=== PATIENT | female | born 1945 | race Caucasian/White ===

== ENCOUNTER 2016-07-21 15:23 | Emergency (ER) | payer MEDICARE, BC, OTHER ==
[~2016-07-21] VITALS: Ht 167.6 cm; Wt 119.0 kg
[~2016-07-21 15:23] MED LIST: AMLO5TAB2 PO; DOXY100T PO; DRIS50002 PO; ISOS30TA3 PO; LEVEMIR SQ; LYRI75CA PO; MECL-62 PO; NOVOLOGP2 SQ; ONDA1TAB17 PO; OXYGENTANK NAS.CANULA; PHOS667C5 PO; ROSU40 PO; SODI650T PO; ULTR50TA5 PO
[2016-07-21 15:29] VITALS: BP 73/47; PULSE 86; RESP 18; TEMP 98.3; O2SAT 100
--- NOTE | 2016-07-21 15:42 | PD ---
HPI Chief Complaint: Syncope/Near-Syncope Time Seen by Provider: 15:33 Travel History International Travel<30 days: No Contact w/Intl Traveler<30days: No Traveled to known affect area: No History of Present Illness HPI This is a 70-year-old female who presents to the emergency department having had dialysis this morning and then subsequently instead of going home going to her urologist appointment. When she got there she was lightheaded and dizzy and felt very weak and new she had to come to the emergency department. She says she usually gets lightheaded and dizzy after dialysis but usually she goes home and lays flat and within about an hour she feels better. They have a tendency to over dialyze her she says and this feels exactly like that. She says now she started to feel better. She denies any chest pains, shortness of breath, fever or chills and prior to today she's felt well. PFSH Past Medical History Arthritis: Yes Asthma: Yes Cancer: Yes (multiple myeloma) Cardiac Catheterization: Yes (2-3 MONTHS AGO) Cardiovascular Problems: Yes Chemotherapy: Yes Congestive Heart Failure: No COPD: Yes Cerebrovascular Accident: Yes Coronary Artery Disease: Yes Diabetes: Yes Dialysis: Yes Diminished Hearing: No Endocrine: Yes GERD: Yes Genitourinary: Yes (dialysis MWF) Hepatitis: No Hiatal Hernia: No Hypertension: Yes Immune Disorder: No Kidney Stones: Yes Musculoskeletal: Yes Neurologic: No Psychiatric: No Reproductive: No Respiratory: Yes Immunizations Current: No Migraines: No Radiation Therapy: No Renal Failure: Yes Seizures: No Sickle Cell Disease: No Sleep Apnea: Yes Thyroid Disease: Yes Ulcer: No ?: Not Menopausal: Yes Past Surgical History Abdominal Surgery: Yes (galstones & appendix removed) AICD: No Appendectomy: Yes Arteriovenous Shunt: Yes (right upper arm) Body Medical Devices: PINS JESSICA HIPS, DIALYSIS CATHETER Cardiac Surgery: No Cholecystectomy: Yes Ear Surgery: No Endocrine Surgery: Yes (thyroid removed) Eye Surgery: No Genitourinary Surgery: Yes (hysterectomy) Gynecologic Surgery: No Hysterectomy: Yes Insulin Pump: No Joint Replacement: Yes (both hips) Neurologic Surgery: Yes (herniated disk) Oral Surgery: No Pacemaker: No Thoracic Surgery: No Other Surgery: Yes (AV FISTULA R ARM) Social History Alcohol Use: No Tobacco Use: No (6 mths) Substance Use: No Allergies-Medications (Allergen,Severity, Reaction): Coded Allergies: Iodine (Verified Allergy, Severe, 07/21/16) Iohexol (OMNIPAQUE) (Verified Allergy, Severe, TONGUE AND GENERALIZED SWELLING, 07/21/16) Penicillin (Verified Allergy, Severe, TONGUE AND GENERALIZED SWELLING, 05/27) Sulfa (Unverified Allergy, Severe, TONGUE AND GENERALIZED SWELLING, ) Iodinated Contrast Media (Verified Allergy, Unknown, 07/21/16) *MDRO Multi-Drug Resistant Organism (Verified Adverse Reaction, Unknown, MRSA, 06/29/16) MRSA PCR (nares) POSITIVE - 10/31/15 MRSA (blood & sputum) - 10/31/15 ESBL Klebsiella Pneumoniae (urine-06/26/16) Reported Meds & Prescriptions Reported Meds & Active Scripts Active Oxygen tank (Oxygen) 1 Ea Tank 2 Liter MARCELO.CANULA HS Oxygen Concentrator Portable Gaseous 2 L/min via Nasal Cannula Continuous For 99 months Reported Acetaminophen 325 Mg Tab 325 Mg PO Q4-6H PRN Phoslo (Calcium Acetate (Phosphate Binder)) 667 Mg Cap 1,334 Mg PO TID Meclizine (Meclizine HCl) 25 Mg Tab 25 Mg PO Q6HR PRN Ondansetron (Ondansetron HCl) 8 Mg Tab 8 Mg PO BID PRN Isosorbide Mononitrate ER (Isosorbide Mononitrate) 30 Mg Manoj 30 Mg PO DAILY Sodium Bicarbonate 650 Mg Tab 650 Mg PO TID Amlodipine (Amlodipine Besylate) 5 Mg Tab 5 Mg PO DAILY Ultram (Tramadol HCl) 50 Mg Tab 50 Mg PO QID PRN Lyrica (Pregabalin) 75 Mg Cap 75 Mg PO QID Crestor (Rosuvastatin Calcium) 40 Mg Tab 40 Mg PO HS Levemir Inj (Insulin Detemir) 1,000 unit/ 10 ML Vial 44 Units SQ Q12HR Do not mix with any other Insulin. Novolog Inj (Insulin Aspart) 1,000 Unit/10 Ml Vial 0 SQ TIDAC Sliding Scale as directed. Review of Systems Except as stated in HPI: all other systems reviewed are Neg Physical Exam Narrative GENERAL: Morbidly obese, no acute distress SKIN: Warm and dry. HEAD: Atraumatic. Normocephalic. EYES: Pupils equal and round. No injection or drainage. ENT: Moist mucous membranes NECK: Trachea midline. CARDIOVASCULAR: Regular rate and rhythm. No murmur appreciated. Fistula right upper extremity. RESPIRATORY: Clear to auscultation. Breath sounds equal bilaterally. GASTROINTESTINAL: Abdomen soft, non-tender, nondistended. MUSCULOSKELETAL: No obvious deformities. NEUROLOGICAL: Awake and alert. No obvious cranial nerve deficits. Moving all extremities. PSYCHIATRIC: Appropriate mood and affect; insight and judgment normal. Data Data Last Documented VS Vital Signs Date Time Temp Pulse Resp B/P Pulse Ox O2 Delivery O2 Flow Rate FiO2 07/21/16 16:03 87 16 84/44 100 Nasal Cannula 2 07/21/16 15:29 98.3 Orders Complete Blood Count With Diff (07/21/16 15:38) Comprehensive Metabolic Panel (07/21/16 15:38) Electrocardiogram (07/21/16 ) Lactic Acid (07/21/16 15:38) Sodium Chlorid 0.9% 500 Ml Inj (Ns 500 M (07/21/16 15:45) Sodium Chlorid 0.9% 500 Ml Inj (Ns 500 M (07/21/16 17:15) Labs Laboratory Tests Test 07/21/16 16:15 White Blood Count 9.7 TH/MM3 Red Blood Count 3.61 MIL/MM3 Hemoglobin 10.4 GM/DL Hematocrit 31.2 % Mean Corpuscular Volume 86.2 FL Mean Corpuscular Hemoglobin 28.8 PG Mean Corpuscular Hemoglobin 33.4 % Concent Red Cell Distribution Width 15.1 % Platelet Count 255 TH/MM3 Mean Platelet Volume 8.6 FL Neutrophils (%) (Auto) 76.1 % Lymphocytes (%) (Auto) 15.9 % Monocytes (%) (Auto) 6.0 % Eosinophils (%) (Auto) 1.5 % Basophils (%) (Auto) 0.5 % Neutrophils # (Auto) 7.5 TH/MM3 Lymphocytes # (Auto) 1.5 TH/MM3 Monocytes # (Auto) 0.6 TH/MM3 Eosinophils # (Auto) 0.1 TH/MM3 Basophils # (Auto) 0.0 TH/MM3 CBC Comment DIFF FINAL Differential Comment Sodium Level 137 MEQ/L Potassium Level 4.2 MEQ/L Chloride Level 98 MEQ/L Carbon Dioxide Level 26.9 MEQ/L Anion Gap 12 MEQ/L Blood Urea Nitrogen 8 MG/DL Creatinine 2.00 MG/DL Estimat Glomerular Filtration 24 ML/MIN Rate Random Glucose 202 MG/DL Lactic Acid Level 2.8 mmol/L Calcium Level 8.6 MG/DL Total Bilirubin 0.3 MG/DL Aspartate Amino Transf 29 U/L (AST/SGOT) Alanine Aminotransferase 27 U/L (ALT/SGPT) Alkaline Phosphatase 102 U/L Total Protein 7.3 GM/DL Albumin 2.8 GM/DL MDM Medical Decision Making Medical Screen Exam Complete: Yes Emergency Medical Condition: Yes Interpretation(s) Afebrile, hypotensive, no tachycardia No leukocytosis Anemia consistent with prior GFR is 24 significantly improved from prior Lactic acid is 2.8 Differential Diagnosis Hypovolemia, sepsis, pericardial effusion Narrative Course This is a 70-year-old female who presents the emergency department with hypotension following dialysis. She says this is how she feels all the time after dialysis lately. She denies any fevers or chills and denies any other Acute complaints. She was given a liter of IV hydration and feels much better. Her blood pressure is now 100 systolic. Her lactic acid is slightly elevated but I think this reflects dehydration and she is afebrile and has no leukocytosis. She has no other signs of sepsis. Her GFR significantly improved since her last labs in our system. It's likely that she's getting over dialyzed and this is was causing her symptoms. I asked her to make an appointment with Dr. Vasquez. I think the patient can be discharged home. Diagnosis Primary Impression: Hypovolemia Patient Instructions: General Instructions Additional Instructions: If you develop severe chest pain, shortness of breath, sweating, lightheadedness , dizziness or difficulty breathing return to the emergency department immediately. Followup with your primary care physician in 2-3 days if your symptoms are not resolved. Med/Other Pt SpecificInfo: No Change to Meds Disposition: 01 DISCHARGE HOME Condition: Stable Ana Gerardo MD Jul 21, 2016 15:42
[2016-07-21] MEDS ORDERED: SODIUM CHLORID 0.9% 500 ML INJ 500 ML IV ONE ×2 (15:45→17:15)
[2016-07-21] MEDS ORDERED: ACET325T PO (15:46)
[2016-07-21 16:03] VITALS: BP 84/44; PULSE 87; RESP 16; O2SAT 100
[2016-07-21 16:29] LABS: AUTOMATED NEUTROPHIL # 7.5 TH/MM3 (1.8-7.7); BASOPHIL % 0.5 % (0.0-2.0); EOSINOPHIL # 0.1 TH/MM3 (0-0.4); EOSINOPHIL % 1.5 % (0.0-4.0); HEMATOCRIT 31.2 % (35.0-46.0); HEMO FLAGS DIFF FINAL; LYMPH % 15.9 % (9.0-44.0); LYMPHOCYTE # 1.5 TH/MM3 (1.0-4.8); MEAN CELL VOLUME 86.2 FL (80.0-100.0); MEAN CORPUSCULAR HEMOGLOBIN 28.8 PG (27.0-34.0); MEAN CORPUSCULAR HGB CONC 33.4 % (32.0-36.0); NEUT % 76.1 % (16.0-70.0); PLATELET COUNT 255 TH/MM3 (150-450); RED BLOOD COUNT 3.61 MIL/MM3 (4.00-5.30); RED CELL DISTRIBUTION WIDTH 15.1 % (11.6-17.2); WHITE BLOOD COUNT 9.7 TH/MM3 (4.0-11.0)
[2016-07-21 16:35] LABS: CHLORIDE 98 MEQ/L (98-107); POTASSIUM 4.2 MEQ/L (3.5-5.1); SODIUM (NA) 137 MEQ/L (136-145)
[2016-07-21 16:39] LABS: ANION GAP 12 MEQ/L (5-15); BICARBONATE 26.9 MEQ/L (21.0-32.0); BLOOD UREA NITROGEN 8 MG/DL (7-18)
[2016-07-21 16:42] LABS: ALT (GPT) 27 U/L (10-53); AST (GOT) 29 U/L (15-37); GLOMERULAR FILTRATION RATE 24 ML/MIN (>89)
[2016-07-21 16:43] LABS: TOTAL BILIRUBIN ADULT 0.3 MG/DL (0.2-1.0)
[2016-07-21 16:45] LABS: ALKALINE PHOSPHATASE 102 U/L (45-117)
[2016-07-21 17:30] VITALS: BP 119/51; PULSE 87; RESP 16; O2SAT 100
--- NOTE | 2016-07-22 10:48 | EKG ---
Date Performed: 07/21/2016 Time Performed: 15:38:38 PTAGE: 70 years EKG: Sinus rhythm Normal ECG PREVIOUS TRACING : 03/08/2016 19.14 Compared to prior tracing no significant change DOCTOR: Carson Louis Interpretating Date/Time 07/22/2016 10:47:04
== END 2016-07-21 18:26 | disposition home or self-care (01) ==
LOC: PHED 15:23
DX: E86.1 Hypovolemia (principal)
CPT/HCPCS: 80053; 83605; 85025; 93005; 96360; 96361; 99285; J7040

== ENCOUNTER 2016-12-22 13:18 | Observation (INO) | payer MEDICARE, BC ==
[~2016-12-22] VITALS: Ht 167.6 cm; Wt 120.0 kg
[~2016-12-22 13:18] MED LIST changes: +ACET325T PO; -DOXY100T PO; -DRIS50002 PO
[2016-12-22] MEDS ORDERED: SODIUM CHLORIDE 0.9% FLUSH 10 ML FLUSH IVF PRN (13:45)
--- NOTE | 2016-12-22 13:54 | PD ---
HPI Chief Complaint: Chest Pain Time Seen by Provider: 13:23 Travel History International Travel<30 days: No Contact w/Intl Traveler<30days: No Traveled to known affect area: No History of Present Illness HPI Patient 71-year-old female history of end-stage renal disease secondary to diabetes on Tuesday dialysis possesses the emergency department chest pain radiating to her neck company was some mild shortness of breath. Patient has had similar presentations in the past diagnosed with atypical chest pain sent home, she had a cardiac catheterization and 2014 which showed diffuse disease of the LAD with worst and on a lesion at 20%, she states that she was about an hour and a half in the dialysis today when she had chest pain and then the dialysis was stopped. Patient states happened to her one time in the past. She does not currently have a range operator. States his symptoms are starting to alleviate now. EMS reports they did give her nitroglycerin in route but this relieved her chest pain but also dropped her pressure down to 80 systolic by time she arrived here her pressure returned to normal. She denies any focalized weakness denies any extremity pain abdominal pain nausea vomiting. PFSH Past Medical History Arthritis: Yes Asthma: Yes Cancer: Yes (multiple myeloma) Cardiac Catheterization: Yes Cardiovascular Problems: Yes (HTN ) Chemotherapy: Yes (MULTIPLE MYLEOMA ) Chest Pain: Yes (THIS VISIT) Congestive Heart Failure: No COPD: Yes Cerebrovascular Accident: Yes Coronary Artery Disease: Yes Diabetes: Yes Patient Takes Glucophage: No Dialysis: Yes Diminished Hearing: No Endocrine: Yes GERD: Yes Genitourinary: Yes (dialysis MWF) Hepatitis: No Hiatal Hernia: No Hypertension: Yes Immune Disorder: No Kidney Stones: Yes Medical other: Yes (BILATERAL LEG EDEMA) Musculoskeletal: Yes Neurologic: No Psychiatric: No Reproductive: No Respiratory: Yes (COPD) Immunizations Current: No Migraines: No Radiation Therapy: No Renal Failure: Yes Seizures: No Sickle Cell Disease: No Sleep Apnea: Yes Thyroid Disease: Yes Ulcer: No Tetanus Vaccination: Unknown ?: Not Menopausal: Yes Past Surgical History Abdominal Surgery: Yes (galstones & appendix removed) AICD: No Appendectomy: Yes Arteriovenous Shunt: Yes (right upper arm) Body Medical Devices: PINS JESSICA HIPS, DIALYSIS CATHETER Cardiac Surgery: No Cholecystectomy: Yes Ear Surgery: No Endocrine Surgery: Yes (thyroid removed) Eye Surgery: No Genitourinary Surgery: Yes (hysterectomy) Gynecologic Surgery: No Hysterectomy: Yes Insulin Pump: No Joint Replacement: Yes (both hips) Neurologic Surgery: Yes (herniated disk) Oral Surgery: No Pacemaker: No Thoracic Surgery: No Other Surgery: Yes (AV FISTULA R ARM) Social History Alcohol Use: No Tobacco Use: No (QUIT 8 MONTHS (STATED 07/21/16)) Substance Use: No Allergies-Medications (Allergen,Severity, Reaction): Coded Allergies: Iodine (Verified Allergy, Severe, 07/21/16) Iohexol (OMNIPAQUE) (Verified Allergy, Severe, TONGUE AND GENERALIZED SWELLING, 07/21/16) Penicillin (Verified Allergy, Severe, TONGUE AND GENERALIZED SWELLING, 05/27) Sulfa (Unverified Allergy, Severe, TONGUE AND GENERALIZED SWELLING, ) Iodinated Contrast Media (Verified Allergy, Unknown, 07/21/16) *MDRO Multi-Drug Resistant Organism (Verified Adverse Reaction, Unknown, MRSA, 06/29/16) MRSA PCR (nares) POSITIVE - 10/31/15 MRSA (blood & sputum) - 10/31/15 ESBL Klebsiella Pneumoniae (urine-06/26/16) Reported Meds & Prescriptions Reported Meds & Active Scripts Active Oxygen tank (Oxygen) 1 Ea Tank 2 Liter MARCELO.CANULA HS Oxygen Concentrator Portable Gaseous 2 L/min via Nasal Cannula Continuous For 99 months Reported Acetaminophen 325 Mg Tab 325 Mg PO Q4-6H PRN Phoslo (Calcium Acetate (Phosphate Binder)) 667 Mg Cap 1,334 Mg PO TID Meclizine (Meclizine HCl) 25 Mg Tab 25 Mg PO Q6HR PRN Ondansetron (Ondansetron HCl) 8 Mg Tab 8 Mg PO BID PRN Isosorbide Mononitrate ER (Isosorbide Mononitrate) 30 Mg Manoj 30 Mg PO DAILY Sodium Bicarbonate 650 Mg Tab 650 Mg PO TID Amlodipine (Amlodipine Besylate) 5 Mg Tab 5 Mg PO DAILY Ultram (Tramadol HCl) 50 Mg Tab 50 Mg PO QID PRN Lyrica (Pregabalin) 75 Mg Cap 75 Mg PO QID Crestor (Rosuvastatin Calcium) 40 Mg Tab 40 Mg PO HS Levemir Inj (Insulin Detemir) 1,000 unit/ 10 ML Vial 44 Units SQ Q12HR Do not mix with any other Insulin. Novolog Inj (Insulin Aspart) 1,000 Unit/10 Ml Vial 0 SQ TIDAC Sliding Scale as directed. Review of Systems Except as stated in HPI: all other systems reviewed are Neg Physical Exam Narrative GENERAL: Well-developed morbidly obese no apparent distress. SKIN: Focused skin assessment warm/dry. HEAD: Atraumatic. Normocephalic. EYES: Pupils equal and round. No scleral icterus. No injection or drainage. ENT: No nasal bleeding or discharge. Mucous membranes pink and moist. NECK: Trachea midline. No JVD. CARDIOVASCULAR: Left AV fistula with palpable thrill, 2+ bilateral equal pulses in all 4 extremity's. Regular rate and rhythm. No murmur appreciated. RESPIRATORY: No accessory muscle use. Clear to auscultation. Breath sounds equal bilaterally. GASTROINTESTINAL: Abdomen soft, non-tender, nondistended. Hepatic and splenic margins not palpable. MUSCULOSKELETAL: No obvious deformities. No clubbing. No cyanosis. No edema. NEUROLOGICAL: Awake and alert. No obvious cranial nerve deficits. Motor grossly within normal limits. Normal speech. PSYCHIATRIC: Appropriate mood and affect; insight and judgment normal. Data Data Last Documented VS Vital Signs Date Time Temp Pulse Resp B/P Pulse Ox O2 Delivery O2 Flow Rate FiO2 12/22/16 14:02 97.8 95 20 123/58 100 Nasal Cannula 3 Orders Electrocardiogram (12/22/16 13:35) Ckmb (Isoenzyme) Profile (12/22/16 13:35) Complete Blood Count With Diff (12/22/16 13:35) Comprehensive Metabolic Panel (12/22/16 13:35) Magnesium (Mg) (12/22/16 13:35) Prothrombin Time / Inr (Pt) (12/22/16 13:35) Act Partial Throm Time (Ptt) (12/22/16 13:35) Troponin I (12/22/16 13:35) Chest, Single Ap (12/22/16 13:35) Ecg Monitoring (12/22/16 13:35) Iv Access Insert/Monitor (12/22/16 13:35) Oximetry (12/22/16 13:35) Oxygen Administration (12/22/16 13:35) Sodium Chloride 0.9% Flush (Ns Flush) (12/22/16 13:45) Urinalysis - C+S If Indicated (12/22/16 14:50) Diet 1800 Ada Cons Carb (12/22/16 Dinner) Diet Heart Healthy (12/22/16 Dinner) Vital Signs (Adult) STELLA.Q4H (12/22/16 15:22) Blood Glucose Goal (Criteria) (12/22/16 15:22) Hypoglycemia 70 Mg/Dl Or < (12/22/16 15:22) Notify Dr: Other (12/22/16 15:22) Dextrose 50% In Bhargav (Vial) Inj (D50w (Vi (12/22/16 15:30) Glucagon Inj (Glucagon Inj) (12/22/16 15:30) Insulin Aspart Supplemtl Scale (Novolog (12/22/16 16:00) Troponin I (12/22/16 20:00) Troponin I (12/23/16 02:00) Consult Nephrology (12/22/16 ) Admit Order (Ed Use Only) (12/22/16 ) Labs Laboratory Tests Test 12/22/16 13:50 White Blood Count 13.8 TH/MM3 Red Blood Count 3.54 MIL/MM3 Hemoglobin 10.2 GM/DL Hematocrit 30.8 % Mean Corpuscular Volume 87.1 FL Mean Corpuscular Hemoglobin 28.8 PG Mean Corpuscular Hemoglobin 33.1 % Concent Red Cell Distribution Width 14.7 % Platelet Count 292 TH/MM3 Mean Platelet Volume 9.5 FL Neutrophils (%) (Auto) 81.3 % Lymphocytes (%) (Auto) 14.4 % Monocytes (%) (Auto) 3.9 % Eosinophils (%) (Auto) 0.1 % Basophils (%) (Auto) 0.3 % Neutrophils # (Auto) 11.2 TH/MM3 Lymphocytes # (Auto) 2.0 TH/MM3 Monocytes # (Auto) 0.5 TH/MM3 Eosinophils # (Auto) 0.0 TH/MM3 Basophils # (Auto) 0.0 TH/MM3 CBC Comment DIFF FINAL Differential Comment Prothrombin Time 10.6 SEC Prothromb Time International 1.0 RATIO Ratio Activated Partial 27.5 SEC Thromboplast Time Sodium Level 139 MEQ/L Potassium Level 4.2 MEQ/L Chloride Level 102 MEQ/L Carbon Dioxide Level 28.1 MEQ/L Anion Gap 9 MEQ/L Blood Urea Nitrogen 24 MG/DL Creatinine 4.22 MG/DL Estimat Glomerular Filtration 10 ML/MIN Rate Random Glucose 194 MG/DL Calcium Level 8.9 MG/DL Magnesium Level 2.2 MG/DL Total Bilirubin 0.2 MG/DL Aspartate Amino Transf 22 U/L (AST/SGOT) Alanine Aminotransferase 33 U/L (ALT/SGPT) Alkaline Phosphatase 110 U/L Total Creatine Kinase 51 U/L Troponin I LESS THAN 0.02 NG/ML Total Protein 7.7 GM/DL Albumin 3.1 GM/DL MDM Medical Decision Making Medical Screen Exam Complete: Yes Emergency Medical Condition: Yes Interpretation(s) EKG shows normal sinus rhythm, normal axis and normal R-wave progression. No concerning ST T changes. Intervals within normal limits. This is normal EKG. Differential Diagnosis ACS, AMI, PE seems unlikely, pneumonia, electrolyte abnormality. Narrative Course 71-year-old female roomed in the emergency department, chest pain-free on arrival, initial EKG and troponin are negative, chest x-ray negative. Given that she is a dialysis patient and is reasonable to admit for observation for her chest pain and further workup. The patient was discussed with Dr. Lewis who is agreeable. Diagnosis Primary Impression: Chest pain Qualified Code: R07.9 - Chest pain, unspecified type Admitting Information Admitting Physician Requests: Observation Condition: Stable Dimas Millan MD Dec 22, 2016 13:53
[2016-12-22 14:02] VITALS: BP 123/58; PULSE 95; RESP 20; TEMP 97.8; O2SAT 100
[2016-12-22 14:02] LABS: AUTOMATED NEUTROPHIL # 11.2 TH/MM3 (1.8-7.7); BASOPHIL % 0.3 % (0.0-2.0); EOSINOPHIL % 0.1 % (0.0-4.0); HEMATOCRIT 30.8 % (35.0-46.0); HEMO FLAGS DIFF FINAL; LYMPH % 14.4 % (9.0-44.0); MEAN CELL VOLUME 87.1 FL (80.0-100.0); MEAN CORPUSCULAR HEMOGLOBIN 28.8 PG (27.0-34.0); MEAN CORPUSCULAR HGB CONC 33.1 % (32.0-36.0); MONO % 3.9 % (0.0-8.0); NEUT % 81.3 % (16.0-70.0); PLATELET COUNT 292 TH/MM3 (150-450); RED BLOOD COUNT 3.54 MIL/MM3 (4.00-5.30); RED CELL DISTRIBUTION WIDTH 14.7 % (11.6-17.2); WHITE BLOOD COUNT 13.8 TH/MM3 (4.0-11.0)
[2016-12-22 14:14] LABS: APTT (PATIENT) 27.5 SEC (24.3-30.1); PROTHROMBIN TIME - PATIENT 10.6 SEC (9.8-11.6)
[2016-12-22 14:25] LABS: ALT (GPT) 33 U/L (10-53); ANION GAP 9 MEQ/L (5-15); AST (GOT) 22 U/L (15-37); BICARBONATE 28.1 MEQ/L (21.0-32.0); BLOOD UREA NITROGEN 24 MG/DL (7-18); CHLORIDE 102 MEQ/L (98-107); GLOMERULAR FILTRATION RATE 10 ML/MIN (>89); MAGNESIUM 2.2 MG/DL (1.5-2.5); POTASSIUM 4.2 MEQ/L (3.5-5.1); SODIUM (NA) 139 MEQ/L (136-145)
[2016-12-22 14:29] LABS: ALKALINE PHOSPHATASE 110 U/L (45-117); TOTAL BILIRUBIN ADULT 0.2 MG/DL (0.2-1.0)
[2016-12-22 14:30] LABS: CREATINE KINASE 51 U/L (26-192)
--- NOTE | 2016-12-22 14:31 | RADRPT ---
EXAM DATE/TIME: 12/22/2016 13:46 [facility] COMPARISON: CHEST SINGLE AP, March 08, 2016, 17:58. INDICATIONS : Chest pain today. MEDICAL HISTORY : Hypertension. Chronic obstructive pulmonary disease. Diabetes mellitus type II. CVA. Coronary art veda disease. Asthma. Renal disease. Renal failure. Multiple myeloma. SURGICAL HISTORY : Appendectomy. Cholecystectomy. Cardiac cath. ENCOUNTER: Initial ACUITY: 1 day PAIN SCORE: 10/10 LOCATION: Bilateral chest FINDINGS: Redemonstration of elevation the right hemidiaphragm similar to previous exams. No significant new pl eural or parenchymal opacities. Cardiomediastinal contours are stable. The remainder of the exam is u nchanged. CONCLUSION: 1. No acute abnormality or significant interval change. Yvan Dorman MD on December 22, 2016 at 14:27 Board Certified Radiologist. This report was verified electronically.
[2016-12-22] MEDS ORDERED: GLUCAGON 1 MG/ML VIAL OTHER PRN (15:30)
[2016-12-22] MEDS ORDERED: DEXTROSE 50% IN WATER 50 ML VIAL(D50) IV PRN (15:30)
[2016-12-22 16:09] VITALS: BP 119/55; PULSE 102; RESP 20; O2SAT 95
--- NOTE | 2016-12-22 16:30 | PD.CONS ---
HPI Consult Requested By Reason for Consult End-stage renal disease Primary Care Physician Jas Freitas MD History of Present Illness 71-year-old female with a history of end-stage renal disease, diabetes mellitus , recurrent UTIs as well as COPD presenting with a history of chest pain during dialysis. She also indicated she has been having blood in the stool and urine for the last several days. She does have a history of previous UTIs related to organisms multidrug resistant. She is scheduled to see urology by history. When seen in the emergency room was chest pain-free. Review of Systems Constitutional: COMPLAINS OF: Fatigue, DENIES: Diaphoretic episodes, Fever, Weight gain, Weight loss, Chills, Dizziness, Change in appetite, Night Sweats Cardiovascular: COMPLAINS OF: Chest pain, DENIES: Palpitations, Syncope, Dyspnea on Exertion, PND, Lower Extremity Edema, Orthopnea, Claudication Gastrointestinal: COMPLAINS OF: Bloody stools, DENIES: Abdominal pain, Black stools, Constipation, Diarrhea, Nausea, Vomiting, Difficulty Swallowing, Anorexia Genitourinary: COMPLAINS OF: Hematuria, DENIES: Abnormal vaginal bleeding, Dysmenorrhea, Dyspareunia, Sexual dysfunction, Urinary frequency, Urinary incontinence, Urgency, Dysuria, Nocturia, Vaginal discharge Musculoskeletal: COMPLAINS OF: Joint pain, DENIES: Muscle aches, Stiffness, Joint Swelling, Back pain, Neck pain Past Family Social History Allergies: Coded Allergies: Iodine (Verified Allergy, Severe, 07/21/16) Iohexol (OMNIPAQUE) (Verified Allergy, Severe, TONGUE AND GENERALIZED SWELLING, 07/21/16) Penicillin (Verified Allergy, Severe, TONGUE AND GENERALIZED SWELLING, 05/27) Sulfa (Unverified Allergy, Severe, TONGUE AND GENERALIZED SWELLING, ) Iodinated Contrast Media (Verified Allergy, Unknown, 07/21/16) *MDRO Multi-Drug Resistant Organism (Verified Adverse Reaction, Unknown, MRSA, 06/29/16) MRSA PCR (nares) POSITIVE - 10/31/15 MRSA (blood & sputum) - 10/31/15 ESBL Klebsiella Pneumoniae (urine-06/26/16) Past Medical History 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 Degenerative joint disease. Asthma. Multiple myeloma? COPD. Coronary disease. Diabetes mellitus. Gastroesophageal reflux disease. Hypertension. Sleep apnea. Anemia renal disease. Obesity. Past Surgical History Appendectomy. Cholecystectomy. Placement of a right upper extremity brachiocephalic AV dialysis fistula. Reported Medications Reported Meds & Active Scripts Active Oxygen tank (Oxygen) 1 Ea Tank 2 Liter MARCELO.CANULA HS Oxygen Concentrator Portable Gaseous 2 L/min via Nasal Cannula Continuous For 99 months Reported Acetaminophen 325 Mg Tab 325 Mg PO Q4-6H PRN Phoslo (Calcium Acetate (Phosphate Binder)) 667 Mg Cap 1,334 Mg PO TID Meclizine (Meclizine HCl) 25 Mg Tab 25 Mg PO Q6HR PRN Ondansetron (Ondansetron HCl) 8 Mg Tab 8 Mg PO BID PRN Isosorbide Mononitrate ER (Isosorbide Mononitrate) 30 Mg Manoj 30 Mg PO DAILY Sodium Bicarbonate 650 Mg Tab 650 Mg PO TID Amlodipine (Amlodipine Besylate) 5 Mg Tab 5 Mg PO DAILY Ultram (Tramadol HCl) 50 Mg Tab 50 Mg PO QID PRN Lyrica (Pregabalin) 75 Mg Cap 75 Mg PO QID Crestor (Rosuvastatin Calcium) 40 Mg Tab 40 Mg PO HS Levemir Inj (Insulin Detemir) 1,000 unit/ 10 ML Vial 44 Units SQ Q12HR Do not mix with any other Insulin. Novolog Inj (Insulin Aspart) 1,000 Unit/10 Ml Vial 0 SQ TIDAC Sliding Scale as directed. Active Ordered Medications Current Medications Sodium Chloride (NS Flush) 2 ml UNSCH PRN IVF FLUSH AFTER USING IV ACCESS; Start 12/22/16 at 13:45 Dextrose (D50w (Vial) Inj) 50 ml UNSCH PRN IV HYPOGLYCEMIA-SEE COMMENTS; Start 12/22/16 at 15:30 Glucagon (Glucagon Inj) 1 mg UNSCH PRN OTHER HYPOGLYCEMIA-SEE COMMENTS; Start 12/22/16 at 15:30 Insulin Aspart (NovoLOG SUPPLEMENTAL SCALE) 1 ACHS SLIDING SCALE SQ ; Start at 16:00 Social History No current history of alcohol tobacco use. Physical Exam Vital Signs Vital Signs Date Time Temp Pulse Resp B/P Pulse Ox O2 Delivery O2 Flow Rate FiO2 12/22/16 16:09 102 20 119/55 95 Nasal Cannula 3 12/22/16 14:02 97.8 95 20 123/58 100 Nasal Cannula 3 12/22/16 13:48 93 Nasal Cannula 3 12/22/16 13:36 20 96 Nasal Cannula 3 Physical Exam GENERAL: Obese female not in respiratory distress. SKIN: Warm and dry. HEAD: Normocephalic. EYES: No scleral icterus. No injection or drainage. NECK: Supple, trachea midline. No JVD or lymphadenopathy. CARDIOVASCULAR: Regular rate and rhythm without murmurs, gallops, or rubs. RESPIRATORY: Breath sounds equal bilaterally. No accessory muscle use. GASTROINTESTINAL: Abdomen soft, non-tender, nondistended. MUSCULOSKELETAL: No cyanosis, or edema. BACK: Nontender without obvious deformity. No CVA tenderness. Laboratory Laboratory Tests Test 12/22/16 13:50 White Blood Count 13.8 Red Blood Count 3.54 Hemoglobin 10.2 Hematocrit 30.8 Mean Corpuscular Volume 87.1 Mean Corpuscular Hemoglobin 28.8 Mean Corpuscular Hemoglobin 33.1 Concent Red Cell Distribution Width 14.7 Platelet Count 292 Mean Platelet Volume 9.5 Neutrophils (%) (Auto) 81.3 Lymphocytes (%) (Auto) 14.4 Monocytes (%) (Auto) 3.9 Eosinophils (%) (Auto) 0.1 Basophils (%) (Auto) 0.3 Neutrophils # (Auto) 11.2 Lymphocytes # (Auto) 2.0 Monocytes # (Auto) 0.5 Eosinophils # (Auto) 0.0 Basophils # (Auto) 0.0 CBC Comment DIFF FINAL Differential Comment Prothrombin Time 10.6 Prothromb Time International 1.0 Ratio Activated Partial 27.5 Thromboplast Time Sodium Level 139 Potassium Level 4.2 Chloride Level 102 Carbon Dioxide Level 28.1 Anion Gap 9 Blood Urea Nitrogen 24 Creatinine 4.22 Estimat Glomerular Filtration 10 Rate Random Glucose 194 Calcium Level 8.9 Magnesium Level 2.2 Total Bilirubin 0.2 Aspartate Amino Transf 22 (AST/SGOT) Alanine Aminotransferase 33 (ALT/SGPT) Alkaline Phosphatase 110 Total Creatine Kinase 51 Troponin I LESS THAN 0.02 Total Protein 7.7 Albumin 3.1 Result Diagram: 12/22/16 1350 12/22/16 1350 Imaging Last 48 hours Impressions Chest X-Ray 12/22/16 1335 Signed Impressions: Service Date/Time: Thursday, December 22, 2016 13:46 - CONCLUSION: 1. No acute abnormality or significant interval change. Yvan Dorman MD Assessment and Plan Problem List: (1) ESRD (end stage renal disease) on dialysis Plan: Patient did not complete her hemodialysis today however volume status appears to be stable. We'll recheck labs in a.m. and proceed with dialysis if indicated. Avoid gadolinium. (2) Hyperparathyroidism, secondary renal (3) Chest pain Plan: Evaluation per primary care physician. (4) Rectal bleeding Plan: Check stool for occult blood. (5) Hematuria Plan: Patient has had recurrent UTIs. Will check urine culture microscopy. Consider urological consultation. Manny Vasquez MD Dec 22, 2016 16:30
[2016-12-22] MEDS ORDERED: MECLIZINE HCL 25 MG TAB PO PRN (16:45)
--- NOTE | 2016-12-22 16:50 | HHI.HP ---
[facility] Service [facility] Primary Care Physician Jas Freitas MD Admission Diagnosis Chest Pain Diagnoses: (1) Chest pain Diagnosis: Principal Chief Complaint: chest pain Travel History International Travel<30 Days: No Contact w/Intl Traveler <30 Da: No Traveled to Known Affected Are: No History of Present Illness patient is a 71 y/o female with history of ESRD-on HD, COPD, diabetes and hypertension who presented to ER with chest pain. she says that she was in the middle of her dialysis today when she started to have chest pain. pain was midsternal with some radiation to the jaws and neck. pain was associated with some dizziness and nausea. she says that she was given nitro on her way to ER which helped her with the pain to some extent.she says that she's being followed up by . she cardiac catheterization in 2014 which showed nonobstructive coronary artery disease. she says that she couldn't finish her dialysis due to chest pain. Review of Systems Constitutional: COMPLAINS OF: Dizziness, DENIES: Fever, Weight loss, Chills, Night Sweats Eyes: DENIES: Blurred vision, Diplopia, Vision loss, Double Vision Ears, nose, mouth, throat: DENIES: Tinnitus, Vertigo, Throat pain, Epistaxis Respiratory: DENIES: Apneas, Cough, Snoring, Wheezing, Hemoptysis, Sputum production, Shortness of breath Cardiovascular: COMPLAINS OF: Chest pain, DENIES: Palpitations, Syncope, Dyspnea on Exertion, PND, Lower Extremity Edema, Orthopnea, Claudication Gastrointestinal: COMPLAINS OF: Nausea, DENIES: Abdominal pain, Black stools, Bloody stools, Constipation, Diarrhea, Vomiting, Difficulty Swallowing, Anorexia Genitourinary: DENIES: Urinary frequency, Urgency, Hematuria, Dysuria Musculoskeletal: DENIES: Joint pain, Muscle aches, Stiffness, Joint Swelling Integumentary: DENIES: Rash Neurologic: DENIES: Abnormal gait, Headache, Localized weakness, Paresthesias, Seizures, Speech Problems, Tremor, Poor Balance Psychiatric: DENIES: Anxiety, Confusion, Mood changes, Depression, Hallucinations, Agitation, Suicidal Ideation, Homicidal Ideation, Delusions Past Family Social History Past Medical History ESRD diabetes mellitus hypertension COPD Past Surgical History AV graft placement Reported Medications rosuvastatin isosorbide amlodipine phos-lo levemir Allergies: Coded Allergies: Iodine (Verified Allergy, Severe, 07/21/16) Iohexol (OMNIPAQUE) (Verified Allergy, Severe, TONGUE AND GENERALIZED SWELLING, 07/21/16) Penicillin (Verified Allergy, Severe, TONGUE AND GENERALIZED SWELLING, 05/27) Sulfa (Unverified Allergy, Severe, TONGUE AND GENERALIZED SWELLING, ) Iodinated Contrast Media (Verified Allergy, Unknown, 07/21/16) *MDRO Multi-Drug Resistant Organism (Verified Adverse Reaction, Unknown, MRSA, 06/29/16) MRSA PCR (nares) POSITIVE - 10/31/15 MRSA (blood & sputum) - 10/31/15 ESBL Klebsiella Pneumoniae (urine-06/26/16) Active Ordered Medications Current Medications Sodium Chloride (NS Flush) 2 ml UNSCH PRN IVF FLUSH AFTER USING IV ACCESS; Start 12/22/16 at 13:45 Dextrose (D50w (Vial) Inj) 50 ml UNSCH PRN IV HYPOGLYCEMIA-SEE COMMENTS; Start 12/22/16 at 15:30 Glucagon (Glucagon Inj) 1 mg UNSCH PRN OTHER HYPOGLYCEMIA-SEE COMMENTS; Start 12/22/16 at 15:30 Insulin Aspart (NovoLOG SUPPLEMENTAL SCALE) 1 ACHS SLIDING SCALE SQ ; Start at 16:00 Social History quit smoking. Physical Exam Vital Signs Vital Signs Date Time Temp Pulse Resp B/P Pulse Ox O2 Delivery O2 Flow Rate FiO2 12/22/16 16:09 102 20 119/55 95 Nasal Cannula 3 12/22/16 14:02 97.8 95 20 123/58 100 Nasal Cannula 3 12/22/16 13:48 93 Nasal Cannula 3 12/22/16 13:36 20 96 Nasal Cannula 3 Physical Exam GENERAL: This is a well-nourished, well-developed patient, in no apparent distress. SKIN: No rashes, ecchymoses or lesions. Cool and dry. HEAD: Atraumatic. Normocephalic. No temporal or scalp tenderness. EYES: Pupils equal round and reactive. Extraocular motions intact. No scleral icterus. No injection or drainage. ENT: Nose without bleeding, purulent drainage or septal hematoma. Throat without erythema, tonsillar hypertrophy or exudate. Uvula midline. Airway patent. NECK: Trachea midline. No JVD or lymphadenopathy. Supple, nontender, no meningeal signs. CARDIOVASCULAR: Regular rate and rhythm without murmurs, gallops, or rubs. RESPIRATORY: Clear to auscultation. Breath sounds equal bilaterally. No wheezes , rales, or rhonchi. GASTROINTESTINAL: Abdomen soft, non-tender, nondistended. No hepato-splenomegaly , or palpable masses. No guarding. MUSCULOSKELETAL: Extremities without clubbing, cyanosis, or edema. No joint tenderness, effusion, or edema noted. No calf tenderness. Negative Homans sign bilaterally. NEUROLOGICAL: Awake and alert. Cranial nerves II through XII intact. Motor and sensory grossly within normal limits. Five out of 5 muscle strength in all muscle groups. Normal speech. Laboratory Laboratory Tests Test 12/22/16 13:50 White Blood Count 13.8 Red Blood Count 3.54 Hemoglobin 10.2 Hematocrit 30.8 Mean Corpuscular Volume 87.1 Mean Corpuscular Hemoglobin 28.8 Mean Corpuscular Hemoglobin 33.1 Concent Red Cell Distribution Width 14.7 Platelet Count 292 Mean Platelet Volume 9.5 Neutrophils (%) (Auto) 81.3 Lymphocytes (%) (Auto) 14.4 Monocytes (%) (Auto) 3.9 Eosinophils (%) (Auto) 0.1 Basophils (%) (Auto) 0.3 Neutrophils # (Auto) 11.2 Lymphocytes # (Auto) 2.0 Monocytes # (Auto) 0.5 Eosinophils # (Auto) 0.0 Basophils # (Auto) 0.0 CBC Comment DIFF FINAL Differential Comment Prothrombin Time 10.6 Prothromb Time International 1.0 Ratio Activated Partial 27.5 Thromboplast Time Sodium Level 139 Potassium Level 4.2 Chloride Level 102 Carbon Dioxide Level 28.1 Anion Gap 9 Blood Urea Nitrogen 24 Creatinine 4.22 Estimat Glomerular Filtration 10 Rate Random Glucose 194 Calcium Level 8.9 Magnesium Level 2.2 Total Bilirubin 0.2 Aspartate Amino Transf 22 (AST/SGOT) Alanine Aminotransferase 33 (ALT/SGPT) Alkaline Phosphatase 110 Total Creatine Kinase 51 Troponin I LESS THAN 0.02 Total Protein 7.7 Albumin 3.1 Result Diagram: 12/22/16 1350 12/22/16 1350 Imaging Last Impressions Chest X-Ray 12/22/16 1335 Signed Impressions: Service Date/Time: Thursday, December 22, 2016 13:46 - CONCLUSION: 1. No acute abnormality or significant interval change. Yvan Dorman MD EKG; normal sinus rhythm with no acute ST-T changes Assessment and Plan Assessment and Plan A/P - chest pain start aspirin- resume nitrate- will trend the cardiac enzymes- consult cardiology . of note the patient had cardiac catheterization in 2014 with non-obstructive CAD -ESRD- on HD- consult nephrology; HD per nephrology -hypertension- witgh hypotensive episode after received nitro- hold amlodipine for now; continue to monitor the BP trend -diabetes mellitus; resume levemir- accu-check with SSI -COPD- with no exacerbation; oxygen-dependent. -DVT prophylaxis with SCD's Discussed Condition With ER physician and the patient. Physician Certification 2 Midnight Certification Type: Admission for Inpatient Services Order for Inpatient Services The services are ordered in accordance with Medicare regulations or non- Medicare payer requirements, as applicable. In the case of services not specified as inpatient-only, they are appropriately provided as inpatient services in accordance with the 2-midnight benchmark. Estimated LOS (days): 2 days is the estimated time the patient will need to remain in the hospital, assuming treatment plan goals are met and no additional complications. Post-Hospital Plan: Home Problem Qualifiers (1) Chest pain: Qualified Code: R07.9 - Chest pain, unspecified type Alejo Lewis MD Dec 22, 2016 16:50
[2016-12-22] MEDS: ASPIRIN 81 MG CHEW TAB CHEW SCH (18:39)
[2016-12-22] MEDS: PREGABALIN 75 MG CAP PO SCH ×2 (18:40→21:11)
[2016-12-22] MEDS: SODIUM BICARBONATE 650 MG TAB PO SCH (18:47)
[2016-12-22] MEDS: CALCIUM ACETATE 667 MG CAP PO SCH (18:47)
[2016-12-22] MEDS: INSULIN ASPART SUPPLEMENTAL SCALE SQ SCH ×2 (18:49→21:10)
[2016-12-22 19:09] VITALS: BP 117/58; PULSE 80; RESP 18; O2SAT 99
[2016-12-22] MEDS: INSULIN DETEMIR 100 UNITS/ML VIAL SQ SCH (21:10)
[2016-12-22] MEDS: ATORVASTATIN 80 MG TAB PO SCH (21:11)
[2016-12-23] VITALS (8 sets, daily range): BP systolic 91–130; BP diastolic 34–56; PULSE 67–97; RESP 16–20; TEMP 96.1–99.3; O2SAT 75–100
[2016-12-23 03:10] LABS: HEMATOCRIT 26.7 % (35.0-46.0); MEAN CELL VOLUME 88.7 FL (80.0-100.0); MEAN CORPUSCULAR HEMOGLOBIN 28.2 PG (27.0-34.0); MEAN CORPUSCULAR HGB CONC 31.8 % (32.0-36.0); PLATELET COUNT 211 TH/MM3 (150-450); RED BLOOD COUNT 3.01 MIL/MM3 (4.00-5.30); REVIEW FLAG FINAL; WHITE BLOOD COUNT 11.6 TH/MM3 (4.0-11.0)
[2016-12-23 04:11] LABS: ANION GAP 9 MEQ/L (5-15); BICARBONATE 28.1 MEQ/L (21.0-32.0); BLOOD UREA NITROGEN 42 MG/DL (7-18); CHLORIDE 103 MEQ/L (98-107); GLOMERULAR FILTRATION RATE 8 ML/MIN (>89); POTASSIUM 4.6 MEQ/L (3.5-5.1); SODIUM (NA) 140 MEQ/L (136-145)
[2016-12-23] MEDS: INSULIN ASPART SUPPLEMENTAL SCALE SQ SCH ×4 (06:30→21:45)
--- NOTE | 2016-12-23 06:55 | MB ---
cc: JULESJASS DATE OF CONSULTATION 12/22/2016 HISTORY OF PRESENT ILLNESS Ms. Gagnon is a very pleasant, 71-year-old female, well-known to me with a history of end-stage renal disease on hemodialysis and very mild coronary disease by cardiac catheterization in 2014. She developed lower substernal chest pressure and also epigastric sharp discomfort increased with deep inspiration. There was some radiation to jaw and neck, dizziness and nausea. She could not finish dialysis and was transferred to the emergency room. Her substernal pain is better. She still has sharp epigastric discomfort, increased with deep inspiration. PAST MEDICAL HISTORY 1. End-stage kidney disease on hemodialysis. 2. Diabetes mellitus. 3. Hypertension. 4. COPD. 5. A-V graft placement. The patient underwent cardiac catheterization in 05/2015 which showed ejection fraction of 55% and 20% narrowing in the proximal to mid-LAD and otherwise patent. An echocardiogram in 10/2015 showed preserved left ventricular systolic function with an ejection fraction of 55-60%, mild tricuspid regurgitation. ALLERGIES SULFA. PENICILLIN. CONTRAST. MEDICATIONS 1. Levemir. 2. PhosLo. 3. Amlodipine. 4. Isosorbide. 5. Rosuvastatin. SOCIAL HISTORY The patient does not smoke but did smoke in the past. She does not drink alcohol. FAMILY HISTORY Negative for heart disease. REVIEW OF SYSTEMS Otherwise negative. PHYSICAL EXAMINATION VITAL SIGNS: Blood pressure 119/55, pulse 102 and regular. HEENT: Negative. NECK: 2+ carotid upstrokes. No bruits. LUNGS: Clear. HEART: Regular with no murmur or gallop. CHEST: There is lower substernal pain which is partially reproducible to chest palpation. ABDOMEN: The patient is morbidly obese. Abdomen is soft, obese. No bruits. EXTREMITIES: Trace edema. 1-2+ distal pulses. NEUROLOGIC: Grossly nonfocal. EKG Reviewed and showed normal sinus rhythm. Normal axis and intervals. No acute changes. LABS Hemoglobin 10.2. Potassium 4.2, creatinine 4.2, AST and ALT normal. Troponin less than 0.02. CK 51. DIAGNOSES 1. Atypical chest pain. 1. Coronary artery disease with mild 20% LAD stenosis on cardiac catheterization in 2014. 2. End-stage renal disease on hemodialysis. 3. Hypertension. 4. Diabetes mellitus; 5. COPD. 6. Previous history of smoking. DISPOSITION Ms. Gagnon will be monitored on telemetry. We will check serial enzymes and EKGs. We will continue current medical program including therapy for hypertension. I will follow her for Cardiology during her hospitalization. She will have dialysis as ordered by Dr. Vasquez, her primary diazo technician. Jass Menjivar MD OSaji/SSB /5:18 PM /6:39 AM MTDD
--- NOTE | 2016-12-23 08:48 | PD.CARD.PN ---
Subjective Subjective Remarks Mild lower substernal and epigastric discomfort, much improved, no excessive SOB Objective Medications Current Medications Medications (Trade) Dose Ordered Sig/Carson Route Start Time Stop Time Status Last Admin (NS Flush) 2 ml UNSCH PRN IVF 12/22/16 13:45 (D50w (Vial) Inj) 50 ml UNSCH PRN IV 12/22/16 15:30 (Glucagon Inj) 1 mg UNSCH PRN OTHER 12/22/16 15:30 (Aspirin Chew) 81 mg DAILY CHEW 12/22/16 16:45 12/22/16 18:39 (Phoslo) 1,334 mg TIDAC PO 12/22/16 18:00 12/22/16 18:47 (Levemir Inj) 44 units Q12HR SQ 12/22/16 21:00 12/22/16 21:10 (Imdur) 30 mg DAILY PO 12/23/16 09:00 (Antivert) 25 mg Q6H PRN PO 12/22/16 16:45 (Lyrica) 75 mg QID PO 12/22/16 18:00 12/22/16 21:11 (Sodium Bicarbonate) 650 mg TID PO 12/22/16 18:00 12/22/16 18:47 (Lipitor) 80 mg HS PO 12/22/16 21:00 12/22/16 21:11 Vital Signs / I&O Vital Signs Date Time Temp Pulse Resp B/P Pulse Ox O2 Delivery O2 Flow Rate FiO2 12/23/16 08:26 98.6 67 20 130/47 100 12/23/16 04:00 96.1 74 16 106/52 99 12/23/16 00:00 97.2 82 17 112/55 100 12/22/16 19:09 80 18 117/58 99 Nasal Cannula 2 12/22/16 16:09 102 20 119/55 95 Nasal Cannula 3 12/22/16 14:02 97.8 95 20 123/58 100 Nasal Cannula 3 12/22/16 13:48 93 Nasal Cannula 3 12/22/16 13:36 20 96 Nasal Cannula 3 I/O 12/22/16 12/22/16 12/22/16 12/23/16 12/23/16 12/23/16 07:00 15:00 23:00 07:00 15:00 23:00 Intake Total 125 ml Balance 125 ml Intake Oral 125 ml # Bowel Movements 1 Physical Exam GENERAL: In NAD SKIN: Warm and dry. HEAD: Normocephalic. EYES: No scleral icterus. No injection or drainage. NECK: Supple, trachea midline. No JVD or lymphadenopathy. CARDIOVASCULAR: Regular rate and rhythm without murmurs, gallops, or rubs. RESPIRATORY: Breath sounds equal bilaterally. No accessory muscle use. GASTROINTESTINAL: Abdomen soft, morbidly obese, non-tender, nondistended. MUSCULOSKELETAL: No cyanosis, or edema. Laboratory Laboratory Tests Test 12/22/16 12/22/16 12/23/16 13:50 21:16 02:46 White Blood Count 13.8 TH/MM3 11.6 TH/MM3 Red Blood Count 3.54 MIL/MM3 3.01 MIL/MM3 Hemoglobin 10.2 GM/DL 8.5 GM/DL Hematocrit 30.8 % 26.7 % Mean Corpuscular Volume 87.1 FL 88.7 FL Mean Corpuscular Hemoglobin 28.8 PG 28.2 PG Mean Corpuscular Hemoglobin 33.1 % 31.8 % Concent Red Cell Distribution Width 14.7 % 15.0 % Platelet Count 292 TH/MM3 211 TH/MM3 Mean Platelet Volume 9.5 FL 9.6 FL Neutrophils (%) (Auto) 81.3 % Lymphocytes (%) (Auto) 14.4 % Monocytes (%) (Auto) 3.9 % Eosinophils (%) (Auto) 0.1 % Basophils (%) (Auto) 0.3 % Neutrophils # (Auto) 11.2 TH/MM3 Lymphocytes # (Auto) 2.0 TH/MM3 Monocytes # (Auto) 0.5 TH/MM3 Eosinophils # (Auto) 0.0 TH/MM3 Basophils # (Auto) 0.0 TH/MM3 CBC Comment DIFF FINAL Differential Comment Prothrombin Time 10.6 SEC Prothromb Time International 1.0 RATIO Ratio Activated Partial 27.5 SEC Thromboplast Time Sodium Level 139 MEQ/L 140 MEQ/L Potassium Level 4.2 MEQ/L 4.6 MEQ/L Chloride Level 102 MEQ/L 103 MEQ/L Carbon Dioxide Level 28.1 MEQ/L 28.1 MEQ/L Anion Gap 9 MEQ/L 9 MEQ/L Blood Urea Nitrogen 24 MG/DL 42 MG/DL Creatinine 4.22 MG/DL 5.41 MG/DL Estimat Glomerular Filtration 10 ML/MIN 8 ML/MIN Rate Random Glucose 194 MG/DL 253 MG/DL Calcium Level 8.9 MG/DL 8.4 MG/DL Magnesium Level 2.2 MG/DL Total Bilirubin 0.2 MG/DL Aspartate Amino Transf 22 U/L (AST/SGOT) Alanine Aminotransferase 33 U/L (ALT/SGPT) Alkaline Phosphatase 110 U/L Total Creatine Kinase 51 U/L Troponin I LESS THAN 0.02 LESS THAN 0.02 LESS THAN 0.02 NG/ML NG/ML NG/ML Total Protein 7.7 GM/DL Albumin 3.1 GM/DL 2.6 GM/DL Phosphorus Level 4.5 MG/DL Imaging Last Impressions Chest X-Ray 12/22/16 6705 Signed Impressions: Service Date/Time: Thursday, December 22, 2016 13:46 - CONCLUSION: 1. No acute abnormality or significant interval change. Yvan Dorman MD Assessment and Plan Problem List: (1) Chest pain (2) ESRD (end stage renal disease) on dialysis (3) Diabetes mellitus (4) Morbid obesity with BMI of 45.0-49.9, adult (5) HTN (hypertension) Assessment and Plan Symptoms significantly improved. Continue current program. Cardiac enzymes unremarkable. OK to discharge home. Will schedule outpatient f/u in our office after discharge. Problem Qualifiers (1) Chest pain: Qualified Code: R07.9 - Chest pain, unspecified type Jass Menjivar MD Dec 23, 2016 08:48
--- NOTE | 2016-12-23 10:41 | HHI.PR ---
Subjective Remarks Follow up for chest pain. The patient reports continued pain located substernally and at the epigastric region, however the pain has improved overnight. Denies any shortness of breath. Denies any nausea/vomiting. She is currently eating her entire breakfast, requests a blueberry muffin. She has no other medical complaints at this time. She states she doesn't feel ready to go home since she still has the pain. She states Dr. Menjivar told her we can monitor her today, however according to his note, the patient is clear for discharge home from cardiology standpoint. Objective Vitals Vital Signs Date Time Temp Pulse Resp B/P Pulse Ox O2 Delivery O2 Flow Rate FiO2 12/23/16 08:26 98.6 67 20 130/47 100 12/23/16 04:00 96.1 74 16 106/52 99 12/23/16 00:00 97.2 82 17 112/55 100 12/22/16 19:09 80 18 117/58 99 Nasal Cannula 2 12/22/16 16:09 102 20 119/55 95 Nasal Cannula 3 12/22/16 14:02 97.8 95 20 123/58 100 Nasal Cannula 3 12/22/16 13:48 93 Nasal Cannula 3 12/22/16 13:36 20 96 Nasal Cannula 3 I/O 12/22/16 12/22/16 12/22/16 12/23/16 12/23/16 12/23/16 07:00 15:00 23:00 07:00 15:00 23:00 Intake Total 125 ml Balance 125 ml Intake Oral 125 ml # Bowel Movements 1 Result Diagram: 12/23/16 0246 12/23/16 0246 Imaging Last Impressions Chest X-Ray 12/22/16 1335 Signed Impressions: Service Date/Time: Thursday, December 22, 2016 13:46 - CONCLUSION: 1. No acute abnormality or significant interval change. Yvan Dorman MD Objective Remarks GENERAL: Well-nourished, well-developed obese female patient in [facility]. SKIN: Warm and dry. No rash. HEENT: Normocephalic. Atraumatic. Pupils equal and round. Mucous membranes pink and moist. NECK: Supple. Trachea midline. CARDIOVASCULAR: Regular rate and rhythm. S1, S2 noted. No murmur appreciated. RESPIRATORY: No accessory muscle use. Clear to auscultation. Breath sounds equal bilaterally. GASTROINTESTINAL: Abdomen soft, non-tender, nondistended. Normoactive bowel sounds x4. MUSCULOSKELETAL: No obvious deformities. Extremities without clubbing, cyanosis , or edema. NEUROLOGICAL: Awake and alert. No obvious cranial nerve deficits. Motor grossly within normal limits. 5/5 muscle strength in bilateral upper and lower extremities. Normal speech. PSYCHIATRIC: Appropriate mood and affect; insight and judgment normal. Medications and IVs Current Medications Medications (Trade) Dose Ordered Sig/Carson Route Start Time Stop Time Status Last Admin (NS Flush) 2 ml UNSCH PRN IVF 12/22/16 13:45 (D50w (Vial) Inj) 50 ml UNSCH PRN IV 12/22/16 15:30 (Glucagon Inj) 1 mg UNSCH PRN OTHER 12/22/16 15:30 (Aspirin Chew) 81 mg DAILY CHEW 12/22/16 16:45 12/22/16 18:39 (Phoslo) 1,334 mg TIDAC PO 12/22/16 18:00 12/22/16 18:47 (Levemir Inj) 44 units Q12HR SQ 12/22/16 21:00 12/22/16 21:10 (Imdur) 30 mg DAILY PO 12/23/16 09:00 (Antivert) 25 mg Q6H PRN PO 12/22/16 16:45 (Lyrica) 75 mg QID PO 12/22/16 18:00 12/22/16 21:11 (Sodium Bicarbonate) 650 mg TID PO 12/22/16 18:00 12/22/16 18:47 (Lipitor) 80 mg HS PO 12/22/16 21:00 12/22/16 21:11 A/P Problem List: (1) Chest pain ICD Code: R07.9 Status: Acute Assessment and Plan 71 y/o female with history of ESRD-on HD, COPD, diabetes and hypertension who presented to ER with chest pain during her dialysis session 12/22. Atypical Chest Pain: suspect secondary to dialysis, possibility of GI etiology. -ACS ruled out with negative serial cardiac enzymes x3 and EKG without acute ischemic changes -of note, patient with cardiac catheterization in 2014 which showed nonobstructive CAD -started aspirin, resume nitrate -consulted cardiology, cleared for discharge -patient still with constant chest/epigastric discomfort, will start PPI, monitor for improvement ESRD- on HD: chronic -consulted nephrology to continue dialysis -patient did not complete dialysis on 12/22, nephrology to resume dialysis as indicated Rectal Bleeding: reported by the patient. -check stool hemoccult -monitor serial H&H, hgb trended down overnight 10.2 -->8.5 -transfuse as needed Anemia: suspect secondary to ESRD, however possibility of GI bleeding as above -monitor serial H&H -transfuse as needed Hypertension: with episode of hypotension after received nitro -held amlodipine for now -continue to monitor the BP trend, improving Diabetes mellitus: chronic, blood glucoses have been elevated up to 391 -resume home Levemir 44u bid, consider increasing dosing depending on trend -monitor accu-check, cover with SSI COPD: chronic, does not appear to be in exacerbation, O2 dependent -continue duonebs prn DVT prophylaxis with SCD's Discharge Planning Attending Statement Discussed with MARBELLA Salgado patient cleared by Cardiology, but Nephrology consulted Urology waiting final recommendations by specialists. Problem Qualifiers (1) Chest pain: Qualified Code: R07.9 - Chest pain, unspecified type Anjana Salgado PA-C Dec 23, 2016 10:40 Milton Rees MD Dec 23, 2016 17:34
[2016-12-23] MEDS ORDERED: RESP: ALBUTEROL 2.5 MG/IPRATROPIUM 0.5 MG NEB (PRN) NEB (10:45)
[2016-12-23] MEDS: SODIUM BICARBONATE 650 MG TAB PO SCH ×3 (10:47→18:17)
[2016-12-23] MEDS: PREGABALIN 75 MG CAP PO SCH ×4 (10:47→21:44)
[2016-12-23] MEDS: ISOSORBIDE MONONITRATE 30 MG TAB PO SCH (10:47)
[2016-12-23] MEDS: CALCIUM ACETATE 667 MG CAP PO SCH ×3 (10:48→18:17)
[2016-12-23] MEDS: ASPIRIN 81 MG CHEW TAB CHEW SCH (10:48)
[2016-12-23] MEDS: INSULIN DETEMIR 100 UNITS/ML VIAL SQ SCH ×2 (10:51→21:44)
[2016-12-23] MEDS: PANTOPRAZOLE SOD 40 MG DELAYED RELEASE TAB PO SCH (10:52)
[2016-12-23 12:17] LABS: HEMATOCRIT 26.8 % (35.0-46.0); REVIEW FLAG FINAL
--- NOTE | 2016-12-23 15:26 | EKG ---
Date Performed: 12/22/2016 Time Performed: 13:33:10 PTAGE: 71 years EKG: Sinus rhythm NORMAL ECG Compared to prior tracing no significant change PREVIOUS TRACING : 07/21/2016 15.38 DOCTOR: Zeke Woodard Interpretating Date/Time 12/23/2016 15:24:23
[2016-12-23] MEDS ORDERED: SODIUM CHLOR 0.9% 1000 ML INJ 1,000 ML IV PRN ×3 (15:37)
[2016-12-23] MEDS ORDERED: GENTAMICIN SULFATE (DIALYSIS USE ONLY) 20 MG/2 ML VIAL IV PRN (15:45)
[2016-12-23] MEDS ORDERED: SODIUM CHLORIDE 0.9% FLUSH 10 ML FLUSH IV FLUSH PRN (15:45)
[2016-12-23] MEDS ORDERED: ACETAMINOPHEN 325 MG TAB PO PRN (15:45)
[2016-12-23] MEDS ORDERED: HEPARIN SODIUM - IV 10,000 UNITS/10 ML VIAL PRN (15:45)
[2016-12-23] MEDS ORDERED: cloNIDine HCL 0.1 MG TAB PO PRN (15:45)
[2016-12-23] MEDS ORDERED: diphenhydrAMINE HCL 25 MG CAP PO PRN (15:45)
[2016-12-23] MEDS ORDERED: ONDANSETRON HCL 4 MG/2 ML VIAL IV PRN (15:45)
[2016-12-23] MEDS ORDERED: EPOETIN ALFA 10,000 UNITS/ML VIAL IV PRN (15:45)
[2016-12-23] MEDS ORDERED: HEPARIN SODIUM - IV 10,000 UNITS/10 ML VIAL IVF PRN (15:45)
[2016-12-23] MEDS ORDERED: GELATIN 12 MM/7 MM FOAM TOP PRN (15:45)
[2016-12-23] MEDS ORDERED: LIDOCAINE-PRILOCAIN 2.5% CREAM 5 GM TUBE TOPICAL PRN (15:45)
[2016-12-23] MEDS ORDERED: MANNITOL 12.5 GM/50 ML VIAL IV PRN (15:45)
[2016-12-23] MEDS ORDERED: ALBUMIN HUMAN 25% 25 GM/100 ML BAGP IV PRN (15:45)
[2016-12-23] MEDS ORDERED: NITROGLYCERIN 0.4 MG SL 25 TABS/BTL SL PRN (15:45)
--- NOTE | 2016-12-23 15:51 | HHI.NPPN ---
Subjective History of Present Illness 71-year-old female with a history of end-stage renal disease, diabetes mellitus , recurrent UTIs as well as COPD presenting with a history of chest pain during dialysis. She also indicated she has been having blood in the stool and urine for the last several days. She does have a history of previous UTIs related to organisms multidrug resistant. Interval History The patient continues to have nonspecific chest pains in L side of chest radiating to underneath breast. Denies NVDC Some SOB today as well. Not been able to urinate in house and an attempt at straight cath was made. Refers that she has still been seeing gross blood in urine at home. (Zenaida Fang) Review of Systems Respiratory Lungs: SOB (Zenaida Fang) Cardiovascular Cardiac: Chest Pain (Zenaida Fang) Objective Data Data 12/22/16 12/23/16 19:00 07:00 Intake Total 125 ml Balance 125 ml Intake Oral 125 ml # Bowel Movements 1 Vital Signs Date Time Temp Pulse Resp B/P Pulse Ox O2 Delivery O2 Flow Rate FiO2 12/23/16 12:55 116/50 12/23/16 11:54 97.9 97 17 91/34 75 12/23/16 08:26 98.6 67 20 130/47 100 12/23/16 04:00 96.1 74 16 106/52 99 12/23/16 00:00 97.2 82 17 112/55 100 12/22/16 19:09 80 18 117/58 99 Nasal Cannula 2 12/22/16 16:09 102 20 119/55 95 Nasal Cannula 3 (Zenaida Fang) -: 12/23/16 1144 12/23/16 0246 Microbiology 12/23/16 Stool Occult Blood (LARRY) - Final, Complete HEMOCCULT POSITIVE Imaging Last Impressions Chest X-Ray 12/22/16 1335 Signed Impressions: Service Date/Time: Thursday, December 22, 2016 13:46 - CONCLUSION: 1. No acute abnormality or significant interval change. Yvan Dorman MD Medication Review Current Medications Medications (Trade) Dose Ordered Sig/Carson Route Start Time Stop Time Status Last Admin (NS Flush) 2 ml UNSCH PRN IVF 12/22/16 13:45 (D50w (Vial) Inj) 50 ml UNSCH PRN IV 12/22/16 15:30 (Glucagon Inj) 1 mg UNSCH PRN OTHER 12/22/16 15:30 (Aspirin Chew) 81 mg DAILY CHEW 12/22/16 16:45 12/23/16 10:48 (Phoslo) 1,334 mg TIDAC PO 12/22/16 18:00 12/23/16 13:17 (Levemir Inj) 44 units Q12HR SQ 12/22/16 21:00 12/23/16 10:51 (Imdur) 30 mg DAILY PO 12/23/16 09:00 12/23/16 10:47 (Antivert) 25 mg Q6H PRN PO 12/22/16 16:45 (Lyrica) 75 mg QID PO 12/22/16 18:00 12/23/16 13:17 (Sodium Bicarbonate) 650 mg TID PO 12/22/16 18:00 12/23/16 13:17 (Lipitor) 80 mg HS PO 12/22/16 21:00 12/22/16 21:11 Pantoprazole Sodium 40 mg 40 mg DAILY PO 12/23/16 10:30 12/23/16 10:52 (NS 1000 ml Inj) 1,000 ml @ 0 mls/hr Q0M PRN IV 12/23/16 15:37 UNV Heparin Sodium (Porcine) 8000 units 8,000 units UNSCH PRN IVF 12/23/16 15:45 UNV Sodium Chloride 1,000 ml @ 200 mls/hr Q5H PRN IV 12/23/16 15:37 UNV (NS 1000 ml Inj) 1,000 ml @ 0 mls/hr Q0M PRN IV 12/23/16 15:37 UNV (Mannitol Inj) 12.5 gm UNSCH PRN IV 12/23/16 15:45 UNV (Albumin 25% Inj) 25 gm UNSCH PRN IV 12/23/16 15:45 UNV (NS Flush) 5 ml UNSCH PRN IV FLUSH 12/23/16 15:45 UNV (Heparin Inj) UNSCH PRN .XX 12/23/16 15:45 UNV (Gentamicin (Dialysis) Inj) 20 mg UNSCH PRN IV 12/23/16 15:45 UNV (Zofran Inj) 4 mg UNSCH PRN IV 12/23/16 15:45 UNV (Tylenol) 650 mg UNSCH PRN PO 12/23/16 15:45 UNV (Benadryl) 25 mg UNSCH PRN PO 12/23/16 15:45 UNV (Nitrostat Sl) 0.4 mg UNSCH PRN SL 12/23/16 15:45 UNV (Catapres) 0.1 mg UNSCH PRN PO 12/23/16 15:45 UNV (Epogen Inj) 10,000 units UNSCH PRN IV 12/23/16 15:45 UNV (Gelfoam 12 Mm/7 Mm Top) 1 foam UNSCH PRN TOP 12/23/16 15:45 UNV (Zenaida Fang) Physical Exam General Appearance: Well Developed, Well Nourished, No Acute Distress (Zenaida Fang) Neck Neck Exam: Neck Supple, Trachea Midline (Zenaida Fang) Pulmonary Resp Exam: Clear Bilaterally, Breath Sounds Equal, Diminished Breath Sounds ( Zenaida Fang) Cardiology CV Exam: Regular, Normal Sinus Rhythm (Zenaida Fang) Gastrointestinal/Abdomen GI Exam: Soft, Non-Tender (Zenaida Fang) Integumentary Skin Exam: Clear, Warm (Zenaida Fang) Extremeties Extremities Exam: Trace Edema Extremeties Remarks BUE. 1+ BLE (Zenaida Fang) Neurologic Neuro Exam: Alert, Awake, Oriented (Zenaida Fang) Psychiatric Psych Exam: Appropriate Responses (Zenaida Fang) Assessment/Plan Problem List: (1) ESRD (end stage renal disease) on dialysis Plan: Labs stable and no overt fluid overload. Plan for HD as regularly scheduled on Tuesday. UF of 4L as tolerated. Medications should be adjusted for the patient's ESRD. Avoid gadolinium. (2) Chest pain Plan: Reviewed cardiology recommendations. Appears non-cardiac. Further evaluation per primary care physician. (3) Rectal bleeding Plan: FOBT positive. Will defer to primary, but likely needs GI consultation. If not done in house, will set up as outpatient. (4) Hematuria Plan: Patient has had recurrent UTIs. Oliguric and no UA in house. Recent outpatient culture negative (last week), but did have significant RBCs. Pt of Dr. Funk and has not been able to proceed as outpatient cystoscopy d/t body habitus. Placed referral for him to see her in house if possible to complete cystoscopy. If cannot be completed in house, will refer her back as outpatient. (5) Hyperparathyroidism, secondary renal (Zenaida Fang) Zenaida Fang Dec 23, 2016 15:51 Manny Vasquez MD Dec 24, 2016 10:17
[2016-12-23 19:25] LABS: HEMATOCRIT 24.9 % (35.0-46.0); REVIEW FLAG FINAL
[2016-12-23 20:48] LABS: BACTERIA, URINE MANY /hpf; BLOOD, URINE MOD (NEG); COMMENT (UR) CULTURE INDICATED; CULTURE IF INDICATED CULTURE INDICATED; GLUCOSE,URINE NEG (NEG); KETONE, URINE NEG (NEG); NITRITE,URINE NEG (NEG); PH, URINE 5.5 (5.0-8.5); SQUAMOUS EPITHELIAL CELL URINE 20 /hpf (0-5); TRANSITIONAL EPI CELLS, URINE 2 /hpf; URINE COLOR YELLOW (YELLW/STRAW)
[2016-12-23] MEDS: ATORVASTATIN 80 MG TAB PO SCH (21:44)
--- NOTE | 2016-12-23 22:29 | MB ---
cc: JARED MEDRANO MD DATE OF CONSULTATION 12/23/16 REASON FOR CONSULTATION 1. Chronic dysuria. 2. Gross hematuria 3. Recurrent urinary tract. HISTORY OF PRESENT ILLNESS The patient is a 71 year old morbidly obese -[place] female with a history of end-stage renal disease on hemodialysis and diabetes who presented to the ER yesterday due the atypical chest pain which started during her hemodialysis treatment. Dring workup, she mentioned that she has had blood in her urine and stool for the last couple days. Urology was consulted for these findings. The patient states she continues to have this chronic dysuria, but it is improving as she has been using a topical estrogen cream. However, she has noticed the last few days that she has had both blood in her urine and her stool. Denies fevers, chills, nausea or vomiting. She was originally scheduled for outpatient cystoscopy several weeks ago, but it had to be rescheduled due equipment issues for her body habitus. She is currently scheduled for office cystoscopy on January 18. She denies any abdominal pain or flank pain at this time. Her chest pain has since resolved. REVIEW OF SYSTEMS See HPI otherwise all systems reviewed and are otherwise negative. PAST HISTORY 1. End-stage renal disease 2. Diabetes mellitus, 3. Hypertension, 4. COPD, 5. Recurrent UTIs 6. Dysuria. PAST SURGICAL HISTORY She has had AV graft placement MEDICATIONS Home medications 1. Topical Estrace cream. 2. Norvasc 3. Isosorbide 4. Levemir 5. PhosLo. ALLERGIES SULFA PENICILLIN IODINE SOCIAL HISTORY History of tobacco use. Denies illicit drugs or alcohol use. FAMILY HISTORY Denies nephrolithiasis or genitourinary malignancies. PHYSICAL EXAMINATION VITAL SIGNS: Temperature 98.1, pulse 86, respiratory rate 20, BP 111/56, satting 99% on room air. GENERAL: She is alert and oriented x3, no acute distress pleasant cooperative lady who appears stated age. HEAD: Head is normocephalic, atraumatic. EYES: No scleral icterus. Extraocular muscles intact. NECK: Supple. Trachea is midline. LUNGS: Clear to auscultation bilaterally. No wheezes or rales. HEART" Regular rhythm. No murmurs, gallops, rubs. ABDOMEN: Obese but soft, nontender, nondistended. GENITOURINARY:: Deferred at this time. EXTREMITIES: Nontender. No clubbing or cyanosis. NEUROLOGIC: Cranial nerves II-XII intact. Strength 5/5 in all four extremities. PSYCHIATRIC: Normal affect. SKIN: No visible ulcers or rashes. Her mucous membranes are pink and moist. LABORATORY DATA White count 11.6, hemoglobin 8.6, hematocrit 26.8. Platelet count 211. Sodium 140, potassium 4.6, chloride 103, bicarb 28.1, BUN 42, creatinine 5.41, calcium 8.4. IMAGING STUDIES Not applicable. SPECIMEN The patient is a 71-year-old female with history of end-stage renal disease on hemodialysis who presented with atypical chest pain found to have gross hematuria for the last several days as well as chronic dysuria. PLAN Her hemoglobin appears stable and she is hemodynamically stable. Recommend she keeps her cystoscopy appointment as an outpatient on January 18. We will attempt to possibly move it up to end of December but will be done as an outpatient. Recommend continuing her topical esterase cream as it has been improving her symptoms. She may also need a [employer]GER evaluation to rule out any causes of vaginal bleeding. Thank you for this consult. Please call with any questions. Jared Medrano MD EMMelba/ /6:30 PM /10:12 PM
[2016-12-24 04:29] VITALS: BP 128/61; PULSE 71; RESP 18; TEMP 98.1; O2SAT 95
[2016-12-24] MEDS: INSULIN ASPART SUPPLEMENTAL SCALE SQ SCH ×4 (06:37→20:29)
[2016-12-24 07:50] VITALS: BP 126/58; PULSE 72; RESP 18; TEMP 97.6; O2SAT 98
[2016-12-24] MEDS: INSULIN DETEMIR 100 UNITS/ML VIAL SQ SCH ×2 (08:11→20:29)
[2016-12-24] MEDS: ISOSORBIDE MONONITRATE 30 MG TAB PO SCH (08:12)
[2016-12-24] MEDS: SODIUM BICARBONATE 650 MG TAB PO SCH ×3 (08:34→18:03)
[2016-12-24] MEDS: PREGABALIN 75 MG CAP PO SCH ×4 (08:34→20:29)
[2016-12-24] MEDS: CALCIUM ACETATE 667 MG CAP PO SCH ×3 (08:34→18:03)
[2016-12-24] MEDS: ASPIRIN 81 MG CHEW TAB CHEW SCH (08:34)
[2016-12-24] MEDS: PANTOPRAZOLE SOD 40 MG DELAYED RELEASE TAB PO SCH (08:35)
[2016-12-24 09:12] VITALS: O2SAT 100
--- NOTE | 2016-12-24 10:16 | HHI.NPPN ---
Subjective History of Present Illness 71-year-old female with a history of end-stage renal disease, diabetes mellitus , recurrent UTIs as well as COPD presenting with a history of chest pain during dialysis. She also indicated she has been having blood in the stool and urine for the last several days. She does have a history of previous UTIs related to organisms multidrug resistant. Interval History The patient was seen during dialysis today. Tolerating treatment well, access is working well. Complaining of some suprapubic discomfort. Review of Systems Respiratory Lungs: SOB Cardiovascular Cardiac: Chest Pain Objective Data Data 12/23/16 12/24/16 18:59 06:59 Output Total 15 ml Balance -15 ml Output Urine Total 15 ml Vital Signs Date Time Temp Pulse Resp B/P Pulse Ox O2 Delivery O2 Flow Rate FiO2 12/24/16 09:12 100 Nasal Cannula 3.00 12/24/16 07:50 97.6 72 18 126/58 98 12/24/16 04:29 98.1 71 18 128/61 95 12/23/16 22:45 98 Nasal Cannula 3.00 12/23/16 21:59 99.3 80 18 114/54 99 12/23/16 15:47 98.1 86 20 111/56 90 12/23/16 12:55 116/50 12/23/16 11:54 97.9 97 17 91/34 75 -: 12/23/16 1800 12/23/16 0246 Microbiology 12/23/16 Urine Culture, Received Pending Physical Exam General Appearance: Well Developed, Well Nourished, No Acute Distress Neck Neck Exam: Neck Supple, Trachea Midline Pulmonary Resp Exam: Clear Bilaterally, Breath Sounds Equal, Diminished Breath Sounds Cardiology CV Exam: Regular, Normal Sinus Rhythm Gastrointestinal/Abdomen GI Exam: Soft, Non-Tender Integumentary Skin Exam: Clear, Warm Extremeties Extremities Exam: Trace Edema Neurologic Neuro Exam: Alert, Awake, Oriented Psychiatric Psych Exam: Appropriate Responses Assessment/Plan Problem List: (1) ESRD (end stage renal disease) on dialysis Plan: Stable on dialysis today. From a renal point of view she appears to be stable however recommendations regarding urine culture below. Would suggest holding discharge until we exclude urinary tract infection related to another organism with multi antibiotic resistance that may not be able to be treated as an outpatient. Medications should be adjusted for the patient's ESRD. Avoid gadolinium. (2) Chest pain Plan: Reviewed cardiology recommendations. Appears non-cardiac. Further evaluation per primary care physician. (3) Rectal bleeding Plan: FOBT positive. Will defer to primary, but likely needs GI consultation. If not done in house, will set up as outpatient. (4) Hematuria Plan: Noted urology planning to do cystoscopy as an outpatient. Would recommend however holding discharge until result of urine culture available. She has had UTIs related to organisms with multi microbial resistance in the past which have required inpatient antibiotics I believe we should exclude this prior to discharge. (5) Hyperparathyroidism, secondary renal (6) Anemia of renal disease Plan: Continue Epogen for anemia renal disease. Manny Vasquez MD Dec 24, 2016 10:16
--- NOTE | 2016-12-24 10:39 | PD.CARD.PN ---
Subjective Subjective Remarks No angina or CHF symptoms, feels better, still c/o GIB, GI eval in progress. Objective Medications Current Medications Medications (Trade) Dose Ordered Sig/Carson Route Start Time Stop Time Status Last Admin (NS Flush) 2 ml UNSCH PRN IVF 12/22/16 13:45 (D50w (Vial) Inj) 50 ml UNSCH PRN IV 12/22/16 15:30 (Glucagon Inj) 1 mg UNSCH PRN OTHER 12/22/16 15:30 (Aspirin Chew) 81 mg DAILY CHEW 12/22/16 16:45 12/24/16 08:34 (Phoslo) 1,334 mg TIDAC PO 12/22/16 18:00 12/24/16 08:34 (Levemir Inj) 44 units Q12HR SQ 12/22/16 21:00 12/23/16 21:44 (Imdur) 30 mg DAILY PO 12/23/16 09:00 12/23/16 10:47 (Antivert) 25 mg Q6H PRN PO 12/22/16 16:45 (Lyrica) 75 mg QID PO 12/22/16 18:00 12/24/16 08:34 (Sodium Bicarbonate) 650 mg TID PO 12/22/16 18:00 12/24/16 08:34 (Lipitor) 80 mg HS PO 12/22/16 21:00 12/23/16 21:44 Pantoprazole Sodium 40 mg 40 mg DAILY PO 12/23/16 10:30 12/24/16 08:35 (NS 1000 ml Inj) 1,000 ml @ 0 mls/hr Q0M PRN IV 12/23/16 15:37 Heparin Sodium (Porcine) 8000 units 8,000 units UNSCH PRN IVF 12/23/16 15:45 Sodium Chloride 1,000 ml @ 200 mls/hr Q5H PRN IV 12/23/16 15:37 (NS 1000 ml Inj) 1,000 ml @ 0 mls/hr Q0M PRN IV 12/23/16 15:37 (Mannitol Inj) 12.5 gm UNSCH PRN IV 12/23/16 15:45 (Albumin 25% Inj) 25 gm UNSCH PRN IV 12/23/16 15:45 (NS Flush) 5 ml UNSCH PRN IV FLUSH 12/23/16 15:45 (Heparin Inj) UNSCH PRN .XX 12/23/16 15:45 (Gentamicin (Dialysis) Inj) 20 mg UNSCH PRN IV 12/23/16 15:45 (Zofran Inj) 4 mg UNSCH PRN IV 12/23/16 15:45 (Tylenol) 650 mg UNSCH PRN PO 12/23/16 15:45 (Benadryl) 25 mg UNSCH PRN PO 12/23/16 15:45 (Nitrostat Sl) 0.4 mg UNSCH PRN SL 12/23/16 15:45 (Catapres) 0.1 mg UNSCH PRN PO 12/23/16 15:45 (Epogen Inj) 10,000 units UNSCH PRN IV 12/23/16 15:45 (Gelfoam 12 Mm/7 Mm Top) 1 foam UNSCH PRN TOP 12/23/16 15:45 (Emla Cream) 1 applic UNSCH PRN TOPICAL 12/23/16 15:45 12/24/16 07:47 Vital Signs / I&O Vital Signs Date Time Temp Pulse Resp B/P Pulse Ox O2 Delivery O2 Flow Rate FiO2 12/24/16 09:12 100 Nasal Cannula 3.00 12/24/16 07:50 97.6 72 18 126/58 98 12/24/16 04:29 98.1 71 18 128/61 95 12/23/16 22:45 98 Nasal Cannula 3.00 12/23/16 21:59 99.3 80 18 114/54 99 12/23/16 15:47 98.1 86 20 111/56 90 12/23/16 12:55 116/50 12/23/16 11:54 97.9 97 17 91/34 75 I/O 12/23/16 12/23/16 12/23/16 12/24/16 12/24/16 12/24/16 07:00 15:00 23:00 07:00 15:00 23:00 Output Total 15 ml Balance -15 ml Output Urine Total 15 ml # Bowel Movements 1 Physical Exam GENERAL: In NAD SKIN: Warm and dry. HEAD: Normocephalic. EYES: No scleral icterus. No injection or drainage. NECK: Supple, trachea midline. No JVD or lymphadenopathy. CARDIOVASCULAR: Regular rate and rhythm without murmurs, gallops, or rubs. RESPIRATORY: Breath sounds equal bilaterally. No accessory muscle use. GASTROINTESTINAL: Abdomen soft, morbidly obese, non-tender, nondistended. MUSCULOSKELETAL: No cyanosis, trace edema. Laboratory Laboratory Tests Test 12/23/16 12/23/16 12/23/16 11:44 18:00 20:25 Hemoglobin 8.6 GM/DL 8.2 GM/DL Hematocrit 26.8 % 24.9 % Urine Color YELLOW Urine Turbidity CLOUDY Urine pH 5.5 Urine Specific [place] 1.019 Urine Protein 100 mg/dL Urine Glucose (UA) NEG mg/dL Urine Ketones NEG mg/dL Urine Occult Blood MOD Urine Nitrite NEG Urine Bilirubin NEG Urine Urobilinogen 2.0 MG/DL Urine Leukocyte Esterase LARGE Urine RBC 20 /hpf Urine WBC /hpf Urine WBC Clumps MANY Urine Squamous Epithelial 20 /hpf Cells Urine Transitional Epithelial 2 /hpf Cells Urine Bacteria MANY /hpf Microscopic Urinalysis Comment CULTURE INDICATED Imaging Last Impressions Chest X-Ray 12/22/16 1335 Signed Impressions: Service Date/Time: Thursday, December 22, 2016 13:46 - CONCLUSION: 1. No acute abnormality or significant interval change. Yvan Dorman MD Assessment and Plan Problem List: (1) Chest pain (2) ESRD (end stage renal disease) on dialysis (3) Diabetes mellitus (4) Morbid obesity with BMI of 45.0-49.9, adult (5) HTN (hypertension) Assessment and Plan No angina or CHF symptoms. Continue current program. Cardiac enzymes unremarkable. GI eval in progress, cleared for endoscopy from cardiac standpoint. Will schedule outpatient f/u in our office after discharge. Problem Qualifiers (1) Chest pain: Qualified Code: R07.9 - Chest pain, unspecified type Jass Menjivar MD Dec 24, 2016 10:39
--- NOTE | 2016-12-24 11:01 | PD.CONS ---
HPI History of Present Illness This is a 71 year old lady who presented with chest pain during dialysis. SHe has hsx ESRD, COPD, DM, HTN and is on dialysis. She recently had drop in Hgb 10.2 --> 8.2 and has had blood in her stool. She says her aide has told her this, sometimes it is dark blood and sometimes light blood and is intermingled in stool. This has been going on for the last 2 weeks, she has never had prior to this. She has been having lower abdominal cramping intermittently in the last few months, along with occasional sharp stabbing pain, no aggravating, relieving, or associated factors. No n/v or hematemesis. She has been having hematuria as well, for the last month. She last had colonoscopy with Dr Azevedo but cannot remember when, maybe years ago, and denies diverticulosis. Admits hx polyps. She has chronic diarrhea. She has never had EGD. Denies GERD. No NSAIDs. No ETOH. (Kellen Hayes) PFSH Past Medical History ESRD diabetes mellitus hypertension COPD Past Surgical History AV graft placement (Kellen Hayes) Coded Allergies: Iodine (Verified Allergy, Severe, 07/21/16) Iohexol (OMNIPAQUE) (Verified Allergy, Severe, TONGUE AND GENERALIZED SWELLING, 07/21/16) Penicillin (Verified Allergy, Severe, TONGUE AND GENERALIZED SWELLING, 05/27) Sulfa (Unverified Allergy, Severe, TONGUE AND GENERALIZED SWELLING, ) Iodinated Contrast Media (Verified Allergy, Unknown, 07/21/16) *MDRO Multi-Drug Resistant Organism (Verified Adverse Reaction, Unknown, MRSA, 06/29/16) MRSA PCR (nares) POSITIVE - 10/31/15 MRSA (blood & sputum) - 10/31/15 ESBL Klebsiella Pneumoniae (urine-06/26/16) Social History No ETOH, illicit drugs. quit smoking 1 year ago. (Kellen Hayes) Review of Systems Constitutional: DENIES: Fever Eyes: DENIES: Blurred vision Respiratory: DENIES: Hemoptysis Gastrointestinal: COMPLAINS OF: Abdominal pain, Bloody stools, Diarrhea, Nausea , DENIES: Black stools, Constipation, Vomiting, Heartburn, Hematemesis Genitourinary: COMPLAINS OF: Hematuria Musculoskeletal: DENIES: Muscle aches Integumentary: DENIES: Abnormal pigmentation Hematologic/lymphatic: DENIES: Bruising Neurologic: DENIES: Headache Psychiatric: DENIES: Confusion (Kellen Hayes) GI Exam Vitals I&O Vital Signs Date Time Temp Pulse Resp B/P Pulse Ox O2 Delivery O2 Flow Rate FiO2 12/24/16 09:12 100 Nasal Cannula 3.00 12/24/16 07:50 97.6 72 18 126/58 98 12/24/16 04:29 98.1 71 18 128/61 95 12/23/16 22:45 98 Nasal Cannula 3.00 12/23/16 21:59 99.3 80 18 114/54 99 12/23/16 15:47 98.1 86 20 111/56 90 12/23/16 12:55 116/50 12/23/16 11:54 97.9 97 17 91/34 75 I/O 12/23/16 12/23/16 12/23/16 12/24/16 12/24/16 12/24/16 07:00 15:00 23:00 07:00 15:00 23:00 Output Total 15 ml Balance -15 ml Output Urine Total 15 ml # Bowel Movements 1 Imaging Last Impressions Chest X-Ray 12/22/16 1335 Signed Impressions: Service Date/Time: Thursday, December 22, 2016 13:46 - CONCLUSION: 1. No acute abnormality or significant interval change. Yvan Dorman MD Laboratory Test 12/23/16 12/23/16 12/23/16 11:44 18:00 20:25 Hemoglobin 8.6 GM/DL 8.2 GM/DL Hematocrit 26.8 % 24.9 % Urine Color YELLOW Urine Turbidity CLOUDY Urine pH 5.5 Urine Specific [place] 1.019 Urine Protein 100 mg/dL Urine Glucose (UA) NEG mg/dL Urine Ketones NEG mg/dL Urine Occult Blood MOD Urine Nitrite NEG Urine Bilirubin NEG Urine Urobilinogen 2.0 MG/DL Urine Leukocyte Esterase LARGE Urine RBC 20 /hpf Urine WBC /hpf Urine WBC Clumps MANY Urine Squamous Epithelial 20 /hpf Cells Urine Transitional Epithelial 2 /hpf Cells Urine Bacteria MANY /hpf Microscopic Urinalysis Comment CULTURE INDICATED Date/Time Procedure Status Source Growth 12/23/16 20:25 Urine Culture Received Urine Clean Catch Pending 12/23/16 08:20 Stool Occult Blood (LARRY) - Final Complete Stool Stool HEMOCCULT POSITIVE Physical Examination HEENT: PERRL; normocephalic; atraumatic; no jaundice. CHEST: CTA CARDIAC: RRR ABDOMEN: Soft, obese, nontender; no hepatosplenomegaly; bowel sounds are present in all four quadrants. EXTREMITIES: No clubbing, cyanosis, or edema. SKIN: Normal; no rash; no jaundice. CARDIAC TECHNICIAN: No focal deficits; alert and oriented times three. (Kellen Hayes) Assessment and Plan Plan ASSESSMENT - anemia - drop in 1 day from 10.2 to 8.2. Pt c/o hematuria and hematochezia for past 2 weeks. - hematochezia - heme pos stool, hematochezia for past 2 weeks. Some light blood, some dark blood. never had before. Denies hx diverticulosis. Admits hemorrhoids. - chronic diarrhea - unclear etiology. - lower abdominal pain - unclear etiology. Intermittent lower abd cramping and occasional sharp pain. - ESRD - on HD. - chest pain - presented with CP during dialysis. Not having currently. d/w computer support technician- cleared for endoscopic procedures PLAN - EGD/colonoscopy Tuesday - obtain consent - clears Tuesday - NPO after midnight tuesday - GoLytely Tuesday evening - monitor HH This pt seen by myself and Dr farrell and this note is written on his behalf ( Kellen Hayes) Physician Comments Seen and examined with SERGEY, No active bleeding. egd/colonoscopy planned for tuesday. Monitor labs. thank you (Letha Farrell MD) Kellen Hayes Dec 24, 2016 11:00 Letha Farrell MD Dec 24, 2016 15:17
[2016-12-24 11:31] LABS: HEMATOCRIT 26.6 % (35.0-46.0); MEAN CELL VOLUME 87.7 FL (80.0-100.0); MEAN CORPUSCULAR HEMOGLOBIN 28.5 PG (27.0-34.0); MEAN CORPUSCULAR HGB CONC 32.5 % (32.0-36.0); PLATELET COUNT 231 TH/MM3 (150-450); RED BLOOD COUNT 3.04 MIL/MM3 (4.00-5.30); RED CELL DISTRIBUTION WIDTH 14.9 % (11.6-17.2); REVIEW FLAG FINAL; WHITE BLOOD COUNT 8.7 TH/MM3 (4.0-11.0)
[2016-12-24 11:51] LABS: POTASSIUM 4.4 MEQ/L (3.5-5.1)
--- NOTE | 2016-12-24 14:17 | HHI.PR ---
Subjective Remarks Went for HD. Complains of suprapubic pain. no hematuria. No n/v/d/c. No fever or chills. Objective Vitals Vital Signs Date Time Temp Pulse Resp B/P Pulse Ox O2 Delivery O2 Flow Rate FiO2 12/24/16 09:12 100 Nasal Cannula 3.00 12/24/16 07:50 97.6 72 18 126/58 98 12/24/16 04:29 98.1 71 18 128/61 95 12/23/16 22:45 98 Nasal Cannula 3.00 12/23/16 21:59 99.3 80 18 114/54 99 12/23/16 15:47 98.1 86 20 111/56 90 I/O 12/23/16 12/23/16 12/23/16 12/24/16 12/24/16 12/24/16 07:00 15:00 23:00 07:00 15:00 23:00 Output Total 15 ml 3500 ml Balance -15 ml -3500 ml Output Urine Total 15 ml Hemodialysis 3500 ml # Bowel Movements 1 Result Diagram: 12/24/16 1020 12/24/16 1020 Imaging Last Impressions Chest X-Ray 12/22/16 1335 Signed Impressions: Service Date/Time: Thursday, December 22, 2016 13:46 - CONCLUSION: 1. No acute abnormality or significant interval change. Yvan Dorman MD Objective Remarks GENERAL: Well-nourished, well-developed obese female patient in [facility]. SKIN: Warm and dry. No rash. HEENT: Normocephalic. Atraumatic. Pupils equal and round. Mucous membranes pink and moist. NECK: Supple. Trachea midline. CARDIOVASCULAR: Regular rate and rhythm. S1, S2 noted. No murmur appreciated. RESPIRATORY: No accessory muscle use. Clear to auscultation. Breath sounds equal bilaterally. GASTROINTESTINAL: Abdomen soft, non-tender, nondistended. Normoactive bowel sounds x4. MUSCULOSKELETAL: No obvious deformities. Extremities without clubbing, cyanosis , or edema. NEUROLOGICAL: Awake and alert. No obvious cranial nerve deficits. Motor grossly within normal limits. 5/5 muscle strength in bilateral upper and lower extremities. Normal speech. PSYCHIATRIC: Appropriate mood and affect; insight and judgment normal. A/P Problem List: (1) Chest pain ICD Code: R07.9 Status: Acute Assessment and Plan 71 y/o female with history of ESRD-on HD, COPD, diabetes and hypertension who presented to ER with chest pain during her dialysis session 12/22. Atypical Chest Pain: suspect secondary to dialysis, possibility of GI etiology. -ACS ruled out with negative serial cardiac enzymes x3 and EKG without acute ischemic changes -of note, patient with cardiac catheterization in 2014 which showed nonobstructive CAD -started aspirin, resume nitrate -consulted cardiology, cleared for discharge -patient still with constant chest/epigastric discomfort, will start PPI, monitor for improvement ESRD- on HD: chronic -consulted nephrology to continue dialysis -patient did not complete dialysis on 12/22, nephrology to resume dialysis as indicated Rectal Bleeding: reported by the patient. -check stool hemoccult is positive -monitor serial H&H, hgb trended down overnight 10.2 -->8.5 -transfuse as needed. Consult GI appreciate recommendations. Plan for EGD/ colonoscopy on Tuesday. Anemia: suspect secondary to ESRD, however possibility of GI bleeding as above -monitor serial H&H -transfuse as needed Hypertension: with episode of hypotension after received nitro -held amlodipine for now -continue to monitor the BP trend, improving Diabetes mellitus: chronic, blood glucoses have been elevated up to 391 -resume home Levemir 44u bid, consider increasing dosing depending on trend -monitor accu-check, cover with SSI COPD: chronic, does not appear to be in exacerbation, O2 dependent -continue duonebs prn DVT prophylaxis with SCD's Discharge Planning Cleared by Cardiology, but Nephrology consulted Urology. Seen by urology recommends f/u as OP. Problem Qualifiers (1) Chest pain: Qualified Code: R07.9 - Chest pain, unspecified type Tara Slaughter MD Dec 24, 2016 14:17
[2016-12-24 15:09] VITALS: BP 118/53; PULSE 82; RESP 20; TEMP 98.2; O2SAT 100
[2016-12-24 18:07] LABS: HEMATOCRIT 27.7 % (35.0-46.0); REVIEW FLAG FINAL
[2016-12-24 19:57] VITALS: BP 84/52; PULSE 90; RESP 19; TEMP 98.8; O2SAT 96
[2016-12-24] MEDS: ATORVASTATIN 80 MG TAB PO SCH (20:29)
[2016-12-24] MEDS ORDERED: ACETAMINOPHEN 325 MG TAB PO PRN (21:15)
[2016-12-25 00:04] VITALS: BP 109/58; PULSE 65; RESP 18; TEMP 98.5; O2SAT 98
[2016-12-25 01:24] VITALS: O2SAT 96
[2016-12-25] MEDS: INSULIN ASPART SUPPLEMENTAL SCALE SQ SCH ×4 (06:35→22:07)
--- NOTE | 2016-12-25 07:55 | PD.CARD.PN ---
Subjective Subjective Remarks No SOB, atypical R sided CP, tolerated dialysis well yest Objective Medications Current Medications Medications (Trade) Dose Ordered Sig/Carson Route Start Time Stop Time Status Last Admin (NS Flush) 2 ml UNSCH PRN IVF 12/22/16 13:45 (D50w (Vial) Inj) 50 ml UNSCH PRN IV 12/22/16 15:30 (Glucagon Inj) 1 mg UNSCH PRN OTHER 12/22/16 15:30 (Aspirin Chew) 81 mg DAILY CHEW 12/22/16 16:45 12/24/16 08:34 (Phoslo) 1,334 mg TIDAC PO 12/22/16 18:00 12/24/16 18:03 (Levemir Inj) 44 units Q12HR SQ 12/22/16 21:00 12/24/16 20:29 (Imdur) 30 mg DAILY PO 12/23/16 09:00 12/23/16 10:47 (Antivert) 25 mg Q6H PRN PO 12/22/16 16:45 (Lyrica) 75 mg QID PO 12/22/16 18:00 12/24/16 20:29 (Sodium Bicarbonate) 650 mg TID PO 12/22/16 18:00 12/24/16 18:03 (Lipitor) 80 mg HS PO 12/22/16 21:00 12/24/16 20:29 Pantoprazole Sodium 40 mg 40 mg DAILY PO 12/23/16 10:30 12/24/16 08:35 (NS 1000 ml Inj) 1,000 ml @ 0 mls/hr Q0M PRN IV 12/23/16 15:37 12/24/16 13:04 Heparin Sodium (Porcine) 8000 units 8,000 units UNSCH PRN IVF 12/23/16 15:45 Sodium Chloride 1,000 ml @ 200 mls/hr Q5H PRN IV 12/23/16 15:37 (NS 1000 ml Inj) 1,000 ml @ 0 mls/hr Q0M PRN IV 12/23/16 15:37 (Mannitol Inj) 12.5 gm UNSCH PRN IV 12/23/16 15:45 (Albumin 25% Inj) 25 gm UNSCH PRN IV 12/23/16 15:45 (NS Flush) 5 ml UNSCH PRN IV FLUSH 12/23/16 15:45 (Heparin Inj) UNSCH PRN .XX 12/23/16 15:45 (Gentamicin (Dialysis) Inj) 20 mg UNSCH PRN IV 12/23/16 15:45 (Zofran Inj) 4 mg UNSCH PRN IV 12/23/16 15:45 (Tylenol) 650 mg UNSCH PRN PO 12/23/16 15:45 (Benadryl) 25 mg UNSCH PRN PO 12/23/16 15:45 (Nitrostat Sl) 0.4 mg UNSCH PRN SL 12/23/16 15:45 (Catapres) 0.1 mg UNSCH PRN PO 12/23/16 15:45 (Epogen Inj) 10,000 units UNSCH PRN IV 12/23/16 15:45 12/24/16 13:03 (Gelfoam 12 Mm/7 Mm Top) 1 foam UNSCH PRN TOP 12/23/16 15:45 12/24/16 13:04 (Emla Cream) 1 applic UNSCH PRN TOPICAL 12/23/16 15:45 12/24/16 07:47 (Colyte Liq) 4,000 ml ONCE ONCE PO 12/26/16 16:00 12/26/16 16:01 (Tylenol) 650 mg Q6HR PRN PO 12/24/16 21:15 Vital Signs / I&O Vital Signs Date Time Temp Pulse Resp B/P Pulse Ox O2 Delivery O2 Flow Rate FiO2 12/25/16 01:24 96 Nasal Cannula 3.00 12/25/16 00:04 98.5 65 18 109/58 98 12/24/16 19:57 98.8 90 19 84/52 96 12/24/16 15:09 98.2 82 20 118/53 100 12/24/16 09:12 100 Nasal Cannula 3.00 I/O 12/24/16 12/24/16 12/24/16 12/25/16 12/25/16 12/25/16 07:00 15:00 23:00 07:00 15:00 23:00 Output Total 15 ml 3500 ml Balance -15 ml -3500 ml Output Urine Total 15 ml Hemodialysis 3500 ml Physical Exam GENERAL: In NAD SKIN: Warm and dry. HEAD: Normocephalic. EYES: No scleral icterus. No injection or drainage. NECK: Supple, trachea midline. No JVD or lymphadenopathy. CARDIOVASCULAR: Regular rate and rhythm without murmurs, gallops, or rubs. RESPIRATORY: Breath sounds equal bilaterally. No accessory muscle use. GASTROINTESTINAL: Abdomen soft, morbidly obese, non-tender, nondistended. MUSCULOSKELETAL: No cyanosis, trace edema. Laboratory Laboratory Tests Test 12/24/16 12/24/16 10:20 17:23 White Blood Count 8.7 TH/MM3 Red Blood Count 3.04 MIL/MM3 Hemoglobin 8.6 GM/DL 8.9 GM/DL Hematocrit 26.6 % 27.7 % Mean Corpuscular Volume 87.7 FL Mean Corpuscular Hemoglobin 28.5 PG Mean Corpuscular Hemoglobin 32.5 % Concent Red Cell Distribution Width 14.9 % Platelet Count 231 TH/MM3 Mean Platelet Volume 10.0 FL Sodium Level 141 MEQ/L Potassium Level 4.4 MEQ/L Chloride Level 102 MEQ/L Carbon Dioxide Level 27.0 MEQ/L Anion Gap 12 MEQ/L Blood Urea Nitrogen 49 MG/DL Creatinine 5.32 MG/DL Estimat Glomerular Filtration 8 ML/MIN Rate Random Glucose 200 MG/DL Calcium Level 8.4 MG/DL Phosphorus Level 3.1 MG/DL Albumin 2.7 GM/DL Imaging Last Impressions Chest X-Ray 12/22/16 1335 Signed Impressions: Service Date/Time: Tuesday, December 22, 2016 13:46 - CONCLUSION: 1. No acute abnormality or significant interval change. Yvan Dorman MD Assessment and Plan Problem List: (1) Chest pain (2) ESRD (end stage renal disease) on dialysis (3) Diabetes mellitus (4) Morbid obesity with BMI of 45.0-49.9, adult (5) HTN (hypertension) Assessment and Plan Stable from cardiac standpoint. No angina or CHF symptoms. Atypical CP, likely of musculoskeletal origin. Continue current program. Cardiac enzymes unremarkable. GI eval in progress, cleared for endoscopy from cardiac standpoint , scheduled for Tue. Will schedule outpatient f/u in our office after discharge. Problem Qualifiers (1) Chest pain: Qualified Code: R07.9 - Chest pain, unspecified type Jass Menjivar MD Dec 25, 2016 07:55
[2016-12-25 08:45] VITALS: BP 113/56; PULSE 80; RESP 20; TEMP 97.5; O2SAT 96
[2016-12-25] MEDS: PANTOPRAZOLE SOD 40 MG DELAYED RELEASE TAB PO SCH (08:57)
[2016-12-25] MEDS: ISOSORBIDE MONONITRATE 30 MG TAB PO SCH (08:57)
[2016-12-25] MEDS: ASPIRIN 81 MG CHEW TAB CHEW SCH (08:57)
[2016-12-25] MEDS: CALCIUM ACETATE 667 MG CAP PO SCH ×3 (08:57→17:37)
[2016-12-25] MEDS: PREGABALIN 75 MG CAP PO SCH ×4 (08:57→22:04)
[2016-12-25] MEDS: SODIUM BICARBONATE 650 MG TAB PO SCH ×3 (08:58→17:37)
[2016-12-25] MEDS: INSULIN DETEMIR 100 UNITS/ML VIAL SQ SCH ×2 (08:58→22:06)
--- NOTE | 2016-12-25 09:18 | HHI.PR ---
Subjective Remarks Follow-up for hematuria and hematochezia. The patient complains of chronic suprapubic pain, essentially unchanged. She's been tolerating diet with no issues. She does state that she was noncompliant with her diabetic diet last night and ate americo crackers and apple to use. She is happy to be having EGD, colonoscopy, cystoscopy coming up to get to the bottom of her pain. She is not sure if she is on Epogen with dialysis. She does state that she is on a higher dose of sliding scale NovoLog at home than here. She lives at home with her who helps care for her. She gets around using a wheelchair. The patient does complain of occasional sensation of food getting stuck when she swallows, but states this was evaluated at the [facility] in [facility] and workup was negative. Objective Vitals Vital Signs Date Time Temp Pulse Resp B/P Pulse Ox O2 Delivery O2 Flow Rate FiO2 12/25/16 08:45 97.5 80 20 113/56 96 12/25/16 01:24 96 Nasal Cannula 3.00 12/25/16 00:04 98.5 65 18 109/58 98 12/24/16 19:57 98.8 90 19 84/52 96 12/24/16 15:09 98.2 82 20 118/53 100 12/24/16 09:12 100 Nasal Cannula 3.00 I/O 12/24/16 12/24/16 12/24/16 12/25/16 12/25/16 12/25/16 07:00 15:00 23:00 07:00 15:00 23:00 Output Total 15 ml 3500 ml Balance -15 ml -3500 ml Output Urine Total 15 ml Hemodialysis 3500 ml Result Diagram: 12/24/16 1723 12/24/16 1020 Imaging Last Impressions Chest X-Ray 12/22/16 1335 Signed Impressions: Service Date/Time: Thursday, December 22, 2016 13:46 - CONCLUSION: 1. No acute abnormality or significant interval change. Yvan Dorman MD Objective Remarks GENERAL: Well-developed well-nourished morbidly obese. In no acute distress. SKIN: Warm and dry. No lesions noted. HEENT: Normocephalic. Pupils equal and round. Mucous membranes pink and moist. CARDIOVASCULAR: Regular rate and rhythm. No murmur appreciated. RESPIRATORY: No accessory muscle use. Clear to auscultation. Breath sounds equal bilaterally. GASTROINTESTINAL: Abdomen soft, upper pubic TTP, nondistended. Bowel sounds x4. MUSCULOSKELETAL: No obvious deformities. No clubbing or cyanosis. No edema. NEUROLOGICAL: Awake and alert. No focal neurological deficits. Moves upper and lower extremities spontaneously. Normal speech. PSYCHIATRIC: Appropriate mood and affect; insight and judgment normal. A/P Problem List: (1) Chest pain ICD Code: R07.9 Status: Acute Assessment and Plan 71 y/o female with history of ESRD-on HD, COPD, diabetes and hypertension who presented to ER with chest pain during her dialysis session 12/22. Atypical Chest Pain: suspect secondary to dialysis and anemia, possibility of GI or musculoskeletal etiology as well. -ACS ruled out with negative serial cardiac enzymes x3 and EKG without acute ischemic changes -of note, patient with cardiac catheterization in 2014 which showed nonobstructive CAD -started aspirin, continue nitrate -consulted cardiology, cleared for discharge -started PPI ESRD- on HD: chronic -consulted nephrology to continue dialysis Rectal Bleeding: reported by the patient. -stool hemoccult is positive -Hemoglobin did trend down from 10.2 at admission to 8.2. -GI consulted, plan for EGD/ colonoscopy on Tuesday. Hematuria and suprapubic pain: The patient was already scheduled for outpatient cystoscopy for this. -Urine culture with mixed ramu. -With anemia, patient's urologist was consulted who recommended outpatient cystoscopy. -Patient states that her urologist told her that if cystoscopy is negative she needs to follow-up with [employer]. Anemia: Chronic normocytic anemia with ESRD. Patient appears to have acute worsening likely due to hematuria and hematochezia. -monitor H&H, appears stable -transfuse as needed Hypertension: with episode of hypotension after received nitro -held amlodipine for now -Continue Imdur -continue to monitor the BP trend, improving Diabetes mellitus: With hyperglycemia, exacerbated by poor dietary compliance. -Continue home Levemir 44u bid -monitor accu-check -On medium sliding scale at home, increase NovoLog sliding scale doses COPD: chronic respiratory failure, O2 dependent. Stable, does not appear to be in exacerbation -continue duonebs prn Dysphagia: Chronic. Patient reports previous workup was negative. -GI planning on EGD DVT prophylaxis with SCD's Problem Qualifiers (1) Chest pain: Qualified Code: R07.9 - Chest pain, unspecified type Jorge Matos Dec 25, 2016 09:18
--- NOTE | 2016-12-25 11:52 | HHI.GIFU ---
Subjective Remarks Pt resting in bed, c/o that she doesn't like the TV. Per RN no reports of blood in stool. Objective Vitals I&O Vital Signs Date Time Temp Pulse Resp B/P Pulse Ox O2 Delivery O2 Flow Rate FiO2 12/25/16 08:45 97.5 80 20 113/56 96 12/25/16 01:24 96 Nasal Cannula 3.00 12/25/16 00:04 98.5 65 18 109/58 98 12/24/16 19:57 98.8 90 19 84/52 96 12/24/16 15:09 98.2 82 20 118/53 100 I/O 12/24/16 12/24/16 12/24/16 12/25/16 12/25/16 12/25/16 07:00 15:00 23:00 07:00 15:00 23:00 Intake Total 480 ml Output Total 15 ml 3500 ml Balance -15 ml -3500 ml 480 ml Intake Oral 480 ml Output Urine Total 15 ml Hemodialysis 3500 ml Laboratory Laboratory Tests Test 12/24/16 17:23 Hemoglobin 8.9 Hematocrit 27.7 Date/Time Procedure Status Source Growth 12/23/16 20:25 Urine Culture - Final Complete Urine Clean Catch 50-100,000 CFU/ML MIXED ALFREDITO... 12/23/16 08:20 Stool Occult Blood (LARRY) - Final Complete Stool Stool HEMOCCULT POSITIVE Imaging Last Impressions Chest X-Ray 12/22/16 1335 Signed Impressions: Service Date/Time: Thursday, December 22, 2016 13:46 - CONCLUSION: 1. No acute abnormality or significant interval change. Yvan Dorman MD Physical Exam HEENT: PERRL; normocephalic; atraumatic; no jaundice. CHEST: CTA CARDIAC: RRR ABDOMEN: Soft, obese, nontender; TTP right side; bowel sounds are present in all four quadrants. EXTREMITIES: No clubbing, cyanosis, +edema BLE SKIN: Normal; no rash; no jaundice. CASE MONITOR: No focal deficits; alert and oriented times three. Assessment and Plan Plan ASSESSMENT - anemia - drop in 1 day from 10.2 to 8.2. stable in last couple days. Pt c/o hematuria and hematochezia for past 2 weeks. - hematochezia - heme pos stool, hematochezia for past 2 weeks. Some light blood, some dark blood. never had before. Denies hx diverticulosis. Admits hemorrhoids. - chronic diarrhea - unclear etiology. - lower abdominal pain - unclear etiology. Intermittent lower abd cramping and occasional sharp pain. - ESRD - on HD. - chest pain - presented with CP during dialysis. Not having currently. 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
[2016-12-25 12:33] VITALS: BP 122/58; PULSE 70; RESP 20; TEMP 98.2; O2SAT 97
[2016-12-25 15:52] VITALS: BP 120/80; PULSE 70; RESP 20; TEMP 97.9; O2SAT 96
[2016-12-25] MEDS ORDERED: PEG (High)/E-LYTE SOLN 4000 ML BTL PO ONE (16:00)
[2016-12-25] MEDS: ATORVASTATIN 80 MG TAB PO SCH (22:04)
[2016-12-25 23:38] VITALS: BP 117/64; PULSE 84; RESP 20; TEMP 98.4; O2SAT 93
[2016-12-26 03:36] VITALS: BP 132/59; PULSE 75; RESP 18; TEMP 98; O2SAT 98
[2016-12-26] MEDS: INSULIN ASPART SUPPLEMENTAL SCALE SQ SCH ×3 (07:00→17:40)
[2016-12-26 07:50] VITALS: O2SAT 97
[2016-12-26 08:00] VITALS: BP 121/58; PULSE 79; RESP 18; TEMP 96.4; O2SAT 97
[2016-12-26] MEDS: CALCIUM ACETATE 667 MG CAP PO SCH ×3 (08:00→17:40)
[2016-12-26] MEDS: INSULIN DETEMIR 100 UNITS/ML VIAL SQ SCH (09:00)
[2016-12-26] MEDS: SODIUM BICARBONATE 650 MG TAB PO SCH ×3 (09:00→17:42)
[2016-12-26] MEDS: ASPIRIN 81 MG CHEW TAB CHEW SCH (09:09)
[2016-12-26] MEDS: ISOSORBIDE MONONITRATE 30 MG TAB PO SCH (09:09)
[2016-12-26] MEDS: PANTOPRAZOLE SOD 40 MG DELAYED RELEASE TAB PO SCH (09:09)
[2016-12-26] MEDS: PREGABALIN 75 MG CAP PO SCH ×3 (09:09→17:41)
--- NOTE | 2016-12-26 09:30 | HHI.PR ---
Subjective Remarks Follow-up for hematuria and hematochezia. The patient is going for EGD and colonoscopy today. She still has some epigastric discomfort. No bleeding reported. She understands the need for outpatient follow-up. Objective Vitals Vital Signs Date Time Temp Pulse Resp B/P Pulse Ox O2 Delivery O2 Flow Rate FiO2 12/26/16 07:50 97 Nasal Cannula 3.00 12/26/16 06:42 Nasal Cannula 3.00 12/26/16 03:36 98.0 75 18 132/59 98 12/25/16 23:41 18 12/25/16 23:38 98.4 84 20 117/64 93 12/25/16 15:52 97.9 70 20 120/80 96 12/25/16 13:36 Nasal Cannula 3.00 12/25/16 12:33 98.2 70 20 122/58 97 I/O 12/25/16 12/25/16 12/25/16 12/26/16 12/26/16 12/26/16 07:00 15:00 23:00 07:00 15:00 23:00 Intake Total 480 ml 480 ml Balance 480 ml 480 ml Intake Oral 480 ml 480 ml # Bowel Movements 8 Result Diagram: 12/24/16 1723 12/24/16 1020 Imaging Last Impressions Chest X-Ray 12/22/16 1335 Signed Impressions: Service Date/Time: Thursday, December 22, 2016 13:46 - CONCLUSION: 1. No acute abnormality or significant interval change. Yvan Dorman MD Objective Remarks GENERAL: Well-developed well-nourished morbidly obese. In no acute distress. SKIN: Warm and dry. No lesions noted. HEENT: Normocephalic. Pupils equal and round. Mucous membranes pink and moist. CARDIOVASCULAR: Regular rate and rhythm. No murmur appreciated. RESPIRATORY: No accessory muscle use. Clear to auscultation. Breath sounds equal bilaterally. GASTROINTESTINAL: Abdomen soft, epigastric TTP, nondistended. Bowel sounds x4. MUSCULOSKELETAL: No obvious deformities. No clubbing or cyanosis. No edema. NEUROLOGICAL: Awake and alert. No focal neurological deficits. Moves upper and lower extremities spontaneously. Normal speech. PSYCHIATRIC: Appropriate mood and affect; insight and judgment normal. A/P Problem List: (1) Chest pain ICD Code: R07.9 Status: Acute Assessment and Plan 71 y/o female with history of ESRD-on HD, COPD, diabetes and hypertension who presented to ER with chest pain during her dialysis session 12/22. Atypical Chest Pain: suspect secondary to dialysis and anemia, possibility of GI or musculoskeletal etiology as well. -ACS ruled out with negative serial cardiac enzymes x3 and EKG without acute ischemic changes -of note, patient with cardiac catheterization in 2014 which showed nonobstructive CAD -started aspirin, continue nitrate -consulted cardiology, cleared for discharge -started PPI ESRD- on HD: chronic -consulted nephrology to continue dialysis Rectal Bleeding: reported by the patient. -stool hemoccult is positive -Hemoglobin did trend down from 10.2 at admission to 8.2. -GI consulted, plan for EGD/ colonoscopy today Hematuria and suprapubic pain: The patient was already scheduled for outpatient cystoscopy for this. -Urine culture with mixed ramu. -With anemia, patient's urologist was consulted who recommended outpatient cystoscopy. -Patient states that her urologist told her that if cystoscopy is negative she needs to follow-up with [facility]. Anemia: Chronic normocytic anemia with ESRD. Patient appears to have acute worsening likely due to hematuria and hematochezia. Hemoglobin 10.2->8.2->8.9 -monitor H&H, appears stable -transfuse if needed Hypertension: with episode of hypotension after received nitro -DC amlodipine with soft BP -Continue Imdur -continue to monitor the BP trend, improving Diabetes mellitus: -Continue home Levemir 44u bid and medium sliding scale coverage. Better control with home regimen restarted. -monitor accu-check COPD: chronic respiratory failure, O2 dependent. Stable, does not appear to be in exacerbation -continue duonebs prn Dysphagia: Chronic. Patient reports previous workup was negative. -GI planning on EGD DVT prophylaxis with SCD's Discharge Planning Possible discharge later today for outpatient follow-up if cleared by gastroenterology. Problem Qualifiers (1) Chest pain: Qualified Code: R07.9 - Chest pain, unspecified type Jorge Matos Dec 26, 2016 09:30
[2016-12-26] MEDS ORDERED: PROPOFOL 200 MG/20 ML AMP IV ONE (10:44)
--- NOTE | 2016-12-26 11:23 | PD.PROCEDR ---
GI Procedure REFERRING PHYSICIAN Sera DOTY PERFORMED EGD with biopsy followed by colonoscopy with ablation of AVM and snare polypectomy INDICATION FOR PROCEDURE Anemia and guaiac-positive stools and chronic diarrhea PROCEDURE: The procedure, risks and benefits were discussed with Ms. Puga and informed consent was obtained. Anesthesia sedated her with Diprivan. She was placed in the left lateral decubitus position. EGD: The Pentax videoscope was introduced through the oropharynx and advanced to the second portion of the duodenum under direct visualization. Retroflexion was performed in the stomach. FINDINGS: The esophagus the distal esophageal mucosa appeared to be somewhat hyperplastic consistent with probable underlying chronic reflux but no obvious signs of esophagitis The stomach there was a small hiatal hernia otherwise gastric mucosa was unremarkable The duodenum this appeared to be unremarkable random biopsies were taken to rule out celiac Colonoscopy: The Pentax videoscope was introduced through the rectum and advanced to cecum where the ileocecal valve and appendiceal orifice were identified. Retroflexion was performed in the rectum. Colonic prep was fair FINDINGS: Colonic withdrawal time greater than 6 minutes as the scope was slowly withdrawn colonic mucosa was carefully inspected the patient was noted to have 2 large ascending colon AVMs these were ablated the patient was noted to have 3 polyps medium size sessile one in the distal transverse colon one in the descending colon and one in the proximal sigmoid all 3 were completely excised using hot snare technique and were retrieved for further evaluation retroflexion in the rectum did reveal small to medium size internal hemorrhoids the patient did have mild diverticulosis of the sigmoid rectal examination and colonoscopy were otherwise unremarkable ESTIMATED BLOOD LOSS: None SPECIMENS REMOVED: Duodenal biopsy and colonic samples COMPLICATIONS: None IMPRESSION: Gastroesophageal reflux disease Hiatal hernia Colon polyps Colon AVMs Diverticulosis Internal hemorrhoids PLAN: Await biopsy High fiber diet Monitor labs Colonoscopy in 5 years Jerry Gan MD Dec 26, 2016 11:23
[2016-12-26] MEDS ORDERED: DO NOT ADM ANY ANTICOAGULANT DRUGS PRN (11:30)
[2016-12-26 12:30] VITALS: BP 127/60; PULSE 78; RESP 18; TEMP 96.6; O2SAT 98
[2016-12-26] MEDS ORDERED: ASPI81CH25 CHEW (12:39)
[2016-12-26] MEDS ORDERED: PANT40TA3 PO (12:39)
--- NOTE | 2016-12-26 15:37 | HHI.DS ---
Discharge Summary Admission Date Dec 22, 2016 at 15:27 Discharge Date: Dec 26, 2016 Admitting Diagnosis Chest Pain (1) Chest pain ICD Code: R07.9 Diagnosis: Principal (2) Rectal bleeding ICD Code: K62.5 Diagnosis: Principal (3) Hematuria ICD Code: R31.9 Diagnosis: Principal (4) Anemia of renal disease ICD Code: D63.1 Diagnosis: Secondary (5) Hyperparathyroidism, secondary renal ICD Code: N25.81 Diagnosis: Secondary (6) Morbid obesity with BMI of 45.0-49.9, adult ICD Code: E66.01 Diagnosis: Secondary (7) Diabetes mellitus ICD Code: E11.9 Diagnosis: Secondary (8) ESRD (end stage renal disease) on dialysis ICD Code: N18.6 Diagnosis: Secondary Procedures EGD and colonoscopy Brief History - From Admission patient is a 71 y/o female with history of ESRD-on HD, COPD, diabetes and hypertension who presented to ER with chest pain. she says that she was in the middle of her dialysis today when she started to have chest pain. pain was midsternal with some radiation to the jaws and neck. pain was associated with some dizziness and nausea. she says that she was given nitro on her way to ER which helped her with the pain to some extent.she says that she's being followed up by . she cardiac catheterization in 2014 which showed nonobstructive coronary artery disease. she says that she couldn't finish her dialysis due to chest pain. CBC/BMP: 12/24/16 1723 12/24/16 1020 Significant Findings Laboratory Tests Test 12/23/16 12/23/16 12/24/16 12/24/16 18:00 20:25 10:20 17:23 Hemoglobin 8.2 GM/DL 8.6 GM/DL 8.9 GM/DL (11.6-15.3) (11.6-15.3) (11.6-15.3) Hematocrit 24.9 % 26.6 % 27.7 % (35.0-46.0) (35.0-46.0) (35.0-46.0) Urine Turbidity CLOUDY (CLEAR) Urine Protein 100 mg/dL (NEG-TRACE) Urine Occult Blood MOD (NEG) Urine Leukocyte Esterase LARGE (NEG) Urine RBC 20 /hpf (0-3) Urine WBC Clumps MANY (NONE) Urine Bacteria MANY /hpf (NONE) Red Blood Count 3.04 MIL/MM3 (4.00-5.30) Blood Urea Nitrogen 49 MG/DL (7-18) Creatinine 5.32 MG/DL (0.50-1.00) Estimat Glomerular Filtration 8 ML/MIN (>89) Rate Random Glucose 200 MG/DL (74-106) Calcium Level 8.4 MG/DL (8.5-10.1) Albumin 2.7 GM/DL (3.4-5.0) Imaging Last Impressions Chest X-Ray 12/22/16 1335 Signed Impressions: Service Date/Time: Tuesday, December 22, 2016 13:46 - CONCLUSION: 1. No acute abnormality or significant interval change. Yvan Dorman MD PE at Discharge GENERAL: Well-developed well-nourished morbidly obese. In no acute distress. SKIN: Warm and dry. No lesions noted. HEENT: Normocephalic. Pupils equal and round. Mucous membranes pink and moist. CARDIOVASCULAR: Regular rate and rhythm. No murmur appreciated. RESPIRATORY: No accessory muscle use. Clear to auscultation. Breath sounds equal bilaterally. GASTROINTESTINAL: Abdomen soft, epigastric TTP, nondistended. Bowel sounds x4. MUSCULOSKELETAL: No obvious deformities. No clubbing or cyanosis. No edema. NEUROLOGICAL: Awake and alert. No focal neurological deficits. Moves upper and lower extremities spontaneously. Normal speech. PSYCHIATRIC: Appropriate mood and affect; insight and judgment normal. Hospital Course 71 y/o female with history of ESRD-on HD, COPD, diabetes and hypertension who presented to ER with chest pain during her dialysis session 12/22. Atypical Chest Pain: suspect secondary to dialysis and anemia, possibility of GI or musculoskeletal etiology as well. -ACS ruled out with negative serial cardiac enzymes x3 and EKG without acute ischemic changes -of note, patient with cardiac catheterization in 2014 which showed nonobstructive CAD -started aspirin, continue nitrate -consulted cardiology, cleared for discharge -started PPI ESRD- on HD: chronic -consulted nephrology to continue dialysis Rectal Bleeding: reported by the patient. -stool hemoccult is positive -Hemoglobin did trend down from 10.2 at admission to 8.2. -GI consulted, plan for EGD/ colonoscopy. Patient has AV cauterized by GI . Continue PPI, to follow up as OP with GI Hematuria and suprapubic pain: The patient was already scheduled for outpatient cystoscopy for this. -Urine culture with mixed ramu. -With anemia, patient's urologist was consulted who recommended outpatient cystoscopy. -Patient states that her urologist told her that if cystoscopy is negative she needs to follow-up with [facility]. Anemia: Chronic normocytic anemia with ESRD. Patient appears to have acute worsening likely due to hematuria and hematochezia. Hemoglobin 10.2->8.2->8.9 -monitor H&H, appears stable -transfuse if needed Hypertension: with episode of hypotension after received nitro -DC amlodipine with soft BP -Continue Imdur -continue to monitor the BP trend, improving Diabetes mellitus: -Continue home Levemir 44u bid and medium sliding scale coverage. Better control with home regimen restarted. -monitor accu-check COPD: chronic respiratory failure, O2 dependent. Stable, does not appear to be in exacerbation -continue duonebs prn Dysphagia: Chronic. Patient reports previous workup was negative. -GI planning on EGD DVT prophylaxis with SCD's Discharge Planning Discharge home in stable condition, to f/u as outpatient with PCP and consultants. Pt Condition on Discharge: Stable Discharge Disposition: Discharge Home Discharge Time: > 30 minutes Discharge Instructions DIET: Follow Instructions for: Renal Failure Diet, High Fiber Diet Activities you can perform: Regular-No Restrictions Follow up Referrals: Cardiology - 10 Days with Jass Menjivar MD Gastroenterology - 2 Weeks @ [facility] PCP Follow-up - 3-5 Days with Jas Freitas MD Urology - 2 Weeks with Jared Funk MD New Medications: Aspirin (Aspirin Low Strength) 81 Mg Chew 81 MG CHEW DAILY Blood Clot Prevention #30 EA Pantoprazole (Pantoprazole) 40 Mg Tab 40 MG PO DAILY Reflux #30 TAB Continued Medications: Acetaminophen (Acetaminophen) 325 Mg Tab 325 MG PO Q4-6H PRN PAIN Ref 0 TAB Calcium Acetate (Phosphate Binder) (Phoslo) 667 Mg Cap 1334 MG PO TID Hyperphosphatemia #90 Ref 0 CAP Insulin Aspart Inj (Novolog Inj) 1,000 Unit/10 Ml Vial 0 SQ TIDAC Sliding Scale as directed. #10 Ref 0 ML Insulin Detemir Inj (Levemir Inj) 1,000 unit/ 10 ML Vial 44 UNITS SQ Q12HR Do not mix with any other Insulin. Blood Sugar Management Ref 0 VIAL Isosorbide Mononitrate ER (Isosorbide Mononitrate ER) 30 Mg Manoj 30 MG PO DAILY Prevent Chest Pain #30 Ref 0 TAB Meclizine (Meclizine) 25 Mg Tab 25 MG PO Q6HR PRN DIZZINESS Ref 0 TAB Ondansetron (Ondansetron) 8 Mg Tab 8 MG PO BID PRN NAUSEA OR VOMITING Ref 0 TAB Oxygen tank (Oxygen tank) 1 Ea Tank 2 LITER MARCELO.CANULA HS Oxygen Concentrator Portable Gaseous 2 L/min via Nasal Cannula Continuous For 99 months HYPOXEMIA PREVENTION #2 Ref 11 CYLINDER Pregabalin (Lyrica) 75 Mg Cap 75 MG PO QID #60 Ref 0 CAP Rosuvastatin (Crestor) 40 Mg Tab 40 MG PO HS Cholesterol Management #30 Ref 0 TAB Sodium Bicarbonate (Sodium Bicarbonate) 650 Mg Tab 650 MG PO TID #90 Ref 0 TAB Tramadol (Ultram) 50 Mg Tab 50 MG PO QID PRN PAIN Ref 0 TAB Discontinued Medications: Amlodipine (Amlodipine) 5 Mg Tab 5 MG PO DAILY Blood Pressure Management #30 Ref 0 TAB Tara Slaughter MD Dec 26, 2016 15:37
[2016-12-26] MEDS ORDERED: PEG (High)/E-LYTE SOLN 4000 ML BTL PO ONE (16:00)
== END 2016-12-26 21:00 | disposition home or self-care (01) ==
LOC: NEPE 13:18 → NEDA 15:27 → INTOOBSV 15:27 → NEPFCDU 20:10 → UNDODISIN 12-26 21:00
PROVIDERS: ADMIT Hospitalist; ATTEND Hospitalist
DX: R07.89 Other chest pain (principal); E11.22 Type 2 diabetes mellitus with diabetic chronic kidney disease; I12.0 Hypertensive chronic kidney disease with stage 5 chronic kidney disease or end stage renal disease; N18.6 End stage renal disease; K92.1 Melena; Q27.33 Arteriovenous malformation of digestive system vessel; K63.5 Polyp of colon; K44.9 Diaphragmatic hernia without obstruction or gangrene; D63.1 Anemia in chronic kidney disease; D12.4 Benign neoplasm of descending colon; R60.0 Localized edema; J44.9 Chronic obstructive pulmonary disease, unspecified; G47.30 Sleep apnea, unspecified; I25.10 Atherosclerotic heart disease of native coronary artery without angina pectoris; K21.9 Gastro-esophageal reflux disease without esophagitis; K64.8 Other hemorrhoids; R82.99 Other abnormal findings in urine; R10.30 Lower abdominal pain, unspecified; R31.0 Gross hematuria; E07.9 Disorder of thyroid, unspecified; Z16.24 Resistance to multiple antibiotics; Z68.42 Body mass index [BMI] 45.0-49.9, adult; E66.01 Morbid (severe) obesity due to excess calories; N25.81 Secondary hyperparathyroidism of renal origin; M19.90 Unspecified osteoarthritis, unspecified site; Z79.4 Long term (current) use of insulin; Z86.73 Personal history of transient ischemic attack (TIA), and cerebral infarction without residual deficits; Z87.440 Personal history of urinary (tract) infections; Z99.2 Dependence on renal dialysis
CPT/HCPCS: 00810; 43239; 45385; 45388; 71010; 76937; 80053; 80069; 81001; 82272; 82550; 82948; 83735; 84484; 85014; 85018; 85025; 85027; 85610; 85730; 87086; 88300; 88305; 90935; 93005; 96374; 99285; G0378; J1815; J7030; Q4081

== ENCOUNTER 2017-05-27 11:03 | Day surgery (SDC) | payer MEDICARE, BC, OTHER ==
[~2017-05-27] VITALS: Ht 160 cm; Wt 119.0 kg
[~2017-05-27 11:03] MED LIST changes: -AMLO5TAB2 PO; +ASPI81CH25 CHEW; -ONDA1TAB17 PO; +ONDA8TAB7 PO; +PANT40TA3 PO; +TRAM50 PO; -ULTR50TA5 PO
[2017-05-27] MEDS ORDERED: HEPARIN SODIUM - IV 10,000 UNITS/10 ML VIAL IV FLUSH ONE (11:04)
[2017-05-27] MEDS ORDERED: SODIUM CHLORIDE 0.9% 1000 ML IV SCH (11:30)
[2017-05-27] MEDS ORDERED: VANCOMYCIN 1000 MG/NS 250 ML - implanted port/tunneled catheter IV SCH ×2 (11:45)
[2017-05-27 12:05] VITALS: BP 152/53; PULSE 77; RESP 20; TEMP 98.2; O2SAT 97
[2017-05-27 12:38] LABS: AUTOMATED NEUTROPHIL # 5.9 TH/MM3 (1.8-7.7); BASOPHIL # 0.1 TH/MM3 (0-0.2); BASOPHIL % 0.9 % (0.0-2.0); EOSINOPHIL # 0.2 TH/MM3 (0-0.4); EOSINOPHIL % 2.3 % (0.0-4.0); HEMATOCRIT 29.8 % (35.0-46.0); HEMO FLAGS DIFF FINAL; LYMPH % 24.6 % (9.0-44.0); LYMPHOCYTE # 2.3 TH/MM3 (1.0-4.8); MEAN CELL VOLUME 89.2 FL (80.0-100.0); MEAN CORPUSCULAR HEMOGLOBIN 28.9 PG (27.0-34.0); MEAN CORPUSCULAR HGB CONC 32.4 % (32.0-36.0); MONO % 7.6 % (0.0-8.0); NEUT % 64.6 % (16.0-70.0); PLATELET COUNT 212 TH/MM3 (150-450); RED BLOOD COUNT 3.34 MIL/MM3 (4.00-5.30); RED CELL DISTRIBUTION WIDTH 14.9 % (11.6-17.2); WHITE BLOOD COUNT 9.2 TH/MM3 (4.0-11.0)
[2017-05-27 12:48] LABS: APTT (PATIENT) 22.9 SEC (24.3-30.1); PROTHROMBIN TIME - PATIENT 10.6 SEC (9.8-11.6)
[2017-05-27] MEDS ORDERED: ZOLO50TA PO (12:58)
[2017-05-27] MEDS ORDERED: CALC600T4 PO (12:58)
[2017-05-27] MEDS ORDERED: CALC1CAP PO (12:58)
[2017-05-27] MEDS ORDERED: ROSU10 PO (12:58)
[2017-05-27 13:07] LABS: BICARBONATE 22.5 MEQ/L (21.0-32.0)
[2017-05-27 13:08] LABS: POTASSIUM 6.2 MEQ/L (3.5-5.1)
[2017-05-27 13:25] LABS: CALCIUM-PROTEIN CORRECTED 6.8 MG/DL (8.5-10.1)
[2017-05-27] MEDS ORDERED: MIDAZOLAM HCL 2 MG/2 ML VIAL ONE ×2 (14:43→15:26)
[2017-05-27] MEDS ORDERED: LIDOCAINE 1%/EPINEPHrine 1:100,000 SOLN 20 ML VIAL ONE (15:09)
[2017-05-27] MEDS ORDERED: SODIUM BICARBONATE 8.4% INJ 50 ML ONE (15:25)
--- NOTE | 2017-05-27 15:42 | PD.RAD ---
Post Procedure Progress Note Pre Procedure Diagnosis: (1) Poorly functioning fistual, right upper extremity Post Procedure Diagnosis: (1) Dyspnea (2) Poorly functioning fistual, right upper extremity (3) ESRD (end stage renal disease) on dialysis Procedure Date: May 27, 2017 Supervising Radiologist: Christopher Escalera Estimated blood loss: 3CC Anesthesia: Local, Conscious Sedation Plan of Activity Patient to Unit: ROPU Patient Condition: Good Additional Comments: Right Ij permcath placed. catheter in good position OK for use Full dictated report to follow See PACS Report for procedural detail/treatment Christopher Escalera MD May 27, 2017 15:42
[2017-05-27] MEDS ORDERED: SODIUM CHLORIDE 0.9% FLUSH 10 ML FLUSH IV FLUSH PRN (15:45)
[2017-05-27] MEDS ORDERED: HEPARIN SODIUM - IV 2,000 UNITS/2 ML VIAL IV FLUSH PRN (15:45)
[2017-05-27 15:50] VITALS: BP 112/66; PULSE 88; RESP 18; TEMP 98.4; O2SAT 94
--- NOTE | 2017-05-27 16:09 | RADRPT ---
EXAM DATE/TIME: 05/27/2017 16:20 [place] COMPARISON: CENTRAL VENOUS CATHETER REMOVAL, W/O FLUORO, RIGHT, November 01, 2015, 15:48. INDICATIONS : Dialysis patient with nonfunctioning av fistula MEDICAL HISTORY : 1. ESRD 2D.M 3. HTN 4. Proteinuria 5. Hx of nephrolithiasis 6, GERD SURGICAL HISTORY : 1. AV fistula 2. Perm cath. ENCOUNTER: Initial ACUITY: 1 day PAIN SCORE: FLUORO TIME: 0.8 minutes IMAGE SERIES: 1 SEDATION TIME: 30 minutes ACCESS: Right internal jugular vein SEDATION: 1.) 3 mg midazolam (Versed) IV 2.) 150 mcg fentanyl (Sublimaze) IV Prophylactic antibiotics were administered with appropriate pre-procedure timing. Vancomycin within 2 hours of procedure, Ancef (or alternative) within 1 hour of procedure. DEVICE: 1. 15 Uzbek dual lumen 23 cm Bañuelos II Plus catheter PROCEDURE : 1. Ultrasound-guided venipuncture. 2. PermaCath placement. 3. Conscious sedation with continuous EKG and oximetry monitoring. The risks, benefits and alternatives to the procedure were explained and verbal and written consent w as obtained. The site was prepped in sterile fashion. Full sterile technique was used, including ca p, mask, sterile gloves and gown and a large sterile sheet. Hand hygiene and 2% chlorhexidine and/or betadine/alcohol prep was utilized per protocol for cutaneous antisepsis. Sterile gel and sterile p robe cover were utilized for ultrasound guidance. The skin and subcutaneous tissues were infiltrated with local anesthetic solution. With ultrasound and fluoroscopic guidance a dermatotomy was created over the right internal jugular v ein. A micropuncture set was used to access the vein and serial dilatation was performed to accept t he prescribed length catheter. A subcutaneous tunnel was created in a retrograde fashion the cathete r was pulled through the tunnel. The catheter was flushed and assembled and locked with heparin. Th e catheter was sutured in place. Conscious sedation was performed with the prescribed dosages and duration as above in the presence of an independent trained radiology nurse to assist in the monitoring of the patient. EKG and oximetry remained stable throughout the procedure. The patient tolerated the procedure well and there were n o complications. The patient was sent to post anesthesia recovery in stable condition. CONCLUSION: Uncomplicated PermaCath placement as above. Christopher Escalera MD on May 27, 2017 at 16:07 Board Certified Radiologist. This report was verified electronically.
[2017-05-27 16:10] VITALS: BP 159/57; PULSE 83; RESP 20; O2SAT 97
[2017-05-27 16:30] VITALS: BP 148/56; PULSE 83; RESP 20; O2SAT 97
[2017-05-27 17:00] VITALS: BP 152/54; PULSE 80; RESP 20; O2SAT 95
[2017-05-27 17:26] VITALS: BP 150/60; PULSE 83; RESP 20; O2SAT 97
== END 2017-05-27 17:30 | disposition home or self-care (01) ==
LOC: HROP 11:03 → HRIP 11:07 → HROP 17:30
PROVIDERS: ATTEND Internal Medicine Nephrology
DX: T82.898A Other specified complication of vascular prosthetic devices, implants and grafts, initial encounter (principal); N18.6 End stage renal disease; I12.0 Hypertensive chronic kidney disease with stage 5 chronic kidney disease or end stage renal disease; K21.9 Gastro-esophageal reflux disease without esophagitis; Z99.2 Dependence on renal dialysis; Z87.442 Personal history of urinary calculi
CPT/HCPCS: 36558; 76937; 77001; 80048; 84155; 85025; 85610; 85730; 99152; 99153; C1750; C1769; J1644; J2250; J3010; J3370; J7030; J7050

== ENCOUNTER 2017-06-10 11:26 | Emergency (ER) | payer MEDICARE, BC, OTHER ==
[~2017-06-10] VITALS: Ht 167.6 cm; Wt 126.7 kg
[~2017-06-10 11:26] MED LIST changes: -ACET325T PO; +CALC1CAP PO; +CALC600T4 PO; -ISOS30TA3 PO; -PHOS667C5 PO; +ROSU10 PO; -ROSU40 PO; -SODI650T PO; +ZOLO50TA PO
[2017-06-10 11:37] VITALS: BP 116/56; PULSE 87; RESP 22; TEMP 98.1; O2SAT 99
--- NOTE | 2017-06-10 11:48 | PD ---
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 States she was at her Dialysis center, [facility], and she was unable to have dialysis today because the catheter was not flowing properly. Patient denies any fever, chills, chest pain. She does feel a little "pressure" in the catheter area. States she is having pain in the right upper extremity secondary to a shunt that was placed yesterday. Patient has dialysis Tuesday. PFSH Past Medical History Arthritis: Yes Asthma: Yes Blood Disorders: No Heart Rhythm Problems: No Cancer: No Cardiac Catheterization: Yes Cardiovascular Problems: Yes (CAD, HTN, ) High Cholesterol: Yes Chemotherapy: Yes (MULTIPLE MYLEOMA ) Chest Pain: Yes Congestive Heart Failure: No COPD: Yes Cerebrovascular Accident: Yes Coronary Artery Disease: Yes Diabetes: Yes Dialysis: Yes Diminished Hearing: No Endocrine: Yes GERD: Yes Genitourinary: Yes (ESRD) Hepatitis: No Hiatal Hernia: No Hypertension: Yes Immune Disorder: No Kidney Stones: Yes Musculoskeletal: Yes (DEGENERATIVE JOINT DISEASE) Neurologic: No Psychiatric: No Reproductive: No Respiratory: Yes Immunizations Current: No Migraines: No Radiation Therapy: No Renal Failure: Yes Seizures: No Sickle Cell Disease: No Sleep Apnea: Yes Thyroid Disease: No Ulcer: No Menopausal: Yes Past Surgical History Abdominal Surgery: Yes (galstones & appendix removed) AICD: No Appendectomy: Yes Arteriovenous Shunt: Yes (right upper arm) Body Medical Devices: PINS JESSICA HIPS, DIALYSIS CATHETER Cardiac Surgery: No Cholecystectomy: Yes Ear Surgery: No Endocrine Surgery: Yes (thyroid removed) Eye Surgery: Yes Genitourinary Surgery: Yes (hysterectomy) Gynecologic Surgery: Yes Hysterectomy: Yes Insulin Pump: No Joint Replacement: Yes (both hips) Neurologic Surgery: Yes (herniated disk) Oral Surgery: No Pacemaker: No Thoracic Surgery: No Other Surgery: Yes (AV FISTULA R ARM) Social History Alcohol Use: No Tobacco Use: No (QUIT 8 MONTHS (STATED 07/21/16)) Substance Use: No Allergies-Medications (Allergen,Severity, Reaction): Coded Allergies: Sulfa (Sulfonamide Antibiotics) (Unverified Allergy, Severe, TONGUE AND GENERALIZED SWELLING, 06/10/17) iodine (Unverified Allergy, Severe, 06/10/17) iohexol (Unverified Allergy, Severe, TONGUE AND GENERALIZED SWELLING, 06/10) penicillin G (Unverified Allergy, Severe, TONGUE AND GENERALIZED SWELLING , 06/10/17) potassium iodide (Unverified Allergy, Severe, 06/10/17) povidone-iodine (Unverified Allergy, Severe, 06/10/17) sodium iodide (Unverified Allergy, Severe, 06/10/17) sodium iodide (Unverified Allergy, Severe, 06/10/17) Iodinated Contrast- Oral and IV Dye (Unverified Allergy, Unknown, 06/10/17) *MDRO Multi-Drug Resistant Organism (Verified Adverse Reaction, Unknown, MRSA, 06/10/17) MRSA PCR (nares) POSITIVE - 10/31/15 MRSA (blood & sputum) - 10/31/15 ESBL Klebsiella Pneumoniae (urine-06/26/16) Reported Meds & Prescriptions Reported Meds & Active Scripts Active Pantoprazole (Pantoprazole Sodium) 40 Mg Tab 40 Mg PO DAILY Aspirin Low Strength (Aspirin) 81 Mg Chew 81 Mg CHEW DAILY Oxygen tank (Oxygen) 1 Ea Tank 2 Liter MARCELO.CANelicit HS Oxygen Concentrator Portable Gaseous 2 L/min via Nasal Cannula Continuous For 99 months Reported Calcium Carbonate 1,500 Mg Tab 500 Mg PO BID 1,500 mg calcium carbonate (600 mg elemental calcium) Calcium Acetate (Phosphate Binder) 667 Mg Cap 1,334 Mg PO TID Crestor (Rosuvastatin Calcium) 10 Mg Tab 10 Mg PO DAILY Meclizine (Meclizine HCl) 25 Mg Tab 25 Mg PO Q6HR PRN Ondansetron (Ondansetron HCl) 8 Mg Tab 8 Mg PO BID PRN Ultram (Tramadol HCl) 50 Mg Tab 50 Mg PO QID PRN Lyrica (Pregabalin) 75 Mg Cap 75 Mg PO TID Levemir Inj (Insulin Detemir) 1,000 unit/ 10 ML Vial 44 Units SQ Q12HR Do not mix with any other Insulin. Novolog Inj (Insulin Aspart) 1,000 Unit/10 Ml Vial 0 SQ TIDAC Sliding Scale as directed. Review of Systems Except as stated in HPI: all other systems reviewed are Neg Physical Exam Narrative GENERAL: Well-nourished, well-developed patient. SKIN: Focused skin assessment warm/dry. HEAD: Normocephalic. Atraumatic EYES: No scleral icterus. No injection or drainage. EOMI, PERRLA NECK: Supple, trachea midline. No JVD or lymphadenopathy. CARDIOVASCULAR: Regular rate and rhythm without murmurs, gallops, or rubs. Right chest- port in place with mild ecchymosis without edema or erythema. No exudate. RESPIRATORY: Breath sounds equal bilaterally. No accessory muscle use. GASTROINTESTINAL: Abdomen soft, non-tender, nondistended. MUSCULOSKELETAL: No cyanosis, or edema. Right upper extremity- TTP over her fistula. No ecchymosis or exudate noted BACK: Nontender without obvious deformity. No CVA tenderness. Data Data Last Documented VS Vital Signs Date Time Temp Pulse Resp B/P (MAP) Pulse Ox O2 Delivery O2 Flow Rate FiO2 06/10/17 11:37 98.1 87 22 116/56 (76) 99 Nasal Cannula 3.00 Orders Orders Renal Functional Panel (06/11/17 15:15) Blood Flow Rate (06/10/17 15:29) Dialysate Flow Rate (06/10/17 15:29) Dialyzer (06/10/17 15:29) Concentrate (06/10/17 15:29) Acid Concentrate (06/10/17 15:29) Length Of Dialysis (06/10/17 15:29) Frequency Of Dialysis (06/10/17 15:29) Dialysis Obtain (06/10/17 15:29) Needle Size (06/10/17 15:29) Dialysis Schedule (06/10/17 15:29) Resp Oxygen Marcelo C Titrat 1-4 L (06/10/17 ) Dialysis Weight (06/10/17 15:29) ^ Obtain As Needed (06/10/17 15:29) Sodium Chlor 0.9% 1000 Ml Inj (Ns 1000 M (06/10/17 15:29) Heparin Inj (Heparin Inj) (06/10/17 15:30) Sodium Chlor 0.9% 1000 Ml Inj (Ns 1000 M (06/10/17 15:29) Sodium Chlor 0.9% 1000 Ml Inj (Ns 1000 M (06/10/17 15:29) Mannitol Inj (Mannitol Inj) (06/10/17 15:30) Albumin 25% Inj (Albumin 25% Inj) (06/10/17 15:30) Sodium Chloride 0.9% Flush (Ns Flush) (06/10/17 15:30) Heparin Inj (Heparin Inj) (06/10/17 15:30) Gentamicin (Dialysis) Inj (Gentamicin (D (06/10/17 15:30) Ondansetron Inj (Zofran Inj) (06/10/17 15:30) Acetaminophen (Tylenol) (06/10/17 15:30) Diphenhydramine (Benadryl) (06/10/17 15:30) Nitroglycerin Sl (Nitrostat Sl) (06/10/17 15:30) Clonidine (Catapres) (06/10/17 15:30) Gelatin 12 Mm/7 Mm Top (Gelfoam 12 Mm/7 (06/10/17 15:30) *Heparin Inj (*Heparin Inj Periprocedura (06/10/17 15:53) Vital Signs (Adult) Q15MX2 (06/10/17 16:05) Activity Bed Rest (06/10/17 16:05) [facility] Access Dev Pat W Svc (06/10/17 ) Ed Discharge Order (06/10/17 20:06) MDM Medical Decision Making Medical Screen Exam Complete: Yes Emergency Medical Condition: Yes Differential Diagnosis protocol officer malfunction versus infection versus for obstruction Narrative Course 71-year-old female presents to emergency department with a district medical examiner malfunction. States she was at her Dialysis center, [facility], and she was unable to have dialysis today because the catheter was not flowing properly. Patient denies any fever, chills, chest pain. She does feel a little "pressure" in the catheter area. States she is having pain in the right upper extremity secondary to a shunt that was placed yesterday. Vital signs stable Physical exam- right IJ permacath- mild ecchymosis over the insertion site without edema or erythema. No evidence of exudate. Right upper extremity dressed without evidence of exudate or fluid. Pt states she is starting to feel tired. 1155a I discussed this case with Dr. roldan and states he would evaluate this patient. 1221p I spoke with ABIGAIL Negron. Pt states her last oral intake was 10a where she had a sandwich and pretzels. She does not take any other anticoagulants ( only BASA), currently has no IV access. Dr. Escalera evaluated the catheter while patient was in the emergency department. Patient had dialysis today during her emergency department visit. 8p Patient is return to the emergency department and is ready to go home. Advised patient follow-up with her primary care physician within 2-3 days. Return to the emergency department for worsening or persistent symptoms. Diagnosis Primary Impression: ESRD (end stage renal disease) on dialysis Additional Impression: Vascular port complication Qualified Codes: T82.9XXA - Unspecified complication of cardiac and vascular prosthetic device, implant and graft, initial encounter Referrals: Primary Care Physician Additional Instructions: Follow-up a primary care physician within 2-3 days. Follow-up with your pool hand as recommended. If her symptoms persist or worsen return to the emergency department. Disposition: 01 DISCHARGE HOME Condition: Stable Raven Cuevas Jun 10, 2017 11:48
[2017-06-10] MEDS ORDERED: SODIUM CHLOR 0.9% 1000 ML INJ 1,000 ML IV PRN (15:29)
[2017-06-10] MEDS ORDERED: SODIUM CHLOR 0.9% 1000 ML INJ 1,000 ML OTHER PRN ×2 (15:29)
[2017-06-10] MEDS ORDERED: HEPARIN SODIUM - IV 10,000 UNITS/10 ML VIAL PRN (15:30)
[2017-06-10] MEDS ORDERED: SODIUM CHLORIDE 0.9% FLUSH 10 ML FLUSH IV FLUSH PRN (15:30)
[2017-06-10] MEDS ORDERED: ONDANSETRON HCL 4 MG/2 ML VIAL IV PUSH PRN (15:30)
[2017-06-10] MEDS ORDERED: NITROGLYCERIN 0.4 MG SL 25 TABS/BTL SL PRN (15:30)
[2017-06-10] MEDS ORDERED: diphenhydrAMINE HCL 25 MG CAP PO PRN (15:30)
[2017-06-10] MEDS ORDERED: GENTAMICIN SULFATE (DIALYSIS USE ONLY) 20 MG/2 ML VIAL OTHER PRN (15:30)
[2017-06-10] MEDS ORDERED: ALBUMIN 25% INJ 100 ML IV PRN (15:30)
[2017-06-10] MEDS ORDERED: HEPARIN SODIUM - IV 10,000 UNITS/10 ML VIAL IV FLUSH PRN (15:30)
[2017-06-10] MEDS ORDERED: cloNIDine HCL 0.1 MG TAB PO PRN (15:30)
[2017-06-10] MEDS ORDERED: GELATIN 12 MM/7 MM FOAM TOP PRN (15:30)
[2017-06-10] MEDS ORDERED: ACETAMINOPHEN 325 MG TAB PO PRN (15:30)
[2017-06-10] MEDS ORDERED: MANNITOL 12.5 GM/50 ML VIAL IV PRN (15:30)
--- NOTE | 2017-06-10 16:08 | PD.RAD ---
Post Procedure Progress Note Pre Procedure Diagnosis: (1) ESRD (end stage renal disease) on dialysis Post Procedure Diagnosis: (1) ESRD (end stage renal disease) on dialysis Procedure Date: Jun 10, 2017 Supervising Radiologist: Christopher Escalera Estimated blood loss: None Plan of Activity Patient to Unit: Other Patient Condition: Fair Additional Comments: Dialysis catheter evaluated. Catheter flushes and aspirates normally.' Catheter in good position. See PACS Report for procedural detail/treatment Christopher Escalera MD Jun 10, 2017 16:08
--- NOTE | 2017-06-20 15:59 | RADRPT ---
EXAM DATE/TIME: 06/10/2017 15:40 [facility] COMPARISON: PERM CV CATH PLCMT W US RIGHT, May 27, 2017, 16:20. INDICATIONS : Patient presents with End-stage renal disease in need of dialysis catheter evaluation due to malfunct ion. MEDICAL HISTORY : ESRD D.M HTN Proteinuria Hx of Nephrolithiasis GERD Asthma COPD Diabetes CAD SURGICAL HISTORY : AV fistula Perm cath Bilateral hip surgery Hysterectomy Back surgery ENCOUNTER: Subsequent ACUITY: 1 day PAIN SCORE: 4/10 LOCATION: Right Chest FLUORO TIME: 0.1 minutes IMAGE SERIES: PROCEDURE : 1. perm catheter evaluation. 2. Patency injection. The risks, benefits and alternatives to the procedure were explained and verbal and written consent w as obtained. The patient was placed supine. The port was prepped in sterile fashion. Full sterile t echnique was used, including cap, mask, sterile gloves and gown, and a large sterile sheet. Hand hyg iene and 2% chlorhexidine prep was utilized per protocol for cutaneous antisepsis with appropriate dr y time for site. The previously placed dialysis catheter was accessed and positive contrast was injected for evaluatio n. Injection demonstrates the catheter to be in excellent position. Catheter functions normally. The SVC is patent. CONCLUSION: The permacath is in excellent position and functions normally. Christopher Escalera MD on June 20, 2017 at 15:55 Board Certified Radiologist. This report was verified electronically.
== END 2017-06-10 23:59 | disposition home or self-care (01) ==
LOC: NEPE 11:26
DX: T82.9XXA Unspecified complication of cardiac and vascular prosthetic device, implant and graft, initial encounter (principal); E11.22 Type 2 diabetes mellitus with diabetic chronic kidney disease; I12.0 Hypertensive chronic kidney disease with stage 5 chronic kidney disease or end stage renal disease; N18.6 End stage renal disease; M19.90 Unspecified osteoarthritis, unspecified site; I25.10 Atherosclerotic heart disease of native coronary artery without angina pectoris; I10 Essential (primary) hypertension; E78.00 Pure hypercholesterolemia, unspecified; Z99.2 Dependence on renal dialysis
CPT/HCPCS: 36575; 96374; 99285; G0257; J1644; 90935

== ENCOUNTER 2017-11-27 15:19 | Inpatient (IN) | payer MEDICARE, BC, OTHER ==
[~2017-11-27] VITALS: Ht 167.6 cm; Wt 115.8 kg
[2017-11-27] VITALS (9 sets, daily range): BP systolic 80–144; BP diastolic 40–80; PULSE 90–116; RESP 26–32; TEMP 98.4–105.1; O2SAT 96–100
[~2017-11-27 15:19] MED LIST changes: -ZOLO50TA PO
[2017-11-27] MEDS ORDERED: AZITHROMYCIN INJ 500 MG in SODIUM CHLOR 0.9% 250 ML INJ 250 ML IV STA (15:23)
[2017-11-27] MEDS ORDERED: CEFEPIME INJ 2,000 MG in SODIUM CHLORIDE 0.9% INJ 100 ML IV STA (15:23)
[2017-11-27] MEDS ORDERED: SODIUM CHLORID 0.9% 500 ML INJ 500 ML IV ONE ×2 (15:30→17:45)
[2017-11-27] MEDS ORDERED: ACETAMINOPHEN 325 MG TAB PO ONE (15:30)
[2017-11-27] MEDS ORDERED: RESP: ALBUTEROL 2.5 MG/IPRATROPIUM 0.5 MG NEB (SCH) NEB ONE (15:30)
[2017-11-27] MEDS ORDERED: ACETAMINOPHEN 650 MG SUPP RECTAL ONE (15:45)
[2017-11-27] MEDS ORDERED: VANCOMYCIN INJ 1,000 MG in SODIUM CHLOR 0.9% 250 ML INJ 250 ML IV ONE (16:00)
[2017-11-27 16:07] LABS: AUTOMATED NEUTROPHIL # 12.4 TH/MM3 (1.8-7.7); BASOPHIL % 0.3 % (0.0-2.0); EOSINOPHIL # 0.1 TH/MM3 (0-0.4); EOSINOPHIL % 0.6 % (0.0-4.0); HEMATOCRIT 35.5 % (35.0-46.0); HEMOGLOBIN 11.3 GM/DL (11.6-15.3); LYMPH % 8.4 % (9.0-44.0); LYMPHOCYTE # 1.2 TH/MM3 (1.0-4.8); MEAN CELL VOLUME 86.9 FL (80.0-100.0); MEAN CORPUSCULAR HEMOGLOBIN 27.6 PG (27.0-34.0); MEAN CORPUSCULAR HGB CONC 31.8 % (32.0-36.0); MEAN PLATELET VOLUME 9.3 FL (7.0-11.0); MONO % 4.9 % (0.0-8.0); MONOCYTE # 0.7 TH/MM3 (0-0.9); NEUT % 85.8 % (16.0-70.0); PLATELET COUNT 226 TH/MM3 (150-450); RED BLOOD COUNT 4.09 MIL/MM3 (4.00-5.30); RED CELL DISTRIBUTION WIDTH 16.7 % (11.6-17.2); WHITE BLOOD COUNT 14.5 TH/MM3 (4.0-11.0)
[2017-11-27 16:10] LABS: LACTIC ACID SEPSIS PROTOCOL 2.7 mmol/L (0.4-2.0)
[2017-11-27] MEDS ORDERED: ERGO2000 PO (16:11)
[2017-11-27 16:18] LABS: ALBUMIN 2.7 GM/DL (3.4-5.0); AST (GOT) 20 U/L (15-37); BLOOD UREA NITROGEN 32 MG/DL (7-18); CHLORIDE 100 MEQ/L (98-107); CREATININE 6.53 MG/DL (0.50-1.00); GLOMERULAR FILTRATION RATE 6 ML/MIN (>89); GLUCOSE,RANDOM 268 MG/DL (74-106); SODIUM (NA) 135 MEQ/L (136-145)
[2017-11-27 16:19] LABS: INTERNATIONAL NORMALIZED RATIO 1.1 RATIO; PROTHROMBIN TIME - PATIENT 10.7 SEC (9.8-11.6)
[2017-11-27 16:23] LABS: ALKALINE PHOSPHATASE 117 U/L (45-117); ALT (GPT) 16 U/L (10-53); TOTAL BILIRUBIN ADULT 0.5 MG/DL (0.2-1.0); TOTAL PROTEIN 7.2 GM/DL (6.4-8.2); TROPONIN I LESS THAN 0.02 NG/ML (0.02-0.05)
--- NOTE | 2017-11-27 16:34 | RADRPT ---
EXAM DATE/TIME: 11/27/2017 16:24 [facility] COMPARISON: CHEST SINGLE AP, December 22, 2016, 13:46. INDICATIONS : Fever MEDICAL HISTORY : Hypertension. Chronic obstructive pulmonary disease. Diabetes mellitus type II. CVA. Coronary artery disease. Asthma. Renal disease. Renal failure. Multiple myeloma SURGICAL HISTORY : Appendectomy. Cholecystectomy. Cardiac cath ENCOUNTER: Initial ACUITY: 1 day PAIN SCORE: 0/10 LOCATION: chest FINDINGS: Right IJ tunneled dialysis catheter in place. Minimal right basilar airspace disease and persistent e levation of the right hemidiaphragm. Cardiomediastinal contours are within normal limits. Remainder o f the exam is unchanged. CONCLUSION: 1. Elevation of the right hemidiaphragm with minimal right lower lung zone airspace disease, presumab ly atelectasis. Yvan Dorman MD on November 27, 2017 at 16:31 Board Certified Radiologist. This report was verified electronically.
[2017-11-27 16:58] LABS: BACTERIA, URINE MOD /hpf; BILIRUBIN, URINE NEG (NEG); BLOOD, URINE MOD (NEG); GLUCOSE,URINE 150 mg/dL (NEG); KETONE, URINE NEG (NEG); NITRITE,URINE NEG (NEG); PH, URINE 7.5 (5.0-8.5); SQUAMOUS EPITHELIAL CELL URINE 23 /hpf (0-5); URINE COLOR YELLOW (YELLW/STRAW); URINE LEUKOCYTE ESTERASE NEG (NEG); WHITE BLOOD CELL CLUMPS MANY
--- NOTE | 2017-11-27 17:42 | EKG ---
Date Performed: 11/27/2017 Time Performed: 15:36:05 PTAGE: 72 years EKG: SINUS TACHYCARDIA ABNORMAL RHYTHM ECG PREVIOUS TRACING : 12/22/2016 13.33 No significant change from previous tracing noted. DOCTOR: Norberto Wagner Interpretating Date/Time 11/27/2017 17:41:03
[2017-11-27] MEDS ORDERED: MECLIZINE HCL 25 MG TAB PO PRN (18:15)
--- NOTE | 2017-11-27 18:18 | PD ---
HPI Chief Complaint: Respiratory Distress Time Seen by Provider: 15:22 Travel History International Travel<30 days: No Contact w/Intl Traveler<30days: No Traveled to known affect area: No History of Present Illness HPI Patient is a 72-year-old female who comes in from home due to decreased level of consciousness today. Per EMS, her home health aide was concerned that she was not as responsive as she usually is. Usually at home she is awake, alert, oriented. Currently, she is lethargic but she will answer yes or no to questions. She says yes she does feel short of breath. She denies having any pains currently. Other history is not obtainable at this time. PFSH Past Medical History Arthritis: Yes Asthma: Yes Blood Disorders: No Heart Rhythm Problems: No Cancer: No Cardiac Catheterization: Yes Cardiovascular Problems: Yes (CAD, HTN, ) High Cholesterol: Yes Chemotherapy: Yes (MULTIPLE MYelOMA ) Chest Pain: Yes Congestive Heart Failure: No COPD: Yes Cerebrovascular Accident: Yes Coronary Artery Disease: Yes Diabetes: Yes Patient Takes Glucophage: No Dialysis: Yes Diminished Hearing: No Endocrine: Yes Gastrointestinal Disorders: Yes (GERD) GERD: Yes Genitourinary: Yes (ESRD) Hepatitis: No Hiatal Hernia: No Hypertension: Yes Immune Disorder: No Kidney Stones: Yes Medical other: Yes (BILATERAL LEG EDEMA) Musculoskeletal: Yes (DEGENERATIVE JOINT DISEASE) Neurologic: No Psychiatric: No Reproductive: No Respiratory: Yes Immunizations Current: No Migraines: No Radiation Therapy: No Renal Failure: Yes Seizures: No Sickle Cell Disease: No Sleep Apnea: Yes Thyroid Disease: No Ulcer: No Menopausal: Yes Past Surgical History Abdominal Surgery: Yes (gallstones & appendix removed) AICD: No Appendectomy: Yes Arteriovenous Shunt: Yes (right upper arm) Body Medical Devices: PINS JESSICA HIPS, DIALYSIS CATHETER Cardiac Surgery: No Cholecystectomy: Yes Ear Surgery: No Endocrine Surgery: Yes (thyroid removed) Eye Surgery: Yes Genitourinary Surgery: Yes (hysterectomy) Gynecologic Surgery: Yes Hysterectomy: Yes Insulin Pump: No Joint Replacement: Yes (both hips) Neurologic Surgery: Yes (herniated disk) Oral Surgery: No Pacemaker: No Thoracic Surgery: No Other Surgery: Yes (APPENDECTOMY, CHOLECYSTECTOMY, RIGHT UPPER ARM FISTULA PLACEMENT ) Social History Alcohol Use: No Tobacco Use: No (QUIT 8 MONTHS (STATED 07/21/16)) Substance Use: No Allergies-Medications (Allergen,Severity, Reaction): Coded Allergies: Sulfa (Sulfonamide Antibiotics) (Unverified Allergy, Severe, TONGUE AND GENERALIZED SWELLING, 06/10/17) iodine (Unverified Allergy, Severe, 06/10/17) iohexol (Unverified Allergy, Severe, TONGUE AND GENERALIZED SWELLING, 06/10) penicillin G (Unverified Allergy, Severe, TONGUE AND GENERALIZED SWELLING , 06/10/17) potassium iodide (Unverified Allergy, Severe, 06/10/17) povidone-iodine (Unverified Allergy, Severe, 06/10/17) sodium iodide (Unverified Allergy, Severe, 06/10/17) sodium iodide (Unverified Allergy, Severe, 06/10/17) Iodinated Contrast- Oral and IV Dye (Unverified Allergy, Unknown, 06/10/17) *MDRO Multi-Drug Resistant Organism (Verified Adverse Reaction, Unknown, MRSA, 06/10/17) MRSA PCR (nares) POSITIVE - 10/31/15 MRSA (blood & sputum) - 10/31/15 ESBL Klebsiella Pneumoniae (urine-06/26/16) Reported Meds & Prescriptions Reported Meds & Active Scripts Active Pantoprazole (Pantoprazole Sodium) 40 Mg Tab 40 Mg PO DAILY Aspirin Low Strength (Aspirin) 81 Mg Chew 81 Mg CHEW DAILY Oxygen tank (Oxygen) 1 Ea Tank 2 Liter MARCELO.CANULA HS Oxygen Concentrator Portable Gaseous 2 L/min via Nasal Cannula Continuous For 99 months Reported Vitamin D2 (Ergocalciferol) 2,000 Unit Tab 50,000 Units PO WEEKLY Calcium Carbonate 1,500 Mg Tab 500 Mg PO BID 1,500 mg calcium carbonate (600 mg elemental calcium) Calcium Acetate (Phosphate Binder) 667 Mg Cap 1,334 Mg PO TID Crestor (Rosuvastatin Calcium) 10 Mg Tab 10 Mg PO DAILY Meclizine (Meclizine HCl) 25 Mg Tab 25 Mg PO Q6HR PRN Ondansetron (Ondansetron HCl) 8 Mg Tab 8 Mg PO BID PRN Ultram (Tramadol HCl) 50 Mg Tab 50 Mg PO QID PRN Lyrica (Pregabalin) 75 Mg Cap 75 Mg PO TID Levemir Inj (Insulin Detemir) 1,000 unit/ 10 ML Vial 44 Units SQ Q12HR Do not mix with any other Insulin. Novolog Inj (Insulin Aspart) 1,000 Unit/10 Ml Vial 0 SQ TIDAC Sliding Scale as directed. Review of Systems ROS Limitations: Clinical Condition Physical Exam Narrative GENERAL: Lethargic, no acute distress. SKIN: Focused skin assessment warm/dry. Hot to the touch. No evidence of infection. HEAD: Atraumatic. Normocephalic. EYES: Pupils equal and round. No scleral icterus. Extraocular movements intact. ENT: Mucous membranes pink and moist. NECK: Trachea midline. No JVD. CARDIOVASCULAR: Tachycardia. No murmur appreciated. RESPIRATORY: No accessory muscle use. Clear to auscultation. Breath sounds equal bilaterally. GASTROINTESTINAL: Abdomen soft, non-tender, nondistended. MUSCULOSKELETAL: No obvious deformities. No clubbing. No cyanosis. No edema. NEUROLOGICAL: Lethargic, but awakens. No obvious cranial nerve deficits. Motor grossly within normal limits. Normal speech. PSYCHIATRIC: Appropriate mood and affect; insight and judgment normal. Data Data Last Documented VS Vital Signs Date Time Temp Pulse Resp B/P (MAP) Pulse Ox O2 Delivery O2 Flow Rate FiO2 11/27/17 17:54 116 28 98 Nasal Cannula 4.00 11/27/17 15:52 105.1 11/27/17 15:34 114/56 (75) Orders Orders Sepsis Workup Initiated (11/27/17 ) Electrocardiogram (11/27/17 15:23) Complete Blood Count With Diff (11/27/17 15:23) Comprehensive Metabolic Panel (11/27/17 15:23) Prothrombin Time / Inr (Pt) (11/27/17 15:23) Act Partial Throm Time (Ptt) (11/27/17 15:23) Lactic Acid Sepsis Protocol (11/27/17 15:23) Lipase (11/27/17 15:23) Ckmb (Isoenzyme) Profile (11/27/17 15:23) Troponin I (11/27/17 15:23) Urinalysis - C+S If Indicated (11/27/17 15:23) Blood Culture (11/27/17 15:23) Chest, Single Ap (11/27/17 15:23) Blood Glucose (11/27/17 15:23) Ecg Monitoring (11/27/17 15:23) Iv Access Insert/Monitor (11/27/17 15:23) Cath For Specimen (11/27/17 15:23) Oximetry (11/27/17 15:23) Oxygen Administration (11/27/17 15:23) Cefepime Inj (Maxipime Inj) (11/27/17 15:23) Azithromycin Inj (Zithromax Inj) (11/27/17 15:23) Acetaminophen (Tylenol) (11/27/17 15:30) Sodium Chlorid 0.9% 500 Ml Inj (Ns 500 M (11/27/17 15:30) Albuterol-Ipratropium Neb (Duoneb Neb) (11/27/17 15:30) Arterial Blood Gas (Abg) (11/27/17 15:22) Acetaminophen Supp (Tylenol Supp) (11/27/17 15:45) Vancomycin Inj (Vancomycin Inj) (11/27/17 16:00) Urine Culture (11/27/17 15:35) Sodium Chlorid 0.9% 500 Ml Inj (Ns 500 M (11/27/17 17:45) Admit Order (Ed Use Only) (11/27/17 ) Labs Laboratory Tests Test 11/27/17 15:22 11/27/17 15:31 11/27/17 15:35 Blood Gas Puncture Site LT RADIAL Blood Gas Patient Temperature 98.6 Blood Gas HCO3 22 mmol/L Blood Gas Base Excess -1.9 mmol/L Blood Gas Oxygen Saturation 95 % Arterial Blood pH 7.41 Arterial Blood Partial Pressure CO2 35 mmHg Arterial Blood Partial Pressure O2 93 mmHG Arterial Blood Oxygen Content 14.5 Vol % Arterial Blood Carboxyhemoglobin 1.5 % Arterial Blood Methemoglobin 1.0 % Blood Gas Hemoglobin 10.7 G/DL Oxygen Delivery Device NASAL CANNULA Blood Gas Liter Flow 4 L/M Lactic Acid Level 2.7 mmol/L White Blood Count 14.5 TH/MM3 Red Blood Count 4.09 MIL/MM3 Hemoglobin 11.3 GM/DL Hematocrit 35.5 % Mean Corpuscular Volume 86.9 FL Mean Corpuscular Hemoglobin 27.6 PG Mean Corpuscular Hemoglobin Concent 31.8 % Red Cell Distribution Width 16.7 % Platelet Count 226 TH/MM3 Mean Platelet Volume 9.3 FL Neutrophils (%) (Auto) 85.8 % Lymphocytes (%) (Auto) 8.4 % Monocytes (%) (Auto) 4.9 % Eosinophils (%) (Auto) 0.6 % Basophils (%) (Auto) 0.3 % Neutrophils # (Auto) 12.4 TH/MM3 Lymphocytes # (Auto) 1.2 TH/MM3 Monocytes # (Auto) 0.7 TH/MM3 Eosinophils # (Auto) 0.1 TH/MM3 Basophils # (Auto) 0.0 TH/MM3 CBC Comment DIFF FINAL Differential Comment Prothrombin Time 10.7 SEC Prothromb Time International Ratio 1.1 RATIO Activated Partial Thromboplast Time 27.4 SEC Urine Color YELLOW Urine Turbidity CLOUDY Urine pH 7.5 Urine Specific Dawson 1.020 Urine Protein 300 mg/dL Urine Glucose (UA) 150 mg/dL Urine Ketones NEG mg/dL Urine Occult Blood MOD Urine Nitrite NEG Urine Bilirubin NEG Urine Urobilinogen LESS THAN 2.0 MG/DL Urine Leukocyte Esterase NEG Urine RBC 76 /hpf Urine WBC /hpf Urine WBC Clumps MANY Urine Squamous Epithelial Cells 23 /hpf Urine Bacteria MOD /hpf Microscopic Urinalysis Comment CATH-CULTURE IND Blood Urea Nitrogen 32 MG/DL Creatinine 6.53 MG/DL Random Glucose 268 MG/DL Total Protein 7.2 GM/DL Albumin 2.7 GM/DL Calcium Level 8.0 MG/DL Alkaline Phosphatase 117 U/L Aspartate Amino Transf (AST/SGOT) 20 U/L Alanine Aminotransferase (ALT/SGPT) 16 U/L Total Bilirubin 0.5 MG/DL Sodium Level 135 MEQ/L Potassium Level 5.4 MEQ/L Chloride Level 100 MEQ/L Carbon Dioxide Level 22.0 MEQ/L Anion Gap 13 MEQ/L Estimat Glomerular Filtration Rate 6 ML/MIN Total Creatine Kinase 22 U/L Troponin I LESS THAN 0.02 NG/ML Lipase 388 U/L [facility] Medical Decision Making Medical Screen Exam Complete: Yes Emergency Medical Condition: Yes Medical Record Reviewed: Yes Interpretation(s) ECG shows sinus tachycardia at a rate of 106, no ST elevation or depression Differential Diagnosis Sepsis versus UTI versus pneumonia versus bacteremia Narrative Course Patient is a 72-year-old female who comes in due to altered level of consciousness at home. She found to be febrile to 105 on arrival. Established , labs sent. Labs are elevated white blood cell count. Lactic acid is 2.7. Creatinine is elevated, but this is expected as she is a dialysis patient was dialyzed Tuesday, Tuesday, Tuesday. Chest x-ray shows no evidence of pneumonia, there is possible atelectasis. Last 24 hours Impressions Chest X-Ray 11/27/17 1523 Signed Impressions: Service Date/Time: Monday, November 27, 2017 16:24 - CONCLUSION: 1. Elevation of the right hemidiaphragm with minimal right lower lung zone airspace disease, presumably atelectasis. Yvan Dorman MD Urinalysis is positive for UTI. Patient given gentle hydration due to her renal status. Given cefepime, azithromycin, vancomycin. Admitted for further management. Critical Care Narrative Aggregate critical care time was 40 minutes. Time to perform other separately billable procedures was not included in the critical care time. My time did not include minutes spent treating any other patients simultaneously or on activities that did not directly contribute to the patient's treatment. The services I provided to this patient were to treat and/or prevent clinically significant deterioration that could result in: Serious illness or I provided critical care services requiring my management, as noted below: Chart data review, documentation time, medication orders and management, vital sign assessments/reviewing monitor data, ordering and reviewing lab tests, ordering and interpreting/reviewing x-rays and diagnostic studies, care of the patient and discussion of the patient with the admitting physicians. Procedures Procedure Narrative CENTRAL VENOUS LINE: The site was prepped with Betadine and sterilely draped. It was infiltrated with 1% lidocaine plain. The deep vein was cannulated using normal Seldinger technique. A triple lumen central line was placed in the right femoral site and secured with simple interrupted suture. The site was sterilely dressed. The patient tolerated the procedure well. Diagnosis Primary Impression: Severe sepsis Additional Impression: UTI (urinary tract infection) Qualified Codes: N30.00 - Acute cystitis without hematuria Admitting Information Admitting Physician Requests: Admit Daphne Connolly MD November 27, 2017 18:18
[2017-11-27] MEDS ORDERED: ONDANSETRON ODT 4 MG TAB SL PRN (18:30)
[2017-11-27] MEDS ORDERED: SODIUM CHLOR 0.9% 1000 ML INJ 100 ML IV ONE (19:00)
[2017-11-27] MEDS ORDERED: TERBUTALINE INJ 1 MG/ML AMP SQ PRN (19:00)
[2017-11-27] MEDS ORDERED: SENNOSIDES 8.6 MG TAB PO PRN (19:00)
[2017-11-27] MEDS ORDERED: SODIUM CHLOR 0.9% 1000 ML INJ 1,000 ML IV ONE ×2 (19:00)
[2017-11-27] MEDS ORDERED: MORPHINE SULFATE 4 MG/ML INJ IV PUSH PRN (19:00)
[2017-11-27] MEDS ORDERED: NURSING INFORMATION XX SCH (19:00)
[2017-11-27] MEDS ORDERED: SODIUM CHLORIDE 0.9% FLUSH 10 ML FLUSH IV FLUSH PRN (19:00)
[2017-11-27] MEDS ORDERED: CHLORHEXIDINE GLUCONATE 2 % 1 PACK (2 CLOTHS) TOP PRN (19:00)
[2017-11-27] MEDS ORDERED: BISACODYL 10 MG SUPP RECTAL PRN (19:00)
[2017-11-27] MEDS ORDERED: ONDANSETRON HCL 4 MG/2 ML VIAL IV PUSH PRN (19:00)
[2017-11-27] MEDS ORDERED: LACTULOSE SYRUP 20 GM/30 ML CUP PO PRN (19:00)
[2017-11-27] MEDS ORDERED: CEFEPIME INJ 2,000 MG in SODIUM CHLORIDE 0.9% INJ 100 ML IV SCH (19:00)
[2017-11-27] MEDS ORDERED: Vancomycin Consult Pharmacy 1 EA OTHER SCH (19:00)
[2017-11-27] MEDS ORDERED: MAGNESIUM HYDROXIDE SUSP 30 ML CUP PO PRN (19:00)
--- NOTE | 2017-11-27 19:07 | HHI.HP ---
[facility] Service Critical Care Medicine Primary Care Physician Jas Freitas MD Admission Diagnosis Sepsis Diagnosis: Travel History International Travel<30 Days: No Contact w/Intl Traveler <30 Da: No Traveled to Known Affected Are: No History of Present Illness 72-year-old female with past medical history of ESRD, diabetes mellitus, hypertension, COPD presents for an evaluation of decreased level of consciousness today. Per EMS report, her home health aide was concerned that she was not as responsive as she usually is. Usually at home she is awake, alert, oriented. During my assessment in the emergency department she is lethargic but she will answer yes or no to questions. She denies having any pains currently. Review of Systems ROS Unable to obtain patients to lethargic Past Family Social History Allergies: Coded Allergies: Sulfa (Sulfonamide Antibiotics) (Unverified Allergy, Severe, TONGUE AND GENERALIZED SWELLING, 06/10/17) iodine (Unverified Allergy, Severe, 06/10/17) iohexol (Unverified Allergy, Severe, TONGUE AND GENERALIZED SWELLING, 06/10) penicillin G (Unverified Allergy, Severe, TONGUE AND GENERALIZED SWELLING , 06/10/17) potassium iodide (Unverified Allergy, Severe, 06/10/17) povidone-iodine (Unverified Allergy, Severe, 06/10/17) sodium iodide (Unverified Allergy, Severe, 06/10/17) sodium iodide (Unverified Allergy, Severe, 06/10/17) Iodinated Contrast- Oral and IV Dye (Unverified Allergy, Unknown, 06/10/17) *MDRO Multi-Drug Resistant Organism (Verified Adverse Reaction, Unknown, MRSA, 06/10/17) MRSA PCR (nares) POSITIVE - 10/31/15 MRSA (blood & sputum) - 10/31/15 ESBL Klebsiella Pneumoniae (urine-06/26/16) Past Medical History ESRD diabetes mellitus hypertension COPD Past Surgical History AV graft placement Reported Medications Reported Meds & Active Scripts Active Pantoprazole (Pantoprazole Sodium) 40 Mg Tab 40 Mg PO DAILY Aspirin Low Strength (Aspirin) 81 Mg Chew 81 Mg CHEW DAILY Oxygen tank (Oxygen) 1 Ea Tank 2 Liter MARCELO.CANULA HS Oxygen Concentrator Portable Gaseous 2 L/min via Nasal Cannula Continuous For 99 months Reported Vitamin D2 (Ergocalciferol) 2,000 Unit Tab 50,000 Units PO WEEKLY Calcium Carbonate 1,500 Mg Tab 500 Mg PO BID 1,500 mg calcium carbonate (600 mg elemental calcium) Calcium Acetate (Phosphate Binder) 667 Mg Cap 1,334 Mg PO TID Crestor (Rosuvastatin Calcium) 10 Mg Tab 10 Mg PO DAILY Meclizine (Meclizine HCl) 25 Mg Tab 25 Mg PO Q6HR PRN Ondansetron (Ondansetron HCl) 8 Mg Tab 8 Mg PO BID PRN Ultram (Tramadol HCl) 50 Mg Tab 50 Mg PO QID PRN Lyrica (Pregabalin) 75 Mg Cap 75 Mg PO TID Levemir Inj (Insulin Detemir) 1,000 unit/ 10 ML Vial 44 Units SQ Q12HR Do not mix with any other Insulin. Novolog Inj (Insulin Aspart) 1,000 Unit/10 Ml Vial 0 SQ TIDAC Sliding Scale as directed. Active Ordered Medications Current Medications Medications (Trade) Dose Ordered Sig/[place]arson Route PRN Reason Start Time Stop Time Status Last Admin Dose Admin Aspirin (Aspirin Chew) 81 mg DAILY CHEW 11/28/17 09:00 Meclizine HCl (Antivert) 25 mg Q6H PRN PO DIZZINESS 11/27/17 18:15 Pregabalin (Lyrica) 75 mg TID PO 11/28/17 09:00 Tramadol HCl (Ultram) 50 mg Q6H PRN PO PAIN 1-10 11/27/17 18:15 Ondansetron HCl (Zofran Odt) 8 mg BID PRN SL NAUSEA 11/27/17 18:30 Atorvastatin Calcium (Lipitor) 20 mg DAILY PO 11/28/17 09:00 Sodium Chloride 1,000 ml @ 84 mls/hr [id number] IV 11/27/17 19:00 Sodium Chloride (NS Flush) 2 ml UNSCH PRN IV FLUSH FLUSH AFTER USING IV ACCESS 11/27/17 19:00 Sodium Chloride (NS Flush) 2 ml BID IV FLUSH 11/27/17 21:00 Acetaminophen (Tylenol) 650 mg Q6H PRN PO PAIN 1-5 AND/OR FEVER >101F 11/27/17 19:00 Morphine Sulfate (Morphine Inj) 2 mg Q2H PRN IV PUSH PAIN SCALE 6 TO 10 11/27/17 19:00 Famotidine (Pepcid Inj) 10 mg Q12HR IV PUSH 5/20/18 21:00 Ondansetron HCl (Zofran Inj) 4 mg Q6H PRN IV PUSH NAUSEA OR VOMITING 11/27/17 19:00 Albuterol/ Ipratropium (Duoneb Neb) 1 ampule Q2HR NEB PRN INH WHEEZING 11/27/17 19:00 Heparin Sodium (Porcine) (Heparin Inj) 5,000 units Q8H SQ 11/27/17 20:00 Miscellaneous Information ([facility] Nursing Information) 1 [id number] 11/27/17 19:00 Chlorhexidine Gluconate (Chlorhexidine 2% Cloth) 3 pack Taper DAILY@04 TOP 11/28/17 04:00 11/24/18 03:59 Chlorhexidine Gluconate (Chlorhexidine 2% Cloth) 3 pack UNSCH PRN TOP HYGIENIC CARE 11/27/17 19:00 Senna/Docusate Sodium (Vannessa-Colace) 1 tab BID PO 11/27/17 21:00 Magnesium Hydroxide (Milk Of Magnesia Liq) 30 ml Q12H PRN PO Mild constipation 11/27/17 19:00 Sennosides (Senokot) 17.2 mg Q12H PRN PO Moderate constipation 11/27/17 19:00 Bisacodyl (Dulcolax Supp) 10 mg DAILY PRN RECTAL SEVERE CONSITIPATION 11/27/17 19:00 Lactulose (Lactulose Liq) 30 ml DAILY PRN PO SEVERE CONSITIPATION 11/27/17 19:00 Pharmacy Profile Note 0 ml @ 0 mls/hr UNSCH OTHER 11/27/17 19:00 Terbutaline Sulfate (Brethine Inj) 1 mg UNSCH PRN SQ For Extravasation 11/27/17 19:00 Cefepime HCl 1000 mg/Sodium Chloride 100 ml @ 200 mls/hr Q24H IV 11/28/17 16:00 Family History No family history of early coronary artery disease Social History Per medical records she quit smoking 2 years ago, no history of alcohol or illicit drug abuse Physical Exam Vital Signs Vital Signs Date Time Temp Pulse Resp B/P (MAP) Pulse Ox O2 Delivery O2 Flow Rate FiO2 11/27/17 17:54 116 28 98 Nasal Cannula 4.00 11/27/17 16:07 99 Nasal Cannula 4.00 11/27/17 15:52 105.1 5/20/18 15:45 98 Nasal Cannula 4.00 11/27/17 15:34 107 32 114/56 (75) 99 Physical Exam GENERAL: Morbidly obese elderly female, lethargic SKIN: Warm and dry. Permacath hemodialysis catheter under the right clavicle without signs of infection or inflammation. HEAD: Normocephalic. EYES: No scleral icterus. No injection or drainage. NECK: Supple, trachea midline. No JVD or lymphadenopathy. CARDIOVASCULAR: Regular rate and rhythm without murmurs, gallops, or rubs. RESPIRATORY: Breath sounds equal bilaterally. No accessory muscle use. GASTROINTESTINAL: Abdomen soft, non-tender, nondistended. MUSCULOSKELETAL: No cyanosis, or edema. BACK: Nontender without obvious deformity. NEURO EXAM: GCS: 13 Mental Status: The patient is lethargic but arousable. Laboratory Laboratory Tests Test 11/27/17 15:22 11/27/17 15:31 11/27/17 15:35 11/27/17 17:58 Blood Gas Puncture Site LT RADIAL Blood Gas Patient Temperature 98.6 Blood Gas HCO3 22 Blood Gas Base Excess -1.9 Blood Gas Oxygen Saturation 95 Arterial Blood pH 7.41 Arterial Blood Partial Pressure CO2 35 Arterial Blood Partial Pressure O2 93 Arterial Blood Oxygen Content 14.5 Arterial Blood Carboxyhemoglobin 1.5 Arterial Blood Methemoglobin 1.0 Blood Gas Hemoglobin 10.7 Oxygen Delivery Device NASAL CANNULA Blood Gas Liter Flow 4 Lactic Acid Level 2.7 3.3 White Blood Count 14.5 Red Blood Count 4.09 Hemoglobin 11.3 Hematocrit 35.5 Mean Corpuscular Volume 86.9 Mean Corpuscular Hemoglobin 27.6 Mean Corpuscular Hemoglobin Concent 31.8 Red Cell Distribution Width 16.7 Platelet Count 226 Mean Platelet Volume 9.3 Neutrophils (%) (Auto) 85.8 Lymphocytes (%) (Auto) 8.4 Monocytes (%) (Auto) 4.9 Eosinophils (%) (Auto) 0.6 Basophils (%) (Auto) 0.3 Neutrophils # (Auto) 12.4 Lymphocytes # (Auto) 1.2 Monocytes # (Auto) 0.7 Eosinophils # (Auto) 0.1 Basophils # (Auto) 0.0 CBC Comment DIFF FINAL Differential Comment Prothrombin Time 10.7 Prothromb Time International Ratio 1.1 Activated Partial Thromboplast Time 27.4 Urine Color YELLOW Urine Turbidity CLOUDY Urine pH 7.5 Urine Specific [place] 1.020 Urine Protein 300 Urine Glucose (UA) 150 Urine Ketones NEG Urine Occult Blood MOD Urine Nitrite NEG Urine Bilirubin NEG Urine Urobilinogen LESS THAN 2.0 Urine Leukocyte Esterase NEG Urine RBC 76 Urine WBC Urine WBC Clumps MANY Urine Squamous Epithelial Cells 23 Urine Bacteria MOD Microscopic Urinalysis Comment CATH-CULTURE IND Blood Urea Nitrogen 32 Creatinine 6.53 Random Glucose 268 Total Protein 7.2 Albumin 2.7 Calcium Level 8.0 Alkaline Phosphatase 117 Aspartate Amino Transf (AST/SGOT) 20 Alanine Aminotransferase (ALT/SGPT) 16 Total Bilirubin 0.5 Sodium Level 135 Potassium Level 5.4 Chloride Level 100 Carbon Dioxide Level 22.0 Anion Gap 13 Estimat Glomerular Filtration Rate 6 Total Creatine Kinase 22 Troponin I LESS THAN 0.02 Lipase 388 Date/Time Source Procedure Growth Status 11/27/17 15:38 Blood Peripheral Aerobic Blood Culture Pending Received 11/27/17 15:38 Blood Peripheral Anaerobic Blood Culture Pending Received 11/27/17 15:35 Urine Catheterized Urine Urine Culture Pending Received Result Diagram: 11/27/17 1535 11/27/17 1535 Imaging Last 24 hours Impressions Chest X-Ray 11/27/17 1523 Signed Impressions: Service Date/Time: Monday, November 27, 2017 16:24 - CONCLUSION: 1. Elevation of the right hemidiaphragm with minimal right lower lung zone airspace disease, presumably atelectasis. MD Aida Dwyer VTE Risk Assessment Aida VTE Risk Assessment: Mod/High Risk (score >= 2) Caprini Risk Assessment Model Point Value = 1 Point Value = 2 Point Value = 3 Point Value = 5 Age 41-60 Minor surgery BMI > 25 kg/m2 Swollen legs Varicose veins or History of unexplained or recurrent spontaneous Oral contraceptives or hormone replacement Sepsis (< 1 month) Serious lung disease, including pneumonia (< 1 month) Abnormal pulmonary function Acute myocardial infarction Congestive heart failure (< 1 month) History of inflammatory bowel disease Medical patient at bed rest Age 61-74 Arthroscopic surgery Major open surgery (> 45 min) Laparoscopic surgery (> 45 min) Malignancy Confined to bed (> 72 hours) Immobilizing plaster cast Central venous access Age >= 75 History of VTE Family history of VTE Factor V Leiden Prothrombin [id number] Lupus anticoagulant Anticardiolipin antibodies Elevated serum homocysteine Heparin-induced thrombocytopenia Other congenital or acquired thrombophilia Stroke (< 1 month) Elective arthroplasty Hip, pelvis, or leg fracture Acute spinal cord injury (< 1 month) Prophylaxis Regimen Total Risk Factor Score Risk Level Prophylaxis Regimen 0-1 Low Early ambulation 2 Moderate Order ONE of the following: *Sequential Compression Device (SCD) *Heparin 5000 units SQ BID 3-4 Higher Order ONE of the following medications: *Heparin 5000 units SQ TID *Enoxaparin/Lovenox 40 mg SQ daily (WT < 150 kg, CrCl > 30 mL/min) *Enoxaparin/Lovenox 30 mg SQ daily (WT < 150 kg, CrCl > 10-29 mL/min) *Enoxaparin/Lovenox 30 mg SQ BID (WT < 150 kg, CrCl > 30 mL/min) AND/OR *Sequential Compression Device (SCD) 5 or more Highest Order ONE of the following medications: *Heparin 5000 units SQ TID (Preferred with Epidurals) *Enoxaparin/Lovenox 40 mg SQ daily (WT < 150 kg, CrCl > 30 mL/min) *Enoxaparin/Lovenox 30 mg SQ daily (WT < 150 kg, CrCl > 10-29 mL/min) *Enoxaparin/Lovenox 30 mg SQ BID (WT < 150 kg, CrCl > 30 mL/min) AND *Sequential Compression Device (SCD) Assessment and Plan Assessment and Plan Altered mental status -Metabolic/toxic encephalopathy -SIRS/sepsis -Broad-spectrum antibiotic -Pancultures -De-escalate antibiotics per culture results -Infectious disease consultation ESRD -Hemodialysis per nephrology Diabetes mellitus -Insulin sliding scale -Resume home regiment when 100% intake by mouth Hypotension -Due to sepsis -Aggressive IV fluid resuscitation -Levophed as needed to keep them MAP above 65 COPD -No exacerbation -No indication for steroid -DuoNeb scheduled and as needed DVT GI prophylaxis -Benjamin's and SCDs -Subcu heparin -Pepcid Critical Care: The total critical care time was 35 minutes. Time to perform other separately billable procedures was not included in the critical care time. Mark Ramos MD November 27, 2017 19:07
[2017-11-27] MEDS: DOCUSATE SODIUM 50 MG/SENNA 8.6 MG TAB PO SCH (21:00)
[2017-11-27 21:19] LABS: LACTIC ACID SEPSIS PROTOCOL 3.8 mmol/L (0.4-2.0)
[2017-11-27] MEDS: SODIUM CHLORIDE 0.9% FLUSH 10 ML FLUSH IV FLUSH SCH (22:41)
[2017-11-27] MEDS: FAMOTIDINE 20 MG/2 ML VIAL IV PUSH SCH (22:42)
[2017-11-27] MEDS: HEPARIN SODIUM - SQ 10,000 UNITS/ML VIAL SQ SCH (22:49)
[2017-11-27] MEDS: ACETAMINOPHEN 325 MG TAB PO PRN (23:09)
[2017-11-27] MEDS ORDERED: NOREPINEPHRINE 4 MG/D5W 250 ML IV PRN (23:15)
[2017-11-28] VITALS (38 sets, daily range): BP systolic 79–156; BP diastolic 35–95; PULSE 61–110; RESP 22–52; TEMP 98.1–103; O2SAT 46–100
[2017-11-28] MEDS: SODIUM CHLOR 0.9% 1000 ML INJ 1,000 ML IV SCH ×3 (00:46→17:07)
[2017-11-28] MEDS: CHLORHEXIDINE GLUCONATE 2 % 1 PACK (2 CLOTHS) TOP SCH (03:15)
[2017-11-28] MEDS: HEPARIN SODIUM - SQ 10,000 UNITS/ML VIAL SQ SCH ×3 (03:22→20:30)
[2017-11-28 05:01] LABS: AUTOMATED NEUTROPHIL # 21.4 TH/MM3 (1.8-7.7); BASOPHIL # 0.1 TH/MM3 (0-0.2); BASOPHIL % 0.2 % (0.0-2.0); HEMATOCRIT 31.7 % (35.0-46.0); HEMOGLOBIN 9.9 GM/DL (11.6-15.3); LYMPH % 3.8 % (9.0-44.0); LYMPHOCYTE # 0.9 TH/MM3 (1.0-4.8); MEAN CELL VOLUME 90.5 FL (80.0-100.0); MEAN CORPUSCULAR HEMOGLOBIN 28.2 PG (27.0-34.0); MEAN CORPUSCULAR HGB CONC 31.2 % (32.0-36.0); MEAN PLATELET VOLUME 9.6 FL (7.0-11.0); MONO % 6.3 % (0.0-8.0); MONOCYTE # 1.5 TH/MM3 (0-0.9); NEUT % 89.7 % (16.0-70.0); PLATELET COUNT 207 TH/MM3 (150-450); RED CELL DISTRIBUTION WIDTH 17.3 % (11.6-17.2); WHITE BLOOD COUNT 23.8 TH/MM3 (4.0-11.0)
[2017-11-28 05:02] LABS: INTERNATIONAL NORMALIZED RATIO 1.1 RATIO; PROTHROMBIN TIME - PATIENT 11.1 SEC (9.8-11.6)
--- NOTE | 2017-11-28 05:29 | RADRPT ---
EXAM DATE/TIME: 11/28/2017 04:06 [place] COMPARISON: CHEST SINGLE AP, November 27, 2017, 16:24. INDICATIONS : Evaluate for pneumonia. Shortness of breath. MEDICAL HISTORY : Hypertension. Chronic obstructive pulmonary disease. Diabetes mellitus type II. CVA. Coronary artery disease. Asthma. Renal disease. Renal failure.Multiple myeloma SURGICAL HISTORY : Appendectomy. Cholecystectomy. Cardiac cath ENCOUNTER: Subsequent ACUITY: 2 days PAIN SCORE: Non-responsive. LOCATION: Bilateral chest FINDINGS: A single AP portable supine view of the chest was obtained and again demonstrates moderate elevation of the right hemidiaphragm without change. The right-sided double lumen central venous catheter remai ns in place. There are no confluent infiltrates or effusions identified. The heart size remains at th e upper limits of normal with no perihilar edema. CONCLUSION: Stable appearance with moderate elevation of the right hemidiaphragm again noted. Jorge Ernandez MD on November 28, 2017 at 5:26 Board Certified Radiologist. This report was verified electronically.
[2017-11-28 05:32] LABS: ALBUMIN 2.4 GM/DL (3.4-5.0); BICARBONATE 18.8 MEQ/L (21.0-32.0); CALCIUM 7.3 MG/DL (8.5-10.1); CALCIUM-PROTEIN CORRECTED 7.6 MG/DL (8.5-10.1); CREATININE 6.67 MG/DL (0.50-1.00); MAGNESIUM 1.7 MG/DL (1.5-2.5); PHOSPHORUS 3.7 MG/DL (2.5-4.9); TOTAL BILIRUBIN ADULT 0.4 MG/DL (0.2-1.0); TOTAL PROTEIN 6.6 GM/DL (6.4-8.2); TROPONIN I 0.03 NG/ML (0.02-0.05)
[2017-11-28] MEDS: DOCUSATE SODIUM 50 MG/SENNA 8.6 MG TAB PO SCH ×2 (08:21→20:29)
[2017-11-28] MEDS: FAMOTIDINE 20 MG/2 ML VIAL IV PUSH SCH ×2 (08:21→20:30)
[2017-11-28] MEDS: ATORVASTATIN 20 MG TAB PO SCH (08:21)
[2017-11-28] MEDS: SODIUM CHLORIDE 0.9% FLUSH 10 ML FLUSH IV FLUSH SCH ×2 (08:21→20:30)
[2017-11-28] MEDS: ASPIRIN 81 MG CHEW TAB CHEW SCH (08:21)
[2017-11-28] MEDS: PREGABALIN 75 MG CAP PO SCH ×3 (08:21→17:03)
[2017-11-28] MEDS ORDERED: DEXTROSE 50% IN WATER 50 ML VIAL(D50) IV PUSH PRN (08:45)
[2017-11-28] MEDS ORDERED: SODIUM BICARBONATE 8.4% INJ 50 MEQ/50 ML SYR IV PUSH ONE (08:45)
--- NOTE | 2017-11-28 09:28 | PD.CONS ---
History of Present Illness Service Infectious disease Consult Requested By Dr Horace Ramos Reason for Consult Evaluate patient with sepsis Primary Care Physician Jas Freitas MD Diagnoses: History of Present Illness Patient seen and examined. Records reviewed. Patient is a 72-year-old female, brought into the hospital for evaluation of decreased level of consciousness. Patient was apparently in her usual self, and on the day of admission her and the home health aide has been trying very hard to keep her awake. She was apparently quite lethargic. She was brought into the hospital and initially was lethargic. She had a fever of 105.1. She was hypotensive briefly. Her WBC was 14,000. Chest x-ray showed elevated right hemidiaphragm and possible atelectasis, no change compared to prior chest x-ray. Her urinalysis showed significant pyuria, and a Langley was placed. 2 blood cultures were done, and they are now reported as growing gram- positive cocci in pairs and clusters. Patient at the time of my exam is awake and alert and oriented to time place and person. She does not remember having any fever or chills at home. When she had her hemodialysis her temperature was normal. She denies any significant respiratory complaints, GI complaint as far as abdominal pain, nausea or vomiting. Patient apparently has chronic dysuria since she has been on dialysis. She has very little urine output. According to the patient she also gets symptoms of dizziness, and some neck pain, always after she gets done with her hemodialysis. Patient gets dialyzed Tuesday and Tuesday. She has a permacath that gets used for her dialysis. She has an AV fistula, which seems to be functioning, but the patient stated that she does not want it used because the dialysis nurse always has a problem accessing her AV fistula. Patient currently is afebrile, and her blood pressure is better. She is currently on cefepime, and she got a dose of vancomycin yesterday. Infectious disease consultation has been requested to evaluate the patient. Review of Systems Constitutional: COMPLAINS OF: Fever, Dizziness, DENIES: Night Sweats Eyes: DENIES: Eye pain Ears, nose, mouth, throat: DENIES: Nasal discharge, Oral lesions, Throat pain, Running Nose, Odynophagia Respiratory: DENIES: Cough, Sputum production, Shortness of breath Cardiovascular: DENIES: Chest pain, Palpitations, Lower Extremity Edema Gastrointestinal: DENIES: Abdominal pain, Diarrhea, Nausea, Vomiting, Difficulty Swallowing Genitourinary: COMPLAINS OF: Dysuria Musculoskeletal: COMPLAINS OF: Neck pain, DENIES: Joint pain Integumentary: COMPLAINS OF: Pruritus, DENIES: Rash Hematologic/lymphatic: DENIES: Lymphadenopathy Neurologic: DENIES: Localized weakness Psychiatric: DENIES: Hallucinations Past Family Social History Allergies: Coded Allergies: Sulfa (Sulfonamide Antibiotics) (Unverified Allergy, Severe, TONGUE AND GENERALIZED SWELLING, 06/10/17) iodine (Unverified Allergy, Severe, 06/10/17) iohexol (Unverified Allergy, Severe, TONGUE AND GENERALIZED SWELLING, 06/10) penicillin G (Unverified Allergy, Severe, TONGUE AND GENERALIZED SWELLING , 06/10/17) potassium iodide (Unverified Allergy, Severe, 06/10/17) povidone-iodine (Unverified Allergy, Severe, 06/10/17) sodium iodide (Unverified Allergy, Severe, 06/10/17) sodium iodide (Unverified Allergy, Severe, 06/10/17) Iodinated Contrast- Oral and IV Dye (Unverified Allergy, Unknown, 06/10/17) *MDRO Multi-Drug Resistant Organism (Verified Adverse Reaction, Unknown, MRSA, 06/10/17) MRSA PCR (nares) POSITIVE - 10/31/15 MRSA (blood & sputum) - 10/31/15 ESBL Klebsiella Pneumoniae (urine-06/26/16) Past Medical History ESRD Diabetes mellitus Hypertension COPD Obesity Past Surgical History R barchiocephalic AVF 2013 Superficialization AVF 2015 Previous permacath placement - patient states recently exchanged due to poor flow Previous colonoscopy Active Ordered Medications Current Medications Medications (Trade) Dose Ordered Sig/[place] Route Start Time Stop Time Status Last Admin (Aspirin Chew) 81 mg DAILY CHEW 11/28/17 09:00 11/28/17 08:21 (Antivert) 25 mg Q6H PRN PO 11/27/17 18:15 (Lyrica) 75 mg TID PO 11/28/17 09:00 11/28/17 08:21 (Ultram) 50 mg Q6H PRN PO 11/27/17 18:15 (Zofran Odt) 8 mg BID PRN SL 11/27/17 18:30 (Lipitor) 20 mg DAILY PO 11/28/17 09:00 11/28/17 08:21 Sodium Chloride 1,000 ml @ 84 mls/hr [id number] IV 11/27/17 19:00 11/28/17 08:21 (NS Flush) 2 ml UNSCH PRN IV FLUSH 11/27/17 19:00 (NS Flush) 2 ml BID IV FLUSH 11/27/17 21:00 11/28/17 08:21 (Tylenol) 650 mg Q6H PRN PO 11/27/17 19:00 11/27/17 23:09 (Morphine Inj) 2 mg Q2H PRN IV PUSH 11/27/17 19:00 (Pepcid Inj) 10 mg Q12HR IV PUSH 11/27/17 21:00 11/28/17 08:21 (Zofran Inj) 4 mg Q6H PRN IV PUSH 11/27/17 19:00 (Duoneb Neb) 1 ampule Q2HR NEB PRN INH 11/27/17 19:00 (Heparin Inj) 5,000 units Q8H SQ 11/27/17 20:00 11/28/17 03:22 ([facility] [place] [facility]) 1 Q361D XX 11/27/17 19:00 11/27/17 19:00 (Chlorhexidine 2% Cloth) 3 pack Taper DAILY@04 TOP 11/28/17 04:00 11/24/18 03:59 11/28/17 03:15 (Chlorhexidine 2% Cloth) 3 pack UNSCH PRN TOP 11/27/17 19:00 (Vannessa-Colace) 1 tab BID PO 11/27/17 21:00 11/28/17 08:21 (Milk Of Magnesia Liq) 30 ml Q12H PRN PO 11/27/17 19:00 (Senokot) 17.2 mg Q12H PRN PO 11/27/17 19:00 (Dulcolax Supp) 10 mg DAILY PRN RECTAL 11/27/17 19:00 (Lactulose Liq) 30 ml DAILY PRN PO 11/27/17 19:00 Pharmacy Profile Note 0 ml @ 0 mls/hr UNSCH OTHER 11/27/17 19:00 (Brethine Inj) 1 mg UNSCH PRN SQ 11/27/17 19:00 Cefepime HCl 1000 mg/Sodium Chloride 100 ml @ 200 mls/hr Q24H IV 11/28/17 16:00 Norepinephrine Bitartrate 250 ml @ 7.5 mls/hr TITRATE PRN IV 11/27/17 23:15 11/28/17 01:53 (D50w (Vial) Inj) 25 ml UNSCH PRN IV PUSH 11/28/17 08:45 (NovoLIN R SUPPLEMENTAL SCALE) 1 Q4HR SQ 11/28/17 12:00 Family History Noncontributory to current ID problem Social History Lives at home Has a home health aide that helps at least 8 hours a day 7 days a week Ex-smoker, quit 2 years ago Denies alcohol abuse Denies illicit drugs Physical Exam Vital Signs Vital Signs Date Time Temp Pulse Resp B/P (MAP) Pulse Ox O2 Delivery O2 Flow Rate FiO2 11/28/17 08:07 95 Nasal Cannula 4.00 11/28/17 06:22 62 117/55 11/28/17 06:00 67 11/28/17 04:25 63 133/56 11/28/17 04:00 98.1 61 30 122/54 (76) 80 11/28/17 04:00 61 11/28/17 02:00 63 11/28/17 01:53 65 85/42 11/28/17 00:00 75 11/28/17 00:00 98.5 75 35 88/54 (65) 99 11/27/17 22:00 99 11/27/17 21:18 11/27/17 21:00 98.4 90 30 80/40 (53) 96 11/27/17 21:00 90 11/27/17 20:17 98.9 103 27 100 Nasal Cannula 4.00 11/27/17 19:15 103 26 144/80 (101) 100 Nasal Cannula 4.00 11/27/17 17:54 116 28 98 Nasal Cannula 4.00 11/27/17 16:07 99 Nasal Cannula 4.00 11/27/17 15:52 105.1 11/27/17 15:45 98 Nasal Cannula 4.00 11/27/17 15:34 107 32 114/56 (75) 99 Physical Exam \GENERAL: Patient is an obese, well-developed female, awake and alert, oriented x 3, not in respiratory distress. She does not look toxic appearing SKIN: Cool and dry. No generalized rash, no ecchymoses and no evidence of embolic lesions. HEAD: Atraumatic. Normocephalic. No temporal wasting, or tenderness. EYES: [place] conjunctiva. No petechia or hemorrhage. Pupils equal, round and reactive to light. Extraocular movements full and intact. No scleral icterus. No injection or drainage. EARS, NOSE AND THROAT: Nose without bleeding or purulent nasal discharge. No sinus tenderness. Mucous membranes pink and moist. No oral lesions noted. No exudate. No oral thrush. NECK: Trachea midline. Supple and not tender, no meningeal signs CARDIOVASCULAR: Regular rate and rhythm. No murmurs, rubs or gallops heard. Permacath in the right upper chest, with no drainage, redness, induration, and no tenderness at the tunnel area. RESPIRATORY: Clear to auscultation. Breath sounds equal bilaterally. No rales , wheezing or rhonchi. Decreased breath sounds at the bases. ABDOMEN: Soft, obese, non-tender, nondistended. Bowel sounds present and normoactive. No guarding. No rebound. No organomegaly. : Langley catheter in place, has a small amount of urine, and the urine looks very dark and concentrated EXTREMITIES: No clubbing, cyanosis, or edema. No joint effusion, has good ROM. No calf tenderness. Well perfused and warm. AV fistula in the right upper extremity with a good thrill, has well healed incisions, with no evidence of infection. NEUROLOGICAL: Awake and alert. Cranial nerves grossly intact. Motor grossly within normal limits. PSYCHIATRIC: Normal affect, calm and cooperative. LINE: No evidence of infection Laboratory Laboratory Tests Test 11/27/17 15:22 11/27/17 15:31 11/27/17 15:35 11/27/17 17:58 Blood Gas Puncture Site LT RADIAL Blood Gas Patient Temperature 98.6 Blood Gas HCO3 22 Blood Gas Base Excess -1.9 Blood Gas Oxygen Saturation 95 Arterial Blood pH 7.41 Arterial Blood Partial Pressure CO2 35 Arterial Blood Partial Pressure O2 93 Arterial Blood Oxygen Content 14.5 Arterial Blood Carboxyhemoglobin 1.5 Arterial Blood Methemoglobin 1.0 Blood Gas Hemoglobin 10.7 Oxygen Delivery Device NASAL CANNULA Blood Gas Liter Flow 4 Lactic Acid Level 2.7 3.3 White Blood Count 14.5 Red Blood Count 4.09 Hemoglobin 11.3 Hematocrit 35.5 Mean Corpuscular Volume 86.9 Mean Corpuscular Hemoglobin 27.6 Mean Corpuscular Hemoglobin Concent 31.8 Red Cell Distribution Width 16.7 Platelet Count 226 Mean Platelet Volume 9.3 Neutrophils (%) (Auto) 85.8 Lymphocytes (%) (Auto) 8.4 Monocytes (%) (Auto) 4.9 Eosinophils (%) (Auto) 0.6 Basophils (%) (Auto) 0.3 Neutrophils # (Auto) 12.4 Lymphocytes # (Auto) 1.2 Monocytes # (Auto) 0.7 Eosinophils # (Auto) 0.1 Basophils # (Auto) 0.0 CBC Comment DIFF FINAL Differential Comment Prothrombin Time 10.7 Prothromb Time International Ratio 1.1 Activated Partial Thromboplast Time 27.4 Urine Color YELLOW Urine Turbidity CLOUDY Urine pH 7.5 Urine Specific [place] 1.020 Urine Protein 300 Urine Glucose (UA) 150 Urine Ketones NEG Urine Occult Blood MOD Urine Nitrite NEG Urine Bilirubin NEG Urine Urobilinogen LESS THAN 2.0 Urine Leukocyte Esterase NEG Urine RBC 76 Urine WBC Urine WBC Clumps MANY Urine Squamous Epithelial Cells 23 Urine Bacteria MOD Microscopic Urinalysis Comment CATH-CULTURE IND Blood Urea Nitrogen 32 Creatinine 6.53 Random Glucose 268 Total Protein 7.2 Albumin 2.7 Calcium Level 8.0 Alkaline Phosphatase 117 Aspartate Amino Transf (AST/SGOT) 20 Alanine Aminotransferase (ALT/SGPT) 16 Total Bilirubin 0.5 Sodium Level 135 Potassium Level 5.4 Chloride Level 100 Carbon Dioxide Level 22.0 Anion Gap 13 Estimat Glomerular Filtration Rate 6 Total Creatine Kinase 22 Troponin I LESS THAN 0.02 Lipase 388 Test 11/27/17 20:40 11/27/17 21:15 11/27/17 23:10 11/28/17 03:30 Lactic Acid Level 3.8 4.1 Troponin I 0.02 0.03 Nasal Screen MRSA (PCR) MRSA DETECTED White Blood Count 23.8 Red Blood Count 3.50 Hemoglobin 9.9 Hematocrit 31.7 Mean Corpuscular Volume 90.5 Mean Corpuscular Hemoglobin 28.2 Mean Corpuscular Hemoglobin Concent 31.2 Red Cell Distribution Width 17.3 Platelet Count 207 Mean Platelet Volume 9.6 Neutrophils (%) (Auto) 89.7 Lymphocytes (%) (Auto) 3.8 Monocytes (%) (Auto) 6.3 Eosinophils (%) (Auto) 0.0 Basophils (%) (Auto) 0.2 Neutrophils # (Auto) 21.4 Lymphocytes # (Auto) 0.9 Monocytes # (Auto) 1.5 Eosinophils # (Auto) 0.0 Basophils # (Auto) 0.1 CBC Comment DIFF FINAL Differential Comment Prothrombin Time 11.1 Prothromb Time International Ratio 1.1 Activated Partial Thromboplast Time 35.8 Blood Urea Nitrogen 36 Creatinine 6.67 Random Glucose 405 Total Protein 6.6 Albumin 2.4 Calcium Level 7.3 Phosphorus Level 3.7 Magnesium Level 1.7 Alkaline Phosphatase 102 Aspartate Amino Transf (AST/SGOT) 53 Alanine Aminotransferase (ALT/SGPT) 17 Total Bilirubin 0.4 Sodium Level 136 Potassium Level 6.4 Chloride Level 103 Carbon Dioxide Level 18.8 Anion Gap 14 Estimat Glomerular Filtration Rate 6 Protein Corrected Calcium 7.6 Date/Time Source Procedure Growth Status 11/27/17 20:45 Blood Peripheral Aerobic Blood Culture Pending Received 11/27/17 20:45 Blood Peripheral Anaerobic Blood Culture Pending Received 11/27/17 15:35 Urine Catheterized Urine Urine Culture Pending Received Result Diagram: 11/28/17 0330 11/28/17 0330 Imaging RADIOLOGY STUDIES/FILMS REVIEWED Last Impressions Chest X-Ray 11/28/17 0000 Signed Impressions: Service Date/Time: Tuesday, November 28, 2017 04:06 - CONCLUSION: Stable appearance with moderate elevation of the right hemidiaphragm again noted. Jorge Ernandez MD Assessment and Plan Assessment and Plan IMPRESSION Sepsis syndrome on presentation, with transient hypotensions - has GPC in 2 BC, very suspicious for HD cath related sepsis - also with UTI - leukocytosis, shock, decreased LOC GPC sepsis, likely line related (Permacath) UTI ESRD Leukocytosis due to sepsis RECOMMENDATION Follow BC Continue Cefepime Check Vanco level and redose if low Consider removing permacath - will D/W nephrology Echo if persistent (+) BC Follow CBC and temps Monitor progress I will determine course of Rx once work-up completed I will follow along with you Thank you for this consultation Discussed Condition With Discussed with Jenifer Stafford MD November 28, 2017 09:28
[2017-11-28] MEDS ORDERED: SODIUM CHLOR 0.9% 1000 ML INJ 1,000 ML IV PRN (09:51)
[2017-11-28] MEDS ORDERED: SODIUM CHLOR 0.9% 1000 ML INJ 1,000 ML OTHER PRN ×2 (09:51)
[2017-11-28] MEDS ORDERED: SODIUM CHLORIDE 0.9% FLUSH 10 ML FLUSH IV FLUSH PRN (10:00)
[2017-11-28] MEDS ORDERED: MANNITOL 12.5 GM/50 ML VIAL IV PRN (10:00)
[2017-11-28] MEDS ORDERED: ONDANSETRON HCL 4 MG/2 ML VIAL IV PUSH PRN (10:00)
[2017-11-28] MEDS ORDERED: cloNIDine HCL 0.1 MG TAB PO PRN (10:00)
[2017-11-28] MEDS ORDERED: HEPARIN SODIUM - IV 10,000 UNITS/10 ML VIAL IV FLUSH PRN (10:00)
[2017-11-28] MEDS ORDERED: ALBUMIN 25% INJ 100 ML IV PRN (10:00)
[2017-11-28] MEDS ORDERED: diphenhydrAMINE HCL 25 MG CAP PO PRN (10:00)
[2017-11-28] MEDS ORDERED: GELATIN 12 MM/7 MM FOAM TOP PRN (10:00)
[2017-11-28] MEDS ORDERED: ACETAMINOPHEN 325 MG TAB PO PRN (10:00)
[2017-11-28] MEDS ORDERED: LIDOCAINE-PRILOCAIN 2.5% CREAM 5 GM TUBE TOPICAL PRN (11:00)
--- NOTE | 2017-11-28 11:04 | HHI.NPPN ---
Objective Data Data Vital Signs Date Time Temp Pulse Resp B/P (MAP) Pulse Ox O2 Delivery O2 Flow Rate FiO2 11/28/17 08:07 95 Nasal Cannula 4.00 11/28/17 06:22 62 117/55 11/28/17 06:00 67 11/28/17 04:25 63 133/56 11/28/17 04:00 98.1 61 30 122/54 (76) 80 11/28/17 04:00 61 11/28/17 02:00 63 11/28/17 01:53 65 85/42 11/28/17 00:00 75 11/28/17 00:00 98.5 75 35 88/54 (65) 99 11/27/17 22:00 99 11/27/17 21:18 11/27/17 21:00 98.4 90 30 80/40 (53) 96 11/27/17 21:00 90 11/27/17 20:17 98.9 103 27 100 Nasal Cannula 4.00 11/27/17 19:15 103 26 144/80 (101) 100 Nasal Cannula 4.00 11/27/17 17:54 116 28 98 Nasal Cannula 4.00 11/27/17 16:07 99 Nasal Cannula 4.00 11/27/17 15:52 105.1 11/27/17 15:45 98 Nasal Cannula 4.00 11/27/17 15:34 107 32 114/56 (75) 99 -: 11/28/17 0330 11/28/17 0330 Microbiology 11/27/17 Aerobic Blood Culture, Received Pending 11/27/17 Anaerobic Blood Culture, Received Pending 11/27/17 Aerobic Blood Culture, Received Pending 11/27/17 Anaerobic Blood Culture, Received Pending 11/27/17 Aerobic Blood Culture - Preliminary, Resulted Gram Positive Cocci 11/27/17 Anaerobic Blood Culture - Preliminary, Resulted Gram Positive Cocci 11/27/17 Aerobic Blood Culture - Preliminary, Resulted Gram Positive Cocci 11/27/17 Anaerobic Blood Culture - Preliminary, Resulted Gram Positive Cocci 11/27/17 Urine Culture, Received Pending Manny Vasquez MD November 28, 2017 11:04
--- NOTE | 2017-11-28 11:07 | PD.CONS ---
HPI Consult Requested By Reason for Consult End-stage renal disease Hyperkalemia Metabolic acidosis. Primary Care Physician Jas Freitas MD History of Present Illness This patient is a 72-year-old -[place] female with a history of end- stage renal disease, diabetes mellitus, multiple myeloma. This patient does have a functional AV dialysis shunt in place but has been refusing to let us access it for dialysis access despite ongoing counseling regarding risks associated with the presence of a hemodialysis PermCath particularly risk of infection. She in fact had this PermCath changed November 17, 2017 at an outpatient interventional nephrology center. Patient now presents with altered mental status status now noted to have evidence of bacteremia with a preliminary report of gram-positive cocci. She also has a history of previous UTIs recurrent. Patient now noted to have hyperkalemia and a low total CO2 level with a requirement for acute dialysis today. Past Family Social History Allergies: Coded Allergies: Sulfa (Sulfonamide Antibiotics) (Unverified Allergy, Severe, TONGUE AND GENERALIZED SWELLING, 06/10/17) iodine (Unverified Allergy, Severe, 06/10/17) iohexol (Unverified Allergy, Severe, TONGUE AND GENERALIZED SWELLING, 06/10) penicillin G (Unverified Allergy, Severe, TONGUE AND GENERALIZED SWELLING , 06/10/17) potassium iodide (Unverified Allergy, Severe, 06/10/17) povidone-iodine (Unverified Allergy, Severe, 06/10/17) sodium iodide (Unverified Allergy, Severe, 06/10/17) sodium iodide (Unverified Allergy, Severe, 06/10/17) Iodinated Contrast- Oral and IV Dye (Unverified Allergy, Unknown, 06/10/17) *MDRO Multi-Drug Resistant Organism (Verified Adverse Reaction, Unknown, MRSA, 06/10/17) MRSA PCR (nares) POSITIVE - 10/31/15 MRSA (blood & sputum) - 10/31/15 ESBL Klebsiella Pneumoniae (urine-06/26/16) Past Medical History 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 Degenerative joint disease. Asthma. Multiple myeloma? COPD. Coronary disease. Diabetes mellitus. Gastroesophageal reflux disease. Hypertension. Sleep apnea. Anemia renal disease. Obesity. 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 Degenerative joint disease. Appendectomy. Cholecystectomy. Placement of a right upper extremity brachiocephalic AV dialysis fistula. Patient refusing usage of same despite counseling. Recently had a hemodialysis PermCath changed November 17, 2017. Reported Medications Reported Meds & Active Scripts Active Pantoprazole (Pantoprazole Sodium) 40 Mg Tab 40 Mg PO DAILY Aspirin Low Strength (Aspirin) 81 Mg Chew 81 Mg CHEW DAILY Oxygen tank (Oxygen) 1 Ea Tank 2 Liter MARCELO.CANULA HS Oxygen Concentrator Portable Gaseous 2 L/min via Nasal Cannula Continuous For 99 months Reported Vitamin D2 (Ergocalciferol) 2,000 Unit Tab 50,000 Units PO WEEKLY Calcium Carbonate 1,500 Mg Tab 500 Mg PO BID 1,500 mg calcium carbonate (600 mg elemental calcium) Calcium Acetate (Phosphate Binder) 667 Mg Cap 1,334 Mg PO TID Crestor (Rosuvastatin Calcium) 10 Mg Tab 10 Mg PO DAILY Meclizine (Meclizine HCl) 25 Mg Tab 25 Mg PO Q6HR PRN Ondansetron (Ondansetron HCl) 8 Mg Tab 8 Mg PO BID PRN Ultram (Tramadol HCl) 50 Mg Tab 50 Mg PO QID PRN Lyrica (Pregabalin) 75 Mg Cap 75 Mg PO TID Levemir Inj (Insulin Detemir) 1,000 unit/ 10 ML Vial 44 Units SQ Q12HR Do not mix with any other Insulin. Novolog Inj (Insulin Aspart) 1,000 Unit/10 Ml Vial 0 SQ TIDAC Sliding Scale as directed. Active Ordered Medications Current Medications Cefepime HCl 2000 mg/Sodium Chloride 100 ml @ 200 mls/hr ONCE STAT IV Last administered on 11/27/17at 16:06; Start 11/27/17 at 15:23; Stop 11/27/17 at 15:52 ; Status DC Azithromycin 500 mg/Sodium Chloride 250 ml @ 250 mls/hr ONCE STAT IV Last administered on 11/27/17at 16:28; Start 11/27/17 at 15:23; Stop 11/27/17 at 16:22 ; Status DC Acetaminophen (Tylenol) 650 mg ONCE ONCE PO ; Start 11/27/17 at 15:30; Stop at 15:38; Status DC Sodium Chloride 500 ml @ 500 mls/hr BOLUS ONCE IV Last administered on at 16:07; Start 11/27/17 at 15:30; Stop 11/27/17 at 16:29; Status DC Albuterol/ Ipratropium (Duoneb Neb) 1 ampule ONCE ONCE NEB Last administered on 11/27/17at 15:46; Start 11/27/17 at 15:30; Stop 11/27/17 at 15:31; Status DC Acetaminophen (Tylenol Supp) 650 mg ONCE ONCE RECTAL Last administered on 11/27at 16:07; Start 11/27/17 at 15:45; Stop 11/27/17 at 15:46; Status DC Vancomycin HCl 1000 mg/Sodium Chloride 250 ml @ 250 mls/hr ONCE ONCE IV Last administered on 11/27/17at 18:39; Start 11/27/17 at 16:00; Stop 11/27/17 at 16:59 ; Status DC Sodium Chloride 500 ml @ 500 mls/hr BOLUS ONCE IV Last administered on at 18:30; Start 11/27/17 at 17:45; Stop 11/27/17 at 18:44; Status DC Aspirin (Aspirin Chew) 81 mg DAILY CHEW Last administered on 11/28/17at 08:21; Start 11/28/17 at 09:00 Meclizine HCl (Antivert) 25 mg Q6H PRN PO DIZZINESS; Start 11/27/17 at 18:15 Pregabalin (Lyrica) 75 mg TID PO Last administered on 11/28/17at 08:21; Start at 09:00 Tramadol HCl (Ultram) 50 mg Q6H PRN PO PAIN 1-10; Start 11/27/17 at 18:15 Ondansetron HCl (Zofran Odt) 8 mg BID PRN SL NAUSEA; Start 11/27/17 at 18:30 Atorvastatin Calcium (Lipitor) 20 mg DAILY PO Last administered on 11/28/17at 08 :21; Start 11/28/17 at 09:00 Sodium Chloride 1,000 ml @ 84 mls/hr [id number] IV Last administered on at 08:21; Start 11/27/17 at 19:00 Sodium Chloride (NS Flush) 2 ml UNSCH PRN IV FLUSH FLUSH AFTER USING IV ACCESS ; Start 11/27/17 at 19:00 Sodium Chloride (NS Flush) 2 ml BID IV FLUSH Last administered on 11/28/17at 08: 21; Start 11/27/17 at 21:00 Acetaminophen (Tylenol) 650 mg Q6H PRN PO PAIN 1-5 AND/OR FEVER >101F Last administered on 11/27/17at 23:09; Start 11/27/17 at 19:00 Morphine Sulfate (Morphine Inj) 2 mg Q2H PRN IV PUSH PAIN SCALE 6 TO 10; Start 11/27/17 at 19:00 Famotidine (Pepcid Inj) 10 mg Q12HR IV PUSH Last administered on 11/28/17at 08: 21; Start 11/27/17 at 21:00 Ondansetron HCl (Zofran Inj) 4 mg Q6H PRN IV PUSH NAUSEA OR VOMITING; Start at 19:00 Albuterol/ Ipratropium (Duoneb Neb) 1 ampule Q2HR NEB PRN INH WHEEZING; Start 11/27/17 at 19:00 Heparin Sodium (Porcine) (Heparin Inj) 5,000 units Q8H SQ Last administered on 11/28/17at 03:22; Start 11/27/17 at 20:00 Miscellaneous Information ([facility] Nursing Information) 1 [id number] Last administered on 11/27/17at 19:00; Start 11/27/17 at 19:00 Chlorhexidine Gluconate (Chlorhexidine 2% Cloth) 3 pack Taper DAILY@04 TOP Last administered on 11/28/17at 03:15; Start 11/28/17 at 04:00; Stop 11/24/18 at 03:59 Chlorhexidine Gluconate (Chlorhexidine 2% Cloth) 3 pack UNSCH PRN TOP HYGIENIC CARE; Start 11/27/17 at 19:00 Senna/Docusate Sodium (Vannessa-Colace) 1 tab BID PO Last administered on at 08:21; Start 11/27/17 at 21:00 Magnesium Hydroxide (Milk Of Magnesia Liq) 30 ml Q12H PRN PO Mild constipation ; Start 11/27/17 at 19:00 Sennosides (Senokot) 17.2 mg Q12H PRN PO Moderate constipation; Start 11/27/17 at 19:00 Bisacodyl (Dulcolax Supp) 10 mg DAILY PRN RECTAL SEVERE CONSITIPATION; Start at 19:00 Lactulose (Lactulose Liq) 30 ml DAILY PRN PO SEVERE CONSITIPATION; Start at 19:00 Pharmacy Profile Note 0 ml @ 0 mls/hr UNSCH OTHER ; Start 11/27/17 at 19:00 Cefepime HCl 2000 mg/Sodium Chloride 100 ml @ 200 mls/hr Q8H IV ; Start at 19:00; Stop 11/27/17 at 19:36; Status DC Sodium Chloride 1,000 ml @ 1,000 mls/hr Q1H ONCE IV Last administered on at 20:48; Start 11/27/17 at 19:00; Stop 11/27/17 at 19:59; Status DC Sodium Chloride 1,000 ml @ 1,000 mls/hr Q1H ONCE IV Last administered on at 20:48; Start 11/27/17 at 19:00; Stop 11/27/17 at 19:59; Status DC Sodium Chloride 100 ml @ 1,000 mls/hr Q6M ONCE IV Last administered on at 00:45; Start 11/27/17 at 19:00; Stop 11/27/17 at 19:12; Status DC Terbutaline Sulfate (Brethine Inj) 1 mg UNSCH PRN SQ For Extravasation; Start 11/27/17 at 19:00 Cefepime HCl 1000 mg/Sodium Chloride 100 ml @ 200 mls/hr Q24H IV ; Start at 16:00 Norepinephrine Bitartrate 250 ml @ 7.5 mls/hr TITRATE PRN IV Maintain MAP > 65 mmHg Last administered on 11/28/17at 01:53; Start 11/27/17 at 23:15 Sodium Bicarbonate (Sodium Bicarbonate 8.4% Inj) 50 meq ONCE ONCE IV PUSH Last administered on 11/28/17at 09:28; Start 11/28/17 at 08:45; Stop 11/28/17 at 08:56; Status DC Dextrose (D50w (Vial) Inj) 25 ml UNSCH PRN IV PUSH HYPOGLYCEMIA-SEE COMMENTS; Start 11/28/17 at 08:45 Insulin Human Regular (NovoLIN R SUPPLEMENTAL SCALE) 1 Q4HR SQ ; Start 11/28/17 at 12:00 Sodium Chloride 1,000 ml @ 0 mls/hr Q0M PRN OTHER For Prime & Rinse Back; Start 11/28/17 at 09:51 Heparin Sodium (Porcine) (Heparin Inj) 8,000 units UNSCH PRN IV FLUSH WITH DIALYSIS; Start 11/28/17 at 10:00 Sodium Chloride 1,000 ml @ 200 mls/hr Q5H PRN IV WITH DIALYSIS; Start 11/28/17 at 09:51 Sodium Chloride 1,000 ml @ 0 mls/hr Q0M PRN OTHER WITH DIALYSIS; Start at 09:51 Mannitol (Mannitol Inj) 12.5 gm UNSCH PRN IV WITH DIALYSIS; Start 11/28/17 at 10:00 Albumin Human 100 ml @ 60 mls/hr UNSCH PRN IV WITH DIALYSIS; Start 11/28/17 at 10:00 Sodium Chloride (NS Flush) 5 ml UNSCH PRN IV FLUSH WITH DIALYSIS; Start at 10:00 Heparin Sodium (Porcine) (Heparin Inj) UNSCH PRN .XX WITH DIALYSIS; Start at 10:00 Gentamicin Sulfate (Gentamicin Inj) 20 mg UNSCH PRN OTHER WITH DIALYSIS; Start 11/28/17 at 10:00 Ondansetron HCl (Zofran Inj) 4 mg UNSCH PRN IV PUSH WITH DIALYSIS; Start at 10:00 Acetaminophen (Tylenol) 650 mg UNSCH PRN PO for headach, pain1-10,T> 101F; Start 11/28/17 at 10:00 Diphenhydramine HCl (Benadryl) 25 mg UNSCH PRN PO for hives/itching/anaphylaxis ; Start 11/28/17 at 10:00 Nitroglycerin (Nitrostat Sl) 0.4 mg UNSCH PRN SL CHEST PAIN; Start 11/28/17 at 10:00 Clonidine (Catapres) 0.1 mg UNSCH PRN PO for BP > 180/100 X 2 readings; Start 11/28/17 at 10:00 Gelatin (Gelfoam 12 Mm/7 Mm Top) 1 foam UNSCH PRN TOP SEE LABEL COMMENTS; Start 11/28/17 at 10:00 Lidocaine/ Prilocaine (Emla Cream) 1 applic WITH DIALYSIS PRN TOPICAL Dialysis. ; Start 11/28/17 at 11:00 Physical Exam Vital Signs Vital Signs Date Time Temp Pulse Resp B/P (MAP) Pulse Ox O2 Delivery O2 Flow Rate FiO2 11/28/17 08:07 95 Nasal Cannula 4.00 11/28/17 06:22 62 117/55 11/28/17 06:00 67 11/28/17 04:25 63 133/56 11/28/17 04:00 98.1 61 30 122/54 (76) 80 11/28/17 04:00 61 11/28/17 02:00 63 11/28/17 01:53 65 85/42 11/28/17 00:00 75 11/28/17 00:00 98.5 75 35 88/54 (65) 99 11/27/17 22:00 99 11/27/17 21:18 11/27/17 21:00 98.4 90 30 80/40 (53) 96 11/27/17 21:00 90 11/27/17 20:17 98.9 103 27 100 Nasal Cannula 4.00 11/27/17 19:15 103 26 144/80 (101) 100 Nasal Cannula 4.00 11/27/17 17:54 116 28 98 Nasal Cannula 4.00 11/27/17 16:07 99 Nasal Cannula 4.00 11/27/17 15:52 105.1 11/27/17 15:45 98 Nasal Cannula 4.00 11/27/17 15:34 107 32 114/56 (75) 99 Physical Exam GENERAL: Elderly female lying in bed not in obvious respiratory distress. SKIN: Warm and dry. Hemodialysis PermCath present. Exit site appears to be intact. HEAD: Normocephalic. EYES: No scleral icterus. No injection or drainage. NECK: Supple, trachea midline. No JVD or lymphadenopathy. CARDIOVASCULAR: Regular rate and rhythm without murmurs, gallops, or rubs. RESPIRATORY: Breath sounds equal bilaterally. No accessory muscle use. GASTROINTESTINAL: Abdomen soft, non-tender, nondistended. MUSCULOSKELETAL: No cyanosis, or edema. AV dialysis shunt present right arm with a good bruit and thrill. Laboratory Laboratory Tests Test 11/27/17 15:22 11/27/17 15:31 11/27/17 15:35 11/27/17 17:58 Blood Gas Puncture Site LT RADIAL Blood Gas Patient Temperature 98.6 Blood Gas HCO3 22 Blood Gas Base Excess -1.9 Blood Gas Oxygen Saturation 95 Arterial Blood pH 7.41 Arterial Blood Partial Pressure CO2 35 Arterial Blood Partial Pressure O2 93 Arterial Blood Oxygen Content 14.5 Arterial Blood Carboxyhemoglobin 1.5 Arterial Blood Methemoglobin 1.0 Blood Gas Hemoglobin 10.7 Oxygen Delivery Device NASAL CANNULA Blood Gas Liter Flow 4 Lactic Acid Level 2.7 3.3 White Blood Count 14.5 Red Blood Count 4.09 Hemoglobin 11.3 Hematocrit 35.5 Mean Corpuscular Volume 86.9 Mean Corpuscular Hemoglobin 27.6 Mean Corpuscular Hemoglobin Concent 31.8 Red Cell Distribution Width 16.7 Platelet Count 226 Mean Platelet Volume 9.3 Neutrophils (%) (Auto) 85.8 Lymphocytes (%) (Auto) 8.4 Monocytes (%) (Auto) 4.9 Eosinophils (%) (Auto) 0.6 Basophils (%) (Auto) 0.3 Neutrophils # (Auto) 12.4 Lymphocytes # (Auto) 1.2 Monocytes # (Auto) 0.7 Eosinophils # (Auto) 0.1 Basophils # (Auto) 0.0 CBC Comment DIFF FINAL Differential Comment Prothrombin Time 10.7 Prothromb Time International Ratio 1.1 Activated Partial Thromboplast Time 27.4 Urine Color YELLOW Urine Turbidity CLOUDY Urine pH 7.5 Urine Specific [place] 1.020 Urine Protein 300 Urine Glucose (UA) 150 Urine Ketones NEG Urine Occult Blood MOD Urine Nitrite NEG Urine Bilirubin NEG Urine Urobilinogen LESS THAN 2.0 Urine Leukocyte Esterase NEG Urine RBC 76 Urine WBC Urine WBC Clumps MANY Urine Squamous Epithelial Cells 23 Urine Bacteria MOD Microscopic Urinalysis Comment CATH-CULTURE IND Blood Urea Nitrogen 32 Creatinine 6.53 Random Glucose 268 Total Protein 7.2 Albumin 2.7 Calcium Level 8.0 Alkaline Phosphatase 117 Aspartate Amino Transf (AST/SGOT) 20 Alanine Aminotransferase (ALT/SGPT) 16 Total Bilirubin 0.5 Sodium Level 135 Potassium Level 5.4 Chloride Level 100 Carbon Dioxide Level 22.0 Anion Gap 13 Estimat Glomerular Filtration Rate 6 Total Creatine Kinase 22 Troponin I LESS THAN 0.02 Lipase 388 Test 11/27/17 20:40 11/27/17 21:15 11/27/17 23:10 11/28/17 03:30 Lactic Acid Level 3.8 4.1 Troponin I 0.02 0.03 Nasal Screen MRSA (PCR) MRSA DETECTED White Blood Count 23.8 Red Blood Count 3.50 Hemoglobin 9.9 Hematocrit 31.7 Mean Corpuscular Volume 90.5 Mean Corpuscular Hemoglobin 28.2 Mean Corpuscular Hemoglobin Concent 31.2 Red Cell Distribution Width 17.3 Platelet Count 207 Mean Platelet Volume 9.6 Neutrophils (%) (Auto) 89.7 Lymphocytes (%) (Auto) 3.8 Monocytes (%) (Auto) 6.3 Eosinophils (%) (Auto) 0.0 Basophils (%) (Auto) 0.2 Neutrophils # (Auto) 21.4 Lymphocytes # (Auto) 0.9 Monocytes # (Auto) 1.5 Eosinophils # (Auto) 0.0 Basophils # (Auto) 0.1 CBC Comment DIFF FINAL Differential Comment Prothrombin Time 11.1 Prothromb Time International Ratio 1.1 Activated Partial Thromboplast Time 35.8 Blood Urea Nitrogen 36 Creatinine 6.67 Random Glucose 405 Total Protein 6.6 Albumin 2.4 Calcium Level 7.3 Phosphorus Level 3.7 Magnesium Level 1.7 Alkaline Phosphatase 102 Aspartate Amino Transf (AST/SGOT) 53 Alanine Aminotransferase (ALT/SGPT) 17 Total Bilirubin 0.4 Sodium Level 136 Potassium Level 6.4 Chloride Level 103 Carbon Dioxide Level 18.8 Anion Gap 14 Estimat Glomerular Filtration Rate 6 Protein Corrected Calcium 7.6 Random Vancomycin Level 12.7 Date/Time Source Procedure Growth Status 11/27/17 20:45 Blood Peripheral Aerobic Blood Culture Pending Received 11/27/17 20:45 Blood Peripheral Anaerobic Blood Culture Pending Received 11/27/17 15:35 Urine Catheterized Urine Urine Culture Pending Received Result Diagram: 11/28/17 0330 11/28/17 0330 Imaging Last 48 hours Impressions Chest X-Ray 11/28/17 0000 Signed Impressions: Service Date/Time: Tuesday, November 28, 2017 04:06 - CONCLUSION: Stable appearance with moderate elevation of the right hemidiaphragm again noted. Jorge Ernandez MD Chest X-Ray 11/27/17 1523 Signed Impressions: Service Date/Time: Monday, November 27, 2017 16:24 - CONCLUSION: 1. Elevation of the right hemidiaphragm with minimal right lower lung zone airspace disease, presumably atelectasis. Yvan Dorman MD Assessment and Plan Problem List: (1) ESRD (end stage renal disease) on dialysis ICD Codes: N18.6 - End stage renal disease; Z99.2 - Dependence on renal dialysis Status: Chronic Plan: Acute hemodialysis today to improve her hyperkalemia and acid-base status. Hemodialysis hospitalist service notified of need for urgent dialysis. Medication should be adjusted for her end-stage renal disease when indicated. Avoid gadolinium. (2) Hyperkalemia ICD Codes: E87.5 - Hyperkalemia Status: Acute Plan: Should improve with dialysis today. (3) Bacteremia ICD Codes: R78.81 - Bacteremia Plan: Uncertain if bacteremia is related to hemodialysis PermCath infection versus possible urosepsis. Regardless the patient was advised that we need to start using her hemodialysis shunt rather than the PermCath. Will attempt to use the dialysis shunt today. Lidocaine cream has been ordered per her request. Most likely we will have to remove the hemodialysis PermCath as discussed with her and I will not be replacing it if the AV shunt is adequate for access. (4) Acidosis ICD Codes: E87.2 - Acidosis Plan: Should improve with dialysis today. (5) Hyperparathyroidism, secondary renal ICD Codes: N25.81 - Secondary hyperparathyroidism of renal origin Status: Acute (6) Anemia of renal disease ICD Codes: D63.1 - Anemia in chronic kidney disease Status: Acute (7) HTN (hypertension) ICD Codes: I10 - Essential (primary) hypertension Status: Chronic (8) Diabetes mellitus ICD Codes: E11.9 - Diabetes mellitus Status: Chronic Manny Vasquez MD November 28, 2017 11:07
[2017-11-28] MEDS: INSULIN NovoLIN REGULAR SUPPLEMENTAL SCALE SQ SCH ×4 (12:00→23:43)
[2017-11-28] MEDS ORDERED: VANCOMYCIN 1,000 MG/NS 250 ML IV ONE ×2 (12:00)
--- NOTE | 2017-11-28 12:33 | RADRPT ---
EXAM DATE/TIME: 11/28/2017 11:55 [facility] COMPARISON: CHEST SINGLE AP, November 28, 2017, 4:06. INDICATIONS : Shortness of breath. Patient complains of chest pain and shortness of breath. MEDICAL HISTORY : Hypertension. Chronic obstructive pulmonary disease. Diabetes mellitus 2.type II. CVA. Coronary arter y disease. Asthma. Renal disease. Renal failure . Multiple Myeloma. SURGICAL HISTORY : Appendectomy. Cholecystectomy. Cardiac cath ENCOUNTER: Initial ACUITY: 2 days PAIN SCORE: 9/10 LOCATION: Bilateral chest FINDINGS: A single view of the chest demonstrates stable elevation of the right hemidiaphragm with concomitant atelectatic changes in the right base. Left lung is grossly clear. Heart size is borderline prominent or compensated. Right IJ dialysis type catheter projects over the central venous system. Degenerativ e changes in both shoulders. Mild dextroscoliosis of the dorsal spine may be positional with associat ed degenerative spurring. CONCLUSION: 1. Stable elevation right hemidiaphragm with concomitant atelectatic changes in the right base. Left lung remains clear. 2. Borderline prominent but well compensated heart. 3. Stable position of right IJ dialysis type catheter. Jose Turner MD on November 28, 2017 at 12:30 Board Certified Radiologist. This report was verified electronically.
[2017-11-28] MEDS: ACETAMINOPHEN 325 MG TAB PO PRN (14:54)
[2017-11-28] MEDS: HEPARIN SODIUM - IV 10,000 UNITS/10 ML VIAL PRN (15:07)
[2017-11-28] MEDS: GENTAMICIN SULFATE 20 MG/2 ML VIAL OTHER PRN (15:08)
[2017-11-28] MEDS: RESP: ALBUTEROL 2.5 MG/IPRATROPIUM 0.5 MG NEB (PRN) INH (15:51)
[2017-11-28] MEDS: CEFEPIME 1000 MG/NS 100 ML IV SCH ×2 (17:02)
--- NOTE | 2017-11-28 17:55 | HHI.CCPN ---
Subjective Remarks/Hospital Course Hospital Course: 72-year-old female with past medical history of ESRD, diabetes mellitus, hypertension, COPD presents for an evaluation of decreased level of consciousness today. Per EMS report, her home health aide was concerned that she was not as responsive as she usually is. Usually at home she is awake, alert, oriented. During my assessment in the emergency department she is lethargic but she will answer yes or no to questions. She denies having any pains currently. Subjective: 11/28: subjectively feels much better. blood and urine all growing MRSA. highly concerning for permacath infection. patient off vasopressors and clinically improving. denies complaints. ROS negative. Objective Vital Signs Date Time Temp Pulse Resp B/P (MAP) Pulse Ox O2 Delivery O2 Flow Rate FiO2 11/28/17 14:32 110 138/87 (104) 82 11/28/17 12:00 103.0 11/28/17 09:31 52 11/28/17 08:07 Nasal Cannula 4.00 Intake and Output 11/28/17 11/28/17 11/29/17 08:00 16:00 00:00 Intake Total 2200 ml Output Total 0 ml 2000 ml Balance 2200 ml -2000 ml Result Diagram: 11/28/17 0330 11/28/17 0330 Imaging Last 24 hours Impressions Chest X-Ray 11/27/17 1523 Signed Impressions: Service Date/Time: Monday, November 27, 2017 16:24 - CONCLUSION: 1. Elevation of the right hemidiaphragm with minimal right lower lung zone airspace disease, presumably atelectasis. Yvan Dorman MD Objective Remarks GENERAL: Morbidly obese elderly female, awake alert, no acute distress. SKIN: Warm and dry. Permacath hemodialysis catheter under the right clavicle without signs of infection or inflammation. HEAD: Normocephalic. EYES: No scleral icterus. No injection or drainage. NECK: Supple, trachea midline. No JVD CARDIOVASCULAR: Regular rate and rhythm RESPIRATORY: Breath sounds equal bilaterally. No accessory muscle use. GASTROINTESTINAL: Abdomen soft, non-tender, nondistended. MUSCULOSKELETAL: No cyanosis, or edema. BACK: Nontender without obvious deformity. NEURO EXAM: GCS: 15 follows commands. RASS 0. no focal deficits. A/P Assessment and Plan Assessment: 72yF with ESRD on IHD with severe MRSA bacteremia and septic shock which is now resolving. stable to transfer to floor. continue vancomycin. may need permacath removed: nephrology and ID involved and following. consult hospitalist services. Acute MRSA Bacteremia - ID consulted - Vanc - suspicious for permacath infection Acute metabolic encephalopathy - resolved -SIRS/sepsis -Infectious disease consultation ESRD -Hemodialysis per nephrology Diabetes mellitus -Insulin sliding scale -Resume home regiment when 100% intake by mouth Septic shock- resolving. off levophed remove femoral central line continue mivf IHD per nephrology. COPD -No exacerbation -No indication for steroid -DuoNeb scheduled and as needed DVT GI prophylaxis -Benjamin's and SCDs -Subcu heparin -Pepcid dispo: transfer to floor. Mihir Bojorquez MD November 28, 2017 17:55
[2017-11-29] VITALS (9 sets, daily range): BP systolic 87–127; BP diastolic 40–59; PULSE 82–96; RESP 19–29; TEMP 97.4–98.5; O2SAT 92–100
[2017-11-29] MEDS: CHLORHEXIDINE GLUCONATE 2 % 1 PACK (2 CLOTHS) TOP SCH (04:00)
[2017-11-29] MEDS: INSULIN NovoLIN REGULAR SUPPLEMENTAL SCALE SQ SCH ×4 (04:00→20:00)
[2017-11-29] MEDS: HEPARIN SODIUM - SQ 10,000 UNITS/ML VIAL SQ SCH ×3 (04:25→21:11)
--- NOTE | 2017-11-29 07:45 | HHI.PR ---
Subjective Remarks f/u; MRSA bacteremia in no acute distress. Tmax 103. has dull ache on right chest. otherwise no other complaints. Objective Vitals Vital Signs Date Time Temp Pulse Resp B/P (MAP) Pulse Ox O2 Delivery O2 Flow Rate FiO2 11/29/17 04:00 98.5 82 22 103/51 (68) 100 11/29/17 04:00 82 11/29/17 03:10 100 Nasal Cannula 4.00 11/29/17 00:20 100 Nasal Cannula 4.00 11/29/17 00:00 85 11/29/17 00:00 98.3 85 21 87/40 (56) 100 11/28/17 20:00 100 11/28/17 20:00 98.5 100 28 99/44 (62) 100 11/28/17 18:00 101 22 11/28/17 18:00 101 11/28/17 17:14 103 29 103/49 (67) 84 11/28/17 17:14 103 11/28/17 17:04 104 11/28/17 17:04 104 31 80/38 (52) 46 11/28/17 17:02 105 30 81/41 (54) 80 11/28/17 17:02 105 11/28/17 17:00 105 30 76 11/28/17 17:00 105 11/28/17 16:54 104 29 98/41 (60) 59 11/28/17 16:54 104 11/28/17 16:45 105 28 79/50 (60) 91 11/28/17 16:45 105 11/28/17 16:41 105 36 90/48 (62) 92 11/28/17 16:41 105 11/28/17 16:34 107 29 97/35 (55) 82 11/28/17 16:34 107 11/28/17 16:30 105 27 82/37 (52) 93 11/28/17 16:30 105 11/28/17 16:28 105 11/28/17 16:28 105 26 147/74 (98) 97 11/28/17 16:00 98.6 103 29 147/74 (98) 83 11/28/17 16:00 103 11/28/17 14:32 110 138/87 (104) 82 11/28/17 14:32 110 11/28/17 14:15 89 11/28/17 14:15 89 119/79 (92) 98 11/28/17 14:01 87 11/28/17 14:01 87 116/55 (75) 95 11/28/17 14:00 88 11/28/17 14:00 88 95 11/28/17 13:31 92 11/28/17 13:31 92 156/65 (95) 78 11/28/17 13:00 88 11/28/17 13:00 88 133/58 (83) 82 11/28/17 12:30 86 124/56 (78) 91 11/28/17 12:30 86 11/28/17 12:00 103.0 83 125/63 (83) 88 11/28/17 12:00 83 11/28/17 11:31 79 11/28/17 11:31 79 120/57 (78) 99 11/28/17 11:01 77 11/28/17 11:01 77 119/53 (75) 83 11/28/17 11:00 77 82 11/28/17 11:00 77 11/28/17 10:30 87 126/56 (79) 93 11/28/17 10:30 87 11/28/17 10:01 90 140/59 (86) 89 11/28/17 10:01 90 11/28/17 10:00 91 11/28/17 10:00 91 88 11/28/17 09:31 90 52 124/95 (105) 89 11/28/17 09:31 90 11/28/17 09:00 86 11/28/17 09:00 86 35 95 11/28/17 08:30 84 11/28/17 08:30 84 25 132/92 (105) 94 11/28/17 08:12 83 27 133/88 (103) 73 11/28/17 08:12 83 11/28/17 08:07 95 Nasal Cannula 4.00 11/28/17 08:01 100.0 73 40 149/60 (89) 90 11/28/17 08:01 73 11/28/17 08:00 72 11/28/17 08:00 72 33 89 I/O 5/21/18 5/21/18 5/21/18 5/22/18 5/22/18 5/22/18 07:00 15:00 23:00 07:00 15:00 23:00 Intake Total 2200 ml 2740 ml 180 ml Output Total 0 ml 2100 ml 0 ml Balance 2200 ml 640 ml 180 ml Intake Oral 100 ml 1440 ml 180 ml IV Total 2100 ml 1300 ml Output Urine Total 0 ml 100 ml 0 ml Hemodialysis 2000 ml # Bowel Movements 1 0 1 Result Diagram: 11/28/17 0330 11/28/17 0330 Imaging Last Impressions Chest X-Ray 11/28/17 0000 Signed Impressions: Service Date/Time: Tuesday, November 28, 2017 11:55 - CONCLUSION: 1. Stable elevation right hemidiaphragm with concomitant atelectatic changes in the right base. Left lung remains clear. 2. Borderline prominent but well compensated heart. 3. Stable position of right IJ dialysis type catheter. Jose Turner MD Objective Remarks GENERAL: This is a well-nourished, well-developed patient, in no apparent distress. CARDIOVASCULAR: Regular rate and regular rhythm without murmurs, gallops, or rubs. RESPIRATORY: Clear to auscultation. Breath sounds equal bilaterally. No wheezes , rales, or rhonchi. GASTROINTESTINAL: Abdomen soft, non-tender, nondistended. Normal, active bowel sounds MUSCULOSKELETAL: Extremities without clubbing, cyanosis, or edema. NEURO: Alert & Oriented x4 to person, place, time, situation. Moves all ext x4 Medications and IVs Inpatient Medications Acetaminophen (Tylenol Supp) 650 mg ONCE ONCE RECTAL Last administered on 11/27at 16:07; Start 11/27/17 at 15:45; Stop 11/27/17 at 15:46; Status DC Acetaminophen (Tylenol) 650 mg UNSCH PRN PO for headach, pain1-10,T> 101F; Start 11/28/17 at 10:00 Albumin Human 100 ml @ 60 mls/hr UNSCH PRN IV WITH DIALYSIS; Start 11/28/17 at 10:00 Albuterol/ Ipratropium (Duoneb Neb) 1 ampule Q2HR NEB PRN INH WHEEZING Last administered on 11/28/17at 15:51; Start 11/27/17 at 19:00 Aspirin (Aspirin Chew) 81 mg DAILY CHEW Last administered on 11/28/17at 08:21; Start 11/28/17 at 09:00 Atorvastatin Calcium (Lipitor) 20 mg DAILY PO Last administered on 11/28/17at 08 :21; Start 11/28/17 at 09:00 Azithromycin 500 mg/Sodium Chloride 250 ml @ 250 mls/hr ONCE STAT IV Last administered on 11/27/17at 16:28; Start 11/27/17 at 15:23; Stop 11/27/17 at 16:22 ; Status DC Bisacodyl (Dulcolax Supp) 10 mg DAILY PRN RECTAL SEVERE CONSITIPATION; Start at 19:00 Cefepime HCl 1000 mg/Sodium Chloride 100 ml @ 200 mls/hr Q24H IV Last administered on 11/28/17at 17:02; Start 11/28/17 at 16:00 Cefepime HCl 2000 mg/Sodium Chloride 100 ml @ 200 mls/hr Q8H IV ; Start at 19:00; Stop 11/27/17 at 19:36; Status DC Chlorhexidine Gluconate (Chlorhexidine 2% Cloth) 3 pack UNSCH PRN TOP HYGIENIC CARE; Start 11/27/17 at 19:00 Clonidine (Catapres) 0.1 mg UNSCH PRN PO for BP > 180/100 X 2 readings; Start 11/28/17 at 10:00 Dextrose (D50w (Vial) Inj) 25 ml UNSCH PRN IV PUSH HYPOGLYCEMIA-SEE COMMENTS; Start 11/28/17 at 08:45 Diphenhydramine HCl (Benadryl) 25 mg UNSCH PRN PO for hives/itching/anaphylaxis ; Start 11/28/17 at 10:00 Famotidine (Pepcid Inj) 10 mg Q12HR IV PUSH Last administered on 11/28/17at 20: 30; Start 11/27/17 at 21:00 Gelatin (Gelfoam 12 Mm/7 Mm Top) 1 foam UNSCH PRN TOP SEE LABEL COMMENTS; Start 11/28/17 at 10:00 Gentamicin Sulfate (Gentamicin Inj) 20 mg UNSCH PRN OTHER WITH DIALYSIS Last administered on 11/28/17at 15:08; Start 11/28/17 at 10:00 Heparin Sodium (Porcine) (Heparin Inj) UNSCH PRN .XX WITH DIALYSIS Last administered on 11/28/17at 15:07; Start 11/28/17 at 10:00 Insulin Human Regular (NovoLIN R SUPPLEMENTAL SCALE) 1 Q4HR SQ Last administered on 11/28/17at 23:43; Start 11/28/17 at 12:00 Lactulose (Lactulose Liq) 30 ml DAILY PRN PO SEVERE CONSITIPATION; Start at 19:00 Lidocaine/ Prilocaine (Emla Cream) 1 applic WITH DIALYSIS PRN TOPICAL Dialysis. ; Start 11/28/17 at 11:00 Magnesium Hydroxide (Milk Of Magnesia Liq) 30 ml Q12H PRN PO Mild constipation ; Start 11/27/17 at 19:00 Mannitol (Mannitol Inj) 12.5 gm UNSCH PRN IV WITH DIALYSIS; Start 11/28/17 at 10:00 Meclizine HCl (Antivert) 25 mg Q6H PRN PO DIZZINESS; Start 11/27/17 at 18:15 Miscellaneous Information ([facility] [place] Nursing Information) 1 Q361D XX Last administered on 11/27/17at 19:00; Start 11/27/17 at 19:00 Morphine Sulfate (Morphine Inj) 2 mg Q2H PRN IV PUSH PAIN SCALE 6 TO 10; Start 11/27/17 at 19:00 Nitroglycerin (Nitrostat Sl) 0.4 mg UNSCH PRN SL CHEST PAIN; Start 11/28/17 at 10:00 Norepinephrine Bitartrate 250 ml @ 7.5 mls/hr TITRATE PRN IV Maintain MAP > 65 mmHg Last administered on 11/28/17at 01:53; Start 11/27/17 at 23:15; Stop at 17:40; Status DC Ondansetron HCl (Zofran Odt) 8 mg BID PRN SL NAUSEA; Start 11/27/17 at 18:30 Ondansetron HCl (Zofran Inj) 4 mg UNSCH PRN IV PUSH WITH DIALYSIS; Start at 10:00 Pharmacy Profile Note 0 ml @ 0 mls/hr UNSCH OTHER ; Start 11/27/17 at 19:00 Pregabalin (Lyrica) 75 mg TID PO Last administered on 11/28/17at 17:03; Start at 09:00 Senna/Docusate Sodium (Vannessa-Colace) 1 tab BID PO Last administered on at 20:29; Start 11/27/17 at 21:00 Sennosides (Senokot) 17.2 mg Q12H PRN PO Moderate constipation; Start 11/27/17 at 19:00 Sodium Bicarbonate (Sodium Bicarbonate 8.4% Inj) 50 meq ONCE ONCE IV PUSH Last administered on 11/28/17at 09:28; Start 11/28/17 at 08:45; Stop 11/28/17 at 08:56; Status DC Sodium Chloride (NS Flush) 5 ml UNSCH PRN IV FLUSH WITH DIALYSIS; Start at 10:00 Terbutaline Sulfate (Brethine Inj) 1 mg UNSCH PRN SQ For Extravasation; Start 11/27/17 at 19:00 Tramadol HCl (Ultram) 50 mg Q6H PRN PO PAIN 1-10; Start 11/27/17 at 18:15 Vancomycin HCl 1000 mg/Sodium Chloride 250 ml @ 250 mls/hr ONCE ONCE IV Last administered on 11/28/17at 13:13; Start 11/28/17 at 12:00; Stop 11/28/17 at 12:59 ; Status DC A/P Assessment and Plan A/P Acute MRSA Bacteremia - ID consulted - received Vanco - suspicious for permacath infection; will consider removal - per ID and Nephrology -will consider echo Acute metabolic encephalopathy - resolved -SIRS/sepsis -Infectious disease consultation ESRD -Hemodialysis per nephrology Diabetes mellitus -Insulin sliding scale -Resume home regiment when 100% intake by mouth Septic shock- resolving. off levophed IHD per nephrology. COPD -No exacerbation -No indication for steroid -DuoNeb scheduled and as needed. -is on home oxygen. DVT GI prophylaxis -Benjamin's and SCDs -Subcu heparin -Pepcid PT consulted. transfer to floor. Alejo Lewis MD November 29, 2017 07:45
[2017-11-29 07:49] LABS: HEMATOCRIT 28.8 % (35.0-46.0); HEMOGLOBIN 9.2 GM/DL (11.6-15.3); MEAN CELL VOLUME 86.6 FL (80.0-100.0); MEAN CORPUSCULAR HEMOGLOBIN 27.7 PG (27.0-34.0); MEAN CORPUSCULAR HGB CONC 32.1 % (32.0-36.0); MEAN PLATELET VOLUME 9.5 FL (7.0-11.0); PLATELET COUNT 186 TH/MM3 (150-450); RED BLOOD COUNT 3.32 MIL/MM3 (4.00-5.30); WHITE BLOOD COUNT 11.5 TH/MM3 (4.0-11.0)
[2017-11-29] MEDS: SODIUM CHLORIDE 0.9% FLUSH 10 ML FLUSH IV FLUSH SCH ×2 (08:00→21:10)
--- NOTE | 2017-11-29 08:26 | HHI.IDPN ---
Subjective Subjective Remarks Patient is a 72-year-old female, brought into the hospital for evaluation of decreased level of consciousness. Patient was apparently in her usual self, and on the day of admission her and the home health aide has been trying very hard to keep her awake. She was apparently quite lethargic. She was brought into the hospital and initially was lethargic. She had a fever of 105.1. She was hypotensive briefly. Her WBC was 14,000. Chest x-ray showed elevated right hemidiaphragm and possible atelectasis, no change compared to prior chest x-ray. Her urinalysis showed significant pyuria, and a Langley was placed. 2 blood cultures were done, and they are now reported as growing gram- positive cocci in pairs and clusters. Patient at the time of my exam is awake and alert and oriented to time place and person. She does not remember having any fever or chills at home. When she had her hemodialysis her temperature was normal. She denies any significant respiratory complaints, GI complaint as far as abdominal pain, nausea or vomiting. Patient apparently has chronic dysuria since she has been on dialysis. She has very little urine output. According to the patient she also gets symptoms of dizziness, and some neck pain, always after she gets done with her hemodialysis. Patient gets dialyzed Tuesday and Tuesday. She has a permacath that gets used for her dialysis. She has an AV fistula, which seems to be functioning, but the patient stated that she does not want it used because the dialysis nurse always has a problem accessing her AV fistula. Patient currently is afebrile, and her blood pressure is better. She is currently on cefepime, and she got a dose of vancomycin yesterday. Infectious disease consultation has been requested to evaluate the patient. Notes reviewed Had fever yesterday at noon Had hemodialysis yesterday All blood cultures with MRSA Urine culture with gram-negative isaac Afebrile overnight BP okay Langley catheter removed Has not voided since Langley removed WBC better Antibiotics Vancomycin Cefepime Current Medications Medications (Trade) Dose Ordered Sig/[place] Route Start Time Stop Time Status Last Admin (Aspirin Chew) 81 mg DAILY CHEW 11/28/17 09:00 11/28/17 08:21 (Antivert) 25 mg Q6H PRN PO 11/27/17 18:15 (Lyrica) 75 mg TID PO 5/21/18 09:00 11/28/17 17:03 (Ultram) 50 mg Q6H PRN PO 11/27/17 18:15 (Zofran Odt) 8 mg BID PRN SL 11/27/17 18:30 (Lipitor) 20 mg DAILY PO 11/28/17 09:00 11/28/17 08:21 Sodium Chloride 1,000 ml @ 84 mls/hr [id number] IV 11/27/17 19:00 11/28/17 17:07 (NS Flush) 2 ml UNSCH PRN IV FLUSH 11/27/17 19:00 (NS Flush) 2 ml BID IV FLUSH 11/27/17 21:00 11/28/17 20:30 (Tylenol) 650 mg Q6H PRN PO 11/27/17 19:00 11/28/17 14:54 (Morphine Inj) 2 mg Q2H PRN IV PUSH 11/27/17 19:00 (Pepcid Inj) 10 mg Q12HR IV PUSH 11/27/17 21:00 11/28/17 20:30 (Zofran Inj) 4 mg Q6H PRN IV PUSH 11/27/17 19:00 (Duoneb Neb) 1 ampule Q2HR NEB PRN INH 11/27/17 19:00 11/28/17 15:51 (Heparin Inj) 5,000 units Q8H SQ 11/27/17 20:00 11/29/17 04:25 ([facility] [place]) 1 Q361D XX 11/27/17 19:00 11/27/17 19:00 (Chlorhexidine 2% Cloth) 3 pack Taper DAILY@04 TOP 11/28/17 04:00 11/24/18 03:59 11/29/17 04:00 (Chlorhexidine 2% Cloth) 3 pack UNSCH PRN TOP 11/27/17 19:00 (Vannessa-Colace) 1 tab BID PO 11/27/17 21:00 11/28/17 20:29 (Milk Of Magnesia Liq) 30 ml Q12H PRN PO 11/27/17 19:00 (Senokot) 17.2 mg Q12H PRN PO 11/27/17 19:00 (Dulcolax Supp) 10 mg DAILY PRN RECTAL 11/27/17 19:00 (Lactulose Liq) 30 ml DAILY PRN PO 11/27/17 19:00 Pharmacy Profile Note 0 ml @ 0 mls/hr UNSCH OTHER 11/27/17 19:00 (Brethine Inj) 1 mg UNSCH PRN SQ 11/27/17 19:00 Cefepime HCl 1000 mg/Sodium Chloride 100 ml @ 200 mls/hr Q24H IV 11/28/17 16:00 11/28/17 17:02 (D50w (Vial) Inj) 25 ml UNSCH PRN IV PUSH 11/28/17 08:45 (NovoLIN R SUPPLEMENTAL SCALE) 1 Q4HR SQ 11/28/17 12:00 11/28/17 23:43 Sodium Chloride 1,000 ml @ 0 mls/hr Q0M PRN OTHER 11/28/17 09:51 (Heparin Inj) 8,000 units UNSCH PRN IV FLUSH 11/28/17 10:00 Sodium Chloride 1,000 ml @ 200 mls/hr Q5H PRN IV 11/28/17 09:51 Sodium Chloride 1,000 ml @ 0 mls/hr Q0M PRN OTHER 11/28/17 09:51 (Mannitol Inj) 12.5 gm UNSCH PRN IV 11/28/17 10:00 Albumin Human 100 ml @ 60 mls/hr UNSCH PRN IV 11/28/17 10:00 (NS Flush) 5 ml UNSCH PRN IV FLUSH 11/28/17 10:00 (Heparin Inj) UNSCH PRN .XX 11/28/17 10:00 11/28/17 15:07 (Gentamicin Inj) 20 mg UNSCH PRN OTHER 11/28/17 10:00 11/28/17 15:08 (Zofran Inj) 4 mg UNSCH PRN IV PUSH 11/28/17 10:00 (Tylenol) 650 mg UNSCH PRN PO 11/28/17 10:00 (Benadryl) 25 mg UNSCH PRN PO 11/28/17 10:00 (Nitrostat Sl) 0.4 mg UNSCH PRN SL 11/28/17 10:00 (Catapres) 0.1 mg UNSCH PRN PO 11/28/17 10:00 (Gelfoam 12 Mm/7 Mm Top) 1 foam UNSCH PRN TOP 11/28/17 10:00 (Emla Cream) 1 applic WITH DIALYSIS PRN TOPICAL 11/28/17 11:00 Lines Permacath PIV Past Medical History ESRD Diabetes mellitus Hypertension COPD Obesity Past Surgical History R barchiocephalic AVF 2013 Superficialization AVF 2016 Previous permacath placement - patient states recently exchanged due to poor flow Previous colonoscopy Allergies: Coded Allergies: Sulfa (Sulfonamide Antibiotics) (Unverified Allergy, Severe, TONGUE AND GENERALIZED SWELLING, 06/10/17) iodine (Unverified Allergy, Severe, 06/10/17) iohexol (Unverified Allergy, Severe, TONGUE AND GENERALIZED SWELLING, 06/10) penicillin G (Unverified Allergy, Severe, TONGUE AND GENERALIZED SWELLING , 06/10/17) potassium iodide (Unverified Allergy, Severe, 06/10/17) povidone-iodine (Unverified Allergy, Severe, 06/10/17) sodium iodide (Unverified Allergy, Severe, 06/10/17) sodium iodide (Unverified Allergy, Severe, 06/10/17) Iodinated Contrast- Oral and IV Dye (Unverified Allergy, Unknown, 06/10/17) *MDRO Multi-Drug Resistant Organism (Verified Adverse Reaction, Unknown, MRSA, 06/10/17) MRSA PCR (nares) POSITIVE - 10/31/15 MRSA (blood & sputum) - 10/31/15 ESBL Klebsiella Pneumoniae (urine-06/26/16) Objective . Vital Signs Date Time Temp Pulse Resp B/P (MAP) Pulse Ox O2 Delivery O2 Flow Rate FiO2 11/29/17 07:59 100 Nasal Cannula 4.00 11/29/17 04:00 98.5 82 22 103/51 (68) 100 11/29/17 04:00 82 11/29/17 03:10 100 Nasal Cannula 4.00 11/29/17 00:20 100 Nasal Cannula 4.00 11/29/17 00:00 85 11/29/17 00:00 98.3 85 21 87/40 (56) 100 11/28/17 20:00 100 11/28/17 20:00 98.5 100 28 99/44 (62) 100 11/28/17 18:00 101 22 11/28/17 18:00 101 11/28/17 17:14 103 29 103/49 (67) 84 5/2118 17:14 103 18 17:04 104 18 17:04 104 31 80/38 (52) 46 18 17:02 105 30 81/41 (54) 80 18 17:02 105 18 17:00 105 30 76 18 17:00 105 18 16:54 104 29 98/41 (60) 59 18 16:54 104 18 16:45 105 28 79/50 (60) 91 18 16:45 105 18 16:41 105 36 90/48 (62) 92 18 16:41 105 18 16:34 107 29 97/35 (55) 82 18 16:34 107 18 16:30 105 27 82/37 (52) 93 18 16:30 105 11/28/17 16:28 105 18 16:28 105 26 147/74 (98) 97 11/28/17 16:00 98.6 103 29 147/74 (98) 83 18 16:00 103 11/28/17 14:32 110 138/87 (104) 82 18 14:32 110 11/28/17 14:15 89 11/28/17 14:15 89 119/79 (92) 98 11/28/17 14:01 87 11/28/17 14:01 87 116/55 (75) 95 11/28/17 14:00 88 11/28/17 14:00 88 95 11/28/17 13:31 92 11/28/17 13:31 92 156/65 (95) 78 11/28/17 13:00 88 11/28/17 13:00 88 133/58 (83) 82 18 12:30 86 124/56 (78) 91 18 12:30 86 11/28/17 12:00 103.0 83 125/63 (83) 88 11/28/17 12:00 83 18 11:31 79 18 11:31 79 120/57 (78) 99 5/21/18 11:01 77 11/28/17 11:01 77 119/53 (75) 83 11/28/17 11:00 77 82 11/28/17 11:00 77 11/28/17 10:30 87 126/56 (79) 93 11/28/17 10:30 87 11/28/17 10:01 90 140/59 (86) 89 11/28/17 10:01 90 11/28/17 10:00 91 11/28/17 10:00 91 88 11/28/17 09:31 90 52 124/95 (105) 89 11/28/17 09:31 90 11/28/17 09:00 86 11/28/17 09:00 86 35 95 11/28/17 08:30 84 11/28/17 08:30 84 25 132/92 (105) 94 . Laboratory Tests Test 11/27/17 15:35 11/28/17 03:30 11/29/17 07:24 White Blood Count 14.5 TH/MM3 23.8 TH/MM3 11.5 TH/MM3 Red Blood Count 4.09 MIL/MM3 3.50 MIL/MM3 3.32 MIL/MM3 Hemoglobin 11.3 GM/DL 9.9 GM/DL 9.2 GM/DL Hematocrit 35.5 % 31.7 % 28.8 % Mean Corpuscular Volume 86.9 FL 90.5 FL 86.6 FL Mean Corpuscular Hemoglobin 27.6 PG 28.2 PG 27.7 PG Mean Corpuscular Hemoglobin Concent 31.8 % 31.2 % 32.1 % Red Cell Distribution Width 16.7 % 17.3 % 17.0 % Platelet Count 226 TH/MM3 207 TH/MM3 186 TH/MM3 Mean Platelet Volume 9.3 FL 9.6 FL 9.5 FL Neutrophils (%) (Auto) 85.8 % 89.7 % Lymphocytes (%) (Auto) 8.4 % 3.8 % Monocytes (%) (Auto) 4.9 % 6.3 % Eosinophils (%) (Auto) 0.6 % 0.0 % Basophils (%) (Auto) 0.3 % 0.2 % Neutrophils # (Auto) 12.4 TH/MM3 21.4 TH/MM3 Lymphocytes # (Auto) 1.2 TH/MM3 0.9 TH/MM3 Monocytes # (Auto) 0.7 TH/MM3 1.5 TH/MM3 Eosinophils # (Auto) 0.1 TH/MM3 0.0 TH/MM3 Basophils # (Auto) 0.0 TH/MM3 0.1 TH/MM3 CBC Comment DIFF FINAL DIFF FINAL Differential Comment Laboratory Tests Test 11/27/17 15:31 11/27/17 15:35 11/27/17 17:58 11/27/17 20:40 Lactic Acid Level 2.7 mmol/L 3.3 mmol/L 3.8 mmol/L Blood Urea Nitrogen 32 MG/DL Creatinine 6.53 MG/DL Random Glucose 268 MG/DL Total Protein 7.2 GM/DL Albumin 2.7 GM/DL Calcium Level 8.0 MG/DL Alkaline Phosphatase 117 U/L Aspartate Amino Transf (AST/SGOT) 20 U/L Alanine Aminotransferase (ALT/SGPT) 16 U/L Total Bilirubin 0.5 MG/DL Sodium Level 135 MEQ/L Potassium Level 5.4 MEQ/L Chloride Level 100 MEQ/L Carbon Dioxide Level 22.0 MEQ/L Anion Gap 13 MEQ/L Estimat Glomerular Filtration Rate 6 ML/MIN Total Creatine Kinase 22 U/L Troponin I LESS THAN 0.02 NG/ML 0.02 NG/ML Lipase 388 U/L Test 11/27/17 23:10 11/28/17 03:30 11/28/17 20:05 11/29/17 07:24 Lactic Acid Level 4.1 mmol/L 1.9 mmol/L Blood Urea Nitrogen 36 MG/DL Creatinine 6.67 MG/DL Random Glucose 405 MG/DL Total Protein 6.6 GM/DL Albumin 2.4 GM/DL Calcium Level 7.3 MG/DL Phosphorus Level 3.7 MG/DL Magnesium Level 1.7 MG/DL Alkaline Phosphatase 102 U/L Aspartate Amino Transf (AST/SGOT) 53 U/L Alanine Aminotransferase (ALT/SGPT) 17 U/L Total Bilirubin 0.4 MG/DL Sodium Level 136 MEQ/L Potassium Level 6.4 MEQ/L Chloride Level 103 MEQ/L Carbon Dioxide Level 18.8 MEQ/L Anion Gap 14 MEQ/L Estimat Glomerular Filtration Rate 6 ML/MIN Protein Corrected Calcium 7.6 MG/DL Troponin I 0.03 NG/ML Microbiology Date/Time Source Procedure Growth Status 11/27/17 20:45 Blood Peripheral Aerobic Blood Culture - Preliminary Gram Positive Cocci Resulted 11/27/17 20:45 Blood Peripheral Anaerobic Blood Culture - Preliminary NO GROWTH IN 1 DAY Resulted 11/27/17 20:35 Blood Peripheral Aerobic Blood Culture - Preliminary Gram Positive Cocci Resulted 11/27/17 20:35 Blood Peripheral Anaerobic Blood Culture - Preliminary NO GROWTH IN 1 DAY Resulted 11/27/17 15:38 Blood Peripheral Aerobic Blood Culture - Preliminary Gram Positive Cocci Resulted 11/27/17 15:38 Anaerobic Blood Culture - Preliminary Gram Positive Cocci Resulted 11/27/17 15:30 Blood Peripheral Aerobic Blood Culture - Preliminary S. Aureus Mrsa Resulted 11/27/17 15:30 Anaerobic Blood Culture - Preliminary Gram Positive Cocci Resulted 11/27/17 15:35 Urine Catheterized Urine Urine Culture - Preliminary Gram Negative Isaac Resulted Imaging Chest X-Ray 11/28/17 0000 Signed Impressions: Service Date/Time: Tuesday, November 28, 2017 11:55 - CONCLUSION: 1. Stable elevation right hemidiaphragm with concomitant atelectatic changes in the right base. Left lung remains clear. 2. Borderline prominent but well compensated heart. 3. Stable position of right IJ dialysis type catheter. Jose Turner MD Physical Exam GENERAL: Patient is an obese, well-developed female, awake and alert, oriented x 3, not in respiratory distress. She does not look toxic appearing SKIN: Cool and dry. No generalized rash, no ecchymoses and no evidence of embolic lesions. HEAD: Atraumatic. Normocephalic. No temporal wasting, or tenderness. EYES: [place] conjunctiva. No petechia or hemorrhage. Pupils equal, round and reactive to light. Extraocular movements full and intact. No scleral icterus. No injection or drainage. EARS, NOSE AND THROAT: Nose without bleeding or purulent nasal discharge. No sinus tenderness. Mucous membranes pink and moist. No oral lesions noted. NECK: Trachea midline. Supple and not tender, no meningeal signs CARDIOVASCULAR: Regular rate and rhythm. No murmurs, rubs or gallops heard. Permacath in the right upper chest, with no drainage, redness, induration, and no tenderness at the tunnel area. RESPIRATORY: Clear to auscultation. Breath sounds equal bilaterally. No rales , wheezing or rhonchi. Decreased breath sounds at the bases. ABDOMEN: Soft, obese, non-tender, nondistended. Bowel sounds present and normoactive. No guarding. No rebound. No organomegaly. : Langley catheter in place, has a small amount of urine, and the urine looks very dark and concentrated EXTREMITIES: No clubbing, cyanosis, or edema. No joint effusion, has good ROM. No calf tenderness. Well perfused and warm. AV fistula in the right upper extremity with a good thrill, has well healed incisions, with no evidence of infection. NEUROLOGICAL: Awake and alert. Cranial nerves grossly intact. Motor grossly within normal limits. PSYCHIATRIC: Normal affect, calm and cooperative. LINE: No evidence of infection Assessment & Plan Remarks IMPRESSION Sepsis syndrome on presentation, with transient hypotensions - has MRSA in 2 BC, very suspicious for HD cath related sepsis - also with UTI - leukocytosis, shock, decreased LOC GPC sepsis, likely line related (Permacath) UTI, GNR ESRD Leukocytosis due to sepsis, better RECOMMENDATION Follow BC - repeat to document clearing Continue Cefepime Continue Vancomycin Check Vanco level and redose if low D/W Dr Vasquez - remove permacath D/W patient - she agrees to have permacath removed Echo Follow temps Monitor progress I will determine course of Rx once work-up completed Jenifer Crystal MD November 29, 2017 08:26
[2017-11-29 08:28] LABS: BICARBONATE 29.1 MEQ/L (21.0-32.0); CALCIUM 7.1 MG/DL (8.5-10.1); CREATININE 5.71 MG/DL (0.50-1.00); RANDOM VANCOMYCIN 14.4 COMMENT
[2017-11-29] MEDS ORDERED: VANCOMYCIN INJ 1,000 MG in SODIUM CHLOR 0.9% 250 ML INJ 250 ML IV SCH (08:30)
[2017-11-29 08:57] LABS: TOTAL PROTEIN 6.5 GM/DL (6.4-8.2)
[2017-11-29 09:04] LABS: CALCIUM-PROTEIN CORRECTED 7.4 MG/DL (8.5-10.1)
--- NOTE | 2017-11-29 09:34 | HHI.NPPN ---
Subjective History of Present Illness This patient is a 72-year-old -[place] female with a history of end- stage renal disease, diabetes mellitus, multiple myeloma. This patient does have a functional AV dialysis shunt in place but has been refusing to let us access it for dialysis access despite ongoing counseling regarding risks associated with the presence of a hemodialysis PermCath particularly risk of infection. She in fact had this PermCath changed November 17, 2017 at an outpatient interventional nephrology center. Patient now presents with altered mental status status now noted to have evidence of bacteremia with a preliminary report of gram-positive cocci. She also has a history of previous UTIs recurrent. Patient now noted to have hyperkalemia and a low total CO2 level with a requirement for acute dialysis today. Interval History Reports she is feeling much better today Going for PC removal today as BCx positive for MRSA Signed off HD early yesterday after 2h session. Refused cannulation of shunt. (Zenaida Fang) Review of Systems General Constitutional: Chills, Fatigue (Zenaida Fang) Objective Data Data Vital Signs Date Time Temp Pulse Resp B/P (MAP) Pulse Ox O2 Delivery O2 Flow Rate FiO2 11/29/17 07:59 100 Nasal Cannula 4.00 11/29/17 04:00 98.5 82 22 103/51 (68) 100 11/29/17 04:00 82 11/29/17 03:10 100 Nasal Cannula 4.00 11/29/17 00:20 100 Nasal Cannula 4.00 11/29/17 00:00 85 11/29/17 00:00 98.3 85 21 87/40 (56) 100 11/28/17 20:00 100 11/28/17 20:00 98.5 100 28 99/44 (62) 100 11/28/17 18:00 101 22 11/28/17 18:00 101 11/28/17 17:14 103 29 103/49 (67) 84 11/28/17 17:14 103 11/28/17 17:04 104 11/28/17 17:04 104 31 80/38 (52) 46 11/28/17 17:02 105 30 81/41 (54) 80 11/28/17 17:02 105 11/28/17 17:00 105 30 76 11/28/17 17:00 105 5/21/18 16:54 104 29 98/41 (60) 59 5//18 16:54 104 5//18 16:45 105 28 79/50 (60) 91 5//18 16:45 105 //18 16:41 105 36 90/48 (62) 92 5/21/18 16:41 105 //18 16:34 107 29 97/35 (55) 82 5/18 16:34 107 //18 16:30 105 27 82/37 (52) 93 18 16:30 105 21/18 16:28 105 18 16:28 105 26 147/74 (98) 97 18 16:00 98.6 103 29 147/74 (98) 83 18 16:00 103 18 14:32 110 138/87 (104) 82 18 14:32 110 18 14:15 89 11/28/17 14:15 89 119/79 (92) 98 11/28/17 14:01 87 18 14:01 87 116/55 (75) 95 18 14:00 88 11/28/18 14:00 88 95 18 13:31 92 18 13:31 92 156/65 (95) 78 18 13:00 88 11/28/18 13:00 88 133/58 (83) 82 11/28/18 12:30 86 124/56 (78) 91 18 12:30 86 11/28/18 12:00 103.0 83 125/63 (83) 88 21/18 12:00 83 18 11:31 79 518 11:31 79 120/57 (78) 99 18 11:01 77 11/28/18 11:01 77 119/53 (75) 83 5/18 11:00 77 82 5/18 11:00 77 11/28/18 10:30 87 126/56 (79) 93 5/18 10:30 87 11/28/18 10:01 90 140/59 (86) 89 518 10:01 90 5/21/18 10:00 91 5/21/18 10:00 91 88 11/28/17 09:31 90 52 124/95 (105) 89 11/28/17 09:31 90 (Zenaida Fang) -: 11/29/17 0724 11/29/17 0724 Imaging Last Impressions Chest X-Ray 11/28/17 0000 Signed Impressions: Service Date/Time: Tuesday, November 28, 2017 11:55 - CONCLUSION: 1. Stable elevation right hemidiaphragm with concomitant atelectatic changes in the right base. Left lung remains clear. 2. Borderline prominent but well compensated heart. 3. Stable position of right IJ dialysis type catheter. Jose Turner MD Medication Review Current Medications Medications (Trade) Dose Ordered Sig/[place] Route Start Time Stop Time Status Last Admin (Aspirin Chew) 81 mg DAILY CHEW 11/28/17 09:00 11/28/17 08:21 (Antivert) 25 mg Q6H PRN PO 11/27/17 18:15 (Lyrica) 75 mg TID PO 11/28/17 09:00 11/28/17 17:03 (Ultram) 50 mg Q6H PRN PO 11/27/17 18:15 (Zofran Odt) 8 mg BID PRN SL 11/27/17 18:30 (Lipitor) 20 mg DAILY PO 11/28/17 09:00 11/28/17 08:21 Sodium Chloride 1,000 ml @ 84 mls/hr [id number] IV 11/27/17 19:00 11/28/17 17:07 (NS Flush) 2 ml UNSCH PRN IV FLUSH 11/27/17 19:00 (NS Flush) 2 ml BID IV FLUSH 11/27/17 21:00 11/28/17 20:30 (Tylenol) 650 mg Q6H PRN PO 11/27/17 19:00 11/28/17 14:54 (Morphine Inj) 2 mg Q2H PRN IV PUSH 11/27/17 19:00 (Pepcid Inj) 10 mg Q12HR IV PUSH 11/27/17 21:00 11/28/17 20:30 (Zofran Inj) 4 mg Q6H PRN IV PUSH 11/27/17 19:00 (Duoneb Neb) 1 ampule Q2HR NEB PRN INH 11/27/17 19:00 11/28/17 15:51 (Heparin Inj) 5,000 units Q8H SQ 11/27/17 20:00 11/29/17 04:25 ([facility] Nursing Information) 1 Q361D XX 11/27/17 19:00 11/27/17 19:00 (Chlorhexidine 2% Cloth) 3 pack Taper DAILY@04 TOP 11/28/17 04:00 11/24/18 03:59 11/29/17 04:00 (Chlorhexidine 2% Cloth) 3 pack UNSCH PRN TOP 11/27/17 19:00 (Vannessa-Colace) 1 tab BID PO 11/27/17 21:00 11/28/17 20:29 (Milk Of Magnesia Liq) 30 ml Q12H PRN PO 11/27/17 19:00 (Senokot) 17.2 mg Q12H PRN PO 11/27/17 19:00 (Dulcolax Supp) 10 mg DAILY PRN RECTAL 11/27/17 19:00 (Lactulose Liq) 30 ml DAILY PRN PO 11/27/17 19:00 (Brethine Inj) 1 mg UNSCH PRN SQ 11/27/17 19:00 Cefepime HCl 1000 mg/Sodium Chloride 100 ml @ 200 mls/hr Q24H IV 11/28/17 16:00 11/28/17 17:02 (D50w (Vial) Inj) 25 ml UNSCH PRN IV PUSH 11/28/17 08:45 (NovoLIN R SUPPLEMENTAL SCALE) 1 Q4HR SQ 11/28/17 12:00 11/28/17 23:43 Sodium Chloride 1,000 ml @ 0 mls/hr Q0M PRN OTHER 11/28/17 09:51 (Heparin Inj) 8,000 units UNSCH PRN IV FLUSH 11/28/17 10:00 Sodium Chloride 1,000 ml @ 200 mls/hr Q5H PRN IV 11/28/17 09:51 Sodium Chloride 1,000 ml @ 0 mls/hr Q0M PRN OTHER 11/28/17 09:51 (Mannitol Inj) 12.5 gm UNSCH PRN IV 11/28/17 10:00 Albumin Human 100 ml @ 60 mls/hr UNSCH PRN IV 5/21/18 10:00 (NS Flush) 5 ml UNSCH PRN IV FLUSH 11/28/17 10:00 (Heparin Inj) UNSCH PRN .XX 11/28/17 10:00 11/28/17 15:07 (Gentamicin Inj) 20 mg UNSCH PRN OTHER 11/28/17 10:00 11/28/17 15:08 (Zofran Inj) 4 mg UNSCH PRN IV PUSH 11/28/17 10:00 (Tylenol) 650 mg UNSCH PRN PO 11/28/17 10:00 (Benadryl) 25 mg UNSCH PRN PO 11/28/17 10:00 (Nitrostat Sl) 0.4 mg UNSCH PRN SL 11/28/17 10:00 (Catapres) 0.1 mg UNSCH PRN PO 11/28/17 10:00 (Gelfoam 12 Mm/7 Mm Top) 1 foam UNSCH PRN TOP 11/28/17 10:00 (Emla Cream) 1 applic WITH DIALYSIS PRN TOPICAL 11/28/17 11:00 Vancomycin HCl 1000 mg/Sodium Chloride 250 ml @ 250 mls/hr WITH DIALYSIS IV 11/29/17 08:30 (Zenaida Fang) Physical Exam General Appearance: Comfortable (Zenaida Fang) Eyes Eye Exam: Pupils Equal (Zenaida Fang) Throat Throat Exam: Oral Mucosa [place] & Moist (Zenaida Fang) Neck Neck Exam: Neck Supple, Trachea Midline (Zenaida Fang) Pulmonary Resp Exam: Clear Bilaterally, Breath Sounds Equal (Zenaida Fang) Cardiology CV Exam: Regular, Normal Sinus Rhythm (Zenaida Fang) Gastrointestinal/Abdomen GI Exam: Soft, Non-Tender (Zenaida Fang) Integumentary Skin Exam: Clear, Warm (Zenaida Fang) Extremeties Extremities Exam: Trace Edema (Zenaida Fang) Neurologic Neuro Exam: Alert, Awake (Zenaida Fang) Psychiatric Psych Exam: Appropriate Responses (Zenaida Fang) Assessment/Plan Problem List: (1) ESRD (end stage renal disease) on dialysis ICD Codes: N18.6 - End stage renal disease; Z99.2 - Dependence on renal dialysis Status: Chronic Plan: HD today for 2h HD Wed to keep on MWF schedule at 3h. Medication should be adjusted for her end-stage renal disease when indicated. Avoid gadolinium. (2) Bacteremia ICD Codes: R78.81 - Bacteremia Plan: Bacteremia appears to be related to permacath infection Scheduled for removal today Pt agreeable BCx to be followed ID on board (3) Hyperkalemia ICD Codes: E87.5 - Hyperkalemia Status: Acute Plan: Resolved with HD (4) Acidosis ICD Codes: E87.2 - Acidosis Plan: Resolved with HD (5) Hyperparathyroidism, secondary renal ICD Codes: N25.81 - Secondary hyperparathyroidism of renal origin Status: Acute (6) Anemia of renal disease ICD Codes: D63.1 - Anemia in chronic kidney disease Status: Acute (7) HTN (hypertension) ICD Codes: I10 - Essential (primary) hypertension Status: Chronic (8) Diabetes mellitus ICD Codes: E11.9 - Diabetes mellitus Status: Chronic (9) Hypocalcemia ICD Codes: E83.51 - Hypocalcemia Plan: Start OsCal Check Mg level (Zenaida Fang) Plan The exam, history, and the medical decision-making described in the above note were completed with the assistance of the BULMARO. I reviewed and agree with the findings presented. (Manny Vasquez MD) Zenaida Fang November 29, 2017 09:34 Manny Vasquez MD November 30, 2017 17:52
[2017-11-29] MEDS ORDERED: LIDOCAINE 1%/EPINEPHrine 1:100,000 SOLN 20 ML VIAL ONE (09:39)
[2017-11-29] MEDS: ASPIRIN 81 MG CHEW TAB CHEW SCH (11:14)
[2017-11-29] MEDS: DOCUSATE SODIUM 50 MG/SENNA 8.6 MG TAB PO SCH ×2 (11:15→21:00)
[2017-11-29] MEDS: FAMOTIDINE 20 MG/2 ML VIAL IV PUSH SCH ×2 (11:15→21:09)
[2017-11-29] MEDS: ATORVASTATIN 20 MG TAB PO SCH (11:15)
[2017-11-29] MEDS: PREGABALIN 75 MG CAP PO SCH ×2 (11:15→13:55)
[2017-11-29] MEDS: CALCIUM CARBONATE 1.25 GM (CA 500 MG) TAB PO SCH ×2 (11:21→21:09)
[2017-11-29] MEDS: traMADol HCL 50 MG TAB PO PRN ×2 (11:22→21:09)
[2017-11-29] MEDS: SODIUM CHLOR 0.9% 1000 ML INJ 1,000 ML IV SCH (21:06)
[2017-11-29] MEDS: CEFEPIME 1000 MG/NS 100 ML IV SCH ×2 (21:07)
[2017-11-30] VITALS (11 sets, daily range): BP systolic 108–133; BP diastolic 51–63; PULSE 81–94; RESP 18–21; TEMP 97.4–98.4; O2SAT 95–100
[2017-11-30] MEDS: INSULIN NovoLIN REGULAR SUPPLEMENTAL SCALE SQ SCH ×6 (03:51→20:00)
[2017-11-30] MEDS: traMADol HCL 50 MG TAB PO PRN ×3 (03:53→17:52)
[2017-11-30] MEDS: HEPARIN SODIUM - SQ 10,000 UNITS/ML VIAL SQ SCH ×3 (03:54→21:04)
[2017-11-30] MEDS: CHLORHEXIDINE GLUCONATE 2 % 1 PACK (2 CLOTHS) TOP SCH (03:54)
[2017-11-30] MEDS: SODIUM CHLOR 0.9% 1000 ML INJ 1,000 ML IV SCH ×2 (05:36→20:59)
[2017-11-30 07:46] LABS: HEMATOCRIT 27.4 % (35.0-46.0); HEMOGLOBIN 8.9 GM/DL (11.6-15.3); MEAN CELL VOLUME 86.7 FL (80.0-100.0); MEAN CORPUSCULAR HGB CONC 32.4 % (32.0-36.0); MEAN PLATELET VOLUME 9.7 FL (7.0-11.0); PLATELET COUNT 165 TH/MM3 (150-450); RED BLOOD COUNT 3.16 MIL/MM3 (4.00-5.30); RED CELL DISTRIBUTION WIDTH 16.7 % (11.6-17.2); WHITE BLOOD COUNT 7.5 TH/MM3 (4.0-11.0)
[2017-11-30] MEDS: NITROGLYCERIN 0.4 MG SL 25 TABS/BTL SL PRN ×7 (08:25→21:00)
--- NOTE | 2017-11-30 08:50 | HHI.PR ---
Subjective Remarks in no acute distress. complaining of right-sided chest pain with some tenderness to touch. no fever. d/w the RN at the bedside. Objective Vitals Vital Signs Date Time Temp Pulse Resp B/P (MAP) Pulse Ox O2 Delivery O2 Flow Rate FiO2 11/30/17 04:04 81 11/30/17 04:00 97.8 89 18 133/63 (86) 96 11/30/17 00:53 94 11/30/17 00:00 98.4 90 20 116/55 (75) 98 11/29/17 20:36 96 11/29/17 20:00 97.4 95 19 124/54 (77) 100 11/29/17 12:00 96 11/29/17 12:00 97.8 96 24 106/53 (70) 92 I/O 11/29/17 11/29/17 11/29/17 11/30/17 11/30/17 11/30/17 07:00 15:00 23:00 07:00 15:00 23:00 Intake Total 180 ml 847 ml 240 ml Output Total 0 ml 1000 ml 150 ml Balance 180 ml -153 ml 90 ml Intake Oral 180 ml 240 ml IV Total 847 ml Output Urine Total 0 ml 150 ml Hemodialysis 1000 ml # Bowel Movements 1 1 Result Diagram: 11/30/17 0545 11/29/17 0724 Imaging Last Impressions Chest X-Ray 11/28/17 0000 Signed Impressions: Service Date/Time: Tuesday, November 28, 2017 11:55 - CONCLUSION: 1. Stable elevation right hemidiaphragm with concomitant atelectatic changes in the right base. Left lung remains clear. 2. Borderline prominent but well compensated heart. 3. Stable position of right IJ dialysis type catheter. Jose Turner MD Objective Remarks GENERAL: This is a well-nourished, well-developed patient, in no apparent distress. CARDIOVASCULAR: Regular rate and regular rhythm without murmurs, gallops, or rubs. RESPIRATORY: Clear to auscultation. Breath sounds equal bilaterally. No wheezes , rales, or rhonchi. GASTROINTESTINAL: Abdomen soft, non-tender, nondistended. Normal, active bowel sounds MUSCULOSKELETAL: Extremities without clubbing, cyanosis, or edema. NEURO: Alert & Oriented x4 to person, place, time, situation. Moves all ext x4 Procedures perma-cath removal. Medications and IVs Inpatient Medications Acetaminophen (Tylenol Supp) 650 mg ONCE ONCE RECTAL Last administered on 11/27at 16:07; Start 11/27/17 at 15:45; Stop 11/27/17 at 15:46; Status DC Acetaminophen (Tylenol) 650 mg UNSCH PRN PO for headach, pain1-10,T> 101F; Start 11/28/17 at 10:00 Albumin Human 100 ml @ 60 mls/hr UNSCH PRN IV WITH DIALYSIS; Start 11/28/17 at 10:00 Albuterol/ Ipratropium (Duoneb Neb) 1 ampule Q2HR NEB PRN INH WHEEZING Last administered on 11/28/17at 15:51; Start 11/27/17 at 19:00 Aspirin (Aspirin Chew) 81 mg DAILY CHEW Last administered on 11/29/17at 11:14; Start 11/28/17 at 09:00 Atorvastatin Calcium (Lipitor) 20 mg DAILY PO Last administered on 11/29/17at 11 :15; Start 11/28/17 at 09:00 Azithromycin 500 mg/Sodium Chloride 250 ml @ 250 mls/hr ONCE STAT IV Last administered on 11/27/17at 16:28; Start 11/27/17 at 15:23; Stop 11/27/17 at 16:22 ; Status DC Bisacodyl (Dulcolax Supp) 10 mg DAILY PRN RECTAL SEVERE CONSITIPATION; Start at 19:00 Calcium Carbonate (Oscal) 500 mg Q12HR PO Last administered on 11/29/17at 21:09 ; Start 11/29/17 at 09:45 Cefepime HCl 1000 mg/Sodium Chloride 100 ml @ 200 mls/hr Q24H IV Last administered on 11/29/17at 21:07; Start 11/28/17 at 16:00 Cefepime HCl 2000 mg/Sodium Chloride 100 ml @ 200 mls/hr Q8H IV ; Start at 19:00; Stop 11/27/17 at 19:36; Status DC Chlorhexidine Gluconate (Chlorhexidine 2% Cloth) 3 pack UNSCH PRN TOP HYGIENIC CARE; Start 11/27/17 at 19:00 Clonidine (Catapres) 0.1 mg UNSCH PRN PO for BP > 180/100 X 2 readings; Start 11/28/17 at 10:00 Dextrose (D50w (Vial) Inj) 25 ml UNSCH PRN IV PUSH HYPOGLYCEMIA-SEE COMMENTS; Start 11/28/17 at 08:45 Diphenhydramine HCl (Benadryl) 25 mg UNSCH PRN PO for hives/itching/anaphylaxis ; Start 11/28/17 at 10:00 Famotidine (Pepcid Inj) 10 mg Q12HR IV PUSH Last administered on 11/29/17at 21: 09; Start 11/27/17 at 21:00 Gelatin (Gelfoam 12 Mm/7 Mm Top) 1 foam UNSCH PRN TOP SEE LABEL COMMENTS; Start 11/28/17 at 10:00 Gentamicin Sulfate (Gentamicin Inj) 20 mg UNSCH PRN OTHER WITH DIALYSIS Last administered on 11/28/17at 15:08; Start 11/28/17 at 10:00 Heparin Sodium (Porcine) (Heparin Inj) UNSCH PRN .XX WITH DIALYSIS Last administered on 11/28/17at 15:07; Start 11/28/17 at 10:00 Insulin Human Regular (NovoLIN R SUPPLEMENTAL SCALE) 1 Q4HR SQ Last administered on 11/28/17at 23:43; Start 11/28/17 at 12:00 Lactulose (Lactulose Liq) 30 ml DAILY PRN PO SEVERE CONSITIPATION; Start at 19:00 Lidocaine/ Prilocaine (Emla Cream) 1 applic WITH DIALYSIS PRN TOPICAL Dialysis. ; Start 11/28/17 at 11:00 Magnesium Hydroxide (Milk Of Magnesia Liq) 30 ml Q12H PRN PO Mild constipation ; Start 11/27/17 at 19:00 Mannitol (Mannitol Inj) 12.5 gm UNSCH PRN IV WITH DIALYSIS; Start 11/28/17 at 10:00 Meclizine HCl (Antivert) 25 mg Q6H PRN PO DIZZINESS; Start 11/27/17 at 18:15 Miscellaneous Information ([facility] Nursing Information) 1 Q361D XX Last administered on 11/27/17at 19:00; Start 11/27/17 at 19:00 Morphine Sulfate (Morphine Inj) 2 mg Q2H PRN IV PUSH PAIN SCALE 6 TO 10; Start 11/27/17 at 19:00 Nitroglycerin (Nitrostat Sl) 0.4 mg UNSCH PRN SL CHEST PAIN Last administered on 11/30/17at 08:33; Start 11/28/17 at 10:00 Norepinephrine Bitartrate 250 ml @ 7.5 mls/hr TITRATE PRN IV Maintain MAP > 65 mmHg Last administered on 11/28/17at 01:53; Start 11/27/17 at 23:15; Stop at 17:40; Status DC Ondansetron HCl (Zofran Odt) 8 mg BID PRN SL NAUSEA; Start 11/27/17 at 18:30 Ondansetron HCl (Zofran Inj) 4 mg UNSCH PRN IV PUSH WITH DIALYSIS; Start at 10:00 Pharmacy Profile Note 0 ml @ 0 mls/hr UNSCH OTHER ; Start 11/27/17 at 19:00; Stop 11/29/17 at 08:31; Status DC Pregabalin (Lyrica) 75 mg TID PO Last administered on 11/29/17at 13:55; Start at 09:00 Senna/Docusate Sodium (Vannessa-Colace) 1 tab BID PO Last administered on at 20:29; Start 11/27/17 at 21:00 Sennosides (Senokot) 17.2 mg Q12H PRN PO Moderate constipation; Start 11/27/17 at 19:00 Sodium Bicarbonate (Sodium Bicarbonate 8.4% Inj) 50 meq ONCE ONCE IV PUSH Last administered on 11/28/17at 09:28; Start 11/28/17 at 08:45; Stop 11/28/17 at 08:56; Status DC Sodium Chloride (NS Flush) 5 ml UNSCH PRN IV FLUSH WITH DIALYSIS; Start at 10:00 Terbutaline Sulfate (Brethine Inj) 1 mg UNSCH PRN SQ For Extravasation; Start 11/27/17 at 19:00 Tramadol HCl (Ultram) 50 mg Q6H PRN PO PAIN 1-10 Last administered on at 03:53; Start 11/27/17 at 18:15 Vancomycin HCl 1000 mg/Sodium Chloride 250 ml @ 250 mls/hr WITH DIALYSIS IV ; Start 11/29/17 at 08:30 A/P Assessment and Plan A/P septic shock- resolved. Acute MRSA Bacteremia - ID consulted - received Vanco - suspicious for permacath infection; perma-cath has been removed. -follow the repeated blood cultures. -echo pending. right-sided chest pain check CXR today- continue with pain control. Acute metabolic encephalopathy - resolved -SIRS/sepsis -Infectious disease consultation ESRD -Hemodialysis per nephrology Diabetes mellitus -Insulin sliding scale COPD -No exacerbation -No indication for steroid -DuoNeb scheduled and as needed. -is on home oxygen. DVT GI prophylaxis -Benjamin's and SCDs -Subcu heparin -Pepcid PT consulted. Discharge Planning w/u in progress. Alejo Lewis MD November 30, 2017 08:50
[2017-11-30] MEDS: CALCIUM CARBONATE 1.25 GM (CA 500 MG) TAB PO SCH ×2 (08:57→21:02)
[2017-11-30] MEDS: PREGABALIN 75 MG CAP PO SCH ×4 (08:57→17:54)
[2017-11-30] MEDS: DOCUSATE SODIUM 50 MG/SENNA 8.6 MG TAB PO SCH ×2 (08:58→21:00)
[2017-11-30] MEDS: ATORVASTATIN 20 MG TAB PO SCH (08:58)
[2017-11-30] MEDS: ASPIRIN 81 MG CHEW TAB CHEW SCH (08:58)
[2017-11-30] MEDS: SODIUM CHLORIDE 0.9% FLUSH 10 ML FLUSH IV FLUSH SCH ×2 (08:59→21:04)
[2017-11-30] MEDS: FAMOTIDINE 20 MG/2 ML VIAL IV PUSH SCH (09:00)
--- NOTE | 2017-11-30 09:54 | RADRPT ---
EXAM DATE: 11/30/2017 9:41 AM EDT AGE/SEX: 72 years / Female INDICATIONS: Chest pain. CLINICAL DATA: This is the patient's initial encounter. Patient reports that signs and symptoms have been present for 1 day and indicates a pain score of 3/10. MEDICAL/SURGICAL HISTORY: Asthma. Chronic obstructive pulmonary disease. Hypertension. multi ple myeloma, diabetes, coronary artery disease, cva . cardiac cath, pt had dialysis catheter removed yesterday. COMPARISON: [facility] [place], CT ABDOMEN & PELVIS W/O CONTRAST, 06/28/2016. [facility] [place], CHEST SINGLE AP, 11/28/2017. . FINDINGS: The heart size is normal. There is increased density at the right base likely related to elevation of the right hemidiaphragm. This was seen on a prior CT examination. The lungs appear grossly clear CONCLUSION: 1. Elevation of the right hemidiaphragm. 2. No definite acute abnormality is seen. Electronically signed by: Antonio Garcia MD 11/30/2017 9:53 AM EDT
--- NOTE | 2017-11-30 11:13 | HHI.IDPN ---
Subjective Subjective Remarks Patient is a 72-year-old female, brought into the hospital for evaluation of decreased level of consciousness. Patient was apparently in her usual self, and on the day of admission her and the home health aide has been trying very hard to keep her awake. She was apparently quite lethargic. She was brought into the hospital and initially was lethargic. She had a fever of 105.1. She was hypotensive briefly. Her WBC was 14,000. Chest x-ray showed elevated right hemidiaphragm and possible atelectasis, no change compared to prior chest x-ray. Her urinalysis showed significant pyuria, and a Langley was placed. 2 blood cultures were done, and they are now reported as growing gram- positive cocci in pairs and clusters. Patient at the time of my exam is awake and alert and oriented to time place and person. She does not remember having any fever or chills at home. When she had her hemodialysis her temperature was normal. She denies any significant respiratory complaints, GI complaint as far as abdominal pain, nausea or vomiting. Patient apparently has chronic dysuria since she has been on dialysis. She has very little urine output. According to the patient she also gets symptoms of dizziness, and some neck pain, always after she gets done with her hemodialysis. Patient gets dialyzed Tuesday and Tuesday. She has a permacath that gets used for her dialysis. She has an AV fistula, which seems to be functioning, but the patient stated that she does not want it used because the dialysis nurse always has a problem accessing her AV fistula. Patient currently is afebrile, and her blood pressure is better. She is currently on cefepime, and she got a dose of vancomycin yesterday. Infectious disease consultation has been requested to evaluate the patient. Notes reviewed D/W RN Has new (+)BC today from yesterday Temps ok Had chest pain this morning right below where her permacath was, slightly better with NTG Had fever yesterday at noon All blood cultures with MRSA Urine culture with Kleb and Ecoli BP okay WBC better Antibiotics Vancomycin Cefepime Current Medications Medications (Trade) Dose Ordered Sig/Carson Route Start Time Stop Time Status Last Admin (Aspirin Chew) 81 mg DAILY CHEW 11/28/17 09:00 11/28/17 08:21 (Antivert) 25 mg Q6H PRN PO 11/27/17 18:15 (Lyrica) 75 mg TID PO 11/28/17 09:00 11/28/17 17:03 (Ultram) 50 mg Q6H PRN PO 11/27/17 18:15 (Zofran Odt) 8 mg BID PRN SL 11/27/17 18:30 (Lipitor) 20 mg DAILY PO 11/28/17 09:00 11/28/17 08:21 Sodium Chloride 1,000 ml @ 84 mls/hr [id number] IV 11/27/17 19:00 11/28/17 17:07 (NS Flush) 2 ml UNSCH PRN IV FLUSH 11/27/17 19:00 (NS Flush) 2 ml BID IV FLUSH 11/27/17 21:00 11/28/17 20:30 (Tylenol) 650 mg Q6H PRN PO 11/27/17 19:00 11/28/17 14:54 (Morphine Inj) 2 mg Q2H PRN IV PUSH 11/27/17 19:00 (Pepcid Inj) 10 mg Q12HR IV PUSH 11/27/17 21:00 11/28/17 20:30 (Zofran Inj) 4 mg Q6H PRN IV PUSH 11/27/17 19:00 (Duoneb Neb) 1 ampule Q2HR NEB PRN INH 11/27/17 19:00 11/28/17 15:51 (Heparin Inj) 5,000 units Q8H SQ 11/27/17 20:00 11/29/17 04:25 ([facility] [place] [facility] [place]) 1 Q361D XX 11/27/17 19:00 11/27/17 19:00 (Chlorhexidine 2% Cloth) 3 pack Taper DAILY@04 TOP 11/28/17 04:00 11/24/18 03:59 11/29/17 04:00 (Chlorhexidine 2% Cloth) 3 pack UNSCH PRN TOP 11/27/17 19:00 (Vannessa-Colace) 1 tab BID PO 11/27/17 21:00 11/28/17 20:29 (Milk Of Magnesia Liq) 30 ml Q12H PRN PO 11/27/17 19:00 (Senokot) 17.2 mg Q12H PRN PO 11/27/17 19:00 (Dulcolax Supp) 10 mg DAILY PRN RECTAL 11/27/17 19:00 (Lactulose Liq) 30 ml DAILY PRN PO 11/27/17 19:00 Pharmacy Profile Note 0 ml @ 0 mls/hr UNSCH OTHER 11/27/17 19:00 (Brethine Inj) 1 mg UNSCH PRN SQ 11/27/17 19:00 Cefepime HCl 1000 mg/Sodium Chloride 100 ml @ 200 mls/hr Q24H IV 11/28/17 16:00 11/28/17 17:02 (D50w (Vial) Inj) 25 ml UNSCH PRN IV PUSH 11/28/17 08:45 (NovoLIN R SUPPLEMENTAL SCALE) 1 Q4HR SQ 11/28/17 12:00 11/28/17 23:43 Sodium Chloride 1,000 ml @ 0 mls/hr Q0M PRN OTHER 11/28/17 09:51 (Heparin Inj) 8,000 units UNSCH PRN IV FLUSH 11/28/17 10:00 Sodium Chloride 1,000 ml @ 200 mls/hr Q5H PRN IV 11/28/17 09:51 Sodium Chloride 1,000 ml @ 0 mls/hr Q0M PRN OTHER 11/28/17 09:51 (Mannitol Inj) 12.5 gm UNSCH PRN IV 11/28/17 10:00 Albumin Human 100 ml @ 60 mls/hr UNSCH PRN IV 11/28/17 10:00 (NS Flush) 5 ml UNSCH PRN IV FLUSH 11/28/17 10:00 (Heparin Inj) UNSCH PRN .XX 11/28/17 10:00 11/28/17 15:07 (Gentamicin Inj) 20 mg UNSCH PRN OTHER 11/28/17 10:00 11/28/17 15:08 (Zofran Inj) 4 mg UNSCH PRN IV PUSH 11/28/17 10:00 (Tylenol) 650 mg UNSCH PRN PO 11/28/17 10:00 (Benadryl) 25 mg UNSCH PRN PO 11/28/17 10:00 (Nitrostat Sl) 0.4 mg UNSCH PRN SL 11/28/17 10:00 (Catapres) 0.1 mg UNSCH PRN PO 11/28/17 10:00 (Gelfoam 12 Mm/7 Mm Top) 1 foam UNSCH PRN TOP 11/28/17 10:00 (Emla Cream) 1 applic WITH DIALYSIS PRN TOPICAL 11/28/17 11:00 Lines Permacath PIV Past Medical History ESRD Diabetes mellitus Hypertension COPD Obesity Past Surgical History R barchiocephalic AVF 2013 Superficialization AVF 2016 Previous permacath placement - patient states recently exchanged due to poor flow Previous colonoscopy Allergies: Coded Allergies: Sulfa (Sulfonamide Antibiotics) (Unverified Allergy, Severe, TONGUE AND GENERALIZED SWELLING, 06/10/17) iodine (Unverified Allergy, Severe, 06/10/17) iohexol (Unverified Allergy, Severe, TONGUE AND GENERALIZED SWELLING, 06/10) penicillin G (Unverified Allergy, Severe, TONGUE AND GENERALIZED SWELLING , 06/10/17) potassium iodide (Unverified Allergy, Severe, 06/10/17) povidone-iodine (Unverified Allergy, Severe, 06/10/17) sodium iodide (Unverified Allergy, Severe, 06/10/17) sodium iodide (Unverified Allergy, Severe, 06/10/17) Iodinated Contrast- Oral and IV Dye (Unverified Allergy, Unknown, 06/10/17) *MDRO Multi-Drug Resistant Organism (Verified Adverse Reaction, Unknown, MRSA, 06/10/17) MRSA PCR (nares) POSITIVE - 10/31/15 MRSA (blood & sputum) - 10/31/15 ESBL Klebsiella Pneumoniae (urine-06/26/16) Objective . Vital Signs Date Time Temp Pulse Resp B/P (MAP) Pulse Ox O2 Delivery O2 Flow Rate FiO2 11/30/17 08:50 96 Nasal Cannula 4.00 11/30/17 08:00 84 11/30/17 08:00 97.5 82 20 108/51 (70) 100 11/30/17 04:04 81 11/30/17 04:00 97.8 89 18 133/63 (86) 96 11/30/17 00:53 94 11/30/17 00:00 98.4 90 20 116/55 (75) 98 11/29/17 20:36 96 11/29/17 20:00 97.4 95 19 124/54 (77) 100 11/29/17 12:00 96 11/29/17 12:00 97.8 96 24 106/53 (78) 92 . Laboratory Tests Test 11/29/17 07:24 11/30/17 05:45 White Blood Count 11.5 TH/MM3 7.5 TH/MM3 Red Blood Count 3.32 MIL/MM3 3.16 MIL/MM3 Hemoglobin 9.2 GM/DL 8.9 GM/DL Hematocrit 28.8 % 27.4 % Mean Corpuscular Volume 86.6 FL 86.7 FL Mean Corpuscular Hemoglobin 27.7 PG 28.0 PG Mean Corpuscular Hemoglobin Concent 32.1 % 32.4 % Red Cell Distribution Width 17.0 % 16.7 % Platelet Count 186 TH/MM3 165 TH/MM3 Mean Platelet Volume 9.5 FL 9.7 FL Laboratory Tests Test 11/28/17 20:05 11/29/17 07:24 11/30/17 05:35 Lactic Acid Level 1.9 mmol/L Blood Urea Nitrogen 38 MG/DL Creatinine 5.71 MG/DL Random Glucose 118 MG/DL Total Protein 6.5 GM/DL Calcium Level 7.1 MG/DL Sodium Level 144 MEQ/L Potassium Level 4.8 MEQ/L Chloride Level 105 MEQ/L Carbon Dioxide Level 29.1 MEQ/L Anion Gap 10 MEQ/L Estimat Glomerular Filtration Rate 7 ML/MIN Protein Corrected Calcium 7.4 MG/DL 25-Hydroxy Vitamin D Total 40.8 ng/ML Parathyroid Hormone (Intact) 135.1 PG/ML Microbiology Date/Time Source Procedure Growth Status 11/29/17 10:55 Blood Peripheral Aerobic Blood Culture - Preliminary NO GROWTH IN 1 DAY Resulted 11/29/17 10:55 Anaerobic Blood Culture - Preliminary Gram Positive Cocci Resulted 11/27/17 20:45 Blood Peripheral Aerobic Blood Culture - Final S. Aureus Mrsa Resulted 11/27/17 20:45 Blood Peripheral Anaerobic Blood Culture - Preliminary NO GROWTH IN 3 DAYS Resulted 11/27/17 20:35 Blood Peripheral Aerobic Blood Culture - Final S. Aureus Mrsa Resulted 11/27/17 20:35 Blood Peripheral Anaerobic Blood Culture - Preliminary NO GROWTH IN 3 DAYS Resulted 11/27/17 15:38 Blood Peripheral Aerobic Blood Culture - Final S. Aureus Mrsa Complete 11/27/17 15:38 Anaerobic Blood Culture - Final S. Aureus Mrsa Complete 11/27/17 15:30 Blood Peripheral Aerobic Blood Culture - Preliminary S. Aureus Mrsa Resulted 11/27/17 15:30 Anaerobic Blood Culture - Final S. Aureus Mrsa Resulted 11/27/17 15:35 Urine Catheterized Urine Urine Culture - Final Klebsiella Pneumoniae Multi-Drug Resistant Escherichia Coli Complete 11/29/17 10:00 Catheter Tip Other Wound Culture Pending Received Imaging Chest X-Ray 11/28/17 0000 Signed Impressions: Service Date/Time: Tuesday, November 28, 2017 11:55 - CONCLUSION: 1. Stable elevation right hemidiaphragm with concomitant atelectatic changes in the right base. Left lung remains clear. 2. Borderline prominent but well compensated heart. 3. Stable position of right IJ dialysis type catheter. Jose Turner MD Physical Exam GENERAL: awake and alert, oriented x 3, not in respiratory distress. SKIN: Cool and dry. No generalized rash, no ecchymoses and no evidence of embolic lesions. HEAD: Atraumatic. Normocephalic. No temporal wasting, or tenderness. EYES: [place] conjunctiva. No petechia or hemorrhage. Pupils equal, round and reactive to light. Extraocular movements full and intact. No scleral icterus. No injection or drainage. EARS, NOSE AND THROAT: Nose without bleeding or purulent nasal discharge. No sinus tenderness. Mucous membranes pink and moist. No oral lesions noted. NECK: Trachea midline. Supple and not tender, no meningeal signs CARDIOVASCULAR: Regular rate and rhythm. No murmurs, rubs or gallops heard. Dry dressing over previous permacath site RESPIRATORY: Clear to auscultation. Breath sounds equal bilaterally. No rales , wheezing or rhonchi. Decreased breath sounds at the bases. ABDOMEN: Soft, obese, non-tender, nondistended. Bowel sounds present and normoactive. No guarding. No rebound. No organomegaly. : Langley catheter in place, has a small amount of urine, and the urine looks very dark and concentrated EXTREMITIES: No clubbing, cyanosis, or edema. No joint effusion, has good ROM. No calf tenderness. Well perfused and warm. AV fistula in the right upper extremity with a good thrill, has well healed incisions, with no evidence of infection. NEUROLOGICAL: Awake and alert. Cranial nerves grossly intact. Motor grossly within normal limits. PSYCHIATRIC: Normal affect, calm and cooperative. LINE: No evidence of infection Assessment & Plan Remarks IMPRESSION Sepsis syndrome on presentation, with transient hypotension - has MRSA in 2 BC, very suspicious for HD cath related sepsis - also with UTI - leukocytosis, shock, decreased LOC High grade MRSA sepsis, likely permacath related UTI, Kleb/ecoli ESRD Leukocytosis due to sepsis, better RECOMMENDATION Follow BC - repeat to document clearing Stop Cefepime Levaquin for UTI await echo Will switch to Cubicin until BC are negative, then back to Vanco Follow temps Monitor progress D/W Jenifer Stafford MD November 30, 2017 11:12
[2017-11-30] MEDS: LEVOFLOXACIN 250 MG TAB PO SCH (12:00)
[2017-11-30 12:44] LABS: BICARBONATE 26.8 MEQ/L (21.0-32.0); CALCIUM 7.2 MG/DL (8.5-10.1); CREATININE 4.64 MG/DL (0.50-1.00); MAGNESIUM 1.8 MG/DL (1.5-2.5); PHOSPHORUS 2.9 MG/DL (2.5-4.9)
[2017-11-30 13:00] LABS: CALCIUM-PROTEIN CORRECTED 7.7 MG/DL (8.5-10.1); TOTAL PROTEIN 6.1 GM/DL (6.4-8.2)
[2017-11-30] MEDS: DAPTOmycin INJ 700 MG in SODIUM CHLORIDE 0.9% INJ 100 ML IV SCH (17:52)
--- NOTE | 2017-11-30 17:55 | HHI.NPPN ---
Subjective History of Present Illness This patient is a 72-year-old -[place] female with a history of end- stage renal disease, diabetes mellitus, multiple myeloma. This patient does have a functional AV dialysis shunt in place but has been refusing to let us access it for dialysis access despite ongoing counseling regarding risks associated with the presence of a hemodialysis PermCath particularly risk of infection. She in fact had this PermCath changed November 17, 2017 at an outpatient interventional nephrology center. Patient now presents with altered mental status status now noted to have evidence of bacteremia with a preliminary report of gram-positive cocci. She also has a history of previous UTIs recurrent. Patient now noted to have hyperkalemia and a low total CO2 level with a requirement for acute dialysis today. Interval History Patient was seen post dialysis today. The dialysis shunt was used successfully. Patient tolerated same. Review of Systems General Constitutional: Chills, Fatigue Objective Data Data 11/30/17 12/01/17 18:59 06:59 Output Total 3000 ml Balance -3000 ml Hemodialysis 3000 ml Vital Signs Date Time Temp Pulse Resp B/P (MAP) Pulse Ox O2 Delivery O2 Flow Rate FiO2 11/30/17 12:00 86 11/30/17 12:00 98.4 90 21 109/51 (70) 95 11/30/17 08:50 96 Nasal Cannula 4.00 11/30/17 08:00 84 11/30/17 08:00 97.5 82 20 108/51 (70) 100 11/30/17 04:04 81 11/30/17 04:00 97.8 89 18 133/63 (86) 96 11/30/17 00:53 94 11/30/17 00:00 98.4 90 20 116/55 (75) 98 11/29/17 20:36 96 11/29/17 20:00 97.4 95 19 124/54 (77) 100 -: 11/30/17 0545 11/30/17 0535 Microbiology 11/30/17 Aerobic Blood Culture, Received Pending 11/30/17 Anaerobic Blood Culture, Received Pending Physical Exam General Appearance: Comfortable Eyes Eye Exam: Pupils Equal Throat Throat Exam: Oral Mucosa [place] & Moist Neck Neck Exam: Neck Supple, Trachea Midline Pulmonary Resp Exam: Clear Bilaterally, Breath Sounds Equal Cardiology CV Exam: Regular, Normal Sinus Rhythm Gastrointestinal/Abdomen GI Exam: Soft, Non-Tender Integumentary Skin Exam: Clear, Warm Extremeties Extremities Exam: Trace Edema Neurologic Neuro Exam: Alert, Awake Psychiatric Psych Exam: Appropriate Responses Assessment/Plan Problem List: (1) ESRD (end stage renal disease) on dialysis ICD Codes: N18.6 - End stage renal disease; Z99.2 - Dependence on renal dialysis Status: Chronic Plan: Continue hemodialysis Tuesday and Tuesday with continue usage of the dialysis shunt. Continue lidocaine cream prior to usage. I discussed with the patient the benefit of leaving the dialysis line out and she agrees at this time for continued usage of the AV dialysis shunt. Blood culture results noted. Hopefully they will clear soon. Appreciate ID help. Medication should be adjusted for her end-stage renal disease when indicated. Avoid gadolinium. (2) Bacteremia ICD Codes: R78.81 - Bacteremia Plan: Bacteremia appears to be related to permacath infection Scheduled for removal today Pt agreeable BCx to be followed ID on board (3) Hyperkalemia ICD Codes: E87.5 - Hyperkalemia Status: Acute Plan: Resolved with HD (4) Acidosis ICD Codes: E87.2 - Acidosis Plan: Resolved with HD (5) Hyperparathyroidism, secondary renal ICD Codes: N25.81 - Secondary hyperparathyroidism of renal origin Status: Acute (6) Anemia of renal disease ICD Codes: D63.1 - Anemia in chronic kidney disease Status: Acute (7) HTN (hypertension) ICD Codes: I10 - Essential (primary) hypertension Status: Chronic (8) Diabetes mellitus ICD Codes: E11.9 - Diabetes mellitus Status: Chronic (9) Hypocalcemia ICD Codes: E83.51 - Hypocalcemia Plan: Start OsCal Check Mg level Plan The exam, history, and the medical decision-making described in the above note were completed with the assistance of the BULMARO. I reviewed and agree with the findings presented. Manny Vasquez MD November 30, 2017 17:55
[2017-11-30] MEDS: FAMOTIDINE 20 MG TAB PO SCH (21:02)
[2017-12-01] VITALS (12 sets, daily range): BP systolic 96–131; BP diastolic 50–57; PULSE 82–99; RESP 18–20; TEMP 97.3–98.3; O2SAT 94–99
[2017-12-01] MEDS: INSULIN NovoLIN REGULAR SUPPLEMENTAL SCALE SQ SCH ×6 (01:07→20:00)
[2017-12-01] MEDS: NITROGLYCERIN 0.4 MG SL 25 TABS/BTL SL PRN ×5 (01:09→23:53)
[2017-12-01] MEDS: traMADol HCL 50 MG TAB PO PRN ×2 (01:17→08:30)
[2017-12-01] MEDS: HEPARIN SODIUM - SQ 10,000 UNITS/ML VIAL SQ SCH ×3 (04:00→22:09)
[2017-12-01] MEDS: CHLORHEXIDINE GLUCONATE 2 % 1 PACK (2 CLOTHS) TOP SCH (04:00)
[2017-12-01] MEDS: SODIUM CHLOR 0.9% 1000 ML INJ 1,000 ML IV SCH ×2 (06:15→22:07)
[2017-12-01 06:55] LABS: HEMATOCRIT 30.1 % (35.0-46.0); HEMOGLOBIN 9.7 GM/DL (11.6-15.3); MEAN CELL VOLUME 87.9 FL (80.0-100.0); MEAN CORPUSCULAR HEMOGLOBIN 28.2 PG (27.0-34.0); MEAN CORPUSCULAR HGB CONC 32.1 % (32.0-36.0); PLATELET COUNT 192 TH/MM3 (150-450); RED BLOOD COUNT 3.42 MIL/MM3 (4.00-5.30); RED CELL DISTRIBUTION WIDTH 17.1 % (11.6-17.2); WHITE BLOOD COUNT 6.8 TH/MM3 (4.0-11.0)
[2017-12-01 07:18] LABS: BICARBONATE 28.6 MEQ/L (21.0-32.0); CALCIUM 8.1 MG/DL (8.5-10.1)
[2017-12-01] MEDS: ASPIRIN 81 MG CHEW TAB CHEW SCH (08:28)
[2017-12-01] MEDS: PREGABALIN 75 MG CAP PO SCH ×3 (08:29→16:47)
[2017-12-01] MEDS: LEVOFLOXACIN 250 MG TAB PO SCH (08:29)
[2017-12-01] MEDS: CALCIUM CARBONATE 1.25 GM (CA 500 MG) TAB PO SCH ×2 (08:29→22:07)
[2017-12-01] MEDS: FAMOTIDINE 20 MG TAB PO SCH ×2 (08:29→21:00)
[2017-12-01] MEDS: DOCUSATE SODIUM 50 MG/SENNA 8.6 MG TAB PO SCH ×2 (08:29→21:00)
[2017-12-01] MEDS: SODIUM CHLORIDE 0.9% FLUSH 10 ML FLUSH IV FLUSH SCH ×2 (08:29→22:09)
--- NOTE | 2017-12-01 08:36 | HHI.NPPN ---
Subjective History of Present Illness This patient is a 72-year-old -[place] female with a history of end- stage renal disease, diabetes mellitus, multiple myeloma. This patient does have a functional AV dialysis shunt in place but has been refusing to let us access it for dialysis access despite ongoing counseling regarding risks associated with the presence of a hemodialysis PermCath particularly risk of infection. She in fact had this PermCath changed November 17, 2017 at an outpatient interventional nephrology center. Patient now presents with altered mental status status now noted to have evidence of bacteremia with a preliminary report of gram-positive cocci. She also has a history of previous UTIs recurrent. Patient now noted to have hyperkalemia and a low total CO2 level with a requirement for acute dialysis today. Interval History Pt feeling overall OK Having some R sided chest pain that she reports is relieved by NTG Denies any SOB or heart palpitations. Some nausea (Zenaida Fang) Review of Systems General Constitutional: Fatigue (Zenaida Fang) Cardiovascular Cardiac: Chest Pain (Zenaida Fang) Gastrointestinal Gastrointestinal: Nausea & Vomiting (Zenaida Fang) Objective Data Data Vital Signs Date Time Temp Pulse Resp B/P (MAP) Pulse Ox O2 Delivery O2 Flow Rate FiO2 12/01/17 04:00 97.6 82 20 117/56 (76) 99 12/01/17 04:00 85 12/01/17 00:10 85 12/01/17 00:00 98.3 90 20 111/50 (70) 96 11/30/17 20:10 97 Nasal Cannula 3.00 11/30/17 20:00 94 11/30/17 18:16 97.4 89 20 108/52 (70) 100 11/30/17 16:00 85 11/30/17 12:00 86 11/30/17 12:00 98.4 90 21 109/51 (70) 95 11/30/17 08:50 96 Nasal Cannula 4.00 (Zenaida Fang) -: 12/01/17 0552 12/01/17 0552 Microbiology 12/01/17 Aerobic Blood Culture, Received Pending 12/01/17 Anaerobic Blood Culture, Received Pending Imaging Last Impressions Chest X-Ray 11/30/17 0000 Signed Impressions: CONCLUSION: 1. Elevation of the right hemidiaphragm. 2. No definite acute abnormality is seen. Medication Review Current Medications Medications (Trade) Dose Ordered Sig/Carson Route Start Time Stop Time Status Last Admin (Aspirin Chew) 81 mg DAILY CHEW 11/28/17 09:00 12/01/17 08:28 (Antivert) 25 mg Q6H PRN PO 11/27/17 18:15 (Lyrica) 75 mg TID PO 11/28/17 09:00 12/01/17 08:29 (Zofran Odt) 8 mg BID PRN SL 11/27/17 18:30 Sodium Chloride 1,000 ml @ 84 mls/hr [id number] IV 11/27/17 19:00 12/01/17 06:15 (NS Flush) 2 ml UNSCH PRN IV FLUSH 11/27/17 19:00 (NS Flush) 2 ml BID IV FLUSH 11/27/17 21:00 11/30/17 21:04 (Tylenol) 650 mg Q6H PRN PO 11/27/17 19:00 11/28/17 14:54 (Morphine Inj) 2 mg Q2H PRN IV PUSH 11/27/17 19:00 (Zofran Inj) 4 mg Q6H PRN IV PUSH 11/27/17 19:00 (Duoneb Neb) 1 ampule Q2HR NEB PRN INH 11/27/17 19:00 11/28/17 15:51 (Heparin Inj) 5,000 units Q8H SQ 11/27/17 20:00 12/01/17 04:00 [place] [place] [facility] [place] 1 Q361D XX 11/27/17 19:00 11/27/17 19:00 (Chlorhexidine 2% Cloth) 3 pack Taper DAILY@04 TOP 11/28/17 04:00 11/24/18 03:59 11/29/17 04:00 (Chlorhexidine 2% Cloth) 3 pack UNSCH PRN TOP 11/27/17 19:00 (Vannessa-Colace) 1 tab BID PO 11/27/17 21:00 12/01/17 08:29 (Milk Of Magnesia Liq) 30 ml Q12H PRN PO 11/27/17 19:00 (Senokot) 17.2 mg Q12H PRN PO 5/20/18 19:00 (Dulcolax Supp) 10 mg DAILY PRN RECTAL 11/27/17 19:00 (Lactulose Liq) 30 ml DAILY PRN PO 11/27/17 19:00 (Brethine Inj) 1 mg UNSCH PRN SQ 11/27/17 19:00 (D50w (Vial) Inj) 25 ml UNSCH PRN IV PUSH 11/28/17 08:45 (NovoLIN R SUPPLEMENTAL SCALE) 1 Q4HR SQ 11/28/17 12:00 12/01/17 01:07 Sodium Chloride 1,000 ml @ 0 mls/hr Q0M PRN OTHER 11/28/17 09:51 (Heparin Inj) 8,000 units UNSCH PRN IV FLUSH 11/28/17 10:00 Sodium Chloride 1,000 ml @ 200 mls/hr Q5H PRN IV 11/28/17 09:51 Sodium Chloride 1,000 ml @ 0 mls/hr Q0M PRN OTHER 11/28/17 09:51 (Mannitol Inj) 12.5 gm UNSCH PRN IV 11/28/17 10:00 Albumin Human 100 ml @ 60 mls/hr UNSCH PRN IV 11/28/17 10:00 (NS Flush) 5 ml UNSCH PRN IV FLUSH 11/28/17 10:00 (Heparin Inj) UNSCH PRN .XX 11/28/17 10:00 11/28/17 15:07 (Gentamicin Inj) 20 mg UNSCH PRN OTHER 11/28/17 10:00 11/28/17 15:08 (Zofran Inj) 4 mg UNSCH PRN IV PUSH 11/28/17 10:00 (Tylenol) 650 mg UNSCH PRN PO 11/28/17 10:00 (Benadryl) 25 mg UNSCH PRN PO 11/28/17 10:00 (Nitrostat Sl) 0.4 mg UNSCH PRN SL 11/28/17 10:00 12/01/17 06:01 (Catapres) 0.1 mg UNSCH PRN PO 11/28/17 10:00 (Gelfoam 12 Mm/7 Mm Top) 1 foam UNSCH PRN TOP 11/28/17 10:00 (Emla Cream) 1 applic WITH DIALYSIS PRN TOPICAL 11/28/17 11:00 (Oscal) 500 mg Q12HR PO 11/29/17 09:45 12/01/17 08:29 Daptomycin 700 mg/ Sodium Chloride 100 ml @ 200 mls/hr Q48H IV 11/30/17 13:00 11/30/17 17:52 (Levaquin) 250 mg DAILY PO 11/30/17 12:00 12/01/17 08:29 (Pepcid) 10 mg BID PO 11/30/17 21:00 12/01/17 08:29 (Ultram) 100 mg Q6H PRN PO 11/30/17 18:15 12/01/17 08:30 (Zenaida Fang) Physical Exam General Appearance: Comfortable (Zenaida Fang) Eyes Eye Exam: Pupils Equal (Zenaida Fang) Throat Throat Exam: Oral Mucosa [place] & Moist (Zenaida Fang) Neck Neck Exam: Neck Supple, Trachea Midline (Zenaida Fang) Pulmonary Resp Exam: Clear Bilaterally, Breath Sounds Equal (Zenaida Fang) Cardiology CV Exam: Regular, Normal Sinus Rhythm (Zenaida Fang) Chest/Breast Chest/Breast Remarks Reproducible palpable tenderness R upper chest at site of previous PermaCath. Tunnel feels inflamed. Steri-strips covering previous opening. (Zenaida Fang) Gastrointestinal/Abdomen GI Exam: Soft, Non-Tender (Zenaida Fang) Integumentary Skin Exam: Clear, Warm (Zenaida Fang) Extremeties Extremities Exam: No Edema (Zenaida Fang) Neurologic Neuro Exam: Alert, Awake (Zneaida Fang) Psychiatric Psych Exam: Appropriate Responses (Zenaida Fang) Assessment/Plan Problem List: (1) ESRD (end stage renal disease) on dialysis ICD Codes: N18.6 - End stage renal disease; Z99.2 - Dependence on renal dialysis Status: Chronic Plan: Continue hemodialysis Tuesday and Tuesday with continue usage of the dialysis shunt. Continue lidocaine cream prior to usage. I discussed with the patient the benefit of leaving the dialysis line out and she agrees at this time for continued usage of the AV dialysis shunt. Blood culture results noted. Hopefully they will clear soon. Appreciate ID help. Pt requesting diet change. OK for basic diet at the present, but may need to modify if glucose rises Medication should be adjusted for her end-stage renal disease when indicated. Avoid gadolinium. (2) Bacteremia ICD Codes: R78.81 - Bacteremia Plan: Bacteremia appears to be related to permacath infection Scheduled for removal today Pt agreeable BCx to be followed ID on board (3) Hyperkalemia ICD Codes: E87.5 - Hyperkalemia Status: Acute Plan: Resolved with HD (4) Acidosis ICD Codes: E87.2 - Acidosis Plan: Resolved with HD (5) Hyperparathyroidism, secondary renal ICD Codes: N25.81 - Secondary hyperparathyroidism of renal origin Status: Acute (6) Anemia of renal disease ICD Codes: D63.1 - Anemia in chronic kidney disease Status: Acute (7) HTN (hypertension) ICD Codes: I10 - Essential (primary) hypertension Status: Chronic (8) Diabetes mellitus ICD Codes: E11.9 - Diabetes mellitus Status: Chronic (9) Hypocalcemia ICD Codes: E83.51 - Hypocalcemia Plan: Continue OsCal (10) Chest discomfort ICD Codes: R07.89 - Other chest pain Plan: Appears to be related to previous catheter placement as tunnel feels inflamed and she is tender to palpation along this line. Interesting that pain is resolved with NTG. Will defer to the primary team if cardiology should be consulted. She is known to Dr. Menjivar. (Zenaida Fang) Plan The exam, history, and the medical decision-making described in the above note were completed with the assistance of the PAJoséC. I reviewed and agree with the findings presented. (Manny Vasquez MD) Zenaida Fang December 01, 2017 08:36 Manny Vasquez MD December 02, 2017 11:41
--- NOTE | 2017-12-01 08:53 | HHI.IDPN ---
Subjective Subjective Remarks Patient is a 72-year-old female, brought into the hospital for evaluation of decreased level of consciousness. Patient was apparently in her usual self, and on the day of admission her and the home health aide has been trying very hard to keep her awake. She was apparently quite lethargic. She was brought into the hospital and initially was lethargic. She had a fever of 105.1. She was hypotensive briefly. Her WBC was 14,000. Chest x-ray showed elevated right hemidiaphragm and possible atelectasis, no change compared to prior chest x-ray. Her urinalysis showed significant pyuria, and a Langley was placed. 2 blood cultures were done, and they are now reported as growing gram- positive cocci in pairs and clusters. Patient at the time of my exam is awake and alert and oriented to time place and person. She does not remember having any fever or chills at home. When she had her hemodialysis her temperature was normal. She denies any significant respiratory complaints, GI complaint as far as abdominal pain, nausea or vomiting. Patient apparently has chronic dysuria since she has been on dialysis. She has very little urine output. According to the patient she also gets symptoms of dizziness, and some neck pain, always after she gets done with her hemodialysis. Patient gets dialyzed Tuesday and Tuesday. She has a permacath that gets used for her dialysis. She has an AV fistula, which seems to be functioning, but the patient stated that she does not want it used because the dialysis nurse always has a problem accessing her AV fistula. Patient currently is afebrile, and her blood pressure is better. She is currently on cefepime, and she got a dose of vancomycin yesterday. Infectious disease consultation has been requested to evaluate the patient. Notes reviewed Temps ok Had HD yesterday Still C/O pain over the previous permacath into the tunnel All blood cultures with MRSA Urine culture with Kleb and Ecoli BP okay WBC better Antibiotics Vancomycin Levaquin Current Medications Medications (Trade) Dose Ordered Sig/[place] Route Start Time Stop Time Status Last Admin (Aspirin Chew) 81 mg DAILY CHEW 11/28/17 09:00 12/01/17 08:28 (Antivert) 25 mg Q6H PRN PO 11/27/17 18:15 (Lyrica) 75 mg TID PO 11/28/17 09:00 12/01/17 08:29 (Zofran Odt) 8 mg BID PRN SL 11/27/17 18:30 Sodium Chloride 1,000 ml @ 84 mls/hr [id number] IV 11/27/17 19:00 12/01/17 06:15 (NS Flush) 2 ml UNSCH PRN IV FLUSH 11/27/17 19:00 (NS Flush) 2 ml BID IV FLUSH 11/27/17 21:00 11/30/17 21:04 (Tylenol) 650 mg Q6H PRN PO 11/27/17 19:00 11/28/17 14:54 (Morphine Inj) 2 mg Q2H PRN IV PUSH 11/27/17 19:00 (Zofran Inj) 4 mg Q6H PRN IV PUSH 11/27/17 19:00 (Duoneb Neb) 1 ampule Q2HR NEB PRN INH 11/27/17 19:00 11/28/17 15:51 (Heparin Inj) 5,000 units Q8H SQ 11/27/17 20:00 12/01/17 04:00 ([facility] Nursing Information) 1 Q361D XX 11/27/17 19:00 11/27/17 19:00 (Chlorhexidine 2% Cloth) 3 pack Taper DAILY@04 TOP 11/28/17 04:00 11/24/18 03:59 11/29/17 04:00 (Chlorhexidine 2% Cloth) 3 pack UNSCH PRN TOP 11/27/17 19:00 (Vannessa-Colace) 1 tab BID PO 11/27/17 21:00 12/01/17 08:29 (Milk Of Magnesia Liq) 30 ml Q12H PRN PO 11/27/17 19:00 (Senokot) 17.2 mg Q12H PRN PO 11/27/17 19:00 (Dulcolax Supp) 10 mg DAILY PRN RECTAL 11/27/17 19:00 (Lactulose Liq) 30 ml DAILY PRN PO 11/27/17 19:00 (Brethine Inj) 1 mg UNSCH PRN SQ 11/27/17 19:00 (D50w (Vial) Inj) 25 ml UNSCH PRN IV PUSH 11/28/17 08:45 (NovoLIN R SUPPLEMENTAL SCALE) 1 Q4HR SQ 11/28/17 12:00 12/01/17 01:07 Sodium Chloride 1,000 ml @ 0 mls/hr Q0M PRN OTHER 11/28/17 09:51 (Heparin Inj) 8,000 units UNSCH PRN IV FLUSH 11/28/17 10:00 Sodium Chloride 1,000 ml @ 200 mls/hr Q5H PRN IV 11/28/17 09:51 Sodium Chloride 1,000 ml @ 0 mls/hr Q0M PRN OTHER 11/28/17 09:51 (Mannitol Inj) 12.5 gm UNSCH PRN IV 11/28/17 10:00 Albumin Human 100 ml @ 60 mls/hr UNSCH PRN IV 11/28/17 10:00 (NS Flush) 5 ml UNSCH PRN IV FLUSH 11/28/17 10:00 (Heparin Inj) UNSCH PRN .XX 11/28/17 10:00 11/28/17 15:07 (Gentamicin Inj) 20 mg UNSCH PRN OTHER 11/28/17 10:00 11/28/17 15:08 (Zofran Inj) 4 mg UNSCH PRN IV PUSH 11/28/17 10:00 (Tylenol) 650 mg UNSCH PRN PO 11/28/17 10:00 (Benadryl) 25 mg UNSCH PRN PO 11/28/17 10:00 (Nitrostat Sl) 0.4 mg UNSCH PRN SL 11/28/17 10:00 12/01/17 08:32 (Catapres) 0.1 mg UNSCH PRN PO 11/28/17 10:00 (Gelfoam 12 Mm/7 Mm Top) 1 foam UNSCH PRN TOP 11/28/17 10:00 (Emla Cream) 1 applic WITH DIALYSIS PRN TOPICAL 11/28/17 11:00 (Oscal) 500 mg Q12HR PO 11/29/17 09:45 12/01/17 08:29 Daptomycin 700 mg/ Sodium Chloride 100 ml @ 200 mls/hr Q48H IV 11/30/17 13:00 11/30/17 17:52 (Levaquin) 250 mg DAILY PO 11/30/17 12:00 12/01/17 08:29 (Pepcid) 10 mg BID PO 11/30/17 21:00 12/01/17 08:29 (Ultram) 100 mg Q6H PRN PO 11/30/17 18:15 12/01/17 08:30 Lines Permacath PIV Past Medical History ESRD Diabetes mellitus Hypertension COPD Obesity Past Surgical History R barchiocephalic AVF 2013 Superficialization AVF 2016 Previous permacath placement - patient states recently exchanged due to poor flow Previous colonoscopy Allergies: Coded Allergies: Sulfa (Sulfonamide Antibiotics) (Unverified Allergy, Severe, TONGUE AND GENERALIZED SWELLING, 06/10/17) iodine (Unverified Allergy, Severe, 06/10/17) iohexol (Unverified Allergy, Severe, TONGUE AND GENERALIZED SWELLING, 06/10) penicillin G (Unverified Allergy, Severe, TONGUE AND GENERALIZED SWELLING , 06/10/17) potassium iodide (Unverified Allergy, Severe, 06/10/17) povidone-iodine (Unverified Allergy, Severe, 06/10/17) sodium iodide (Unverified Allergy, Severe, 06/10/17) sodium iodide (Unverified Allergy, Severe, 06/10/17) Iodinated Contrast- Oral and IV Dye (Unverified Allergy, Unknown, 06/10/17) *MDRO Multi-Drug Resistant Organism (Verified Adverse Reaction, Unknown, MRSA, 06/10/17) MRSA PCR (nares) POSITIVE - 10/31/15 MRSA (blood & sputum) - 10/31/15 ESBL Klebsiella Pneumoniae (urine-06/26/16) Objective . Vital Signs Date Time Temp Pulse Resp B/P (MAP) Pulse Ox O2 Delivery O2 Flow Rate FiO2 12/01/17 04:00 97.6 82 20 117/56 (76) 99 12/01/17 04:00 85 12/01/17 00:10 85 12/01/17 00:00 98.3 90 20 111/50 (70) 96 11/30/17 20:10 97 Nasal Cannula 3.00 11/30/17 20:00 94 11/30/17 18:16 97.4 89 20 108/52 (70) 100 11/30/17 16:00 85 11/30/17 12:00 86 11/30/17 12:00 98.4 90 21 109/51 (70) 95 . Laboratory Tests Test 11/30/17 05:45 12/01/17 05:52 White Blood Count 7.5 TH/MM3 6.8 TH/MM3 Red Blood Count 3.16 MIL/MM3 3.42 MIL/MM3 Hemoglobin 8.9 GM/DL 9.7 GM/DL Hematocrit 27.4 % 30.1 % Mean Corpuscular Volume 86.7 FL 87.9 FL Mean Corpuscular Hemoglobin 28.0 PG 28.2 PG Mean Corpuscular Hemoglobin Concent 32.4 % 32.1 % Red Cell Distribution Width 16.7 % 17.1 % Platelet Count 165 TH/MM3 192 TH/MM3 Mean Platelet Volume 9.7 FL 10.0 FL Laboratory Tests Test 11/30/17 05:35 12/01/17 05:52 Blood Urea Nitrogen 30 MG/DL 21 MG/DL Creatinine 4.64 MG/DL 4.00 MG/DL Random Glucose 108 MG/DL 126 MG/DL Total Protein 6.1 GM/DL Calcium Level 7.2 MG/DL 8.1 MG/DL Phosphorus Level 2.9 MG/DL Magnesium Level 1.8 MG/DL Sodium Level 139 MEQ/L 142 MEQ/L Potassium Level 3.8 MEQ/L 4.3 MEQ/L Chloride Level 103 MEQ/L 102 MEQ/L Carbon Dioxide Level 26.8 MEQ/L 28.6 MEQ/L Anion Gap 9 MEQ/L 11 MEQ/L Estimat Glomerular Filtration Rate 9 ML/MIN 11 ML/MIN Protein Corrected Calcium 7.7 MG/DL 25-Hydroxy Vitamin D Total 40.8 ng/ML Parathyroid Hormone (Intact) 135.1 PG/ML Total Creatine Kinase 211 U/L Creatine Kinase MB 0.6 NG/ML Creatine Kinase MB % 0.3 % Microbiology Date/Time Source Procedure Growth Status 12/01/17 05:52 Blood Peripheral Aerobic Blood Culture Pending Received 12/01/17 05:52 Blood Peripheral Anaerobic Blood Culture Pending Received 11/30/17 05:35 Blood Peripheral Aerobic Blood Culture Pending Received 11/30/17 05:35 Blood Peripheral Anaerobic Blood Culture Pending Received 11/29/17 10:55 Blood Peripheral Aerobic Blood Culture - Preliminary Gram Positive Cocci Resulted 11/29/17 10:55 Anaerobic Blood Culture - Preliminary Gram Positive Cocci Resulted 11/29/17 10:00 Catheter Tip Other Wound Culture - Preliminary NO GROWTH IN 24 HOURS. Resulted Imaging Chest X-Ray 11/28/17 0000 Signed Impressions: Service Date/Time: Tuesday, November 28, 2017 11:55 - CONCLUSION: 1. Stable elevation right hemidiaphragm with concomitant atelectatic changes in the right base. Left lung remains clear. 2. Borderline prominent but well compensated heart. 3. Stable position of right IJ dialysis type catheter. Jose Turner MD Physical Exam GENERAL: awake and alert, oriented x 3, not in respiratory distress. SKIN: Cool and dry. No generalized rash, no ecchymoses and no evidence of embolic lesions. HEAD: Atraumatic. Normocephalic. No temporal wasting, or tenderness. EYES: [place] conjunctiva. No petechia or hemorrhage. Pupils equal, round and reactive to light. Extraocular movements full and intact. No scleral icterus. No injection or drainage. EARS, NOSE AND THROAT: Nose without bleeding or purulent nasal discharge. No sinus tenderness. Mucous membranes pink and moist. No oral lesions noted. NECK: Trachea midline. Supple and not tender, no meningeal signs CARDIOVASCULAR: Regular rate and rhythm. No murmurs, rubs or gallops heard. Open wound over previous permacath site, with hard induration and tenderness over the tunnel that goes to her RIJ RESPIRATORY: Clear to auscultation. Breath sounds equal bilaterally. No rales , wheezing or rhonchi. Decreased breath sounds at the bases. ABDOMEN: Soft, obese, non-tender, nondistended. Bowel sounds present and normoactive. No guarding. No rebound. No organomegaly. : Langley catheter in place, has a small amount of urine, and the urine looks very dark and concentrated EXTREMITIES: No clubbing, cyanosis, or edema. No joint effusion, has good ROM. No calf tenderness. Well perfused and warm. AV fistula in the right upper extremity with a good thrill, has well healed incisions, with no evidence of infection. NEUROLOGICAL: Awake and alert. Cranial nerves grossly intact. Motor grossly within normal limits. PSYCHIATRIC: Normal affect, calm and cooperative. LINE: No evidence of infection Assessment & Plan Remarks IMPRESSION Sepsis syndrome on presentation, with transient hypotension - has MRSA in 2 BC, very suspicious for HD cath related sepsis - also with UTI - leukocytosis, shock, decreased LOC High grade MRSA sepsis, likely permacath related UTI, Kleb/ecoli ESRD Leukocytosis due to sepsis, better RECOMMENDATION Follow BC - repeat to document clearing Levaquin for UTI Await echo Continue Cubicin until BC are negative, then back to [facility] Will ask Dr Michaud to evaluate tunnelling - ?may need surgery Follow temps Monitor progress Explained plan to the patient Jenifer Crystal MD December 01, 2017 08:53
--- NOTE | 2017-12-01 10:05 | HHI.PR ---
Subjective Remarks in no acute distress. no fever. has some pain and tenderness on the right chest- at the site of previous perma- cath. Objective Vitals Vital Signs Date Time Temp Pulse Resp B/P (MAP) Pulse Ox O2 Delivery O2 Flow Rate FiO2 12/01/17 04:00 97.6 82 20 117/56 (76) 99 12/01/17 04:00 85 12/01/17 00:10 85 12/01/17 00:00 98.3 90 20 111/50 (70) 96 11/30/17 20:10 97 Nasal Cannula 3.00 11/30/17 20:00 94 11/30/17 18:16 97.4 89 20 108/52 (70) 100 11/30/17 16:00 85 11/30/17 12:00 86 11/30/17 12:00 98.4 90 21 109/51 (70) 95 I/O 11/30/17 11/30/17 11/30/17 12/01/17 12/01/17 12/01/17 07:00 15:00 23:00 07:00 15:00 23:00 Intake Total 240 ml 480 ml 240 ml Output Total 150 ml 3000 ml Balance 90 ml -2520 ml 240 ml Intake Oral 240 ml 480 ml 240 ml Output Urine Total 150 ml Hemodialysis 3000 ml # Voids 0 0 # Bowel Movements 1 0 0 Result Diagram: 12/01/17 0552 12/01/17 0552 Imaging Last Impressions Chest X-Ray 11/30/17 0000 Signed Impressions: CONCLUSION: 1. Elevation of the right hemidiaphragm. 2. No definite acute abnormality is seen. Objective Remarks GENERAL: This is a well-nourished, well-developed patient, in no apparent distress. CARDIOVASCULAR: Regular rate and regular rhythm without murmurs, gallops, or rubs. RESPIRATORY: Clear to auscultation. Breath sounds equal bilaterally. No wheezes , rales, or rhonchi. GASTROINTESTINAL: Abdomen soft, non-tender, nondistended. Normal, active bowel sounds MUSCULOSKELETAL: Extremities without clubbing, cyanosis, or edema. NEURO: Alert & Oriented x4 to person, place, time, situation. Moves all ext x4 Procedures perma-cath removal. Medications and IVs Inpatient Medications Acetaminophen (Tylenol Supp) 650 mg ONCE ONCE RECTAL Last administered on 11/27at 16:07; Start 11/27/17 at 15:45; Stop 11/27/17 at 15:46; Status DC Acetaminophen (Tylenol) 650 mg UNSCH PRN PO for headach, pain1-10,T> 101F; Start 11/28/17 at 10:00 Albumin Human 100 ml @ 60 mls/hr UNSCH PRN IV WITH DIALYSIS; Start 11/28/17 at 10:00 Albuterol/ Ipratropium (Duoneb Neb) 1 ampule Q2HR NEB PRN INH WHEEZING Last administered on 11/28/17at 15:51; Start 11/27/17 at 19:00 Aspirin (Aspirin Chew) 81 mg DAILY CHEW Last administered on 12/01/17at 08:28; Start 11/28/17 at 09:00 Atorvastatin Calcium (Lipitor) 20 mg DAILY PO Last administered on 11/30/17at 08 :58; Start 11/28/17 at 09:00; Stop 11/30/17 at 11:15; Status DC Azithromycin 500 mg/Sodium Chloride 250 ml @ 250 mls/hr ONCE STAT IV Last administered on 11/27/17at 16:28; Start 11/27/17 at 15:23; Stop 11/27/17 at 16:22 ; Status DC Bisacodyl (Dulcolax Supp) 10 mg DAILY PRN RECTAL SEVERE CONSITIPATION; Start at 19:00 Calcium Carbonate (Oscal) 500 mg Q12HR PO Last administered on 12/01/17at 08:29 ; Start 11/29/17 at 09:45 Cefepime HCl 1000 mg/Sodium Chloride 100 ml @ 200 mls/hr Q24H IV Last administered on 11/29/17at 21:07; Start 11/28/17 at 16:00; Stop 11/30/17 at 11:15 ; Status DC Cefepime HCl 2000 mg/Sodium Chloride 100 ml @ 200 mls/hr Q8H IV ; Start at 19:00; Stop 11/27/17 at 19:36; Status DC Chlorhexidine Gluconate (Chlorhexidine 2% Cloth) 3 pack UNSCH PRN TOP HYGIENIC CARE; Start 11/27/17 at 19:00 Clonidine (Catapres) 0.1 mg UNSCH PRN PO for BP > 180/100 X 2 readings; Start 11/28/17 at 10:00 Daptomycin 700 mg/ Sodium Chloride 100 ml @ 200 mls/hr Q48H IV Last administered on 11/30/17at 17:52; Start 11/30/17 at 13:00 Dextrose (D50w (Vial) Inj) 25 ml UNSCH PRN IV PUSH HYPOGLYCEMIA-SEE COMMENTS; Start 11/28/17 at 08:45 Diphenhydramine HCl (Benadryl) 25 mg UNSCH PRN PO for hives/itching/anaphylaxis ; Start 11/28/17 at 10:00 Famotidine (Pepcid Inj) 10 mg Q12HR IV PUSH Last administered on 11/30/17at 09: 00; Start 11/27/17 at 21:00; Stop 11/30/17 at 11:48; Status DC Famotidine (Pepcid) 10 mg BID PO Last administered on 12/01/17at 08:29; Start at 21:00 Gelatin (Gelfoam 12 Mm/7 Mm Top) 1 foam UNSCH PRN TOP SEE LABEL COMMENTS; Start 11/28/17 at 10:00 Gentamicin Sulfate (Gentamicin Inj) 20 mg UNSCH PRN OTHER WITH DIALYSIS Last administered on 11/28/17at 15:08; Start 11/28/17 at 10:00 Heparin Sodium (Porcine) (Heparin Inj) UNSCH PRN .XX WITH DIALYSIS Last administered on 11/28/17at 15:07; Start 11/28/17 at 10:00 Insulin Human Regular (NovoLIN R SUPPLEMENTAL SCALE) 1 Q4HR SQ Last administered on 12/01/17at 01:07; Start 11/28/17 at 12:00 Lactulose (Lactulose Liq) 30 ml DAILY PRN PO SEVERE CONSITIPATION; Start at 19:00 Levofloxacin (Levaquin) 250 mg DAILY PO Last administered on 12/01/17at 08:29; Start 11/30/17 at 12:00 Lidocaine/ Prilocaine (Emla Cream) 1 applic WITH DIALYSIS PRN TOPICAL Dialysis. ; Start 11/28/17 at 11:00 Magnesium Hydroxide (Milk Of Magnesia Liq) 30 ml Q12H PRN PO Mild constipation ; Start 11/27/17 at 19:00 Mannitol (Mannitol Inj) 12.5 gm UNSCH PRN IV WITH DIALYSIS; Start 11/28/17 at 10:00 Meclizine HCl (Antivert) 25 mg Q6H PRN PO DIZZINESS; Start 11/27/17 at 18:15 Miscellaneous Information ([facility] Information) 1 Q361D XX Last administered on 11/27/17at 19:00; Start 11/27/17 at 19:00 Morphine Sulfate (Morphine Inj) 2 mg Q2H PRN IV PUSH BREAKTHROUGH PAIN; Start 11/27/17 at 19:00 Nitroglycerin (Nitrostat Sl) 0.4 mg UNSCH PRN SL CHEST PAIN Last administered on 12/01/17at 08:32; Start 11/28/17 at 10:00 Norepinephrine Bitartrate 250 ml @ 7.5 mls/hr TITRATE PRN IV Maintain MAP > 65 mmHg Last administered on 11/28/17at 01:53; Start 11/27/17 at 23:15; Stop at 17:40; Status DC Ondansetron HCl (Zofran Odt) 8 mg BID PRN SL NAUSEA; Start 11/27/17 at 18:30 Ondansetron HCl (Zofran Inj) 4 mg UNSCH PRN IV PUSH WITH DIALYSIS; Start at 10:00 Pharmacy Profile Note 0 ml @ 0 mls/hr UNSCH OTHER ; Start 11/27/17 at 19:00; Stop 11/29/17 at 08:31; Status DC Pregabalin (Lyrica) 75 mg TID PO Last administered on 12/01/17at 08:29; Start at 09:00 Senna/Docusate Sodium (Vannessa-Colace) 1 tab BID PO Last administered on at 08:29; Start 11/27/17 at 21:00 Sennosides (Senokot) 17.2 mg Q12H PRN PO Moderate constipation; Start 11/27/17 at 19:00 Sodium Bicarbonate (Sodium Bicarbonate 8.4% Inj) 50 meq ONCE ONCE IV PUSH Last administered on 11/28/17at 09:28; Start 11/28/17 at 08:45; Stop 11/28/17 at 08:56; Status DC Sodium Chloride (NS Flush) 5 ml UNSCH PRN IV FLUSH WITH DIALYSIS; Start at 10:00 Terbutaline Sulfate (Brethine Inj) 1 mg UNSCH PRN SQ For Extravasation; Start 11/27/17 at 19:00 Tramadol HCl (Ultram) 100 mg Q6H PRN PO PAIN 1-10 Last administered on at 08:30; Start 11/30/17 at 18:15 Vancomycin HCl 1000 mg/Sodium Chloride 250 ml @ 250 mls/hr WITH DIALYSIS IV ; Start 11/29/17 at 08:30; Stop 11/30/17 at 11:15; Status DC A/P Assessment and Plan A/P septic shock- resolved. Acute MRSA Bacteremia - ID consulted - received Vanco- now on Datomycin - suspicious for permacath infection; perma-cath has been removed. -follow the repeated blood cultures. -echo pending. right-sided chest pain the site of previous perma-cath is tender to touch vascular surgery consulted. continue antibiotics and pain control. Acute metabolic encephalopathy - resolved -SIRS/sepsis -Infectious disease consultation ESRD -Hemodialysis per nephrology Diabetes mellitus -Insulin sliding scale COPD -No exacerbation -No indication for steroid -DuoNeb scheduled and as needed. -is on home oxygen. DVT GI prophylaxis -Benjamin's and SCDs -Subcu heparin -Pepcid PT consulted. Discharge Planning w/u in progress. Alejo Lewis MD December 01, 2017 10:05
[2017-12-02] VITALS (11 sets, daily range): BP systolic 105–189; BP diastolic 56–93; PULSE 82–101; RESP 18–26; TEMP 97.1–98.7; O2SAT 94–98
[2017-12-02] MEDS: CHLORHEXIDINE GLUCONATE 2 % 1 PACK (2 CLOTHS) TOP SCH (04:00)
[2017-12-02] MEDS: INSULIN NovoLIN REGULAR SUPPLEMENTAL SCALE SQ SCH ×6 (04:00→20:00)
[2017-12-02 05:16] LABS: HEMATOCRIT 29.2 % (35.0-46.0); HEMOGLOBIN 9.1 GM/DL (11.6-15.3); MEAN CELL VOLUME 88.5 FL (80.0-100.0); MEAN CORPUSCULAR HEMOGLOBIN 27.7 PG (27.0-34.0); MEAN CORPUSCULAR HGB CONC 31.3 % (32.0-36.0); MEAN PLATELET VOLUME 9.3 FL (7.0-11.0); PLATELET COUNT 219 TH/MM3 (150-450); RED CELL DISTRIBUTION WIDTH 17.4 % (11.6-17.2); WHITE BLOOD COUNT 7.1 TH/MM3 (4.0-11.0)
[2017-12-02 05:27] LABS: BICARBONATE 29.1 MEQ/L (21.0-32.0); CALCIUM 7.8 MG/DL (8.5-10.1); CREATININE 4.95 MG/DL (0.50-1.00)
[2017-12-02] MEDS: SODIUM CHLOR 0.9% 1000 ML INJ 1,000 ML IV SCH ×2 (05:36→21:32)
[2017-12-02] MEDS: HEPARIN SODIUM - SQ 10,000 UNITS/ML VIAL SQ SCH ×3 (05:36→21:25)
[2017-12-02] MEDS: CALCIUM CARBONATE 1.25 GM (CA 500 MG) TAB PO SCH ×2 (07:48→21:25)
[2017-12-02] MEDS: FAMOTIDINE 20 MG TAB PO SCH ×2 (07:49→21:25)
[2017-12-02] MEDS: PREGABALIN 75 MG CAP PO SCH ×3 (07:49→17:22)
[2017-12-02] MEDS: DOCUSATE SODIUM 50 MG/SENNA 8.6 MG TAB PO SCH ×2 (07:49→21:00)
[2017-12-02] MEDS: ASPIRIN 81 MG CHEW TAB CHEW SCH (07:49)
[2017-12-02] MEDS: LEVOFLOXACIN 250 MG TAB PO SCH (07:49)
[2017-12-02] MEDS: SODIUM CHLORIDE 0.9% FLUSH 10 ML FLUSH IV FLUSH SCH ×2 (07:53→21:25)
--- NOTE | 2017-12-02 11:03 | HHI.IDPN ---
Subjective Subjective Remarks Patient is a 72-year-old female, brought into the hospital for evaluation of decreased level of consciousness. Patient was apparently in her usual self, and on the day of admission her and the home health aide has been trying very hard to keep her awake. She was apparently quite lethargic. She was brought into the hospital and initially was lethargic. She had a fever of 105.1. She was hypotensive briefly. Her WBC was 14,000. Chest x-ray showed elevated right hemidiaphragm and possible atelectasis, no change compared to prior chest x-ray. Her urinalysis showed significant pyuria, and a Langley was placed. 2 blood cultures were done, and they are now reported as growing gram- positive cocci in pairs and clusters. Patient at the time of my exam is awake and alert and oriented to time place and person. She does not remember having any fever or chills at home. When she had her hemodialysis her temperature was normal. She denies any significant respiratory complaints, GI complaint as far as abdominal pain, nausea or vomiting. Patient apparently has chronic dysuria since she has been on dialysis. She has very little urine output. According to the patient she also gets symptoms of dizziness, and some neck pain, always after she gets done with her hemodialysis. Patient gets dialyzed Tuesday and Tuesday. She has a permacath that gets used for her dialysis. She has an AV fistula, which seems to be functioning, but the patient stated that she does not want it used because the dialysis nurse always has a problem accessing her AV fistula. Patient currently is afebrile, and her blood pressure is better. She is currently on cefepime, and she got a dose of vancomycin yesterday. Infectious disease consultation has been requested to evaluate the patient. Notes reviewed Temps ok Getting HD D/W Dr Lewis Surgical evaluation pending Still C/O pain over the previous permacath into the tunnel All blood cultures with MRSA till 11/29 BC 11/30 negative so far Urine culture with Kleb and Ecoli BP okay WBC better Antibiotics Cubicin Levaquin Current Medications Medications (Trade) Dose Ordered Sig/[place]arson Route Start Time Stop Time Status Last Admin (Aspirin Chew) 81 mg DAILY CHEW 11/28/17 09:00 12/02/17 07:49 (Antivert) 25 mg Q6H PRN PO 11/27/17 18:15 (Lyrica) 75 mg TID PO 11/28/17 09:00 12/02/17 07:49 (Zofran Odt) 8 mg BID PRN SL 11/27/17 18:30 Sodium Chloride 1,000 ml @ 84 mls/hr [id number] IV 11/27/17 19:00 12/02/17 05:36 (NS Flush) 2 ml UNSCH PRN IV FLUSH 11/27/17 19:00 (NS Flush) 2 ml BID IV FLUSH 11/27/17 21:00 12/01/17 22:09 (Tylenol) 650 mg Q6H PRN PO 11/27/17 19:00 11/28/17 14:54 (Morphine Inj) 2 mg Q2H PRN IV PUSH 11/27/17 19:00 (Zofran Inj) 4 mg Q6H PRN IV PUSH 11/27/17 19:00 (Duoneb Neb) 1 ampule Q2HR NEB PRN INH 11/27/17 19:00 11/28/17 15:51 (Heparin Inj) 5,000 units Q8H SQ 11/27/17 20:00 12/02/17 05:36 ([facility] Nursing Information) 1 Q361D XX 11/27/17 19:00 11/27/17 19:00 (Chlorhexidine 2% Cloth) 3 pack Taper DAILY@04 TOP 11/28/17 04:00 11/24/18 03:59 11/29/17 04:00 (Chlorhexidine 2% Cloth) 3 pack UNSCH PRN TOP 11/27/17 19:00 (Vannessa-Colace) 1 tab BID PO 11/27/17 21:00 12/02/17 07:49 (Milk Of Magnesia Liq) 30 ml Q12H PRN PO 11/27/17 19:00 (Senokot) 17.2 mg Q12H PRN PO 11/27/17 19:00 (Dulcolax Supp) 10 mg DAILY PRN RECTAL 11/27/17 19:00 (Lactulose Liq) 30 ml DAILY PRN PO 11/27/17 19:00 (Brethine Inj) 1 mg UNSCH PRN SQ 11/27/17 19:00 (D50w (Vial) Inj) 25 ml UNSCH PRN IV PUSH 11/28/17 08:45 (NovoLIN R SUPPLEMENTAL SCALE) 1 Q4HR SQ 11/28/17 12:00 12/01/17 12:00 Sodium Chloride 1,000 ml @ 0 mls/hr Q0M PRN OTHER 11/28/17 09:51 (Heparin Inj) 8,000 units UNSCH PRN IV FLUSH 11/28/17 10:00 Sodium Chloride 1,000 ml @ 200 mls/hr Q5H PRN IV 11/28/17 09:51 Sodium Chloride 1,000 ml @ 0 mls/hr Q0M PRN OTHER 11/28/17 09:51 (Mannitol Inj) 12.5 gm UNSCH PRN IV 11/28/17 10:00 Albumin Human 100 ml @ 60 mls/hr UNSCH PRN IV 11/28/17 10:00 (NS Flush) 5 ml UNSCH PRN IV FLUSH 11/28/17 10:00 (Heparin Inj) UNSCH PRN .XX 11/28/17 10:00 11/28/17 15:07 (Gentamicin Inj) 20 mg UNSCH PRN OTHER 11/28/17 10:00 11/28/17 15:08 (Zofran Inj) 4 mg UNSCH PRN IV PUSH 11/28/17 10:00 (Tylenol) 650 mg UNSCH PRN PO 11/28/17 10:00 (Benadryl) 25 mg UNSCH PRN PO 11/28/17 10:00 (Nitrostat Sl) 0.4 mg UNSCH PRN SL 11/28/17 10:00 12/01/17 23:53 (Catapres) 0.1 mg UNSCH PRN PO 11/28/17 10:00 (Gelfoam 12 Mm/7 Mm Top) 1 foam UNSCH PRN TOP 11/28/17 10:00 (Emla Cream) 1 applic WITH DIALYSIS PRN TOPICAL 11/28/17 11:00 (Oscal) 500 mg Q12HR PO 11/29/17 09:45 12/02/17 07:48 Daptomycin 700 mg/ Sodium Chloride 100 ml @ 200 mls/hr Q48H IV 11/30/17 13:00 11/30/17 17:52 (Levaquin) 250 mg DAILY PO 11/30/17 12:00 12/02/17 07:49 (Pepcid) 10 mg BID PO 11/30/17 21:00 12/02/17 07:49 (Ultram) 100 mg Q6H PRN PO 11/30/17 18:15 12/01/17 08:30 Lines Permacath PIV Past Medical History ESRD Diabetes mellitus Hypertension COPD Obesity Past Surgical History R barchiocephalic AVF 2013 Superficialization AVF 2015 Previous permacath placement - patient states recently exchanged due to poor flow Previous colonoscopy Allergies: Coded Allergies: Sulfa (Sulfonamide Antibiotics) (Unverified Allergy, Severe, TONGUE AND GENERALIZED SWELLING, 06/10/17) iodine (Unverified Allergy, Severe, 06/10/17) iohexol (Unverified Allergy, Severe, TONGUE AND GENERALIZED SWELLING, 06/10) penicillin G (Unverified Allergy, Severe, TONGUE AND GENERALIZED SWELLING , 06/10/17) potassium iodide (Unverified Allergy, Severe, 06/10/17) povidone-iodine (Unverified Allergy, Severe, 06/10/17) sodium iodide (Unverified Allergy, Severe, 06/10/17) sodium iodide (Unverified Allergy, Severe, 06/10/17) Iodinated Contrast- Oral and IV Dye (Unverified Allergy, Unknown, 06/10/17) *MDRO Multi-Drug Resistant Organism (Verified Adverse Reaction, Unknown, MRSA, 06/10/17) MRSA PCR (nares) POSITIVE - 10/31/15 MRSA (blood & sputum) - 10/31/15 ESBL Klebsiella Pneumoniae (urine-06/26/16) Objective . Vital Signs Date Time Temp Pulse Resp B/P (MAP) Pulse Ox O2 Delivery O2 Flow Rate FiO2 12/02/17 10:05 96 Nasal Cannula 3.00 12/02/17 08:00 82 12/02/17 04:00 98.3 94 18 140/93 (109) 96 12/02/17 03:48 85 12/02/17 00:00 97.1 92 18 105/56 (72) 96 12/02/17 00:00 97.7 88 20 () 96 150/86 (107) 12/01/17 23:54 94 12/01/17 20:00 97.9 93 20 131/57 (81) 97 12/01/17 19:45 99 12/01/17 16:19 97.6 90 19 96/57 (70) 98 12/01/17 16:00 92 12/01/17 12:12 97.3 89 18 98/53 (68) 99 12/01/17 12:00 83 12/01/17 11:06 94 Nasal Cannula 3.00 . Laboratory Tests Test 12/01/17 05:52 12/02/17 04:14 White Blood Count 6.8 TH/MM3 7.1 TH/MM3 Red Blood Count 3.42 MIL/MM3 3.30 MIL/MM3 Hemoglobin 9.7 GM/DL 9.1 GM/DL Hematocrit 30.1 % 29.2 % Mean Corpuscular Volume 87.9 FL 88.5 FL Mean Corpuscular Hemoglobin 28.2 PG 27.7 PG Mean Corpuscular Hemoglobin Concent 32.1 % 31.3 % Red Cell Distribution Width 17.1 % 17.4 % Platelet Count 192 TH/MM3 219 TH/MM3 Mean Platelet Volume 10.0 FL 9.3 FL Laboratory Tests Test 12/01/17 05:52 12/02/17 04:14 Blood Urea Nitrogen 21 MG/DL 28 MG/DL Creatinine 4.00 MG/DL 4.95 MG/DL Random Glucose 126 MG/DL 132 MG/DL Calcium Level 8.1 MG/DL 7.8 MG/DL Sodium Level 142 MEQ/L 143 MEQ/L Potassium Level 4.3 MEQ/L 4.5 MEQ/L Chloride Level 102 MEQ/L 105 MEQ/L Carbon Dioxide Level 28.6 MEQ/L 29.1 MEQ/L Anion Gap 11 MEQ/L 9 MEQ/L Estimat Glomerular Filtration Rate 11 ML/MIN 9 ML/MIN Total Creatine Kinase 211 U/L Creatine Kinase MB 0.6 NG/ML Creatine Kinase MB % 0.3 % Microbiology Date/Time Source Procedure Growth Status 12/01/17 05:52 Blood Peripheral Aerobic Blood Culture Pending Received 12/01/17 05:52 Blood Peripheral Anaerobic Blood Culture Pending Received 11/30/17 05:35 Blood Peripheral Aerobic Blood Culture - Preliminary NO GROWTH IN 1 DAY Resulted 11/30/17 05:35 Blood Peripheral Anaerobic Blood Culture - Final QNS - SEE AEROBE REPORT Resulted Imaging Chest X-Ray 11/28/17 0000 Signed Impressions: Service Date/Time: Tuesday, November 28, 2017 11:55 - CONCLUSION: 1. Stable elevation right hemidiaphragm with concomitant atelectatic changes in the right base. Left lung remains clear. 2. Borderline prominent but well compensated heart. 3. Stable position of right IJ dialysis type catheter. Jose Turner MD Physical Exam GENERAL: awake and alert, oriented x 3, not in respiratory distress. SKIN: Cool and dry. No generalized rash, no ecchymoses and no evidence of embolic lesions. HEAD: Atraumatic. Normocephalic. No temporal wasting, or tenderness. EYES: [place] conjunctiva. No petechia or hemorrhage. Pupils equal, round and reactive to light. Extraocular movements full and intact. No scleral icterus. No injection or drainage. EARS, NOSE AND THROAT: Nose without bleeding or purulent nasal discharge. No sinus tenderness. Mucous membranes pink and moist. No oral lesions noted. NECK: Trachea midline. Supple and not tender, no meningeal signs CARDIOVASCULAR: Regular rate and rhythm. No murmurs, rubs or gallops heard. Open wound over previous permacath site, with hard induration and tenderness over the tunnel that goes to her RIJ RESPIRATORY: Clear to auscultation. Breath sounds equal bilaterally. No rales , wheezing or rhonchi. Decreased breath sounds at the bases. ABDOMEN: Soft, obese, non-tender, nondistended. Bowel sounds present and normoactive. No guarding. No rebound. No organomegaly. : Langley catheter in place, has a small amount of urine, and the urine looks very dark and concentrated EXTREMITIES: No clubbing, cyanosis, or edema. No joint effusion, has good ROM. No calf tenderness. Well perfused and warm. AV fistula in the right upper extremity with a good thrill, has well healed incisions, with no evidence of infection. NEUROLOGICAL: Awake and alert. Cranial nerves grossly intact. Motor grossly within normal limits. PSYCHIATRIC: Normal affect, calm and cooperative. LINE: No evidence of infection Assessment & Plan Remarks IMPRESSION Sepsis syndrome on presentation, with transient hypotension - has MRSA in 2 BC, very suspicious for HD cath related sepsis - also with UTI - leukocytosis, shock, decreased LOC High grade MRSA sepsis, likely permacath related UTI, Kleb/ecoli ESRD Leukocytosis due to sepsis, better RECOMMENDATION Follow BC - repeat to document clearing Levaquin for UTI Await echo Continue Cubicin until BC are negative, then back to [facility] Await surgical evaluation of permacath site Follow temps Monitor progress D/W Jenifer Rai MD December 02, 2017 11:03
--- NOTE | 2017-12-02 11:20 | HHI.PR ---
Subjective Remarks in no acute distress. however with some sob. right sided chest pain is better. for HD today. no fever. Objective Vitals Vital Signs Date Time Temp Pulse Resp B/P (MAP) Pulse Ox O2 Delivery O2 Flow Rate FiO2 12/02/17 10:05 96 Nasal Cannula 3.00 12/02/17 08:00 82 12/02/17 04:00 98.3 94 18 140/93 (109) 96 12/02/17 03:48 85 12/02/17 00:00 97.1 92 18 105/56 (72) 96 12/02/17 00:00 97.7 88 20 () 96 150/86 (107) 12/01/17 23:54 94 12/01/17 20:00 97.9 93 20 131/57 (81) 97 12/01/17 19:45 99 12/01/17 16:19 97.6 90 19 96/57 (70) 98 12/01/17 16:00 92 12/01/17 12:12 97.3 89 18 98/53 (68) 99 12/01/17 12:00 83 I/O 12/01/17 12/01/17 12/01/17 12/02/17 12/02/17 12/02/17 07:00 15:00 23:00 07:00 15:00 23:00 Intake Total 240 ml 840 ml 240 ml Output Total 200 ml Balance 240 ml 840 ml 40 ml Intake Oral 240 ml 840 ml 240 ml Output Urine Total 200 ml # Voids 0 3 # Bowel Movements 0 0 1 Result Diagram: 12/02/17 0414 12/02/17 0414 Imaging Last Impressions Chest X-Ray 11/30/17 0000 Signed Impressions: CONCLUSION: 1. Elevation of the right hemidiaphragm. 2. No definite acute abnormality is seen. Objective Remarks GENERAL: This is a well-nourished, well-developed patient, in no apparent distress. CARDIOVASCULAR: Regular rate and regular rhythm without murmurs, gallops, or rubs. RESPIRATORY: Clear to auscultation. Breath sounds equal bilaterally. No wheezes , rales, or rhonchi. GASTROINTESTINAL: Abdomen soft, non-tender, nondistended. Normal, active bowel sounds MUSCULOSKELETAL: Extremities without clubbing, cyanosis, or edema. NEURO: Alert & Oriented x4 to person, place, time, situation. Moves all ext x4 Procedures perma-cath removal. Medications and IVs Inpatient Medications Acetaminophen (Tylenol Supp) 650 mg ONCE ONCE RECTAL Last administered on 11/27at 16:07; Start 11/27/17 at 15:45; Stop 11/27/17 at 15:46; Status DC Acetaminophen (Tylenol) 650 mg UNSCH PRN PO for headach, pain1-10,T> 101F; Start 11/28/17 at 10:00 Albumin Human 100 ml @ 60 mls/hr UNSCH PRN IV WITH DIALYSIS; Start 11/28/17 at 10:00 Albuterol/ Ipratropium (Duoneb Neb) 1 ampule Q2HR NEB PRN INH WHEEZING Last administered on 11/28/17at 15:51; Start 11/27/17 at 19:00 Aspirin (Aspirin Chew) 81 mg DAILY CHEW Last administered on 12/02/17at 07:49; Start 11/28/17 at 09:00 Atorvastatin Calcium (Lipitor) 20 mg DAILY PO Last administered on 11/30/17at 08 :58; Start 11/28/17 at 09:00; Stop 11/30/17 at 11:15; Status DC Azithromycin 500 mg/Sodium Chloride 250 ml @ 250 mls/hr ONCE STAT IV Last administered on 11/27/17at 16:28; Start 11/27/17 at 15:23; Stop 11/27/17 at 16:22 ; Status DC Bisacodyl (Dulcolax Supp) 10 mg DAILY PRN RECTAL SEVERE CONSITIPATION; Start at 19:00 Calcium Carbonate (Oscal) 500 mg Q12HR PO Last administered on 12/02/17at 07:48 ; Start 11/29/17 at 09:45 Cefepime HCl 1000 mg/Sodium Chloride 100 ml @ 200 mls/hr Q24H IV Last administered on 11/29/17at 21:07; Start 11/28/17 at 16:00; Stop 11/30/17 at 11:15 ; Status DC Cefepime HCl 2000 mg/Sodium Chloride 100 ml @ 200 mls/hr Q8H IV ; Start at 19:00; Stop 11/27/17 at 19:36; Status DC Chlorhexidine Gluconate (Chlorhexidine 2% Cloth) 3 pack UNSCH PRN TOP HYGIENIC CARE; Start 11/27/17 at 19:00 Clonidine (Catapres) 0.1 mg UNSCH PRN PO for BP > 180/100 X 2 readings; Start 11/28/17 at 10:00 Daptomycin 700 mg/ Sodium Chloride 100 ml @ 200 mls/hr Q48H IV Last administered on 11/30/17at 17:52; Start 11/30/17 at 13:00 Dextrose (D50w (Vial) Inj) 25 ml UNSCH PRN IV PUSH HYPOGLYCEMIA-SEE COMMENTS; Start 11/28/17 at 08:45 Diphenhydramine HCl (Benadryl) 25 mg UNSCH PRN PO for hives/itching/anaphylaxis ; Start 11/28/17 at 10:00 Famotidine (Pepcid Inj) 10 mg Q12HR IV PUSH Last administered on 11/30/17at 09: 00; Start 11/27/17 at 21:00; Stop 11/30/17 at 11:48; Status DC Famotidine (Pepcid) 10 mg BID PO Last administered on 12/02/17at 07:49; Start at 21:00 Gelatin (Gelfoam 12 Mm/7 Mm Top) 1 foam UNSCH PRN TOP SEE LABEL COMMENTS; Start 11/28/17 at 10:00 Gentamicin Sulfate (Gentamicin Inj) 20 mg UNSCH PRN OTHER WITH DIALYSIS Last administered on 11/28/17at 15:08; Start 11/28/17 at 10:00 Heparin Sodium (Porcine) (Heparin Inj) UNSCH PRN .XX WITH DIALYSIS Last administered on 11/28/17at 15:07; Start 11/28/17 at 10:00 Insulin Human Regular (NovoLIN R SUPPLEMENTAL SCALE) 1 Q4HR SQ Last administered on 12/01/17at 12:00; Start 11/28/17 at 12:00 Lactulose (Lactulose Liq) 30 ml DAILY PRN PO SEVERE CONSITIPATION; Start at 19:00 Levofloxacin (Levaquin) 250 mg DAILY PO Last administered on 12/02/17at 07:49; Start 11/30/17 at 12:00 Lidocaine/ Prilocaine (Emla Cream) 1 applic WITH DIALYSIS PRN TOPICAL Dialysis. ; Start 11/28/17 at 11:00 Magnesium Hydroxide (Milk Of Magnesia Liq) 30 ml Q12H PRN PO Mild constipation ; Start 11/27/17 at 19:00 Mannitol (Mannitol Inj) 12.5 gm UNSCH PRN IV WITH DIALYSIS; Start 11/28/17 at 10:00 Meclizine HCl (Antivert) 25 mg Q6H PRN PO DIZZINESS; Start 11/27/17 at 18:15 Miscellaneous Information ([facility] Nursing Information) 1 Q361D XX Last administered on 11/27/17at 19:00; Start 11/27/17 at 19:00 Morphine Sulfate (Morphine Inj) 2 mg Q2H PRN IV PUSH BREAKTHROUGH PAIN; Start 11/27/17 at 19:00 Nitroglycerin (Nitrostat Sl) 0.4 mg UNSCH PRN SL CHEST PAIN Last administered on 12/01/17at 23:53; Start 11/28/17 at 10:00 Norepinephrine Bitartrate 250 ml @ 7.5 mls/hr TITRATE PRN IV Maintain MAP > 65 mmHg Last administered on 11/28/17at 01:53; Start 11/27/17 at 23:15; Stop at 17:40; Status DC Ondansetron HCl (Zofran Odt) 8 mg BID PRN SL NAUSEA; Start 11/27/17 at 18:30 Ondansetron HCl (Zofran Inj) 4 mg UNSCH PRN IV PUSH WITH DIALYSIS; Start at 10:00 Pharmacy Profile Note 0 ml @ 0 mls/hr UNSCH OTHER ; Start 11/27/17 at 19:00; Stop 11/29/17 at 08:31; Status DC Pregabalin (Lyrica) 75 mg TID PO Last administered on 12/02/17at 07:49; Start at 09:00 Senna/Docusate Sodium (Vannessa-Colace) 1 tab BID PO Last administered on at 07:49; Start 11/27/17 at 21:00 Sennosides (Senokot) 17.2 mg Q12H PRN PO Moderate constipation; Start 11/27/17 at 19:00 Sodium Bicarbonate (Sodium Bicarbonate 8.4% Inj) 50 meq ONCE ONCE IV PUSH Last administered on 11/28/17at 09:28; Start 11/28/17 at 08:45; Stop 11/28/17 at 08:56; Status DC Sodium Chloride (NS Flush) 5 ml UNSCH PRN IV FLUSH WITH DIALYSIS; Start at 10:00 Terbutaline Sulfate (Brethine Inj) 1 mg UNSCH PRN SQ For Extravasation; Start 11/27/17 at 19:00 Tramadol HCl (Ultram) 100 mg Q6H PRN PO PAIN 1-10 Last administered on at 08:30; Start 11/30/17 at 18:15 Vancomycin HCl 1000 mg/Sodium Chloride 250 ml @ 250 mls/hr WITH DIALYSIS IV ; Start 11/29/17 at 08:30; Stop 11/30/17 at 11:15; Status DC A/P Assessment and Plan A/P septic shock- resolved. Acute MRSA Bacteremia - ID consulted - received Vanco- now on Datomycin - suspicious for permacath infection; perma-cath has been removed. -vascular surgery consulted to assess the perma-cath site -follow the repeated blood cultures. -echo pending. right-sided chest pain the site of previous perma-cath is tender to touch vascular surgery consulted as noted above. continue antibiotics and pain control. Acute metabolic encephalopathy - resolved -SIRS/sepsis -Infectious disease consultation ESRD -Hemodialysis per nephrology Diabetes mellitus -Insulin sliding scale COPD -No exacerbation -No indication for steroid -DuoNeb scheduled and as needed. -is on home oxygen. DVT GI prophylaxis -Benjamin's and SCDs -Subcu heparin -Pepcid PT consulted. Discharge Planning dc planning next week if stable- d/w . Alejo Lewis MD December 02, 2017 11:20
[2017-12-02] MEDS: DAPTOmycin INJ 700 MG in SODIUM CHLORIDE 0.9% INJ 100 ML IV SCH (11:37)
--- NOTE | 2017-12-02 11:46 | HHI.NPPN ---
Subjective History of Present Illness This patient is a 72-year-old -[place] female with a history of end- stage renal disease, diabetes mellitus, multiple myeloma. This patient does have a functional AV dialysis shunt in place but has been refusing to let us access it for dialysis access despite ongoing counseling regarding risks associated with the presence of a hemodialysis PermCath particularly risk of infection. She in fact had this PermCath changed November 17, 2017 at an outpatient interventional nephrology center. Patient now presents with altered mental status status now noted to have evidence of bacteremia with a preliminary report of gram-positive cocci. She also has a history of previous UTIs recurrent. Patient now noted to have hyperkalemia and a low total CO2 level with a requirement for acute dialysis today. Interval History The patient was complaining of discomfort at 1 of the dialysis needle access sites and an attempt was made to reposition the needle however the nurses are unable to access the AV dialysis shunt presently as the access infiltrated on the attempt. Dr. Michaud has seen the patient and indicated that an attempt could be made to further raise the access close to the surface but not by much. Otherwise patient had no complaints. Review of Systems General Constitutional: Fatigue Cardiovascular Cardiac: Chest Pain Gastrointestinal Gastrointestinal: Nausea & Vomiting Objective Data Data Vital Signs Date Time Temp Pulse Resp B/P (MAP) Pulse Ox O2 Delivery O2 Flow Rate FiO2 12/02/17 10:05 96 Nasal Cannula 3.00 12/02/17 08:00 82 12/02/17 04:00 98.3 94 18 140/93 (109) 96 12/02/17 03:48 85 12/02/17 00:00 97.1 92 18 105/56 (72) 96 12/02/17 00:00 97.7 88 20 () 96 150/86 (107) 12/01/17 23:54 94 12/01/17 20:00 97.9 93 20 131/57 (81) 97 12/01/17 19:45 99 12/01/17 16:19 97.6 90 19 96/57 (70) 98 12/01/17 16:00 92 12/01/17 12:12 97.3 89 18 98/53 (68) 99 12/01/17 12:00 83 -: 12/02/17 0414 12/02/17 0414 Physical Exam General Appearance: Comfortable Eyes Eye Exam: Pupils Equal Throat Throat Exam: Oral Mucosa [place] & Moist Neck Neck Exam: Neck Supple, Trachea Midline Pulmonary Resp Exam: Clear Bilaterally, Breath Sounds Equal Cardiology CV Exam: Regular, Normal Sinus Rhythm Gastrointestinal/Abdomen GI Exam: Soft, Non-Tender Integumentary Skin Exam: Clear, Warm Extremeties Extremities Exam: No Edema Neurologic Neuro Exam: Alert, Awake Psychiatric Psych Exam: Appropriate Responses Assessment/Plan Discussed Condition With: Parent Problem List: (1) ESRD (end stage renal disease) on dialysis ICD Codes: N18.6 - End stage renal disease; Z99.2 - Dependence on renal dialysis Status: Chronic Plan: I was hoping to avoid another dialysis catheter placement but at this point in time it appears to be necessary. I will request radiology to put in a Vas-Cath today with hemodialysis tomorrow. I will will check with the dialysis center regarding previous angiograms of the shunt to determine whether or not there would be any benefit and performing an angiogram in-house to determine whether or not there may be a stenosis contributing to access malfunction. All of the above discussed with the patient. Most recent blood culture results noted. Hopefully they will remain negative after 72 hours. Appreciate ID help. Medication should be adjusted for her end-stage renal disease when indicated. Avoid gadolinium. (2) Bacteremia ICD Codes: R78.81 - Bacteremia Plan: Bacteremia appears to be related to permacath infection Scheduled for removal today Pt agreeable BCx to be followed ID on board (3) Hyperkalemia ICD Codes: E87.5 - Hyperkalemia Status: Acute Plan: Resolved with HD (4) Acidosis ICD Codes: E87.2 - Acidosis Plan: Resolved with HD (5) Hyperparathyroidism, secondary renal ICD Codes: N25.81 - Secondary hyperparathyroidism of renal origin Status: Acute (6) Anemia of renal disease ICD Codes: D63.1 - Anemia in chronic kidney disease Status: Acute (7) HTN (hypertension) ICD Codes: I10 - Essential (primary) hypertension Status: Chronic (8) Diabetes mellitus ICD Codes: E11.9 - Diabetes mellitus Status: Chronic (9) Hypocalcemia ICD Codes: E83.51 - Hypocalcemia Plan: Continue OsCal (10) Chest discomfort ICD Codes: R07.89 - Other chest pain Plan: Appears to be related to previous catheter placement as tunnel feels inflamed and she is tender to palpation along this line. Interesting that pain is resolved with NTG. Will defer to the primary team if cardiology should be consulted. She is known to Dr. Menjivar. Manny Vasquez MD December 02, 2017 11:46
[2017-12-02] MEDS: NITROGLYCERIN 0.4 MG SL 25 TABS/BTL SL PRN ×2 (13:53→14:20)
[2017-12-02] MEDS ORDERED: SODIUM CHLORIDE 0.9% FLUSH 10 ML FLUSH IVF PRN (15:15)
--- NOTE | 2017-12-02 15:15 | PD.RAD ---
Post Procedure Progress Note Pre Procedure Diagnosis: (1) CKD (chronic kidney disease) stage 5, GFR less than 15 ml/min Post Procedure Diagnosis: (1) Chronic kidney disease (CKD) stage G4/A1, severely decreased glomerular filtration rate (GFR) between 15-29 mL/min/1.73 square meter and albuminuria creatinine ratio less than 30 mg/g Procedure Date: December 02, 2017 Supervising Radiologist: Yvan Dorman Proceduralist/Assist: Kian Sotelo RT(R), RT Jenna(R)(CV) Anesthesia: Local Plan of Activity Patient to Unit: ROPU Patient Condition: Good See PACS Report for procedural detail/treatment Yvan Dorman MD December 02, 2017 15:15
--- NOTE | 2017-12-02 15:45 | RADRPT ---
EXAM DATE: 12/02/2017 3:42 PM EDT AGE/SEX: 72 years / Female INDICATIONS: Status post hemodialysis catheter placement. CLINICAL DATA: This is the patient's subsequent encounter. Patient reports that signs and symptoms h ave been present for 1 day and indicates a pain score of 0/10. MEDICAL/SURGICAL HISTORY: . Asthma. Chronic obstructive pulmonary disease. Hypertension. multip le myeloma, diabetes, coronary artery disease, cva . . Cardiac cath. COMPARISON: [facility] [place], CHEST SINGLE AP, 11/30/2017. . FINDINGS: Left IJ temporary dialysis catheter in the right atrium. No pneumothorax. Mild right lung base airspa ce disease and elevation of the right hemidiaphragm. Cardiomediastinal contours are stable. Remainder of the exam is unchanged. CONCLUSION: 1. Left IJ dialysis catheter in good position without pneumothorax. 2. Stable right lung base atelectasis. Electronically signed by: Yvan Dorman MD 12/02/2017 3:44 PM EDT
[2017-12-02] MEDS: traMADol HCL 50 MG TAB PO PRN (21:32)
[2017-12-03] VITALS (7 sets, daily range): BP systolic 115–158; BP diastolic 57–72; PULSE 75–97; RESP 18–24; TEMP 97.7–98.2; O2SAT 92–99
[2017-12-03] MEDS: NITROGLYCERIN 0.4 MG SL 25 TABS/BTL SL PRN ×4 (02:38→12:09)
[2017-12-03] MEDS: traMADol HCL 50 MG TAB PO PRN (03:40)
[2017-12-03] MEDS: HEPARIN SODIUM - SQ 10,000 UNITS/ML VIAL SQ SCH ×3 (03:41→20:40)
[2017-12-03] MEDS: INSULIN NovoLIN REGULAR SUPPLEMENTAL SCALE SQ SCH ×7 (03:44→23:21)
[2017-12-03] MEDS: CHLORHEXIDINE GLUCONATE 2 % 1 PACK (2 CLOTHS) TOP SCH (03:49)
[2017-12-03] MEDS: SODIUM CHLOR 0.9% 1000 ML INJ 1,000 ML IV SCH (06:05)
[2017-12-03] MEDS: PREGABALIN 75 MG CAP PO SCH ×3 (09:00→17:22)
[2017-12-03] MEDS: DOCUSATE SODIUM 50 MG/SENNA 8.6 MG TAB PO SCH ×2 (09:00→20:40)
[2017-12-03] MEDS: ASPIRIN 81 MG CHEW TAB CHEW SCH (09:00)
[2017-12-03 09:39] LABS: HEMATOCRIT 24.8 % (35.0-46.0); HEMOGLOBIN 7.9 GM/DL (11.6-15.3); MEAN CELL VOLUME 87.2 FL (80.0-100.0); MEAN CORPUSCULAR HEMOGLOBIN 27.9 PG (27.0-34.0); MEAN CORPUSCULAR HGB CONC 31.9 % (32.0-36.0); MEAN PLATELET VOLUME 9.1 FL (7.0-11.0); PLATELET COUNT 274 TH/MM3 (150-450); RED BLOOD COUNT 2.84 MIL/MM3 (4.00-5.30); RED CELL DISTRIBUTION WIDTH 16.9 % (11.6-17.2); WHITE BLOOD COUNT 8.5 TH/MM3 (4.0-11.0)
[2017-12-03 10:05] LABS: BICARBONATE 28.3 MEQ/L (21.0-32.0); CALCIUM 7.9 MG/DL (8.5-10.1); CREATININE 5.59 MG/DL (0.50-1.00)
--- NOTE | 2017-12-03 12:01 | HHI.PR ---
Subjective Remarks having HD today. sob has improved. still with some on and off chest pain at the site of previous perma-cath . no fever. Objective Vitals Vital Signs Date Time Temp Pulse Resp B/P (MAP) Pulse Ox O2 Delivery O2 Flow Rate FiO2 12/03/17 07:37 75 12/03/17 07:37 89 12/03/17 07:36 97 12/03/17 04:00 98.2 89 24 115/57 (76) 99 12/03/17 00:00 98.1 86 24 116/58 (77) 96 12/02/17 20:00 97.5 98 26 126/62 (83) 94 12/02/17 17:45 98 Nasal Cannula 3.00 12/02/17 16:12 98.7 99 20 130/61 (84) 95 12/02/17 16:00 101 12/02/17 12:22 98.5 93 18 121/58 (79) 98 I/O 12/02/17 12/02/17 12/02/17 12/03/17 12/03/17 12/03/17 07:00 15:00 23:00 07:00 15:00 23:00 Intake Total 240 ml 360 ml Output Total 200 ml 200 ml Balance 40 ml 160 ml Intake Oral 240 ml 360 ml Output Urine Total 200 ml 200 ml # Voids 1 # Bowel Movements 1 0 2 Result Diagram: 12/03/17 0840 12/03/17 0840 Imaging Last Impressions Chest X-Ray 12/02/17 0000 Signed Impressions: CONCLUSION: 1. Left IJ dialysis catheter in good position without pneumothorax. 2. Stable right lung base atelectasis. Objective Remarks GENERAL: This is a well-nourished, well-developed patient, in no apparent distress. CARDIOVASCULAR: Regular rate and regular rhythm without murmurs, gallops, or rubs. RESPIRATORY: Clear to auscultation. Breath sounds equal bilaterally. No wheezes , rales, or rhonchi. GASTROINTESTINAL: Abdomen soft, non-tender, nondistended. Normal, active bowel sounds MUSCULOSKELETAL: Extremities without clubbing, cyanosis, or edema. NEURO: Alert & Oriented x4 to person, place, time, situation. Moves all ext x4 Procedures perma-cath removal. Medications and IVs Inpatient Medications Acetaminophen (Tylenol Supp) 650 mg ONCE ONCE RECTAL Last administered on 11/27at 16:07; Start 11/27/17 at 15:45; Stop 11/27/17 at 15:46; Status DC Acetaminophen (Tylenol) 650 mg UNSCH PRN PO for headach, pain1-10,T> 101F; Start 11/28/17 at 10:00 Albumin Human 100 ml @ 60 mls/hr UNSCH PRN IV WITH DIALYSIS; Start 11/28/17 at 10:00 Albuterol/ Ipratropium (Duoneb Neb) 1 ampule Q2HR NEB PRN INH WHEEZING Last administered on 11/28/17at 15:51; Start 11/27/17 at 19:00 Aspirin (Aspirin Chew) 81 mg DAILY CHEW Last administered on 12/02/17at 07:49; Start 11/28/17 at 09:00 Atorvastatin Calcium (Lipitor) 20 mg DAILY PO Last administered on 11/30/17at 08 :58; Start 11/28/17 at 09:00; Stop 11/30/17 at 11:15; Status DC Azithromycin 500 mg/Sodium Chloride 250 ml @ 250 mls/hr ONCE STAT IV Last administered on 11/27/17at 16:28; Start 11/27/17 at 15:23; Stop 11/27/17 at 16:22 ; Status DC Bisacodyl (Dulcolax Supp) 10 mg DAILY PRN RECTAL SEVERE CONSITIPATION; Start at 19:00 Calcium Carbonate (Oscal) 500 mg Q12HR PO Last administered on 12/02/17at 21:25 ; Start 11/29/17 at 09:45 Cefepime HCl 1000 mg/Sodium Chloride 100 ml @ 200 mls/hr Q24H IV Last administered on 11/29/17at 21:07; Start 11/28/17 at 16:00; Stop 11/30/17 at 11:15 ; Status DC Cefepime HCl 2000 mg/Sodium Chloride 100 ml @ 200 mls/hr Q8H IV ; Start at 19:00; Stop 11/27/17 at 19:36; Status DC Chlorhexidine Gluconate (Chlorhexidine 2% Cloth) 3 pack UNSCH PRN TOP HYGIENIC CARE; Start 11/27/17 at 19:00 Clonidine (Catapres) 0.1 mg UNSCH PRN PO for BP > 180/100 X 2 readings; Start 11/28/17 at 10:00 Daptomycin 700 mg/ Sodium Chloride 100 ml @ 200 mls/hr Q48H IV Last administered on 12/02/17at 11:37; Start 11/30/17 at 13:00 Dextrose (D50w (Vial) Inj) 25 ml UNSCH PRN IV PUSH HYPOGLYCEMIA-SEE COMMENTS; Start 11/28/17 at 08:45 Diphenhydramine HCl (Benadryl) 25 mg UNSCH PRN PO for hives/itching/anaphylaxis ; Start 11/28/17 at 10:00 Famotidine (Pepcid Inj) 10 mg Q12HR IV PUSH Last administered on 11/30/17at 09: 00; Start 11/27/17 at 21:00; Stop 11/30/17 at 11:48; Status DC Famotidine (Pepcid) 10 mg BID PO Last administered on 12/02/17at 21:25; Start at 21:00 Gelatin (Gelfoam 12 Mm/7 Mm Top) 1 foam UNSCH PRN TOP SEE LABEL COMMENTS; Start 11/28/17 at 10:00 Gentamicin Sulfate (Gentamicin Inj) 20 mg UNSCH PRN OTHER WITH DIALYSIS Last administered on 11/28/17at 15:08; Start 11/28/17 at 10:00 Heparin Sodium (Porcine) (Heparin Central Flush) UNSCH PRN IV FLUSH SEE PROTOCOL; Start 12/02/17 at 15:15 Heparin Sodium (Porcine) (Heparin Inj) UNSCH PRN .XX WITH DIALYSIS Last administered on 11/28/17at 15:07; Start 11/28/17 at 10:00 Insulin Human Regular (NovoLIN R SUPPLEMENTAL SCALE) 1 Q4HR SQ Last administered on 12/01/17at 12:00; Start 11/28/17 at 12:00 Lactulose (Lactulose Liq) 30 ml DAILY PRN PO SEVERE CONSITIPATION; Start at 19:00 Levofloxacin (Levaquin) 250 mg DAILY PO Last administered on 12/02/17at 07:49; Start 11/30/17 at 12:00 Lidocaine/ Prilocaine (Emla Cream) 1 applic WITH DIALYSIS PRN TOPICAL Dialysis. ; Start 11/28/17 at 11:00 Magnesium Hydroxide (Milk Of Magnesia Liq) 30 ml Q12H PRN PO Mild constipation ; Start 11/27/17 at 19:00 Mannitol (Mannitol Inj) 12.5 gm UNSCH PRN IV WITH DIALYSIS; Start 11/28/17 at 10:00 Meclizine HCl (Antivert) 25 mg Q6H PRN PO DIZZINESS; Start 11/27/17 at 18:15 Miscellaneous Information ([facility] Nursing Information) 1 Q361D XX Last administered on 11/27/17at 19:00; Start 11/27/17 at 19:00 Morphine Sulfate (Morphine Inj) 2 mg Q2H PRN IV PUSH BREAKTHROUGH PAIN; Start 11/27/17 at 19:00 Nitroglycerin (Nitrostat Sl) 0.4 mg UNSCH PRN SL CHEST PAIN Last administered on 12/03/17at 03:45; Start 11/28/17 at 10:00 Norepinephrine Bitartrate 250 ml @ 7.5 mls/hr TITRATE PRN IV Maintain MAP > 65 mmHg Last administered on 11/28/17at 01:53; Start 11/27/17 at 23:15; Stop at 17:40; Status DC Ondansetron HCl (Zofran Odt) 8 mg BID PRN SL NAUSEA; Start 11/27/17 at 18:30 Ondansetron HCl (Zofran Inj) 4 mg UNSCH PRN IV PUSH WITH DIALYSIS; Start at 10:00 Pharmacy Profile Note 0 ml @ 0 mls/hr UNSCH OTHER ; Start 11/27/17 at 19:00; Stop 11/29/17 at 08:31; Status DC Pregabalin (Lyrica) 75 mg TID PO Last administered on 12/03/17at 09:00; Start at 09:00 Senna/Docusate Sodium (Vannessa-Colace) 1 tab BID PO Last administered on at 07:49; Start 11/27/17 at 21:00 Sennosides (Senokot) 17.2 mg Q12H PRN PO Moderate constipation; Start 11/27/17 at 19:00 Sodium Bicarbonate (Sodium Bicarbonate 8.4% Inj) 50 meq ONCE ONCE IV PUSH Last administered on 11/28/17at 09:28; Start 11/28/17 at 08:45; Stop 11/28/17 at 08:56; Status DC Sodium Chloride (NS Flush) UNSCH PRN IVF SEE PROTOCOL; Start 12/02/17 at 15:15 Terbutaline Sulfate (Brethine Inj) 1 mg UNSCH PRN SQ For Extravasation; Start 11/27/17 at 19:00 Tramadol HCl (Ultram) 100 mg Q6H PRN PO PAIN 1-10 Last administered on at 03:40; Start 11/30/17 at 18:15 Vancomycin HCl 1000 mg/Sodium Chloride 250 ml @ 250 mls/hr WITH DIALYSIS IV ; Start 11/29/17 at 08:30; Stop 11/30/17 at 11:15; Status DC A/P Assessment and Plan A/P septic shock- resolved. Acute MRSA Bacteremia - ID consulted - received Vanco- now on Datomycin - suspicious for permacath infection; perma-cath has been removed. -vascular surgery consulted to assess the perma-cath site -follow the repeated blood cultures. -echo pending. right-sided chest pain the site of previous perma-cath is tender to touch vascular surgery consulted as noted above. continue antibiotics and pain control. Acute metabolic encephalopathy - resolved -SIRS/sepsis -Infectious disease consultation ESRD -Hemodialysis per nephrology -patient doesn't want the shunt to be used for HD. -IR consulted for vas-cath placement. Diabetes mellitus -Insulin sliding scale COPD -No exacerbation -No indication for steroid -DuoNeb scheduled and as needed. -is on home oxygen. DVT GI prophylaxis -Benjamin's and SCDs -Subcu heparin -Pepcid PT consulted. Discharge Planning dc planning this week if stable and cleared by consultants. Alejo Lewis MD December 03, 2017 12:01
[2017-12-03] MEDS: HEPARIN SODIUM - IV 10,000 UNITS/10 ML VIAL PRN (12:10)
[2017-12-03] MEDS: GENTAMICIN SULFATE 20 MG/2 ML VIAL OTHER PRN (12:18)
[2017-12-03] MEDS: FAMOTIDINE 20 MG TAB PO SCH ×2 (13:37→20:39)
[2017-12-03] MEDS: CALCIUM CARBONATE 1.25 GM (CA 500 MG) TAB PO SCH ×2 (13:37→20:39)
[2017-12-03] MEDS: LEVOFLOXACIN 250 MG TAB PO SCH (13:38)
[2017-12-03] MEDS: SODIUM CHLORIDE 0.9% FLUSH 10 ML FLUSH IV FLUSH SCH ×2 (13:47→20:40)
[2017-12-03] MEDS: SODIUM CHLORIDE 0.9% FLUSH 10 ML FLUSH IVF SCH (13:47)
--- NOTE | 2017-12-03 15:46 | HHI.IDPN ---
Subjective Subjective Remarks Patient is a 72-year-old female, brought into the hospital for evaluation of decreased level of consciousness. Patient was apparently in her usual self, and on the day of admission her and the home health aide has been trying very hard to keep her awake. She was apparently quite lethargic. She was brought into the hospital and initially was lethargic. She had a fever of 105.1. She was hypotensive briefly. Her WBC was 14,000. Chest x-ray showed elevated right hemidiaphragm and possible atelectasis, no change compared to prior chest x-ray. Her urinalysis showed significant pyuria, and a Langley was placed. 2 blood cultures were done, and they are now reported as growing gram- positive cocci in pairs and clusters. Patient at the time of my exam is awake and alert and oriented to time place and person. She does not remember having any fever or chills at home. When she had her hemodialysis her temperature was normal. She denies any significant respiratory complaints, GI complaint as far as abdominal pain, nausea or vomiting. Patient apparently has chronic dysuria since she has been on dialysis. She has very little urine output. According to the patient she also gets symptoms of dizziness, and some neck pain, always after she gets done with her hemodialysis. Patient gets dialyzed Tuesday and Tuesday. She has a permacath that gets used for her dialysis. She has an AV fistula, which seems to be functioning, but the patient stated that she does not want it used because the dialysis nurse always has a problem accessing her AV fistula. Patient currently is afebrile, and her blood pressure is better. She is currently on cefepime, and she got a dose of vancomycin yesterday. Infectious disease consultation has been requested to evaluate the patient. Notes reviewed Temps ok Has new vascath L side Still with pain over previous permacath site All blood cultures with MRSA till 11/29 BC 11/30 negative so far Urine culture with Kleb and Ecoli BP okay WBC better Antibiotics Cubicin Levaquin Current Medications Medications (Trade) Dose Ordered Sig/[place]arson Route Start Time Stop Time Status Last Admin (Aspirin Chew) 81 mg DAILY CHEW 11/28/17 09:00 12/03/17 09:00 (Antivert) 25 mg Q6H PRN PO 11/27/17 18:15 (Lyrica) 75 mg TID PO 11/28/17 09:00 12/03/17 13:37 (Zofran Odt) 8 mg BID PRN SL 11/27/17 18:30 Sodium Chloride 1,000 ml @ 84 mls/hr [id number] IV 11/27/17 19:00 Future Hold 12/02/17 21:32 (NS Flush) 2 ml UNSCH PRN IV FLUSH 11/27/17 19:00 (NS Flush) 2 ml BID IV FLUSH 11/27/17 21:00 12/03/17 13:47 (Tylenol) 650 mg Q6H PRN PO 11/27/17 19:00 11/28/17 14:54 (Morphine Inj) 2 mg Q2H PRN IV PUSH 11/27/17 19:00 (Zofran Inj) 4 mg Q6H PRN IV PUSH 11/27/17 19:00 (Duoneb Neb) 1 ampule Q2HR NEB PRN INH 11/27/17 19:00 11/28/17 15:51 (Heparin Inj) 5,000 units Q8H SQ 11/27/17 20:00 12/03/17 03:41 ([facility] [place] Nursing Information) 1 Q361D XX 11/27/17 19:00 11/27/17 19:00 (Chlorhexidine 2% Cloth) Taper DAILY@04 TOP 11/28/17 04:00 11/24/18 03:59 11/29/17 04:00 (Chlorhexidine 2% Cloth) 3 pack UNSCH PRN TOP 11/27/17 19:00 (Vannessa-Colace) 1 tab BID PO 11/27/17 21:00 12/02/17 07:49 (Milk Of Magnesia Liq) 30 ml Q12H PRN PO 11/27/17 19:00 (Senokot) 17.2 mg Q12H PRN PO 11/27/17 19:00 (Dulcolax Supp) 10 mg DAILY PRN RECTAL 11/27/17 19:00 (Lactulose Liq) 30 ml DAILY PRN PO 11/27/17 19:00 (Brethine Inj) 1 mg UNSCH PRN SQ 11/27/17 19:00 (D50w (Vial) Inj) 25 ml UNSCH PRN IV PUSH 11/28/17 08:45 (NovoLIN R SUPPLEMENTAL SCALE) 1 Q4HR SQ 11/28/17 12:00 12/01/17 12:00 Sodium Chloride 1,000 ml @ 0 mls/hr Q0M PRN OTHER 11/28/17 09:51 (Heparin Inj) 8,000 units UNSCH PRN IV FLUSH 11/28/17 10:00 Sodium Chloride 1,000 ml @ 200 mls/hr Q5H PRN IV 11/28/17 09:51 Sodium Chloride 1,000 ml @ 0 mls/hr Q0M PRN OTHER 11/28/17 09:51 (Mannitol Inj) 12.5 gm UNSCH PRN IV 11/28/17 10:00 Albumin Human 100 ml @ 60 mls/hr UNSCH PRN IV 11/28/17 10:00 (NS Flush) 5 ml UNSCH PRN IV FLUSH 11/28/17 10:00 (Heparin Inj) UNSCH PRN .XX 11/28/17 10:00 12/03/17 12:10 (Gentamicin Inj) 20 mg UNSCH PRN OTHER 11/28/17 10:00 12/03/17 12:18 (Zofran Inj) 4 mg UNSCH PRN IV PUSH 11/28/17 10:00 (Tylenol) 650 mg UNSCH PRN PO 11/28/17 10:00 (Benadryl) 25 mg UNSCH PRN PO 11/28/17 10:00 (Nitrostat Sl) 0.4 mg UNSCH PRN SL 11/28/17 10:00 12/03/17 12:09 (Catapres) 0.1 mg UNSCH PRN PO 11/28/17 10:00 (Gelfoam 12 Mm/7 Mm Top) 1 foam UNSCH PRN TOP 11/28/17 10:00 (Emla Cream) 1 applic WITH DIALYSIS PRN TOPICAL 11/28/17 11:00 (Oscal) 500 mg Q12HR PO 11/29/17 09:45 12/03/17 13:37 Daptomycin 700 mg/ Sodium Chloride 100 ml @ 200 mls/hr Q48H IV 11/30/17 13:00 12/02/17 11:37 (Levaquin) 250 mg DAILY PO 11/30/17 12:00 12/03/17 13:38 (Pepcid) 10 mg BID PO 11/30/17 21:00 12/03/17 13:37 (Ultram) 100 mg Q6H PRN PO 11/30/17 18:15 12/03/17 03:40 (NS Flush) DAILY IVF 12/03/17 09:00 12/03/17 13:47 (Heparin Central Flush) DAILY IV FLUSH 12/03/17 09:00 (NS Flush) UNSCH PRN IVF 12/02/17 15:15 (Heparin Central Flush) UNSCH PRN IV FLUSH 12/02/17 15:15 Lines Vascath PIV Past Medical History ESRD Diabetes mellitus Hypertension COPD Obesity Past Surgical History R barchiocephalic AVF 2013 Superficialization AVF 2015 Previous permacath placement - patient states recently exchanged due to poor flow Previous colonoscopy Allergies: Coded Allergies: Sulfa (Sulfonamide Antibiotics) (Unverified Allergy, Severe, TONGUE AND GENERALIZED SWELLING, 06/10/17) iodine (Unverified Allergy, Severe, 06/10/17) iohexol (Unverified Allergy, Severe, TONGUE AND GENERALIZED SWELLING, 06/10) penicillin G (Unverified Allergy, Severe, TONGUE AND GENERALIZED SWELLING , 06/10/17) potassium iodide (Unverified Allergy, Severe, 06/10/17) povidone-iodine (Unverified Allergy, Severe, 06/10/17) sodium iodide (Unverified Allergy, Severe, 06/10/17) sodium iodide (Unverified Allergy, Severe, 06/10/17) Iodinated Contrast- Oral and IV Dye (Unverified Allergy, Unknown, 06/10/17) *MDRO Multi-Drug Resistant Organism (Verified Adverse Reaction, Unknown, MRSA, 06/10/17) MRSA PCR (nares) POSITIVE - 10/31/15 MRSA (blood & sputum) - 10/31/15 ESBL Klebsiella Pneumoniae (urine-06/26/16) Objective . Vital Signs Date Time Temp Pulse Resp B/P (MAP) Pulse Ox O2 Delivery O2 Flow Rate FiO2 12/03/17 08:00 86 12/03/17 07:37 75 12/03/17 07:37 89 12/03/17 07:36 97 12/03/17 04:00 98.2 89 24 115/57 (76) 99 5/26/18 00:00 98.1 86 24 116/58 (77) 96 12/02/17 20:00 97.5 98 26 126/62 (83) 94 12/02/17 17:45 98 Nasal Cannula 3.00 12/02/17 16:12 98.7 99 20 130/61 (84) 95 12/02/17 16:00 101 12/03/17 12/03/17 12/04/17 15:00 23:00 07:00 Output Total 3000 ml Balance -3000 ml Hemodialysis 3000 ml . Laboratory Tests Test 12/02/17 04:14 12/03/17 08:40 White Blood Count 7.1 TH/MM3 8.5 TH/MM3 Red Blood Count 3.30 MIL/MM3 2.84 MIL/MM3 Hemoglobin 9.1 GM/DL 7.9 GM/DL Hematocrit 29.2 % 24.8 % Mean Corpuscular Volume 88.5 FL 87.2 FL Mean Corpuscular Hemoglobin 27.7 PG 27.9 PG Mean Corpuscular Hemoglobin Concent 31.3 % 31.9 % Red Cell Distribution Width 17.4 % 16.9 % Platelet Count 219 TH/MM3 274 TH/MM3 Mean Platelet Volume 9.3 FL 9.1 FL Laboratory Tests Test 12/02/17 04:14 12/03/17 08:40 Blood Urea Nitrogen 28 MG/DL 33 MG/DL Creatinine 4.95 MG/DL 5.59 MG/DL Random Glucose 132 MG/DL 121 MG/DL Calcium Level 7.8 MG/DL 7.9 MG/DL Sodium Level 143 MEQ/L 141 MEQ/L Potassium Level 4.5 MEQ/L 4.6 MEQ/L Chloride Level 105 MEQ/L 106 MEQ/L Carbon Dioxide Level 29.1 MEQ/L 28.3 MEQ/L Anion Gap 9 MEQ/L 7 MEQ/L Estimat Glomerular Filtration Rate 9 ML/MIN 7 ML/MIN Microbiology Date/Time Source Procedure Growth Status 12/01/17 05:52 Blood Peripheral Aerobic Blood Culture - Preliminary NO GROWTH IN 2 DAYS Resulted 12/01/17 05:52 Blood Peripheral Anaerobic Blood Culture - Preliminary NO GROWTH IN 2 DAYS Resulted Imaging Chest X-Ray 11/28/17 0000 Signed Impressions: Service Date/Time: Tuesday, November 28, 2017 11:55 - CONCLUSION: 1. Stable elevation right hemidiaphragm with concomitant atelectatic changes in the right base. Left lung remains clear. 2. Borderline prominent but well compensated heart. 3. Stable position of right IJ dialysis type catheter. Jose Turner MD Physical Exam GENERAL: awake and alert, oriented x 3, not in respiratory distress. SKIN: Cool and dry. No generalized rash, no ecchymoses and no evidence of embolic lesions. HEAD: Atraumatic. Normocephalic. No temporal wasting, or tenderness. EYES: [place] conjunctiva. No petechia or hemorrhage. Pupils equal, round and reactive to light. Extraocular movements full and intact. No scleral icterus. No injection or drainage. EARS, NOSE AND THROAT: Nose without bleeding or purulent nasal discharge. No sinus tenderness. Mucous membranes pink and moist. No oral lesions noted. NECK: Trachea midline. Supple and not tender, no meningeal signs CARDIOVASCULAR: Regular rate and rhythm. No murmurs, rubs or gallops heard. Open wound over previous permacath site, with hard tunnel, induration and tenderness over the tunnel that goes to her RIJ RESPIRATORY: Clear to auscultation. Breath sounds equal bilaterally. No rales , wheezing or rhonchi. Decreased breath sounds at the bases. ABDOMEN: Soft, obese, non-tender, nondistended. Bowel sounds present and normoactive. No guarding. No rebound. No organomegaly. : Langley catheter in place, has a small amount of urine, and the urine looks very dark and concentrated EXTREMITIES: No clubbing, cyanosis, or edema. No joint effusion, has good ROM. No calf tenderness. Well perfused and warm. AV fistula in the right upper extremity with a good thrill, has well healed incisions, with no evidence of infection. NEUROLOGICAL: Awake and alert. Cranial nerves grossly intact. Motor grossly within normal limits. PSYCHIATRIC: Normal affect, calm and cooperative. LINE: No evidence of infection Assessment & Plan Remarks IMPRESSION Sepsis syndrome on presentation, with transient hypotension - has MRSA in 2 BC, very suspicious for HD cath related sepsis - also with UTI - leukocytosis, shock, decreased LOC High grade MRSA sepsis, likely permacath related UTI, Kleb/ecoli ESRD Leukocytosis due to sepsis, better RECOMMENDATION Follow C/S Levaquin for UTI Await echo Continue Cubicin until BC are negative, then back to Vanco Await surgical evaluation of permacath site Follow temps Monitor progress D/W Dr Lewis D/W Dr Vasquez (renal) Explained plan to patient Jenifer Crystal MD December 03, 2017 15:46
--- NOTE | 2017-12-03 16:11 | ECHRPT ---
Indication: Endocarditis CONCLUSIONS Normal left ventricular size. Wall thickness is measured at the upper limits of normal. The left ventricular systolic function is hyperdynamic with an estimated ejection fraction in the ra nge of 65- 70%. Normal wall motion. Trileaflet aortic valve. Mild focal calcification on the noncoronary cusp leaflet tip. There is trace tricuspid valve regurgitation. BP: / HR: Rhythm: MEASUREMENTS (Male / Female) Normal Values Technical Quality:Fair 2D ECHO LV Diastolic Diameter PLAX 3.8 cm 4.2 - 5.9 / 3.9 - 5.3 cm LV Systolic Diameter PLAX 2.8 cm IVS Diastolic Thickness 1.3 cm 0.6 - 1.0 / 0.6 - 0.9 cm LVPW Diastolic Thickness 1.3 cm 0.6 - 1.0 / 0.6 - 0.9 cm LV Relative Wall Thickness 0.7 RV Internal Dim ED PLAX 2.2 cm LVOT Diameter 2.0 cm LA Systolic Diameter LX 3.6 cm 3.0 - 4.0 / 2.7 - 3.8 cm M-MODE Aortic Root Diameter MM 2.5 cm LA Systolic Diameter MM 3.8 cm LA Ao Ratio MM 1.5 AV Cusp Separation MM 2.1 cm DOPPLER AV Peak Velocity 213.0 cm/s AV Peak Gradient 18.1 mmHg LVOT Peak Velocity 150.0 cm/s LVOT Peak Gradient 9.0 mmHg AV Area Cont Eq pk 2.2 cm MV Area PHT 3.4 cm Mitral E Point Velocity 77.5 cm/s Mitral A Point Velocity 110.0 cm/s Mitral E to A Ratio 0.7 LV E' Lateral Velocity 9.5 cm/s Mitral E to LV E' Lateral Ratio 8.2 LV E' Septal Velocity 5.9 cm/s Mitral E to LV E' Septal Ratio 13.0 TR Peak Velocity 326.0 cm/s TR Peak Gradient 42.5 mmHg Right Atrial Pressure 10.0 mmHg Pulmonary Artery Systolic Pressu 52.5 mmHg Right Ventricular Systolic Press 52.5 mmHg FINDINGS LEFT VENTRICLE Normal left ventricular size. Wall thickness is measured at the upper limits of normal. The left ventricular systolic function is hyperdynamic with an estimated ejection fraction in the ra nge of 65- 70%. Normal wall motion. RIGHT VENTRICLE Normal right ventricular size and systolic function. LEFT ATRIUM The left atrial size is normal. RIGHT ATRIUM The right atrial size is normal. ATRIAL SEPTUM Normal atrial septal thickness without atrial level shunting by limited color doppler interrogation. AORTA The aortic root and proximal ascending aorta are normal in size on limited imaging. MITRAL VALVE Structurally normal mitral valve. No mitral valve stenosis or regurgitation. AORTIC VALVE Trileaflet aortic valve. Mild focal calcification on the noncoronary cusp leaflet tip. TRICUSPID VALVE Structurally normal tricuspid valve. There is trace tricuspid valve regurgitation. PULMONARY VALVE No pulmonary valve regurgitation or stenosis. VESSELS The inferior vena cava is normal in size. PERICARDIUM There is a small pericardial effusion present. Norberto Wagner MD (Electronically Signed) Final Date:03 Dec 2017 16:10
--- NOTE | 2017-12-03 16:23 | HHI.NPPN ---
Subjective History of Present Illness This patient is a 72-year-old -[place] female with a history of end- stage renal disease, diabetes mellitus, multiple myeloma. This patient does have a functional AV dialysis shunt in place but has been refusing to let us access it for dialysis access despite ongoing counseling regarding risks associated with the presence of a hemodialysis PermCath particularly risk of infection. She in fact had this PermCath changed November 17, 2017 at an outpatient interventional nephrology center. Patient now presents with altered mental status status now noted to have evidence of bacteremia with a preliminary report of gram-positive cocci. She also has a history of previous UTIs recurrent. Patient now noted to have hyperkalemia and a low total CO2 level with a requirement for acute dialysis today. Interval History Patient completed her hemodialysis today. She is complaining of some discomfort over the hemodialysis PermCath tract site that was previously removed. Review of Systems General Constitutional: Fatigue Cardiovascular Cardiac: Chest Pain Gastrointestinal Gastrointestinal: Nausea & Vomiting Objective Data Data 12/03/17 12/04/17 19:00 07:00 Output Total 3000 ml Balance -3000 ml Hemodialysis 3000 ml Vital Signs Date Time Temp Pulse Resp B/P (MAP) Pulse Ox O2 Delivery O2 Flow Rate FiO2 12/03/17 08:00 86 12/03/17 07:37 75 12/03/17 07:37 89 12/03/17 07:36 97 12/03/17 04:00 98.2 89 24 115/57 (76) 99 12/03/17 00:00 98.1 86 24 116/58 (77) 96 12/02/17 20:00 97.5 98 26 126/62 (83) 94 12/02/17 17:45 98 Nasal Cannula 3.00 -: 12/03/17 0840 12/03/17 0840 Physical Exam General Appearance: Comfortable Eyes Eye Exam: Pupils Equal Throat Throat Exam: Oral Mucosa [place] & Moist Neck Neck Exam: Neck Supple, Trachea Midline Pulmonary Resp Exam: Clear Bilaterally, Breath Sounds Equal Cardiology CV Exam: Regular, Normal Sinus Rhythm Gastrointestinal/Abdomen GI Exam: Soft, Non-Tender Integumentary Skin Exam: Clear, Warm Extremeties Extremities Exam: No Edema Neurologic Neuro Exam: Alert, Awake Psychiatric Psych Exam: Appropriate Responses Tubes & Lines Tubes & Lines Hemodialysis Vas-Cath in place on the left side. Examiner tract site of the previous hemodialysis PermCath that was removed earlier this admission. Does not feel indurated but somewhat firm along the length. No fluctuance. Doubt abscess but infectious disease has requested opinion from vascular surgery. Assessment/Plan Discussed Condition With: Patient, Spouse Problem List: (1) ESRD (end stage renal disease) on dialysis ICD Codes: N18.6 - End stage renal disease; Z99.2 - Dependence on renal dialysis Status: Chronic Plan: Repeat blood cultures negative 48 and 72 hours. Unfortunately Vas-Cath had to be placed secondary to dialysis nurses being unable to access her AV shunt. We will need vascular to reevaluate her AV shunt. If still unable to use the dialysis shunt will have to convert the Vas-Cath to a new PermCath when the blood cultures have cleared prior to discharge which is not an ideal situation. The tunnel of the previously present hemodialysis PermCath is somewhat prominent and slightly tender but clinically no obvious area of fluctuance. Await vascular opinion in regards to same as requested by ID. Medication should be adjusted for her end-stage renal disease when indicated. Avoid gadolinium. (2) Bacteremia ICD Codes: R78.81 - Bacteremia Plan: Bacteremia appears to be related to permacath infection Scheduled for removal today Pt agreeable BCx to be followed ID on board (3) Hyperkalemia ICD Codes: E87.5 - Hyperkalemia Status: Acute Plan: Resolved with HD (4) Acidosis ICD Codes: E87.2 - Acidosis Plan: Resolved with HD (5) Hyperparathyroidism, secondary renal ICD Codes: N25.81 - Secondary hyperparathyroidism of renal origin Status: Acute (6) Anemia of renal disease ICD Codes: D63.1 - Anemia in chronic kidney disease Status: Acute (7) HTN (hypertension) ICD Codes: I10 - Essential (primary) hypertension Status: Chronic (8) Diabetes mellitus ICD Codes: E11.9 - Diabetes mellitus Status: Chronic (9) Hypocalcemia ICD Codes: E83.51 - Hypocalcemia Plan: Continue OsCal (10) Chest discomfort ICD Codes: R07.89 - Other chest pain Mnany Vasquez MD December 03, 2017 16:23
[2017-12-04] VITALS (8 sets, daily range): BP systolic 125–144; BP diastolic 56–64; PULSE 82–106; RESP 16–19; TEMP 97.3–98.4; O2SAT 93–100
[2017-12-04] MEDS: INSULIN NovoLIN REGULAR SUPPLEMENTAL SCALE SQ SCH ×6 (04:00→23:27)
[2017-12-04] MEDS: CHLORHEXIDINE GLUCONATE 2 % 1 PACK (2 CLOTHS) TOP SCH (04:00)
[2017-12-04] MEDS: HEPARIN SODIUM - SQ 10,000 UNITS/ML VIAL SQ SCH ×3 (04:25→21:52)
[2017-12-04] MEDS: DOCUSATE SODIUM 50 MG/SENNA 8.6 MG TAB PO SCH ×2 (09:00→21:52)
[2017-12-04] MEDS: PREGABALIN 75 MG CAP PO SCH ×3 (09:40→16:51)
[2017-12-04] MEDS: LEVOFLOXACIN 250 MG TAB PO SCH (09:40)
[2017-12-04] MEDS: CALCIUM CARBONATE 1.25 GM (CA 500 MG) TAB PO SCH ×2 (09:40→21:52)
[2017-12-04] MEDS: FAMOTIDINE 20 MG TAB PO SCH ×2 (09:40→21:52)
[2017-12-04] MEDS: ASPIRIN 81 MG CHEW TAB CHEW SCH (09:40)
[2017-12-04] MEDS: SODIUM CHLORIDE 0.9% FLUSH 10 ML FLUSH IV FLUSH SCH ×2 (09:41→21:52)
[2017-12-04] MEDS: SODIUM CHLORIDE 0.9% FLUSH 10 ML FLUSH IVF SCH (09:41)
--- NOTE | 2017-12-04 10:11 | PD.VS.CON ---
History of Present Illness Chief Complaint: MRSA possible catheter site infection Consult Requested by: Dr. Lewis History of Present Illness 72 yo female with ESRD on HD MWF who was admitted for bacteremia, UTI. Had R catheter placed and recently exchanged for L UE catheter. Has R UE brachiocephalic AVF that appears to BC AVF that was superficialized at some point (Dr. Michaud) but unclear if any prosthetic. Has MRSA bacteremia this admission. C/o chest pain at catheter insertion site R chest wall. Past/Family/Social History Past Medical History ESRD obesity DM HTN COPD Past Surgical History R UE AVF Social History lives at home HD MWF Family History NC Home Medications Active Scripts Pantoprazole (Pantoprazole) 40 Mg Tab, 40 MG PO DAILY for Reflux, #30 TAB Prov:Jorge Matos 12/26/16 Aspirin (Aspirin Low Strength) 81 Mg Chew, 81 MG CHEW DAILY for Blood Clot Prevention, #30 EA Prov:Jorge Matos 12/26/16 Oxygen tank (Oxygen tank) 1 Ea Tank, 2 LITER MARCELO.CANULA HS for HYPOXEMIA PREVENTION, #2 CYLINDER 11 Refills Oxygen Concentrator Portable Gaseous 2 L/min via Nasal Cannula Continuous For 99 months Prov:Quentin Saavedra MD 05/12/16 Reported Medications Ergocalciferol (Vitamin D2) 2,000 Unit Tab, 04549 UNITS PO WEEKLY for Nutritional Supplement, TAB 0 Refills 11/27/17 Calcium Carbonate (Calcium Carbonate) 1,500 Mg Tab, 500 MG PO BID for Calcium Supplement, TAB 0 Refills 1,500 mg calcium carbonate (600 mg elemental calcium) 05/27/17 Calcium Acetate (Phosphate Binder) (Calcium Acetate (Phosphate Binder)) 667 Mg Cap, 1334 MG PO TID for Hyperphosphatemia, #180 CAP 0 Refills 05/27/17 Rosuvastatin (Crestor) 10 Mg Tab, 10 MG PO DAILY for Cholesterol Management, # 30 TAB 0 Refills 05/27/17 Meclizine (Meclizine) 25 Mg Tab, 25 MG PO Q6HR Y for DIZZINESS, TAB 0 Refills 05/09/16 Ondansetron (Ondansetron) 8 Mg Tab, 8 MG PO BID Y for NAUSEA OR VOMITING, TAB 0 Refills 05/09/16 Tramadol (Ultram) 50 Mg Tab, 50 MG PO QID Y for PAIN, TAB 0 Refills 05/09/16 Pregabalin (Lyrica) 75 Mg Cap, 75 MG PO TID, #60 CAP 0 Refills 05/09/16 Insulin Detemir Inj (Levemir Inj) 1,000 unit/ 10 ML Vial, 44 UNITS SQ Q12HR for Blood Sugar Management, VIAL 0 Refills Do not mix with any other Insulin. 05/09/16 Insulin Aspart Inj (Novolog Inj) 1,000 Unit/10 Ml Vial, 0 SQ TIDAC, #10 ML 0 Refills Sliding Scale as directed. 05/09/16 Coded Allergies: Sulfa (Sulfonamide Antibiotics) (Unverified Allergy, Severe, TONGUE AND GENERALIZED SWELLING, 06/10/17) iodine (Unverified Allergy, Severe, 06/10/17) iohexol (Unverified Allergy, Severe, TONGUE AND GENERALIZED SWELLING, 06/10) penicillin G (Unverified Allergy, Severe, TONGUE AND GENERALIZED SWELLING , 06/10/17) potassium iodide (Unverified Allergy, Severe, 06/10/17) povidone-iodine (Unverified Allergy, Severe, 06/10/17) sodium iodide (Unverified Allergy, Severe, 06/10/17) sodium iodide (Unverified Allergy, Severe, 06/10/17) Iodinated Contrast- Oral and IV Dye (Unverified Allergy, Unknown, 06/10/17) *MDRO Multi-Drug Resistant Organism (Verified Adverse Reaction, Unknown, MRSA, 06/10/17) MRSA PCR (nares) POSITIVE - 10/31/15 MRSA (blood & sputum) - 10/31/15 ESBL Klebsiella Pneumoniae (urine-06/26/16) Review of Systems Constitutional: COMPLAINS OF: Chills Cardiovascular: DENIES: Chest pain, Palpitations, Syncope, Dyspnea on Exertion , PND, Lower Extremity Edema, Orthopnea, Claudication Physical Exam Vitals/I&O Date Time Temp Pulse Resp B/P (MAP) Pulse Ox O2 Delivery O2 Flow Rate FiO2 12/04/17 08:50 98.4 82 18 135/62 (86) 100 Manual Cuff/Auscultation 12/04/17 04:00 Nasal Cannula 4.00 12/04/17 04:00 97.4 87 19 144/62 (89) 100 12/04/17 04:00 84 12/04/17 00:00 Nasal Cannula 4.00 12/04/17 00:00 93 12/03/17 20:00 Nasal Cannula 4.00 12/03/17 20:00 97.7 96 18 155/72 (99) 98 12/03/17 20:00 96 12/03/17 18:17 Nasal Cannula 3.00 12/03/17 16:00 98.2 95 19 158/57 (90) 92 Neuro: alert, oriented and pleasant HEENT: NC/AT Neck: no JVD Heart: reg rate Lungs: nonlabored breathing R chest wall catheter insertion site with induration along tunnel site, no drainage noted and no erythema Abdomen: obese Vascular: R UE incisions well healed; + thrill R UE hand with good strength Date/Time Source Procedure Growth Status 12/01/17 05:52 Blood Peripheral Aerobic Blood Culture - Preliminary NO GROWTH IN 2 DAYS Resulted 12/01/17 05:52 Blood Peripheral Anaerobic Blood Culture - Preliminary NO GROWTH IN 2 DAYS Resulted 11/27/17 15:35 Urine Catheterized Urine Urine Culture - Final Klebsiella Pneumoniae Multi-Drug Resistant Escherichia Coli Complete 11/29/17 10:00 Catheter Tip Other Wound Culture - Final NO GROWTH IN 72 HOURS Complete Assessment and Plan Plan MRSA bactermia, R UE access and pain around R chest wall catheter insertion site ; now with L chest catheter; most recent blood cultures negative R chest wall indurated and not overtly infected, doubt that this is source of bacteremia 1. continue antibiotics and follow cultures 2. warm compresses to R chest wall insertion site; ultimately could have I&D of this area but doubt it'll be necessary 3. R UE access patent; needs R UE AVF duplex to eval for prosthetic Dimas Rodgers MD FACS [employer] field interviewer [facility] at [facility] [phone] Dimas Rodgesr MD December 04, 2017 10:11
[2017-12-04 10:30] LABS: HEMATOCRIT 25.4 % (35.0-46.0); HEMOGLOBIN 8.1 GM/DL (11.6-15.3); MEAN CELL VOLUME 87.6 FL (80.0-100.0); MEAN CORPUSCULAR HGB CONC 31.9 % (32.0-36.0); MEAN PLATELET VOLUME 9.3 FL (7.0-11.0); PLATELET COUNT 304 TH/MM3 (150-450); RED CELL DISTRIBUTION WIDTH 17.1 % (11.6-17.2); WHITE BLOOD COUNT 8.5 TH/MM3 (4.0-11.0)
--- NOTE | 2017-12-04 10:50 | HHI.PR ---
Subjective Remarks in no acute distress. no fever. pain is overall better. no new complaints. Objective Vitals Vital Signs Date Time Temp Pulse Resp B/P (MAP) Pulse Ox O2 Delivery O2 Flow Rate FiO2 12/04/17 08:50 98.4 82 18 135/62 (86) 100 Manual Cuff/Auscultation 12/04/17 04:00 Nasal Cannula 4.00 12/04/17 04:00 97.4 87 19 144/62 (89) 100 12/04/17 04:00 84 12/04/17 00:00 Nasal Cannula 4.00 12/04/17 00:00 93 12/03/17 20:00 Nasal Cannula 4.00 12/03/17 20:00 97.7 96 18 155/72 (99) 98 12/03/17 20:00 96 12/03/17 18:17 Nasal Cannula 3.00 12/03/17 16:00 98.2 95 19 158/57 (90) 92 I/O 12/03/17 12/03/17 12/03/17 12/04/17 12/04/17 12/04/17 07:00 15:00 23:00 07:00 15:00 23:00 Intake Total 360 ml Output Total 3000 ml Balance -3000 ml 360 ml Intake Oral 360 ml Hemodialysis 3000 ml # Voids 1 1 # Bowel Movements 2 0 Result Diagram: 12/04/17 0950 12/03/17 0840 Imaging Last Impressions Chest X-Ray 12/02/17 0000 Signed Impressions: CONCLUSION: 1. Left IJ dialysis catheter in good position without pneumothorax. 2. Stable right lung base atelectasis. Objective Remarks GENERAL: This is a well-nourished, well-developed patient, in no apparent distress. CARDIOVASCULAR: Regular rate and regular rhythm without murmurs, gallops, or rubs. RESPIRATORY: Clear to auscultation. Breath sounds equal bilaterally. No wheezes , rales, or rhonchi. GASTROINTESTINAL: Abdomen soft, non-tender, nondistended. Normal, active bowel sounds MUSCULOSKELETAL: Extremities without clubbing, cyanosis, or edema. NEURO: Alert & Oriented x4 to person, place, time, situation. Moves all ext x4 Procedures perma-cath removal. Medications and IVs Inpatient Medications Acetaminophen (Tylenol Supp) 650 mg ONCE ONCE RECTAL Last administered on 11/27at 16:07; Start 11/27/17 at 15:45; Stop 11/27/17 at 15:46; Status DC Acetaminophen (Tylenol) 650 mg UNSCH PRN PO for headach, pain1-10,T> 101F; Start 11/28/17 at 10:00 Albumin Human 100 ml @ 60 mls/hr UNSCH PRN IV WITH DIALYSIS; Start 11/28/17 at 10:00 Albuterol/ Ipratropium (Duoneb Neb) 1 ampule Q2HR NEB PRN INH WHEEZING Last administered on 11/28/17at 15:51; Start 11/27/17 at 19:00 Aspirin (Aspirin Chew) 81 mg DAILY CHEW Last administered on 12/04/17at 09:40; Start 11/28/17 at 09:00 Atorvastatin Calcium (Lipitor) 20 mg DAILY PO Last administered on 11/30/17at 08 :58; Start 11/28/17 at 09:00; Stop 11/30/17 at 11:15; Status DC Azithromycin 500 mg/Sodium Chloride 250 ml @ 250 mls/hr ONCE STAT IV Last administered on 11/27/17at 16:28; Start 11/27/17 at 15:23; Stop 11/27/17 at 16:22 ; Status DC Bisacodyl (Dulcolax Supp) 10 mg DAILY PRN RECTAL SEVERE CONSITIPATION; Start at 19:00 Calcium Carbonate (Oscal) 500 mg Q12HR PO Last administered on 12/04/17at 09:40 ; Start 11/29/17 at 09:45 Cefepime HCl 1000 mg/Sodium Chloride 100 ml @ 200 mls/hr Q24H IV Last administered on 11/29/17at 21:07; Start 11/28/17 at 16:00; Stop 11/30/17 at 11:15 ; Status DC Cefepime HCl 2000 mg/Sodium Chloride 100 ml @ 200 mls/hr Q8H IV ; Start at 19:00; Stop 11/27/17 at 19:36; Status DC Chlorhexidine Gluconate (Chlorhexidine 2% Cloth) 3 pack UNSCH PRN TOP HYGIENIC CARE; Start 11/27/17 at 19:00 Clonidine (Catapres) 0.1 mg UNSCH PRN PO for BP > 180/100 X 2 readings; Start 11/28/17 at 10:00 Daptomycin 700 mg/ Sodium Chloride 100 ml @ 200 mls/hr Q48H IV Last administered on 12/02/17at 11:37; Start 11/30/17 at 13:00 Dextrose (D50w (Vial) Inj) 25 ml UNSCH PRN IV PUSH HYPOGLYCEMIA-SEE COMMENTS; Start 11/28/17 at 08:45 Diphenhydramine HCl (Benadryl) 25 mg UNSCH PRN PO for hives/itching/anaphylaxis ; Start 11/28/17 at 10:00 Famotidine (Pepcid Inj) 10 mg Q12HR IV PUSH Last administered on 11/30/17at 09: 00; Start 11/27/17 at 21:00; Stop 11/30/17 at 11:48; Status DC Famotidine (Pepcid) 10 mg BID PO Last administered on 12/04/17at 09:40; Start at 21:00 Gelatin (Gelfoam 12 Mm/7 Mm Top) 1 foam UNSCH PRN TOP SEE LABEL COMMENTS; Start 11/28/17 at 10:00 Gentamicin Sulfate (Gentamicin Inj) 20 mg UNSCH PRN OTHER WITH DIALYSIS Last administered on 12/03/17at 12:18; Start 11/28/17 at 10:00 Heparin Sodium (Porcine) (Heparin Central Flush) UNSCH PRN IV FLUSH SEE PROTOCOL; Start 12/02/17 at 15:15 Heparin Sodium (Porcine) (Heparin Inj) UNSCH PRN .XX WITH DIALYSIS Last administered on 12/03/17at 12:10; Start 11/28/17 at 10:00 Insulin Human Regular (NovoLIN R SUPPLEMENTAL SCALE) 1 Q4HR SQ Last administered on 12/03/17at 20:40; Start 11/28/17 at 12:00 Lactulose (Lactulose Liq) 30 ml DAILY PRN PO SEVERE CONSITIPATION; Start at 19:00 Levofloxacin (Levaquin) 250 mg DAILY PO Last administered on 12/04/17at 09:40; Start 11/30/17 at 12:00 Lidocaine/ Prilocaine (Emla Cream) 1 applic WITH DIALYSIS PRN TOPICAL Dialysis. ; Start 11/28/17 at 11:00 Magnesium Hydroxide (Milk Of Magnesia Liq) 30 ml Q12H PRN PO Mild constipation ; Start 11/27/17 at 19:00 Mannitol (Mannitol Inj) 12.5 gm UNSCH PRN IV WITH DIALYSIS; Start 11/28/17 at 10:00 Meclizine HCl (Antivert) 25 mg Q6H PRN PO DIZZINESS; Start 11/27/17 at 18:15 Miscellaneous Information ([facility] Nursing Information) 1 Q361D XX Last administered on 11/27/17at 19:00; Start 11/27/17 at 19:00 Morphine Sulfate (Morphine Inj) 2 mg Q2H PRN IV PUSH BREAKTHROUGH PAIN; Start 11/27/17 at 19:00 Nitroglycerin (Nitrostat Sl) 0.4 mg UNSCH PRN SL CHEST PAIN Last administered on 12/03/17at 12:09; Start 11/28/17 at 10:00 Norepinephrine Bitartrate 250 ml @ 7.5 mls/hr TITRATE PRN IV Maintain MAP > 65 mmHg Last administered on 11/28/17at 01:53; Start 11/27/17 at 23:15; Stop at 17:40; Status DC Ondansetron HCl (Zofran Odt) 8 mg BID PRN SL NAUSEA; Start 11/27/17 at 18:30 Ondansetron HCl (Zofran Inj) 4 mg UNSCH PRN IV PUSH WITH DIALYSIS; Start at 10:00 Pharmacy Profile Note 0 ml @ 0 mls/hr UNSCH OTHER ; Start 11/27/17 at 19:00; Stop 11/29/17 at 08:31; Status DC Pregabalin (Lyrica) 75 mg TID PO Last administered on 12/04/17at 09:40; Start at 09:00 Senna/Docusate Sodium (Vannessa-Colace) 1 tab BID PO Last administered on at 07:49; Start 11/27/17 at 21:00 Sennosides (Senokot) 17.2 mg Q12H PRN PO Moderate constipation; Start 11/27/17 at 19:00 Sodium Bicarbonate (Sodium Bicarbonate 8.4% Inj) 50 meq ONCE ONCE IV PUSH Last administered on 11/28/17at 09:28; Start 11/28/17 at 08:45; Stop 11/28/17 at 08:56; Status DC Sodium Chloride (NS Flush) UNSCH PRN IVF SEE PROTOCOL; Start 12/02/17 at 15:15 Terbutaline Sulfate (Brethine Inj) 1 mg UNSCH PRN SQ For Extravasation; Start 11/27/17 at 19:00 Tramadol HCl (Ultram) 100 mg Q6H PRN PO PAIN 1-10 Last administered on at 03:40; Start 11/30/17 at 18:15 Vancomycin HCl 1000 mg/Sodium Chloride 250 ml @ 250 mls/hr WITH DIALYSIS IV ; Start 11/29/17 at 08:30; Stop 11/30/17 at 11:15; Status DC A/P Assessment and Plan A/P septic shock- resolved. Acute MRSA Bacteremia - ID consulted - received Vanco- now on Datomycin - suspicious for permacath infection; perma-cath has been removed. - repeated blood cultures from 12/01 negative so far. right-sided chest pain induration around the site of previous permacath. the site of previous perma-cath is tender to touch vascular surgery consult appreciated; doubt that the site is infected. continue antibiotics and pain control. Acute metabolic encephalopathy - resolved -SIRS/sepsis -Infectious disease consultation ESRD -Hemodialysis per nephrology -AV shunt could not be accessed. -vas-cath had been placed. -vascular surgery evaluation appreciated; duplex of the AV shunt pending. Diabetes mellitus -Insulin sliding scale COPD -No exacerbation -No indication for steroid -DuoNeb scheduled and as needed. -is on home oxygen. DVT GI prophylaxis -Benjamin's and SCDs -Subcu heparin -Pepcid PT consulted. Discharge Planning dc planning when cleared by consultants. Alejo Lewis MD December 04, 2017 10:50
[2017-12-04 11:07] LABS: BICARBONATE 30.7 MEQ/L (21.0-32.0); CALCIUM 8.7 MG/DL (8.5-10.1); CREATININE 4.44 MG/DL (0.50-1.00)
[2017-12-04] MEDS: DAPTOmycin INJ 700 MG in SODIUM CHLORIDE 0.9% INJ 100 ML IV SCH (12:31)
[2017-12-04] MEDS: ACETAMINOPHEN 325 MG TAB PO PRN (12:42)
--- NOTE | 2017-12-04 17:32 | HHI.NPPN ---
Subjective History of Present Illness This patient is a 72-year-old -[place] female with a history of end- stage renal disease, diabetes mellitus, multiple myeloma. This patient does have a functional AV dialysis shunt in place but has been refusing to let us access it for dialysis access despite ongoing counseling regarding risks associated with the presence of a hemodialysis PermCath particularly risk of infection. She in fact had this PermCath changed November 17, 2017 at an outpatient interventional nephrology center. Patient now presents with altered mental status status now noted to have evidence of bacteremia with a preliminary report of gram-positive cocci. She also has a history of previous UTIs recurrent. Patient now noted to have hyperkalemia and a low total CO2 level with a requirement for acute dialysis today. Interval History Patient lying comfortably in bed. No verbal complaints. Review of Systems General Constitutional: Fatigue Cardiovascular Cardiac: Chest Pain Gastrointestinal Gastrointestinal: Nausea & Vomiting Objective Data Data Vital Signs Date Time Temp Pulse Resp B/P (MAP) Pulse Ox O2 Delivery O2 Flow Rate FiO2 12/04/17 17:23 97 Nasal Cannula 3.00 12/04/17 15:49 97.8 106 18 135/64 (87) 100 12/04/17 12:00 97.3 86 18 125/56 (79) 93 12/04/17 08:50 98.4 82 18 135/62 (86) 100 Manual Cuff/Auscultation 12/04/17 04:00 Nasal Cannula 4.00 12/04/17 04:00 97.4 87 19 144/62 (89) 100 12/04/17 04:00 84 12/04/17 00:00 Nasal Cannula 4.00 12/04/17 00:00 93 12/03/17 20:00 Nasal Cannula 4.00 12/03/17 20:00 97.7 96 18 155/72 (99) 98 12/03/17 20:00 96 12/03/17 18:17 Nasal Cannula 3.00 -: 12/04/17 0950 12/04/17 0950 Physical Exam General Appearance: Comfortable Eyes Eye Exam: Pupils Equal Throat Throat Exam: Oral Mucosa [place] & Moist Neck Neck Exam: Neck Supple, Trachea Midline Pulmonary Resp Exam: Clear Bilaterally, Breath Sounds Equal Cardiology CV Exam: Regular, Normal Sinus Rhythm Gastrointestinal/Abdomen GI Exam: Soft, Non-Tender Integumentary Skin Exam: Clear, Warm Extremeties Extremities Exam: No Edema Neurologic Neuro Exam: Alert, Awake Psychiatric Psych Exam: Appropriate Responses Tubes & Lines Tubes & Lines Hemodialysis Vas-Cath in place on the left side. Examiner tract site of the previous hemodialysis PermCath that was removed earlier this admission. Does not feel indurated but somewhat firm along the length. No fluctuance. Doubt abscess but infectious disease has requested opinion from vascular surgery. Assessment/Plan Discussed Condition With: Patient, Spouse Problem List: (1) ESRD (end stage renal disease) on dialysis ICD Codes: N18.6 - End stage renal disease; Z99.2 - Dependence on renal dialysis Status: Chronic Plan: Repeat blood cultures remain negative. Unfortunately Vas-Cath had to be placed secondary to dialysis nurses being unable to access her AV shunt. Vascular consultation from Dr. Rodgers appreciated. If we are still unable to use her AV dialysis shunt for dialysis access will have to convert the Vas-Cath she presently has 2 another PermCath which will not be an ideal situation. Await second opinion from vascular surgery in this regard. Medication should be adjusted for her end-stage renal disease when indicated. Avoid gadolinium. (2) Bacteremia ICD Codes: R78.81 - Bacteremia Plan: ID on board (3) Hyperparathyroidism, secondary renal ICD Codes: N25.81 - Secondary hyperparathyroidism of renal origin Status: Acute (4) Anemia of renal disease ICD Codes: D63.1 - Anemia in chronic kidney disease Status: Acute (5) HTN (hypertension) ICD Codes: I10 - Essential (primary) hypertension Status: Chronic (6) Diabetes mellitus ICD Codes: E11.9 - Diabetes mellitus Status: Chronic Manny Vasquez MD December 04, 2017 17:32
[2017-12-05] VITALS (9 sets, daily range): BP systolic 117–139; BP diastolic 55–63; PULSE 82–92; RESP 16–20; TEMP 98–98.5; O2SAT 96–100
--- NOTE | 2017-12-05 01:33 | RADRPT ---
EXAM DATE: 12/05/2017 1:25 AM EDT AGE/SEX: 72 years / Female INDICATIONS: Right upper extremity swelling. CLINICAL DATA: This is the patient's initial encounter. Patient reports that signs and symptoms have been present for 2 weeks and indicates a pain score of 0/10. Location: Laterality: MEDICAL/SURGICAL HISTORY: Hypertension. Hypertension. Renal disease. COPD. . A/V graft plac ement and repair - RUE. COMPARISON: No prior exams available for comparison. FINDINGS: There is an approximate 4.2 cm hematoma in between the patient's old AV fistula which is clotted and the new one. The new AV graft which is brachial artery appears patent. CONCLUSION: 1. The patient's new brachial artery graft is patent and the old AV fistula is clotted. There is sof t tissue hematoma appears to be organized and measures almost 4.2 cm. Electronically signed by: Capri Morelos MD 12/05/2017 1:31 AM EDT
[2017-12-05] MEDS: RESP: ALBUTEROL 2.5 MG/IPRATROPIUM 0.5 MG NEB (PRN) INH (03:49)
[2017-12-05] MEDS: INSULIN NovoLIN REGULAR SUPPLEMENTAL SCALE SQ SCH ×5 (04:00→20:00)
[2017-12-05] MEDS: CHLORHEXIDINE GLUCONATE 2 % 1 PACK (2 CLOTHS) TOP SCH (04:00)
[2017-12-05] MEDS: HEPARIN SODIUM - SQ 10,000 UNITS/ML VIAL SQ SCH ×3 (04:07→23:26)
[2017-12-05] MEDS: PREGABALIN 75 MG CAP PO SCH ×3 (08:17→17:52)
[2017-12-05] MEDS: DOCUSATE SODIUM 50 MG/SENNA 8.6 MG TAB PO SCH ×2 (09:00→23:24)
[2017-12-05] MEDS: SODIUM CHLORIDE 0.9% FLUSH 10 ML FLUSH IV FLUSH SCH ×2 (09:00→23:29)
[2017-12-05] MEDS: SODIUM CHLORIDE 0.9% FLUSH 10 ML FLUSH IVF SCH (09:00)
[2017-12-05 10:01] LABS: HEMATOCRIT 22.7 % (35.0-46.0); HEMOGLOBIN 7.2 GM/DL (11.6-15.3); MEAN CELL VOLUME 86.8 FL (80.0-100.0); MEAN CORPUSCULAR HEMOGLOBIN 27.7 PG (27.0-34.0); MEAN CORPUSCULAR HGB CONC 31.9 % (32.0-36.0); MEAN PLATELET VOLUME 8.9 FL (7.0-11.0); PLATELET COUNT 317 TH/MM3 (150-450); RED BLOOD COUNT 2.62 MIL/MM3 (4.00-5.30); RED CELL DISTRIBUTION WIDTH 17.1 % (11.6-17.2); WHITE BLOOD COUNT 6.5 TH/MM3 (4.0-11.0)
[2017-12-05 10:25] LABS: BICARBONATE 34.7 MEQ/L (21.0-32.0); CALCIUM 8.2 MG/DL (8.5-10.1); CREATININE 5.16 MG/DL (0.50-1.00)
--- NOTE | 2017-12-05 11:11 | HHI.PR ---
Subjective Remarks in no acute distress. having her HD today. pain to the right chest is better. no fever. Objective Vitals Vital Signs Date Time Temp Pulse Resp B/P (MAP) Pulse Ox O2 Delivery O2 Flow Rate FiO2 12/05/17 09:17 98 Nasal Cannula 4.00 12/05/17 04:51 90 12/05/17 04:46 98.0 86 20 136/63 (87) 98 12/05/17 04:46 Nasal Cannula 4.00 12/05/17 03:49 96 Nasal Cannula 4.00 12/05/17 00:00 89 12/05/17 00:00 98.5 87 16 139/60 (86) 100 12/04/17 20:30 100 Nasal Cannula 4.00 12/04/17 20:00 97.6 87 16 140/56 (84) 100 12/04/17 20:00 Nasal Cannula 4.00 12/04/17 20:00 90 12/04/17 17:23 97 Nasal Cannula 3.00 12/04/17 15:49 97.8 106 18 135/64 (87) 100 12/04/17 12:00 97.3 86 18 125/56 (79) 93 I/O 12/04/17 12/04/17 12/04/17 12/05/17 12/05/17 12/05/17 07:00 15:00 23:00 07:00 15:00 23:00 Intake Total 240 ml Output Total 100 ml Balance 140 ml Intake Oral 240 ml Output Urine Total 100 ml # Voids 1 # Bowel Movements 1 Result Diagram: 12/05/17 0945 12/05/17 0945 Imaging Last Impressions Upper Extremity Ultrasound 12/05/17 0000 Signed Impressions: CONCLUSION: 1. The patient's new brachial artery graft is patent and the old AV fistula is clotted. There is soft tissue hematoma appears to be organized and measures al most 4.2 cm. Chest X-Ray 12/02/17 0000 Signed Impressions: CONCLUSION: 1. Left IJ dialysis catheter in good position without pneumothorax. 2. Stable right lung base atelectasis. Objective Remarks GENERAL: This is a well-nourished, well-developed patient, in no apparent distress. CARDIOVASCULAR: Regular rate and regular rhythm without murmurs, gallops, or rubs. RESPIRATORY: Clear to auscultation. Breath sounds equal bilaterally. No wheezes , rales, or rhonchi. GASTROINTESTINAL: Abdomen soft, non-tender, nondistended. Normal, active bowel sounds MUSCULOSKELETAL: Extremities without clubbing, cyanosis, or edema. NEURO: Alert & Oriented x4 to person, place, time, situation. Moves all ext x4 Procedures perma-cath removal. Medications and IVs Inpatient Medications Acetaminophen (Tylenol Supp) 650 mg ONCE ONCE RECTAL Last administered on 11/27at 16:07; Start 11/27/17 at 15:45; Stop 11/27/17 at 15:46; Status DC Acetaminophen (Tylenol) 650 mg UNSCH PRN PO for headach, pain1-10,T> 101F; Start 11/28/17 at 10:00 Albumin Human 100 ml @ 60 mls/hr UNSCH PRN IV WITH DIALYSIS; Start 11/28/17 at 10:00 Albuterol/ Ipratropium (Duoneb Neb) 1 ampule Q2HR NEB PRN INH WHEEZING Last administered on 12/05/17at 03:49; Start 11/27/17 at 19:00 Aspirin (Aspirin Chew) 81 mg DAILY CHEW Last administered on 12/04/17at 09:40; Start 11/28/17 at 09:00 Atorvastatin Calcium (Lipitor) 20 mg DAILY PO Last administered on 11/30/17at 08 :58; Start 11/28/17 at 09:00; Stop 11/30/17 at 11:15; Status DC Azithromycin 500 mg/Sodium Chloride 250 ml @ 250 mls/hr ONCE STAT IV Last administered on 11/27/17at 16:28; Start 11/27/17 at 15:23; Stop 11/27/17 at 16:22 ; Status DC Bisacodyl (Dulcolax Supp) 10 mg DAILY PRN RECTAL SEVERE CONSITIPATION; Start at 19:00 Calcium Carbonate (Oscal) 500 mg Q12HR PO Last administered on 12/04/17at 21:52 ; Start 11/29/17 at 09:45 Cefepime HCl 1000 mg/Sodium Chloride 100 ml @ 200 mls/hr Q24H IV Last administered on 11/29/17at 21:07; Start 11/28/17 at 16:00; Stop 11/30/17 at 11:15 ; Status DC Cefepime HCl 2000 mg/Sodium Chloride 100 ml @ 200 mls/hr Q8H IV ; Start at 19:00; Stop 11/27/17 at 19:36; Status DC Chlorhexidine Gluconate (Chlorhexidine 2% Cloth) 3 pack UNSCH PRN TOP HYGIENIC CARE; Start 11/27/17 at 19:00 Clonidine (Catapres) 0.1 mg UNSCH PRN PO for BP > 180/100 X 2 readings; Start 11/28/17 at 10:00 Daptomycin 700 mg/ Sodium Chloride 100 ml @ 200 mls/hr Q48H IV Last administered on 12/04/17at 12:31; Start 11/30/17 at 13:00 Dextrose (D50w (Vial) Inj) 25 ml UNSCH PRN IV PUSH HYPOGLYCEMIA-SEE COMMENTS; Start 11/28/17 at 08:45 Diphenhydramine HCl (Benadryl) 25 mg UNSCH PRN PO for hives/itching/anaphylaxis ; Start 11/28/17 at 10:00 Epoetin Roque (Epogen Inj) 10,000 units MoWeFr SQ ; Start 12/05/17 at 09:00 Famotidine (Pepcid Inj) 10 mg Q12HR IV PUSH Last administered on 11/30/17at 09: 00; Start 11/27/17 at 21:00; Stop 11/30/17 at 11:48; Status DC Famotidine (Pepcid) 10 mg BID PO Last administered on 12/04/17at 21:52; Start at 21:00 Gelatin (Gelfoam 12 Mm/7 Mm Top) 1 foam UNSCH PRN TOP SEE LABEL COMMENTS; Start 11/28/17 at 10:00 Gentamicin Sulfate (Gentamicin Inj) 20 mg UNSCH PRN OTHER WITH DIALYSIS Last administered on 12/03/17at 12:18; Start 11/28/17 at 10:00 Heparin Sodium (Porcine) (Heparin Central Flush) UNSCH PRN IV FLUSH SEE PROTOCOL; Start 12/02/17 at 15:15 Heparin Sodium (Porcine) (Heparin Inj) UNSCH PRN .XX WITH DIALYSIS Last administered on 12/03/17at 12:10; Start 11/28/17 at 10:00 Insulin Human Regular (NovoLIN R SUPPLEMENTAL SCALE) 1 Q4HR SQ Last administered on 12/04/17at 21:53; Start 11/28/17 at 12:00 Lactulose (Lactulose Liq) 30 ml DAILY PRN PO SEVERE CONSITIPATION; Start at 19:00 Levofloxacin (Levaquin) 250 mg DAILY PO Last administered on 12/04/17at 09:40; Start 11/30/17 at 12:00 Lidocaine/ Prilocaine (Emla Cream) 1 applic WITH DIALYSIS PRN TOPICAL Dialysis. ; Start 11/28/17 at 11:00 Magnesium Hydroxide (Milk Of Magnesia Liq) 30 ml Q12H PRN PO Mild constipation ; Start 11/27/17 at 19:00 Mannitol (Mannitol Inj) 12.5 gm UNSCH PRN IV WITH DIALYSIS; Start 11/28/17 at 10:00 Meclizine HCl (Antivert) 25 mg Q6H PRN PO DIZZINESS; Start 11/27/17 at 18:15 Miscellaneous Information ([facility] [place] Nursing Information) 1 Q361D XX Last administered on 11/27/17at 19:00; Start 11/27/17 at 19:00 Morphine Sulfate (Morphine Inj) 2 mg Q2H PRN IV PUSH BREAKTHROUGH PAIN; Start 11/27/17 at 19:00 Nitroglycerin (Nitrostat Sl) 0.4 mg UNSCH PRN SL CHEST PAIN Last administered on 12/03/17at 12:09; Start 11/28/17 at 10:00 Norepinephrine Bitartrate 250 ml @ 7.5 mls/hr TITRATE PRN IV Maintain MAP > 65 mmHg Last administered on 11/28/17at 01:53; Start 11/27/17 at 23:15; Stop at 17:40; Status DC Ondansetron HCl (Zofran Odt) 8 mg BID PRN SL NAUSEA; Start 11/27/17 at 18:30 Ondansetron HCl (Zofran Inj) 4 mg UNSCH PRN IV PUSH WITH DIALYSIS; Start at 10:00 Pharmacy Profile Note 0 ml @ 0 mls/hr UNSCH OTHER ; Start 11/27/17 at 19:00; Stop 11/29/17 at 08:31; Status DC Pregabalin (Lyrica) 75 mg TID PO Last administered on 12/05/17at 08:17; Start at 09:00 Senna/Docusate Sodium (Vannessa-Colace) 1 tab BID PO Last administered on at 21:52; Start 11/27/17 at 21:00 Sennosides (Senokot) 17.2 mg Q12H PRN PO Moderate constipation Last administered on 12/04/17at 12:42; Start 11/27/17 at 19:00 Sodium Bicarbonate (Sodium Bicarbonate 8.4% Inj) 50 meq ONCE ONCE IV PUSH Last administered on 11/28/17at 09:28; Start 11/28/17 at 08:45; Stop 11/28/17 at 08:56; Status DC Sodium Chloride (NS Flush) UNSCH PRN IVF SEE PROTOCOL; Start 12/02/17 at 15:15 Terbutaline Sulfate (Brethine Inj) 1 mg UNSCH PRN SQ For Extravasation; Start 11/27/17 at 19:00 Tramadol HCl (Ultram) 100 mg Q6H PRN PO PAIN 1-10 Last administered on at 03:40; Start 11/30/17 at 18:15 Vancomycin HCl 1000 mg/Sodium Chloride 250 ml @ 250 mls/hr WITH DIALYSIS IV ; Start 11/29/17 at 08:30; Stop 11/30/17 at 11:15; Status DC Vitamin B Complex/ Vit C/Folic Acid (Nephrocaps) 1 cap DAILY PO ; Start at 09:00 A/P Assessment and Plan A/P septic shock- resolved. Acute MRSA Bacteremia - ID consulted - received Vanco- now on Datomycin - suspicious for permacath infection; perma-cath has been removed . - repeated blood cultures from 12/01 negative so far. right-sided chest pain induration around the site of previous permacath. the site of previous perma-cath is tender to touch vascular surgery consult appreciated; doubt that the site is infected. continue antibiotics and pain control. Acute metabolic encephalopathy - resolved -SIRS/sepsis -Infectious disease consultation ESRD -Hemodialysis per nephrology -AV shunt could not be accessed. -vas-cath had been placed. -duplex of the AV shunt pending showed patent brachial artery graft. -vascular surgery following. Diabetes mellitus -Insulin sliding scale anemia of chronic disease on Epogen with HD- continue to monitor; H/H in am. COPD -No exacerbation -No indication for steroid -DuoNeb scheduled and as needed. -is on home oxygen. DVT GI prophylaxis -Benjamin's and SCDs -Subcu heparin -Pepcid PT consulted. Discharge Planning dc planning when cleared by consultants. Alejo Lewis MD December 05, 2017 11:11
[2017-12-05] MEDS: EPOETIN ALFA 10,000 UNITS/ML VIAL SQ SCH (12:45)
--- NOTE | 2017-12-05 12:47 | HHI.IDPN ---
Subjective Subjective Remarks Patient is a 72-year-old female, brought into the hospital for evaluation of decreased level of consciousness. Patient was apparently in her usual self, and on the day of admission her and the home health aide has been trying very hard to keep her awake. She was apparently quite lethargic. She was brought into the hospital and initially was lethargic. She had a fever of 105.1. She was hypotensive briefly. Her WBC was 14,000. Chest x-ray showed elevated right hemidiaphragm and possible atelectasis, no change compared to prior chest x-ray. Her urinalysis showed significant pyuria, and a Langley was placed. 2 blood cultures were done, and they are now reported as growing gram- positive cocci in pairs and clusters. Patient at the time of my exam is awake and alert and oriented to time place and person. She does not remember having any fever or chills at home. When she had her hemodialysis her temperature was normal. She denies any significant respiratory complaints, GI complaint as far as abdominal pain, nausea or vomiting. Patient apparently has chronic dysuria since she has been on dialysis. She has very little urine output. According to the patient she also gets symptoms of dizziness, and some neck pain, always after she gets done with her hemodialysis. Patient gets dialyzed Tuesday and Tuesday. She has a permacath that gets used for her dialysis. She has an AV fistula, which seems to be functioning, but the patient stated that she does not want it used because the dialysis nurse always has a problem accessing her AV fistula. Patient currently is afebrile, and her blood pressure is better. She is currently on cefepime, and she got a dose of vancomycin yesterday. Infectious disease consultation has been requested to evaluate the patient. Notes reviewed Temps ok Getting HD Previous permacath site better Has new vascath L side All blood cultures with MRSA till 11/29 BC 11/30 negative so far Urine culture with Kleb and Ecoli BP okay WBC better Antibiotics Cubicin Levaquin Current Medications Medications (Trade) Dose Ordered Sig/[place] Route Start Time Stop Time Status Last Admin (Aspirin Chew) 81 mg DAILY CHEW 11/28/17 09:00 12/04/17 09:40 (Antivert) 25 mg Q6H PRN PO 11/27/17 18:15 (Lyrica) 75 mg TID PO 11/28/17 09:00 12/05/17 08:17 (Zofran Odt) 8 mg BID PRN SL 11/27/17 18:30 Sodium Chloride 1,000 ml @ 84 mls/hr [id number] IV 11/27/17 19:00 Future Hold 12/02/17 21:32 (NS Flush) 2 ml UNSCH PRN IV FLUSH 11/27/17 19:00 (NS Flush) 2 ml BID IV FLUSH 11/27/17 21:00 12/04/17 21:52 (Tylenol) 650 mg Q6H PRN PO 11/27/17 19:00 12/04/17 12:42 (Morphine Inj) 2 mg Q2H PRN IV PUSH 11/27/17 19:00 (Zofran Inj) 4 mg Q6H PRN IV PUSH 11/27/17 19:00 (Duoneb Neb) 1 ampule Q2HR NEB PRN INH 11/27/17 19:00 12/05/17 03:49 (Heparin Inj) 5,000 units Q8H SQ 11/27/17 20:00 12/05/17 04:07 ([facility] [place] [facility] Information) 1 Q361D XX 11/27/17 19:00 11/27/17 19:00 (Chlorhexidine 2% Cloth) Taper DAILY@04 TOP 11/28/17 04:00 11/24/18 03:59 11/29/17 04:00 (Chlorhexidine 2% Cloth) 3 pack UNSCH PRN TOP 11/27/17 19:00 (Vannessa-Colace) 1 tab BID PO 11/27/17 21:00 12/04/17 21:52 (Milk Of Magnesia Liq) 30 ml Q12H PRN PO 11/27/17 19:00 (Senokot) 17.2 mg Q12H PRN PO 11/27/17 19:00 12/04/17 12:42 (Dulcolax Supp) 10 mg DAILY PRN RECTAL 11/27/17 19:00 (Lactulose Liq) 30 ml DAILY PRN PO 11/27/17 19:00 (Brethine Inj) 1 mg UNSCH PRN SQ 11/27/17 19:00 (D50w (Vial) Inj) 25 ml UNSCH PRN IV PUSH 11/28/17 08:45 (NovoLIN R SUPPLEMENTAL SCALE) 1 Q4HR SQ 11/28/17 12:00 12/04/17 21:53 Sodium Chloride 1,000 ml @ 0 mls/hr Q0M PRN OTHER 11/28/17 09:51 (Heparin Inj) 8,000 units UNSCH PRN IV FLUSH 11/28/17 10:00 Sodium Chloride 1,000 ml @ 200 mls/hr Q5H PRN IV 11/28/17 09:51 Sodium Chloride 1,000 ml @ 0 mls/hr Q0M PRN OTHER 11/28/17 09:51 (Mannitol Inj) 12.5 gm UNSCH PRN IV 11/28/17 10:00 Albumin Human 100 ml @ 60 mls/hr UNSCH PRN IV 11/28/17 10:00 (NS Flush) 5 ml UNSCH PRN IV FLUSH 11/28/17 10:00 (Heparin Inj) UNSCH PRN .XX 11/28/17 10:00 12/03/17 12:10 (Gentamicin Inj) 20 mg UNSCH PRN OTHER 11/28/17 10:00 12/03/17 12:18 (Zofran Inj) 4 mg UNSCH PRN IV PUSH 11/28/17 10:00 (Tylenol) 650 mg UNSCH PRN PO 11/28/17 10:00 (Benadryl) 25 mg UNSCH PRN PO 11/28/17 10:00 (Nitrostat Sl) 0.4 mg UNSCH PRN SL 11/28/17 10:00 12/03/17 12:09 (Catapres) 0.1 mg UNSCH PRN PO 11/28/17 10:00 (Gelfoam 12 Mm/7 Mm Top) 1 foam UNSCH PRN TOP 11/28/17 10:00 (Emla Cream) 1 applic WITH DIALYSIS PRN TOPICAL 11/28/17 11:00 (Oscal) 500 mg Q12HR PO 11/29/17 09:45 12/04/17 21:52 Daptomycin 700 mg/ Sodium Chloride 100 ml @ 200 mls/hr Q48H IV 11/30/17 13:00 12/04/17 12:31 (Levaquin) 250 mg DAILY PO 5/23/18 12:00 12/04/17 09:40 (Pepcid) 10 mg BID PO 11/30/17 21:00 12/04/17 21:52 (Ultram) 100 mg Q6H PRN PO 11/30/17 18:15 12/03/17 03:40 (NS Flush) DAILY IVF 12/03/17 09:00 12/04/17 09:41 (Heparin Central Flush) DAILY IV FLUSH 12/03/17 09:00 12/04/17 09:39 (NS Flush) UNSCH PRN IVF 12/02/17 15:15 (Heparin Central Flush) UNSCH PRN IV FLUSH 12/02/17 15:15 (Epogen Inj) 10,000 units MoWeFr SQ 12/05/17 09:00 (Nephrocaps) 1 cap DAILY PO 12/05/17 09:00 Lines Vascath PIV Past Medical History ESRD Diabetes mellitus Hypertension COPD Obesity Past Surgical History R barchiocephalic AVF 2013 Superficialization AVF 2015 Previous permacath placement - patient states recently exchanged due to poor flow Previous colonoscopy Allergies: Coded Allergies: Sulfa (Sulfonamide Antibiotics) (Unverified Allergy, Severe, TONGUE AND GENERALIZED SWELLING, 06/10/17) iodine (Unverified Allergy, Severe, 06/10/17) iohexol (Unverified Allergy, Severe, TONGUE AND GENERALIZED SWELLING, 06/10) penicillin G (Unverified Allergy, Severe, TONGUE AND GENERALIZED SWELLING , 06/10/17) potassium iodide (Unverified Allergy, Severe, 06/10/17) povidone-iodine (Unverified Allergy, Severe, 06/10/17) sodium iodide (Unverified Allergy, Severe, 06/10/17) sodium iodide (Unverified Allergy, Severe, 06/10/17) Iodinated Contrast- Oral and IV Dye (Unverified Allergy, Unknown, 06/10/17) *MDRO Multi-Drug Resistant Organism (Verified Adverse Reaction, Unknown, MRSA, 06/10/17) MRSA PCR (nares) POSITIVE - 10/31/15 MRSA (blood & sputum) - 10/31/15 ESBL Klebsiella Pneumoniae (urine-06/26/16) Objective . Vital Signs Date Time Temp Pulse Resp B/P (MAP) Pulse Ox O2 Delivery O2 Flow Rate FiO2 12/05/17 09:17 98 Nasal Cannula 4.00 12/05/17 08:11 98.0 88 20 117/60 (79) 97 12/05/17 04:51 90 12/05/17 04:46 98.0 86 20 136/63 (87) 98 12/05/17 04:46 Nasal Cannula 4.00 12/05/17 03:49 96 Nasal Cannula 4.00 12/05/17 00:00 89 12/05/17 00:00 98.5 87 16 139/60 (86) 100 12/04/17 20:30 100 Nasal Cannula 4.00 12/04/17 20:00 97.6 87 16 140/56 (84) 100 12/04/17 20:00 Nasal Cannula 4.00 12/04/17 20:00 90 12/04/17 17:23 97 Nasal Cannula 3.00 12/04/17 15:49 97.8 106 18 135/64 (87) 100 . Laboratory Tests Test 12/04/17 09:50 12/05/17 09:45 White Blood Count 8.5 TH/MM3 6.5 TH/MM3 Red Blood Count 2.90 MIL/MM3 2.62 MIL/MM3 Hemoglobin 8.1 GM/DL 7.2 GM/DL Hematocrit 25.4 % 22.7 % Mean Corpuscular Volume 87.6 FL 86.8 FL Mean Corpuscular Hemoglobin 28.0 PG 27.7 PG Mean Corpuscular Hemoglobin Concent 31.9 % 31.9 % Red Cell Distribution Width 17.1 % 17.1 % Platelet Count 304 TH/MM3 317 TH/MM3 Mean Platelet Volume 9.3 FL 8.9 FL Laboratory Tests Test 12/04/17 09:50 12/05/17 09:45 Blood Urea Nitrogen 19 MG/DL 26 MG/DL Creatinine 4.44 MG/DL 5.16 MG/DL Random Glucose 139 MG/DL 141 MG/DL Calcium Level 8.7 MG/DL 8.2 MG/DL Sodium Level 140 MEQ/L 141 MEQ/L Potassium Level 5.1 MEQ/L 5.0 MEQ/L Chloride Level 103 MEQ/L 102 MEQ/L Carbon Dioxide Level 30.7 MEQ/L 34.7 MEQ/L Anion Gap 6 MEQ/L 4 MEQ/L Estimat Glomerular Filtration Rate 10 ML/MIN 8 ML/MIN Imaging Chest X-Ray 11/28/17 0000 Signed Impressions: Service Date/Time: Tuesday, November 28, 2017 11:55 - CONCLUSION: 1. Stable elevation right hemidiaphragm with concomitant atelectatic changes in the right base. Left lung remains clear. 2. Borderline prominent but well compensated heart. 3. Stable position of right IJ dialysis type catheter. Jose Turner MD Physical Exam GENERAL: awake and alert, oriented x 3, not in respiratory distress. SKIN: Cool and dry. No generalized rash, no ecchymoses and no evidence of embolic lesions. HEAD: Atraumatic. Normocephalic. No temporal wasting, or tenderness. EYES: [place] conjunctiva. No petechia or hemorrhage. Pupils equal, round and reactive to light. Extraocular movements full and intact. No scleral icterus. No injection or drainage. EARS, NOSE AND THROAT: Nose without bleeding or purulent nasal discharge. No sinus tenderness. Mucous membranes pink and moist. No oral lesions noted. NECK: Trachea midline. Supple and not tender, no meningeal signs CARDIOVASCULAR: Regular rate and rhythm. No murmurs, rubs or gallops heard. Previous permacath site drying up, area of tunneling improving . RESPIRATORY: Clear to auscultation. Breath sounds equal bilaterally. No rales , wheezing or rhonchi. Decreased breath sounds at the bases. ABDOMEN: Soft, obese, non-tender, nondistended. Bowel sounds present and normoactive. No guarding. No rebound. No organomegaly. : Langley catheter in place, has a small amount of urine, and the urine looks very dark and concentrated EXTREMITIES: No clubbing, cyanosis, or edema. No joint effusion, has good ROM. No calf tenderness. Well perfused and warm. AV fistula in the right upper extremity with a good thrill, has well healed incisions, with no evidence of infection. NEUROLOGICAL: Awake and alert. Cranial nerves grossly intact. Motor grossly within normal limits. PSYCHIATRIC: Normal affect, calm and cooperative. LINE: No evidence of infection Assessment & Plan Remarks IMPRESSION Sepsis syndrome on presentation, with transient hypotension - has MRSA in 2 BC, very suspicious for HD cath related sepsis - also with UTI - leukocytosis, shock, decreased LOC High grade MRSA sepsis, likely permacath related UTI, Kleb/ecoli ESRD Leukocytosis due to sepsis, better RECOMMENDATION Follow C/S Levaquin for UTI - plan to give till 12/07 Continue Cubicin, if no new (+) BC will switch back to Vanco with HD Will give 6 weeks IV vanco from date of first neg BC - anticipated end date January 10 Monitor progress Jenifer Crystal MD December 05, 2017 12:47
[2017-12-05] MEDS: GENTAMICIN SULFATE 20 MG/2 ML VIAL OTHER PRN (13:00)
[2017-12-05] MEDS: HEPARIN SODIUM - IV 10,000 UNITS/10 ML VIAL PRN (13:00)
[2017-12-05] MEDS: LEVOFLOXACIN 250 MG TAB PO SCH (14:46)
[2017-12-05] MEDS: CALCIUM CARBONATE 1.25 GM (CA 500 MG) TAB PO SCH ×2 (14:46→23:24)
[2017-12-05] MEDS: FAMOTIDINE 20 MG TAB PO SCH ×2 (14:46→23:24)
[2017-12-05] MEDS: ASPIRIN 81 MG CHEW TAB CHEW SCH (14:46)
[2017-12-05] MEDS: VITAMIN B CMPLX/VITC/FOLIC AC CAP PO SCH (14:46)
--- NOTE | 2017-12-05 17:02 | PD.VS.PN ---
Subjective Subjective/Hospital Course Pt with persistent chills but no fevers. Most recent blood cultures negative. Duplex shows patent AVF but hard to interpret: my assessment is BC AVF with PTFE interposition and then central stent. Objective Vitals/I&O Date Time Temp Pulse Resp B/P (MAP) Pulse Ox O2 Delivery O2 Flow Rate FiO2 12/05/17 09:17 98 Nasal Cannula 4.00 12/05/17 08:11 98.0 88 20 117/60 (79) 97 12/05/17 08:00 96 Nasal Cannula 4.00 12/05/17 08:00 82 12/05/17 04:51 90 12/05/17 04:46 98.0 86 20 136/63 (87) 98 12/05/17 04:46 Nasal Cannula 4.00 12/05/17 03:49 96 Nasal Cannula 4.00 12/05/17 00:00 89 12/05/17 00:00 98.5 87 16 139/60 (86) 100 12/04/17 20:30 100 Nasal Cannula 4.00 12/04/17 20:00 97.6 87 16 140/56 (84) 100 12/04/17 20:00 Nasal Cannula 4.00 12/04/17 20:00 90 12/04/17 17:23 97 Nasal Cannula 3.00 12/05/17 12/05/17 12/05/17 06:59 14:59 22:59 Intake Total 240 ml Output Total 100 ml 3000 ml Balance 140 ml -3000 ml Physical Exam Mild hematoma R UE and slightly tender + thrill near AC but lose it more centrally Laboratory Laboratory Tests Test 12/05/17 09:45 White Blood Count 6.5 Red Blood Count 2.62 Hemoglobin 7.2 Hematocrit 22.7 Mean Corpuscular Volume 86.8 Mean Corpuscular Hemoglobin 27.7 Mean Corpuscular Hemoglobin Concent 31.9 Red Cell Distribution Width 17.1 Platelet Count 317 Mean Platelet Volume 8.9 Blood Urea Nitrogen 26 Creatinine 5.16 Random Glucose 141 Calcium Level 8.2 Sodium Level 141 Potassium Level 5.0 Chloride Level 102 Carbon Dioxide Level 34.7 Anion Gap 4 Estimat Glomerular Filtration Rate 8 Date/Time Source Procedure Growth Status 12/01/17 05:52 Blood Peripheral Aerobic Blood Culture - Preliminary NO GROWTH IN 4 DAYS Resulted 12/01/17 05:52 Blood Peripheral Anaerobic Blood Culture - Preliminary NO GROWTH IN 4 DAYS Resulted 11/27/17 15:35 Urine Catheterized Urine Urine Culture - Final Klebsiella Pneumoniae Multi-Drug Resistant Escherichia Coli Complete 11/29/17 10:00 Catheter Tip Other Wound Culture - Final NO GROWTH IN 72 HOURS Complete Imaging Last 48 hours Impressions Upper Extremity Ultrasound 12/05/17 0000 Signed Impressions: CONCLUSION: 1. The patient's new brachial artery graft is patent and the old AV fistula is clotted. There is soft tissue hematoma appears to be organized and measures al most 4.2 cm. Assessment and Plan Plan MRSA bacteremia but most recent blood cultures negative R UE duplex shows hematoma but no fluid around graft R chest wall indurated and not overtly infected, doubt that this is source of bacteremia 1. I would suggest changing the VasCath to tunneled catheter if blood culture remains negative 2. Given hematoma and difficulty with cannulation, would advise avoiding access R UE for a few weeks and may in fact need surgical revision. 3. Can f/u in my clinic or with Dr. Jaswant Rodgers MD FACS [employer] director business travel [facility] [phone] Dimas Rodgers MD December 05, 2017 17:01
--- NOTE | 2017-12-05 17:58 | HHI.NPPN ---
Subjective History of Present Illness This patient is a 72-year-old -Citizen Of [place] female with a history of end- stage renal disease, diabetes mellitus, multiple myeloma. This patient does have a functional AV dialysis shunt in place but has been refusing to let us access it for dialysis access despite ongoing counseling regarding risks associated with the presence of a hemodialysis PermCath particularly risk of infection. She in fact had this PermCath changed November 17, 2017 at an outpatient interventional nephrology center. Patient now presents with altered mental status status now noted to have evidence of bacteremia with a preliminary report of gram-positive cocci. She also has a history of previous UTIs recurrent. Patient now noted to have hyperkalemia and a low total CO2 level with a requirement for acute dialysis today. Interval History s/p HD today No issues with VasCath Feeling OK Anxious to go home (Zenaida Fang) Review of Systems General Constitutional: Fatigue (Zenaida Fang) Objective Data Data 12/05/17 12/06/17 19:00 07:00 Output Total 3000 ml Balance -3000 ml Hemodialysis 3000 ml Vital Signs Date Time Temp Pulse Resp B/P (MAP) Pulse Ox O2 Delivery O2 Flow Rate FiO2 12/05/17 09:17 98 Nasal Cannula 4.00 12/05/17 08:11 98.0 88 20 117/60 (79) 97 12/05/17 08:00 96 Nasal Cannula 4.00 12/05/17 08:00 82 12/05/17 04:51 90 12/05/17 04:46 98.0 86 20 136/63 (87) 98 12/05/17 04:46 Nasal Cannula 4.00 12/05/17 03:49 96 Nasal Cannula 4.00 12/05/17 00:00 89 12/05/17 00:00 98.5 87 16 139/60 (86) 100 12/04/17 20:30 100 Nasal Cannula 4.00 12/04/17 20:00 97.6 87 16 140/56 (84) 100 12/04/17 20:00 Nasal Cannula 4.00 12/04/17 20:00 90 (Zenaida Fang) -: 12/05/17 0945 12/05/17 0945 Imaging Last Impressions Upper Extremity Ultrasound 12/05/17 0000 Signed Impressions: CONCLUSION: 1. The patient's new brachial artery graft is patent and the old AV fistula is clotted. There is soft tissue hematoma appears to be organized and measures al most 4.2 cm. Chest X-Ray 12/02/17 0000 Signed Impressions: CONCLUSION: 1. Left IJ dialysis catheter in good position without pneumothorax. 2. Stable right lung base atelectasis. Tubes & Lines: Vas-Cath ([facility]) Medication Review Current Medications Medications (Trade) Dose Ordered Sig/Carson Route Start Time Stop Time Status Last Admin (Aspirin Chew) 81 mg DAILY CHEW 11/28/17 09:00 12/05/17 14:46 (Antivert) 25 mg Q6H PRN PO 11/27/17 18:15 (Lyrica) 75 mg TID PO 11/28/17 09:00 12/05/17 14:45 (Zofran Odt) 8 mg BID PRN SL 11/27/17 18:30 Sodium Chloride 1,000 ml @ 84 mls/hr [id number] IV 11/27/17 19:00 Future Hold 12/02/17 21:32 (NS Flush) 2 ml UNSCH PRN IV FLUSH 11/27/17 19:00 (NS Flush) 2 ml BID IV FLUSH 11/27/17 21:00 12/04/17 21:52 (Tylenol) 650 mg Q6H PRN PO 11/27/17 19:00 12/04/17 12:42 (Morphine Inj) 2 mg Q2H PRN IV PUSH 11/27/17 19:00 (Zofran Inj) 4 mg Q6H PRN IV PUSH 11/27/17 19:00 (Duoneb Neb) 1 ampule Q2HR NEB PRN INH 11/27/17 19:00 12/05/17 03:49 (Heparin Inj) 5,000 units Q8H SQ 11/27/17 20:00 12/05/17 04:07 ([facility] [place] Nursing Information) 1 Q361D XX 11/27/17 19:00 11/27/17 19:00 (Chlorhexidine 2% Cloth) Taper DAILY@04 TOP 11/28/17 04:00 11/24/18 03:59 11/29/17 04:00 (Chlorhexidine 2% Cloth) 3 pack UNSCH PRN TOP 5/20/18 19:00 (Vannessa-Colace) 1 tab BID PO 11/27/17 21:00 12/04/17 21:52 (Milk Of Magnesia Liq) 30 ml Q12H PRN PO 11/27/17 19:00 (Senokot) 17.2 mg Q12H PRN PO 11/27/17 19:00 12/04/17 12:42 (Dulcolax Supp) 10 mg DAILY PRN RECTAL 11/27/17 19:00 (Lactulose Liq) 30 ml DAILY PRN PO 11/27/17 19:00 (Brethine Inj) 1 mg UNSCH PRN SQ 11/27/17 19:00 (D50w (Vial) Inj) 25 ml UNSCH PRN IV PUSH 11/28/17 08:45 (NovoLIN R SUPPLEMENTAL SCALE) 1 Q4HR SQ 11/28/17 12:00 12/04/17 21:53 Sodium Chloride 1,000 ml @ 0 mls/hr Q0M PRN OTHER 11/28/17 09:51 12/05/17 13:00 (Heparin Inj) 8,000 units UNSCH PRN IV FLUSH 11/28/17 10:00 Sodium Chloride 1,000 ml @ 200 mls/hr Q5H PRN IV 11/28/17 09:51 Sodium Chloride 1,000 ml @ 0 mls/hr Q0M PRN OTHER 11/28/17 09:51 (Mannitol Inj) 12.5 gm UNSCH PRN IV 11/28/17 10:00 Albumin Human 100 ml @ 60 mls/hr UNSCH PRN IV 11/28/17 10:00 (NS Flush) 5 ml UNSCH PRN IV FLUSH 11/28/17 10:00 (Heparin Inj) UNSCH PRN .XX 11/28/17 10:00 12/05/17 13:00 (Gentamicin Inj) 20 mg UNSCH PRN OTHER 11/28/17 10:00 12/05/17 13:00 (Zofran Inj) 4 mg UNSCH PRN IV PUSH 11/28/17 10:00 (Tylenol) 650 mg UNSCH PRN PO 11/28/17 10:00 (Benadryl) 25 mg UNSCH PRN PO 11/28/17 10:00 (Nitrostat Sl) 0.4 mg UNSCH PRN SL 11/28/17 10:00 12/03/17 12:09 (Catapres) 0.1 mg UNSCH PRN PO 11/28/17 10:00 (Gelfoam 12 Mm/7 Mm Top) 1 foam UNSCH PRN TOP 11/28/17 10:00 (Emla Cream) 1 applic WITH DIALYSIS PRN TOPICAL 11/28/17 11:00 (Oscal) 500 mg Q12HR PO 11/29/17 09:45 12/05/17 14:46 Daptomycin 700 mg/ Sodium Chloride 100 ml @ 200 mls/hr Q48H IV 11/30/17 13:00 12/04/17 12:31 (Levaquin) 250 mg DAILY PO 11/30/17 12:00 12/07/17 23:00 12/05/17 14:46 (Pepcid) 10 mg BID PO 11/30/17 21:00 12/05/17 14:46 (Ultram) 100 mg Q6H PRN PO 11/30/17 18:15 12/03/17 03:40 (NS Flush) DAILY IVF 12/03/17 09:00 12/04/17 09:41 (Heparin Central Flush) DAILY IV FLUSH 12/03/17 09:00 12/04/17 09:39 (NS Flush) UNSCH PRN IVF 12/02/17 15:15 (Heparin Central Flush) UNSCH PRN IV FLUSH 12/02/17 15:15 (Epogen Inj) 10,000 units MoWeFr SQ 12/05/17 09:00 12/05/17 12:45 (Nephrocaps) 1 cap DAILY PO 12/05/17 09:00 12/05/17 14:46 (Zenaida Fang) Physical Exam General Appearance: Comfortable (Zenaida Fang) Eyes Eye Exam: Pupils Equal (Zenaida Fang) Throat Throat Exam: Oral Mucosa [place] & Moist (Zenaida Fang) Neck Neck Exam: Neck Supple, Trachea Midline (Zenaida Fang) Pulmonary Resp Exam: Clear Bilaterally, Breath Sounds Equal (Zenaida Fang) Cardiology CV Exam: Regular, Normal Sinus Rhythm (Zenaida Fang) Chest/Breast Chest/Breast Remarks Reproducible palpable tenderness R upper chest at site of previous PermaCath. Tunnel feels inflamed. Steri-strips covering previous opening. (Zenaida Fang) Gastrointestinal/Abdomen GI Exam: Soft, Non-Tender (Zenaida Fang) Integumentary Skin Exam: Clear, Warm (Zenaida Fang) Extremeties Extremities Exam: No Edema (Zenaida Fang) Neurologic Neuro Exam: Alert, Awake (Zenaida Fang) Psychiatric Psych Exam: Appropriate Responses (Zenaida Fang) Assessment/Plan Discussed Condition With: Patient, Spouse Problem List: (1) ESRD (end stage renal disease) on dialysis ICD Codes: N18.6 - End stage renal disease; Z99.2 - Dependence on renal dialysis Status: Chronic Plan: s/p HD this AM. Continue MWF schedule Repeat blood cultures remain negative. Await report from Vascular regarding her AVG. US results noted Likely needs to be superficialized. If this is the case, will plan on conversion of VasCath to PermaCath within the next 24-48h in anticipation of discharge. She was counselled that this is a temporary thing and that our ultimate goal is to start cannulating her AVG. She was in agreement Medication should be adjusted for her end-stage renal disease when indicated. Avoid gadolinium. (2) Bacteremia ICD Codes: R78.81 - Bacteremia Plan: ID on board BCx neg x4 days Potential switch to Vanco at discharge to be continued x6 weeks as per ID (3) Hyperparathyroidism, secondary renal ICD Codes: N25.81 - Secondary hyperparathyroidism of renal origin Status: Acute (4) Anemia of renal disease ICD Codes: D63.1 - Anemia in chronic kidney disease Status: Acute (5) HTN (hypertension) ICD Codes: I10 - Essential (primary) hypertension Status: Chronic (6) Diabetes mellitus ICD Codes: E11.9 - Diabetes mellitus Status: Chronic (Zenaida Fang) Plan The exam, history, and the medical decision-making described in the above note were completed with the assistance of the PAKam. I reviewed and agree with the findings presented. (Manny Vasquez MD) Zenaida Fang December 05, 2017 17:58 Manny Vasquez MD December 07, 2017 17:23
[2017-12-05] MEDS: traMADol HCL 50 MG TAB PO PRN (23:24)
[2017-12-06] VITALS (7 sets, daily range): BP systolic 115–149; BP diastolic 48–62; PULSE 81–96; RESP 18–20; TEMP 97.8–98.6; O2SAT 93–99
[2017-12-06] MEDS: INSULIN NovoLIN REGULAR SUPPLEMENTAL SCALE SQ SCH ×4 (03:00→21:37)
[2017-12-06] MEDS: CHLORHEXIDINE GLUCONATE 2 % 1 PACK (2 CLOTHS) TOP SCH (04:00)
[2017-12-06] MEDS: HEPARIN SODIUM - SQ 10,000 UNITS/ML VIAL SQ SCH ×3 (04:55→21:36)
[2017-12-06 05:31] LABS: HEMATOCRIT 24.9 % (35.0-46.0)
--- NOTE | 2017-12-06 07:48 | RADRPT ---
EXAM DATE: 11/29/2017 10:39 AM EDT AGE/SEX: 72 years / Female INDICATIONS: Patient presents with end-stage renal disease in need of dialysis catheter removal for culture. CLINICAL DATA: This is the patient's subsequent encounter. Patient reports that signs and symptoms h ave been present for 2 days and indicates a pain score of 0/10. MEDICAL/SURGICAL HISTORY: Chronic obstructive pulmonary disease. ERSDDMHTNHX MRSAMultiple myelo maHx UTIAsthmaCADGERDAnemiaMorbid obesity AppendectomyCholecystectomyRight Av fistulaPermcath hx COMPARISON: . No external comparison. IMAGE SERIES: ACCESS SITE: DEVICE(S): . . PROCEDURE: 1. PermaCath removal. The risks, benefits and alternatives to the procedure were explained and verbal and written consent w as obtained. The site was prepped in sterile fashion. Full sterile technique was used, including ca p, mask, sterile gloves and gown and a large sterile sheet. Hand hygiene and 2% chlorhexidine and/or betadine/alcohol prep was utilized per protocol for cutaneous antisepsis. The skin and subcutaneous tissues were infiltrated with local anesthetic solution. The tract was anesthetized with 1% Lidocaine using. The Permcath was dissected from the subcutaneous tissues and easily removed in one piece. Manual pressure was applied to the venotomy site until hem ostasis was obtained. Sterile dressing was applied. The patient tolerated the procedure well and there were no complications. CONCLUSION: 1. Uncomplicated Permcath removal. Electronically signed by: Yvan Dorman MD 12/06/2017 7:46 AM EDT
[2017-12-06] MEDS: ASPIRIN 81 MG CHEW TAB CHEW SCH (09:13)
[2017-12-06] MEDS: PREGABALIN 75 MG CAP PO SCH ×2 (09:13→15:58)
[2017-12-06] MEDS: CALCIUM CARBONATE 1.25 GM (CA 500 MG) TAB PO SCH ×2 (09:13→21:36)
[2017-12-06] MEDS: VITAMIN B CMPLX/VITC/FOLIC AC CAP PO SCH (09:13)
[2017-12-06] MEDS: FAMOTIDINE 20 MG TAB PO SCH ×2 (09:14→21:35)
[2017-12-06] MEDS: LEVOFLOXACIN 250 MG TAB PO SCH (09:14)
[2017-12-06] MEDS: DOCUSATE SODIUM 50 MG/SENNA 8.6 MG TAB PO SCH ×2 (09:14→21:39)
[2017-12-06] MEDS: traMADol HCL 50 MG TAB PO PRN ×2 (09:14→21:49)
[2017-12-06] MEDS: SODIUM CHLORIDE 0.9% FLUSH 10 ML FLUSH IVF SCH (09:15)
[2017-12-06] MEDS: SODIUM CHLORIDE 0.9% FLUSH 10 ML FLUSH IV FLUSH SCH (09:15)
--- NOTE | 2017-12-06 09:26 | HHI.IDPN ---
Subjective Subjective Remarks Patient is a 72-year-old female, brought into the hospital for evaluation of decreased level of consciousness. Patient was apparently in her usual self, and on the day of admission her and the home health aide has been trying very hard to keep her awake. She was apparently quite lethargic. She was brought into the hospital and initially was lethargic. She had a fever of 105.1. She was hypotensive briefly. Her WBC was 14,000. Chest x-ray showed elevated right hemidiaphragm and possible atelectasis, no change compared to prior chest x-ray. Her urinalysis showed significant pyuria, and a Langley was placed. 2 blood cultures were done, and they are now reported as growing gram- positive cocci in pairs and clusters. Patient at the time of my exam is awake and alert and oriented to time place and person. She does not remember having any fever or chills at home. When she had her hemodialysis her temperature was normal. She denies any significant respiratory complaints, GI complaint as far as abdominal pain, nausea or vomiting. Patient apparently has chronic dysuria since she has been on dialysis. She has very little urine output. According to the patient she also gets symptoms of dizziness, and some neck pain, always after she gets done with her hemodialysis. Patient gets dialyzed Tuesday and Tuesday. She has a permacath that gets used for her dialysis. She has an AV fistula, which seems to be functioning, but the patient stated that she does not want it used because the dialysis nurse always has a problem accessing her AV fistula. Patient currently is afebrile, and her blood pressure is better. She is currently on cefepime, and she got a dose of vancomycin yesterday. Infectious disease consultation has been requested to evaluate the patient. Notes reviewed Temps ok Previous permacath site better Has vascath L side C/O dysuria again - voids very infrequently, had voided today and had some dysuria All blood cultures with MRSA till 11/29 BC 11/30 negative so far Urine culture with Kleb and Ecoli BP okay WBC better Antibiotics Cubicin Levaquin Current Medications Medications (Trade) Dose Ordered Sig/Carson Route Start Time Stop Time Status Last Admin (Aspirin Chew) 81 mg DAILY CHEW 11/28/17 09:00 12/06/17 09:13 (Antivert) 25 mg Q6H PRN PO 11/27/17 18:15 (Lyrica) 75 mg TID PO 11/28/17 09:00 12/06/17 09:13 (Zofran Odt) 8 mg BID PRN SL 11/27/17 18:30 Sodium Chloride 1,000 ml @ 84 mls/hr [id number] IV 11/27/17 19:00 Future Hold 12/02/17 21:32 (NS Flush) 2 ml UNSCH PRN IV FLUSH 11/27/17 19:00 (NS Flush) 2 ml BID IV FLUSH 11/27/17 21:00 12/06/17 09:15 (Tylenol) 650 mg Q6H PRN PO 11/27/17 19:00 12/04/17 12:42 (Morphine Inj) 2 mg Q2H PRN IV PUSH 11/27/17 19:00 (Zofran Inj) 4 mg Q6H PRN IV PUSH 11/27/17 19:00 (Duoneb Neb) 1 ampule Q2HR NEB PRN INH 11/27/17 19:00 12/05/17 03:49 (Heparin Inj) 5,000 units Q8H SQ 11/27/17 20:00 12/06/17 04:55 ([facility] [place] [place]) 1 Q361D XX 11/27/17 19:00 11/27/17 19:00 (Chlorhexidine 2% Cloth) Taper DAILY@04 TOP 11/28/17 04:00 11/24/18 03:59 11/29/17 04:00 (Chlorhexidine 2% Cloth) 3 pack UNSCH PRN TOP 11/27/17 19:00 (Vannessa-Colace) 1 tab BID PO 11/27/17 21:00 12/06/17 09:14 (Milk Of Magnesia Liq) 30 ml Q12H PRN PO 11/27/17 19:00 (Senokot) 17.2 mg Q12H PRN PO 11/27/17 19:00 12/04/17 12:42 (Dulcolax Supp) 10 mg DAILY PRN RECTAL 11/27/17 19:00 (Lactulose Liq) 30 ml DAILY PRN PO 11/27/17 19:00 (Brethine Inj) 1 mg UNSCH PRN SQ 11/27/17 19:00 (D50w (Vial) Inj) 25 ml UNSCH PRN IV PUSH 11/28/17 08:45 Sodium Chloride 1,000 ml @ 0 mls/hr Q0M PRN OTHER 11/28/17 09:51 12/05/17 13:00 (Heparin Inj) 8,000 units UNSCH PRN IV FLUSH 11/28/17 10:00 Sodium Chloride 1,000 ml @ 200 mls/hr Q5H PRN IV 11/28/17 09:51 Sodium Chloride 1,000 ml @ 0 mls/hr Q0M PRN OTHER 11/28/17 09:51 (Mannitol Inj) 12.5 gm UNSCH PRN IV 11/28/17 10:00 Albumin Human 100 ml @ 60 mls/hr UNSCH PRN IV 11/28/17 10:00 (NS Flush) 5 ml UNSCH PRN IV FLUSH 11/28/17 10:00 (Heparin Inj) UNSCH PRN .XX 11/28/17 10:00 12/05/17 13:00 (Gentamicin Inj) 20 mg UNSCH PRN OTHER 11/28/17 10:00 12/05/17 13:00 (Zofran Inj) 4 mg UNSCH PRN IV PUSH 11/28/17 10:00 (Tylenol) 650 mg UNSCH PRN PO 11/28/17 10:00 (Benadryl) 25 mg UNSCH PRN PO 11/28/17 10:00 (Nitrostat Sl) 0.4 mg UNSCH PRN SL 11/28/17 10:00 12/03/17 12:09 (Catapres) 0.1 mg UNSCH PRN PO 11/28/17 10:00 (Gelfoam 12 Mm/7 Mm Top) 1 foam UNSCH PRN TOP 11/28/17 10:00 (Emla Cream) 1 applic WITH DIALYSIS PRN TOPICAL 11/28/17 11:00 (Oscal) 500 mg Q12HR PO 11/29/17 09:45 12/06/17 09:13 Daptomycin 700 mg/ Sodium Chloride 100 ml @ 200 mls/hr Q48H IV 11/30/17 13:00 12/07/17 06:00 12/04/17 12:31 (Levaquin) 250 mg DAILY PO 11/30/17 12:00 12/07/17 23:00 12/06/17 09:14 (Pepcid) 10 mg BID PO 11/30/17 21:00 12/06/17 09:14 (Ultram) 100 mg Q6H PRN PO 11/30/17 18:15 12/06/17 09:14 (NS Flush) DAILY IVF 12/03/17 09:00 12/06/17 09:15 (Heparin Central Flush) DAILY IV FLUSH 12/03/17 09:00 12/04/17 09:39 (NS Flush) UNSCH PRN IVF 12/02/17 15:15 (Heparin Central Flush) UNSCH PRN IV FLUSH 12/02/17 15:15 (Epogen Inj) 10,000 units MoWeFr SQ 12/05/17 09:00 12/05/17 12:45 (Nephrocaps) 1 cap DAILY PO 12/05/17 09:00 12/06/17 09:13 (NovoLIN R SUPPLEMENTAL SCALE) 1 DAILY@0300,0800,1200 SQ 12/06/17 03:00 (NovoLIN R SUPPLEMENTAL SCALE) 1 DAILY@1700,2100 SQ 12/06/17 17:00 Vancomycin HCl 1000 mg/Sodium Chloride 250 ml @ 250 mls/hr WITH DIALYSIS IV 12/07/17 08:00 UNV (Pyridium) 100 mg Q8H PRN PO 12/06/17 09:30 UNV Lines Vascath PIV Past Medical History ESRD Diabetes mellitus Hypertension COPD Obesity Past Surgical History R barchiocephalic AVF 2013 Superficialization AVF 2015 Previous permacath placement - patient states recently exchanged due to poor flow Previous colonoscopy Allergies: Coded Allergies: Sulfa (Sulfonamide Antibiotics) (Unverified Allergy, Severe, TONGUE AND GENERALIZED SWELLING, 06/10/17) iodine (Unverified Allergy, Severe, 06/10/17) iohexol (Unverified Allergy, Severe, TONGUE AND GENERALIZED SWELLING, 06/10) penicillin G (Unverified Allergy, Severe, TONGUE AND GENERALIZED SWELLING , 06/10/17) potassium iodide (Unverified Allergy, Severe, 06/10/17) povidone-iodine (Unverified Allergy, Severe, 06/10/17) sodium iodide (Unverified Allergy, Severe, 06/10/17) sodium iodide (Unverified Allergy, Severe, 06/10/17) Iodinated Contrast- Oral and IV Dye (Unverified Allergy, Unknown, 06/10/17) *MDRO Multi-Drug Resistant Organism (Verified Adverse Reaction, Unknown, MRSA, 06/10/17) MRSA PCR (nares) POSITIVE - 10/31/15 MRSA (blood & sputum) - 10/31/15 ESBL Klebsiella Pneumoniae (urine-06/26/16) Objective . Vital Signs Date Time Temp Pulse Resp B/P (MAP) Pulse Ox O2 Delivery O2 Flow Rate FiO2 12/06/17 08:00 98.3 81 20 120/56 (77) 97 12/06/17 04:00 97.9 91 20 130/57 (81) 99 12/06/17 04:00 82 12/06/17 00:00 86 12/06/17 00:00 97.8 91 19 115/48 (70) 99 12/05/17 20:00 90 12/05/17 20:00 Nasal Cannula 4.00 12/05/17 20:00 98.1 92 20 132/55 (80) 100 12/05/17 16:11 98.1 86 20 118/62 (80) 98 . Laboratory Tests Test 12/04/17 09:50 12/05/17 09:45 12/06/17 04:30 White Blood Count 8.5 TH/MM3 6.5 TH/MM3 Red Blood Count 2.90 MIL/MM3 2.62 MIL/MM3 Hemoglobin 8.1 GM/DL 7.2 GM/DL 8.0 GM/DL Hematocrit 25.4 % 22.7 % 24.9 % Mean Corpuscular Volume 87.6 FL 86.8 FL Mean Corpuscular Hemoglobin 28.0 PG 27.7 PG Mean Corpuscular Hemoglobin Concent 31.9 % 31.9 % Red Cell Distribution Width 17.1 % 17.1 % Platelet Count 304 TH/MM3 317 TH/MM3 Mean Platelet Volume 9.3 FL 8.9 FL Laboratory Tests Test 12/04/17 09:50 12/05/17 09:45 Blood Urea Nitrogen 19 MG/DL 26 MG/DL Creatinine 4.44 MG/DL 5.16 MG/DL Random Glucose 139 MG/DL 141 MG/DL Calcium Level 8.7 MG/DL 8.2 MG/DL Sodium Level 140 MEQ/L 141 MEQ/L Potassium Level 5.1 MEQ/L 5.0 MEQ/L Chloride Level 103 MEQ/L 102 MEQ/L Carbon Dioxide Level 30.7 MEQ/L 34.7 MEQ/L Anion Gap 6 MEQ/L 4 MEQ/L Estimat Glomerular Filtration Rate 10 ML/MIN 8 ML/MIN Imaging Chest X-Ray 11/28/17 0000 Signed Impressions: Service Date/Time: Tuesday, November 28, 2017 11:55 - CONCLUSION: 1. Stable elevation right hemidiaphragm with concomitant atelectatic changes in the right base. Left lung remains clear. 2. Borderline prominent but well compensated heart. 3. Stable position of right IJ dialysis type catheter. Jose Turner MD Physical Exam GENERAL: awake and alert, oriented x 3, not in respiratory distress. SKIN: Cool and dry. No generalized rash, no ecchymoses and no evidence of embolic lesions. HEAD: Atraumatic. Normocephalic. No temporal wasting, or tenderness. EYES: [place] conjunctiva. No petechia or hemorrhage. Pupils equal, round and reactive to light. Extraocular movements full and intact. No scleral icterus. No injection or drainage. EARS, NOSE AND THROAT: Nose without bleeding or purulent nasal discharge. No sinus tenderness. Mucous membranes pink and moist. No oral lesions noted. NECK: Trachea midline. Supple and not tender, no meningeal signs CARDIOVASCULAR: Regular rate and rhythm. No murmurs, rubs or gallops heard. Previous permacath site drying up, area of tunneling improving . RESPIRATORY: Clear to auscultation. Breath sounds equal bilaterally. No rales , wheezing or rhonchi. Decreased breath sounds at the bases. ABDOMEN: Soft, obese, non-tender, nondistended. Bowel sounds present and normoactive. No guarding. No rebound. No organomegaly. : Langley catheter in place, has a small amount of urine, and the urine looks very dark and concentrated EXTREMITIES: No clubbing, cyanosis, or edema. No joint effusion, has good ROM. No calf tenderness. Well perfused and warm. AV fistula in the right upper extremity with a good thrill, has well healed incisions, with no evidence of infection. NEUROLOGICAL: Awake and alert. Cranial nerves grossly intact. Motor grossly within normal limits. PSYCHIATRIC: Normal affect, calm and cooperative. LINE: No evidence of infection Assessment & Plan Remarks IMPRESSION Sepsis syndrome on presentation, with transient hypotension - has MRSA in 2 BC, very suspicious for HD cath related sepsis - also with UTI - leukocytosis, shock, decreased LOC High grade MRSA sepsis, likely permacath related UTI, Kleb/ecoli on Rx ESRD Leukocytosis due to sepsis, better RECOMMENDATION Follow C/S Levaquin for UTI - plan to give till 12/07 Try pyridium for symptomatic relief of her dysuria Restart Vanco - start with HD tomorrow - give Vanco until January 10 Stop Cubicin after today's dose She is clinically doing well from ID standpoint OK to have permacath Will need to arrange her IV Vanco with HD center Explained plan to the patient D/W Jenifer Rai MD December 06, 2017 09:26
--- NOTE | 2017-12-06 09:27 | HHI.FF ---
Infusion Therapy Location of Infusion Therapy: Dialysis Center Patient Information Patient Weight 115.7 kg Diagnosis: Diagnosis MRSA sepsis, high grade due to permacath infection Coded Allergies: Sulfa (Sulfonamide Antibiotics) (Unverified Allergy, Severe, TONGUE AND GENERALIZED SWELLING, 06/10/17) iodine (Unverified Allergy, Severe, 06/10/17) iohexol (Unverified Allergy, Severe, TONGUE AND GENERALIZED SWELLING, 06/10) penicillin G (Unverified Allergy, Severe, TONGUE AND GENERALIZED SWELLING , 06/10/17) potassium iodide (Unverified Allergy, Severe, 06/10/17) povidone-iodine (Unverified Allergy, Severe, 06/10/17) sodium iodide (Unverified Allergy, Severe, 06/10/17) sodium iodide (Unverified Allergy, Severe, 06/10/17) Iodinated Contrast- Oral and IV Dye (Unverified Allergy, Unknown, 06/10/17) *MDRO Multi-Drug Resistant Organism (Verified Adverse Reaction, Unknown, MRSA, 06/10/17) MRSA PCR (nares) POSITIVE - 10/31/15 MRSA (blood & sputum) - 10/31/15 ESBL Klebsiella Pneumoniae (urine-06/26/16) Administer Medication Vancomycin 1 gram IV q 48 hours w/Hemodialysis M,W,F Stop Treatment: Jan 10, 2018 Additional Information Venous access: Tunneled Catheter Additional Instructions [x] Peripheral flush and dressing changes per protocol [x] 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 [] May leave port accessed during therapy. [] May leave peripheral site accessed for duration of therapy. [x] If patient has SOB or respiratory distress, check oxygen saturation. If less than 90% or clinical signs of respiratory distress, administer oxygen at 2 L/min. via nasal cannula and notify physician. [x] Anaphylaxis/Reaction orders: * Stop infusion. * Keep IV line open with saline flush. * Notify physician. * Monitor vital signs every 15 minutes until symptoms resolve. * Check Oxygen saturation; Oxygen at 2 L/min. via nasal cannula if less than 90% or clinical signs of respiratory distress. * Administer diphenhydramine (Benadryl) 25 mg IV STAT, (unless patient has received as pre-med). May repeat once, if necessary. * Solu-Cortef 250 mg IVP over 30-60 seconds, use 100 mg vials for each dissolution. * Epinephrine (1mg/1 ml) 0.3 mg subcutaneously or IVP now with any signs of respiratory distress. * Check with physician for new additional pre-med orders if patient is re- challenged or re-treated. [x] May remove PICC line when treatment complete, after confirming with Physician. [x] If the patient is admitted to the hospital, the ED, or transferred via [facility] , complete transfer form including medication reconciliation order sheet. Jenifer Crystal MD December 06, 2017 09:27
[2017-12-06] MEDS ORDERED: PHENAZOPYRIDINE HCL 100 MG TAB PO PRN (09:30)
--- NOTE | 2017-12-06 10:13 | HHI.PR ---
Subjective Remarks in no acute distress. resting comfortably. no fever. Objective Vitals Vital Signs Date Time Temp Pulse Resp B/P (MAP) Pulse Ox O2 Delivery O2 Flow Rate FiO2 12/06/17 08:00 98.3 81 20 120/56 (77) 97 12/06/17 04:00 97.9 91 20 130/57 (81) 99 12/06/17 04:00 82 12/06/17 00:00 86 12/06/17 00:00 97.8 91 19 115/48 (70) 99 12/05/17 20:00 90 12/05/17 20:00 Nasal Cannula 4.00 12/05/17 20:00 98.1 92 20 132/55 (80) 100 12/05/17 16:11 98.1 86 20 118/62 (80) 98 I/O 12/05/17 12/05/17 12/05/17 12/06/17 12/06/17 12/06/17 07:00 15:00 23:00 07:00 15:00 23:00 Intake Total 240 ml 380 ml 120 ml Output Total 100 ml 3000 ml Balance 140 ml -3000 ml 380 ml 120 ml Intake Oral 240 ml 380 ml 120 ml Output Urine Total 100 ml Hemodialysis 3000 ml # Voids 1 1 1 # Bowel Movements 1 1 1 Result Diagram: 12/06/17 0430 12/05/17 0945 Imaging Last Impressions Upper Extremity Ultrasound 12/05/17 0000 Signed Impressions: CONCLUSION: 1. The patient's new brachial artery graft is patent and the old AV fistula is clotted. There is soft tissue hematoma appears to be organized and measures al most 4.2 cm. Chest X-Ray 12/02/17 0000 Signed Impressions: CONCLUSION: 1. Left IJ dialysis catheter in good position without pneumothorax. 2. Stable right lung base atelectasis. Central Venous Line 11/29/17 0000 Signed Impressions: CONCLUSION: 1. Uncomplicated Permcath removal. Objective Remarks GENERAL: This is a well-nourished, well-developed patient, in no apparent distress. CARDIOVASCULAR: Regular rate and regular rhythm without murmurs, gallops, or rubs. RESPIRATORY: Clear to auscultation. Breath sounds equal bilaterally. No wheezes , rales, or rhonchi. GASTROINTESTINAL: Abdomen soft, non-tender, nondistended. Normal, active bowel sounds MUSCULOSKELETAL: Extremities without clubbing, cyanosis, or edema. NEURO: Alert & Oriented x4 to person, place, time, situation. Moves all ext x4 Procedures perma-cath removal/ vas-cath placement. Medications and IVs Inpatient Medications Acetaminophen (Tylenol Supp) 650 mg ONCE ONCE RECTAL Last administered on 11/27at 16:07; Start 11/27/17 at 15:45; Stop 11/27/17 at 15:46; Status DC Acetaminophen (Tylenol) 650 mg UNSCH PRN PO for headach, pain1-10,T> 101F; Start 11/28/17 at 10:00 Albumin Human 100 ml @ 60 mls/hr UNSCH PRN IV WITH DIALYSIS; Start 11/28/17 at 10:00 Albuterol/ Ipratropium (Duoneb Neb) 1 ampule Q2HR NEB PRN INH WHEEZING Last administered on 12/05/17at 03:49; Start 11/27/17 at 19:00 Aspirin (Aspirin Chew) 81 mg DAILY CHEW Last administered on 12/06/17at 09:13; Start 11/28/17 at 09:00 Atorvastatin Calcium (Lipitor) 20 mg DAILY PO Last administered on 11/30/17at 08 :58; Start 11/28/17 at 09:00; Stop 11/30/17 at 11:15; Status DC Azithromycin 500 mg/Sodium Chloride 250 ml @ 250 mls/hr ONCE STAT IV Last administered on 11/27/17at 16:28; Start 11/27/17 at 15:23; Stop 11/27/17 at 16:22 ; Status DC Bisacodyl (Dulcolax Supp) 10 mg DAILY PRN RECTAL SEVERE CONSITIPATION; Start at 19:00 Calcium Carbonate (Oscal) 500 mg Q12HR PO Last administered on 12/06/17at 09:13 ; Start 11/29/17 at 09:45 Cefepime HCl 1000 mg/Sodium Chloride 100 ml @ 200 mls/hr Q24H IV Last administered on 11/29/17at 21:07; Start 11/28/17 at 16:00; Stop 11/30/17 at 11:15 ; Status DC Cefepime HCl 2000 mg/Sodium Chloride 100 ml @ 200 mls/hr Q8H IV ; Start at 19:00; Stop 11/27/17 at 19:36; Status DC Chlorhexidine Gluconate (Chlorhexidine 2% Cloth) 3 pack UNSCH PRN TOP HYGIENIC CARE; Start 11/27/17 at 19:00 Clonidine (Catapres) 0.1 mg UNSCH PRN PO for BP > 180/100 X 2 readings; Start 11/28/17 at 10:00 Daptomycin 700 mg/ Sodium Chloride 100 ml @ 200 mls/hr Q48H IV Last administered on 12/04/17at 12:31; Start 11/30/17 at 13:00; Stop 12/07/17 at 06:00 Dextrose (D50w (Vial) Inj) 25 ml UNSCH PRN IV PUSH HYPOGLYCEMIA-SEE COMMENTS; Start 11/28/17 at 08:45 Diphenhydramine HCl (Benadryl) 25 mg UNSCH PRN PO for hives/itching/anaphylaxis ; Start 11/28/17 at 10:00 Epoetin Roque (Epogen Inj) 10,000 units MoWeFr SQ Last administered on at 12:45; Start 12/05/17 at 09:00 Famotidine (Pepcid Inj) 10 mg Q12HR IV PUSH Last administered on 11/30/17at 09: 00; Start 11/27/17 at 21:00; Stop 11/30/17 at 11:48; Status DC Famotidine (Pepcid) 10 mg BID PO Last administered on 12/06/17at 09:14; Start at 21:00 Gelatin (Gelfoam 12 Mm/7 Mm Top) 1 foam UNSCH PRN TOP SEE LABEL COMMENTS; Start 11/28/17 at 10:00 Gentamicin Sulfate (Gentamicin Inj) 20 mg UNSCH PRN OTHER WITH DIALYSIS Last administered on 12/05/17at 13:00; Start 11/28/17 at 10:00 Heparin Sodium (Porcine) (Heparin Central Flush) UNSCH PRN IV FLUSH SEE PROTOCOL; Start 12/02/17 at 15:15 Heparin Sodium (Porcine) (Heparin Inj) UNSCH PRN .XX WITH DIALYSIS Last administered on 12/05/17at 13:00; Start 11/28/17 at 10:00 Insulin Human Regular (NovoLIN R SUPPLEMENTAL SCALE) 1 DAILY@1700,2100 SQ ; Start 12/06/17 at 17:00 Lactulose (Lactulose Liq) 30 ml DAILY PRN PO SEVERE CONSITIPATION; Start at 19:00 Levofloxacin (Levaquin) 250 mg DAILY PO Last administered on 12/06/17at 09:14; Start 11/30/17 at 12:00; Stop 12/07/17 at 23:00 Lidocaine/ Prilocaine (Emla Cream) 1 applic WITH DIALYSIS PRN TOPICAL Dialysis. ; Start 11/28/17 at 11:00 Magnesium Hydroxide (Milk Of Magnesia Liq) 30 ml Q12H PRN PO Mild constipation ; Start 11/27/17 at 19:00 Mannitol (Mannitol Inj) 12.5 gm UNSCH PRN IV WITH DIALYSIS; Start 11/28/17 at 10:00 Meclizine HCl (Antivert) 25 mg Q6H PRN PO DIZZINESS; Start 11/27/17 at 18:15 Miscellaneous Information ([facility] [place] Nursing Information) 1 Q361D XX Last administered on 11/27/17at 19:00; Start 11/27/17 at 19:00 Morphine Sulfate (Morphine Inj) 2 mg Q2H PRN IV PUSH BREAKTHROUGH PAIN; Start 11/27/17 at 19:00 Nitroglycerin (Nitrostat Sl) 0.4 mg UNSCH PRN SL CHEST PAIN Last administered on 12/03/17at 12:09; Start 11/28/17 at 10:00 Norepinephrine Bitartrate 250 ml @ 7.5 mls/hr TITRATE PRN IV Maintain MAP > 65 mmHg Last administered on 11/28/17at 01:53; Start 11/27/17 at 23:15; Stop at 17:40; Status DC Ondansetron HCl (Zofran Odt) 8 mg BID PRN SL NAUSEA; Start 11/27/17 at 18:30 Ondansetron HCl (Zofran Inj) 4 mg UNSCH PRN IV PUSH WITH DIALYSIS; Start at 10:00 Pharmacy Profile Note 0 ml @ 0 mls/hr UNSCH OTHER ; Start 11/27/17 at 19:00; Stop 11/29/17 at 08:31; Status DC Phenazopyridine HCl (Pyridium) 100 mg Q8H PRN PO burning with urination; Start 12/06/17 at 09:30 Pregabalin (Lyrica) 75 mg TID PO Last administered on 12/06/17at 09:13; Start at 09:00 Senna/Docusate Sodium (Vannessa-Colace) 1 tab BID PO Last administered on at 09:14; Start 11/27/17 at 21:00 Sennosides (Senokot) 17.2 mg Q12H PRN PO Moderate constipation Last administered on 12/04/17at 12:42; Start 11/27/17 at 19:00 Sodium Bicarbonate (Sodium Bicarbonate 8.4% Inj) 50 meq ONCE ONCE IV PUSH Last administered on 11/28/17at 09:28; Start 11/28/17 at 08:45; Stop 11/28/17 at 08:56; Status DC Sodium Chloride (NS Flush) UNSCH PRN IVF SEE PROTOCOL; Start 12/02/17 at 15:15 Terbutaline Sulfate (Brethine Inj) 1 mg UNSCH PRN SQ For Extravasation; Start 11/27/17 at 19:00 Tramadol HCl (Ultram) 100 mg Q6H PRN PO PAIN 1-10 Last administered on at 09:14; Start 11/30/17 at 18:15 Vancomycin HCl 1000 mg/Sodium Chloride 250 ml @ 250 mls/hr WITH DIALYSIS IV ; Start 12/07/17 at 08:00 Vitamin B Complex/ Vit C/Folic Acid (Nephrocaps) 1 cap DAILY PO Last administered on 12/06/17at 09:13; Start 12/05/17 at 09:00 A/P Assessment and Plan A/P septic shock- resolved. Acute MRSA Bacteremia - ID consulted - received Vanco- now on Datomycin; will switch back to IV Vanco tomorrow. - suspicious for permacath infection; perma-cath has been removed . - repeated blood cultures from 12/01 negative so far. right-sided chest pain induration around the site of previous permacath. the site of previous perma-cath is tender to touch vascular surgery consult appreciated; doubt that the site is infected. continue antibiotics and pain control. Acute metabolic encephalopathy - resolved -SIRS/sepsis -Infectious disease consultation ESRD -Hemodialysis per nephrology -AV shunt could not be accessed. -vas-cath had been placed; will likely need perma-cath. -duplex of the AV shunt pending showed patent brachial artery graft. -vascular surgery follow-up appreciated; recommended avoiding R UE use for the next few weeks with out-patient f/u. Diabetes mellitus -Insulin sliding scale anemia of chronic disease on Epogen with HD- continue to monitor; H/H fairly stable. COPD -No exacerbation -No indication for steroid -DuoNeb scheduled and as needed. -is on home oxygen. DVT GI prophylaxis -Benjamin's and SCDs -Subcu heparin -Pepcid PT consulted. Discharge Planning dc planning -possible tomorrow -after HD- pending perma-cath placement and clearance from nephrology and ID. Alejo Lewis MD December 06, 2017 10:13
[2017-12-06] MEDS: DAPTOmycin INJ 700 MG in SODIUM CHLORIDE 0.9% INJ 100 ML IV SCH (11:31)
--- NOTE | 2017-12-06 13:15 | HHI.NPPN ---
Subjective History of Present Illness This patient is a 72-year-old -[place] female with a history of end- stage renal disease, diabetes mellitus, multiple myeloma. This patient does have a functional AV dialysis shunt in place but has been refusing to let us access it for dialysis access despite ongoing counseling regarding risks associated with the presence of a hemodialysis PermCath particularly risk of infection. She in fact had this PermCath changed November 17, 2017 at an outpatient interventional nephrology center. Patient now presents with altered mental status status now noted to have evidence of bacteremia with a preliminary report of gram-positive cocci. She also has a history of previous UTIs recurrent. Patient now noted to have hyperkalemia and a low total CO2 level with a requirement for acute dialysis today. Interval History Pt in good spirits today. No complaints (Zenaida Fang) Review of Systems General Constitutional: Fatigue (Zenaida Fang) Objective Data Data Vital Signs Date Time Temp Pulse Resp B/P (MAP) Pulse Ox O2 Delivery O2 Flow Rate FiO2 12/06/17 10:13 Nasal Cannula 12/06/17 08:00 98.3 81 20 120/56 (77) 97 12/06/17 04:00 97.9 91 20 130/57 (81) 99 12/06/17 04:00 82 12/06/17 00:00 86 12/06/17 00:00 97.8 91 19 115/48 (70) 99 12/05/17 20:00 90 12/05/17 20:00 Nasal Cannula 4.00 12/05/17 20:00 98.1 92 20 132/55 (80) 100 12/05/17 16:11 98.1 86 20 118/62 (80) 98 (Zenaida Fang) -: 12/06/17 0430 12/05/17 0945 Imaging Last Impressions Upper Extremity Ultrasound 12/05/17 0000 Signed Impressions: CONCLUSION: 1. The patient's new brachial artery graft is patent and the old AV fistula is clotted. There is soft tissue hematoma appears to be organized and measures al most 4.2 cm. Chest X-Ray 12/02/17 0000 Signed Impressions: CONCLUSION: 1. Left IJ dialysis catheter in good position without pneumothorax. 2. Stable right lung base atelectasis. Central Venous Line 11/29/17 0000 Signed Impressions: CONCLUSION: 1. Uncomplicated Permcath removal. Tubes & Lines: Vas-Cath ([facility]J) Medication Review Current Medications Medications (Trade) Dose Ordered Sig/[place] Route Start Time Stop Time Status Last Admin (Aspirin Chew) 81 mg DAILY CHEW 11/28/17 09:00 12/06/17 09:13 (Antivert) 25 mg Q6H PRN PO 11/27/17 18:15 (Lyrica) 75 mg TID PO 11/28/17 09:00 12/06/17 09:13 (Zofran Odt) 8 mg BID PRN SL 11/27/17 18:30 Sodium Chloride 1,000 ml @ 84 mls/hr [id number] IV 11/27/17 19:00 Future Hold 12/02/17 21:32 (NS Flush) 2 ml UNSCH PRN IV FLUSH 11/27/17 19:00 (NS Flush) 2 ml BID IV FLUSH 11/27/17 21:00 12/06/17 09:15 (Tylenol) 650 mg Q6H PRN PO 11/27/17 19:00 12/04/17 12:42 (Morphine Inj) 2 mg Q2H PRN IV PUSH 11/27/17 19:00 (Zofran Inj) 4 mg Q6H PRN IV PUSH 11/27/17 19:00 (Duoneb Neb) 1 ampule Q2HR NEB PRN INH 11/27/17 19:00 12/05/17 03:49 (Heparin Inj) 5,000 units Q8H SQ 11/27/17 20:00 12/06/17 04:55 ([facility] [place] [place]) 1 Q361D XX 11/27/17 19:00 11/27/17 19:00 (Chlorhexidine 2% Cloth) Taper DAILY@04 TOP 11/28/17 04:00 11/24/18 03:59 11/29/17 04:00 (Chlorhexidine 2% Cloth) 3 pack UNSCH PRN TOP 11/27/17 19:00 (Vannessa-Colace) 1 tab BID PO 11/27/17 21:00 12/06/17 09:14 (Milk Of Magnesia Liq) 30 ml Q12H PRN PO 11/27/17 19:00 (Senokot) 17.2 mg Q12H PRN PO 11/27/17 19:00 12/04/17 12:42 (Dulcolax Supp) 10 mg DAILY PRN RECTAL 11/27/17 19:00 (Lactulose Liq) 30 ml DAILY PRN PO 11/27/17 19:00 (Brethine Inj) 1 mg UNSCH PRN SQ 11/27/17 19:00 (D50w (Vial) Inj) 25 ml UNSCH PRN IV PUSH 11/28/17 08:45 Sodium Chloride 1,000 ml @ 0 mls/hr Q0M PRN OTHER 11/28/17 09:51 12/05/17 13:00 (Heparin Inj) 8,000 units UNSCH PRN IV FLUSH 11/28/17 10:00 Sodium Chloride 1,000 ml @ 200 mls/hr Q5H PRN IV 11/28/17 09:51 Sodium Chloride 1,000 ml @ 0 mls/hr Q0M PRN OTHER 11/28/17 09:51 (Mannitol Inj) 12.5 gm UNSCH PRN IV 11/28/17 10:00 Albumin Human 100 ml @ 60 mls/hr UNSCH PRN IV 11/28/17 10:00 (NS Flush) 5 ml UNSCH PRN IV FLUSH 11/28/17 10:00 (Heparin Inj) UNSCH PRN .XX 11/28/17 10:00 12/05/17 13:00 (Gentamicin Inj) 20 mg UNSCH PRN OTHER 11/28/17 10:00 12/05/17 13:00 (Zofran Inj) 4 mg UNSCH PRN IV PUSH 11/28/17 10:00 (Tylenol) 650 mg UNSCH PRN PO 11/28/17 10:00 (Benadryl) 25 mg UNSCH PRN PO 11/28/17 10:00 (Nitrostat Sl) 0.4 mg UNSCH PRN SL 11/28/17 10:00 12/03/17 12:09 (Catapres) 0.1 mg UNSCH PRN PO 11/28/17 10:00 (Gelfoam 12 Mm/7 Mm Top) 1 foam UNSCH PRN TOP 11/28/17 10:00 (Emla Cream) 1 applic WITH DIALYSIS PRN TOPICAL 11/28/17 11:00 (Oscal) 500 mg Q12HR PO 11/29/17 09:45 12/06/17 09:13 Daptomycin 700 mg/ Sodium Chloride 100 ml @ 200 mls/hr Q48H IV 11/30/17 13:00 12/07/17 06:00 12/06/17 11:31 (Levaquin) 250 mg DAILY PO 11/30/17 12:00 12/07/17 23:00 12/06/17 09:14 (Pepcid) 10 mg BID PO 11/30/17 21:00 12/06/17 09:14 (Ultram) 100 mg Q6H PRN PO 11/30/17 18:15 12/06/17 09:14 (NS Flush) DAILY IVF 12/03/17 09:00 12/06/17 09:15 (Heparin Central Flush) DAILY IV FLUSH 12/03/17 09:00 12/04/17 09:39 (NS Flush) UNSCH PRN IVF 12/02/17 15:15 (Heparin Central Flush) UNSCH PRN IV FLUSH 12/02/17 15:15 (Epogen Inj) 10,000 units MoWeFr SQ 12/05/17 09:00 12/05/17 12:45 (Nephrocaps) 1 cap DAILY PO 12/05/17 09:00 12/06/17 09:13 (NovoLIN R SUPPLEMENTAL SCALE) 1 DAILY@0300,0800,1200 SQ 12/06/17 03:00 12/06/17 12:08 (NovoLIN R SUPPLEMENTAL SCALE) 1 DAILY@1700,2100 SQ 12/06/17 17:00 Vancomycin HCl 1000 mg/Sodium Chloride 250 ml @ 250 mls/hr WITH DIALYSIS IV 12/07/17 08:00 (Pyridium) 100 mg Q8H PRN PO 12/06/17 09:30 (Zenaida Fang) Physical Exam General Appearance: Comfortable (Zenaida Fang) Eyes Eye Exam: Pupils Equal (Zenaida Fang) Throat Throat Exam: Oral Mucosa [place] & Moist (Zenaida Fang) Neck Neck Exam: Neck Supple, Trachea Midline (Zenaida Fang) Pulmonary Resp Exam: Clear Bilaterally, Breath Sounds Equal (Zenaida Fang) Cardiology CV Exam: Regular, Normal Sinus Rhythm (Zenaida Fang) Chest/Breast Chest/Breast Remarks PermCath tunnel still with mild edema, but no longer tender (Zenaida Fang) Gastrointestinal/Abdomen GI Exam: Soft, Non-Tender (Zenaida Fang) Integumentary Skin Exam: Clear, Warm (Zenaida Fang) Extremeties Extremities Exam: No Edema (Zenaida Fang) Neurologic Neuro Exam: Alert, Awake (Zenaida Fang) Psychiatric Psych Exam: Appropriate Responses (Zenaida Fang) Assessment/Plan Discussed Condition With: Patient, Spouse Problem List: (1) ESRD (end stage renal disease) on dialysis ICD Codes: N18.6 - End stage renal disease; Z99.2 - Dependence on renal dialysis Status: Chronic Plan: Next HD 12/07 Continue MWF schedule Repeat blood cultures remain negative. Vascular note reviewed. Will plan on PermCath conversion tomorrow. NPO after midnight. Once PermCath in place and after HD 12/07, discharge planning OK from renal perspective. Would appreciate assistance in getting transportation arranged to outpatient HD---uses [facility]. Medication should be adjusted for her end-stage renal disease when indicated. Avoid gadolinium. (2) Bacteremia ICD Codes: R78.81 - Bacteremia Plan: ID on board BCx neg x4 days Potential switch to Vanco at discharge to be continued x6 weeks as per ID (3) Hyperparathyroidism, secondary renal ICD Codes: N25.81 - Secondary hyperparathyroidism of renal origin Status: Acute (4) Anemia of renal disease ICD Codes: D63.1 - Anemia in chronic kidney disease Status: Acute (5) HTN (hypertension) ICD Codes: I10 - Essential (primary) hypertension Status: Chronic (6) Diabetes mellitus ICD Codes: E11.9 - Diabetes mellitus Status: Chronic (Zenaida Fang) Plan The exam, history, and the medical decision-making described in the above note were completed with the assistance of the PAKam. I reviewed and agree with the findings presented. I attest that I had a [id number] encounter with the patient on the same day, and personally performed and documented my assessment and findings in the medical record. (Manny Vasquez MD) Zenaida Fang December 06, 2017 13:15 Manny Vasquez MD December 07, 2017 17:24
--- NOTE | 2017-12-06 14:40 | HHI.FF ---
Face to Face Verification Diagnosis: (1) Bacteremia Physical Therapy Order: Evaluate and Treat Home Health Nursing Order: Medical education Signs/symptoms of disease process Medication education-adverse effect Nursing assessment with vital signs I have seen patient Mariah Puga on 12/06/17. My clinical findings support the need for the requested home health care services because: Ltd mobility - disease progression I certify that my clinical findings support that this patient is homebound because: Unsteady gait/balance Alejo Lewis MD December 06, 2017 14:40
[2017-12-07] VITALS (8 sets, daily range): BP systolic 97–146; BP diastolic 56–83; PULSE 79–102; RESP 16–20; TEMP 97.2–98.2; O2SAT 96–100
[2017-12-07] MEDS: SODIUM CHLORIDE 0.9% FLUSH 10 ML FLUSH IV FLUSH SCH ×3 (01:57→22:55)
[2017-12-07] MEDS: INSULIN NovoLIN REGULAR SUPPLEMENTAL SCALE SQ SCH ×5 (03:00→22:55)
[2017-12-07] MEDS: HEPARIN SODIUM - SQ 10,000 UNITS/ML VIAL SQ SCH ×3 (03:23→22:54)
[2017-12-07] MEDS: CHLORHEXIDINE GLUCONATE 2 % 1 PACK (2 CLOTHS) TOP SCH (03:23)
[2017-12-07] MEDS ORDERED: VANCOMYCIN INJ 1,000 MG in SODIUM CHLOR 0.9% 250 ML INJ 250 ML IV SCH (08:00)
[2017-12-07] MEDS: FAMOTIDINE 20 MG TAB PO SCH ×2 (09:00→22:54)
[2017-12-07] MEDS: CALCIUM CARBONATE 1.25 GM (CA 500 MG) TAB PO SCH ×2 (09:00→22:54)
[2017-12-07] MEDS: EPOETIN ALFA 10,000 UNITS/ML VIAL SQ SCH (09:00)
[2017-12-07] MEDS: DOCUSATE SODIUM 50 MG/SENNA 8.6 MG TAB PO SCH ×2 (09:00→22:54)
[2017-12-07] MEDS: SODIUM CHLORIDE 0.9% FLUSH 10 ML FLUSH IVF SCH (09:00)
--- NOTE | 2017-12-07 09:03 | HHI.PR ---
Subjective Remarks in no acute distress. no fever. resting comfortably. awaiting perma-cath placement. Objective Vitals Vital Signs Date Time Temp Pulse Resp B/P (MAP) Pulse Ox O2 Delivery O2 Flow Rate FiO2 12/07/17 04:00 79 12/07/17 04:00 97.4 89 18 146/62 (90) 99 12/07/17 00:00 81 12/07/17 00:00 97.2 87 18 121/58 (79) 100 12/07/17 00:00 96 12/06/17 21:39 Nasal Cannula 4.00 21 12/06/17 20:00 98.1 96 18 149/62 (91) 93 12/06/17 20:00 88 12/06/17 18:11 Nasal Cannula 4.00 21 12/06/17 17:20 97 21 12/06/17 15:57 98.0 85 20 126/60 (82) 97 12/06/17 12:00 98.6 85 20 123/55 (77) 94 12/06/17 10:13 Nasal Cannula I/O 12/06/17 12/06/17 12/06/17 12/07/17 12/07/17 12/07/17 07:00 15:00 23:00 07:00 15:00 23:00 Intake Total 120 ml 240 ml Balance 120 ml 240 ml Intake Oral 120 ml 240 ml # Voids 1 0 # Bowel Movements 1 1 Result Diagram: 12/06/17 0430 12/05/17 0945 Imaging Last Impressions Upper Extremity Ultrasound 12/05/17 0000 Signed Impressions: CONCLUSION: 1. The patient's new brachial artery graft is patent and the old AV fistula is clotted. There is soft tissue hematoma appears to be organized and measures al most 4.2 cm. Chest X-Ray 12/02/17 0000 Signed Impressions: CONCLUSION: 1. Left IJ dialysis catheter in good position without pneumothorax. 2. Stable right lung base atelectasis. Central Venous Line 11/29/17 0000 Signed Impressions: CONCLUSION: 1. Uncomplicated Permcath removal. Objective Remarks GENERAL: This is a well-nourished, well-developed patient, in no apparent distress. CARDIOVASCULAR: Regular rate and regular rhythm without murmurs, gallops, or rubs. RESPIRATORY: Clear to auscultation. Breath sounds equal bilaterally. No wheezes , rales, or rhonchi. GASTROINTESTINAL: Abdomen soft, non-tender, nondistended. Normal, active bowel sounds MUSCULOSKELETAL: Extremities without clubbing, cyanosis, or edema. NEURO: Alert & Oriented x4 to person, place, time, situation. Moves all ext x4 Procedures perma-cath removal/ vas-cath placement. Medications and IVs Inpatient Medications Acetaminophen (Tylenol Supp) 650 mg ONCE ONCE RECTAL Last administered on 11/27at 16:07; Start 11/27/17 at 15:45; Stop 11/27/17 at 15:46; Status DC Acetaminophen (Tylenol) 650 mg UNSCH PRN PO for headach, pain1-10,T> 101F; Start 11/28/17 at 10:00 Albumin Human 100 ml @ 60 mls/hr UNSCH PRN IV WITH DIALYSIS; Start 11/28/17 at 10:00 Albuterol/ Ipratropium (Duoneb Neb) 1 ampule Q2HR NEB PRN INH WHEEZING Last administered on 12/05/17at 03:49; Start 11/27/17 at 19:00 Aspirin (Aspirin Chew) 81 mg DAILY CHEW Last administered on 12/06/17at 09:13; Start 11/28/17 at 09:00; Status Future Hold Atorvastatin Calcium (Lipitor) 20 mg DAILY PO Last administered on 11/30/17at 08 :58; Start 11/28/17 at 09:00; Stop 11/30/17 at 11:15; Status DC Azithromycin 500 mg/Sodium Chloride 250 ml @ 250 mls/hr ONCE STAT IV Last administered on 11/27/17at 16:28; Start 11/27/17 at 15:23; Stop 11/27/17 at 16:22 ; Status DC Bisacodyl (Dulcolax Supp) 10 mg DAILY PRN RECTAL SEVERE CONSITIPATION; Start at 19:00 Calcium Carbonate (Oscal) 500 mg Q12HR PO Last administered on 12/06/17at 21:36 ; Start 11/29/17 at 09:45 Cefepime HCl 1000 mg/Sodium Chloride 100 ml @ 200 mls/hr Q24H IV Last administered on 11/29/17at 21:07; Start 11/28/17 at 16:00; Stop 11/30/17 at 11:15 ; Status DC Cefepime HCl 2000 mg/Sodium Chloride 100 ml @ 200 mls/hr Q8H IV ; Start at 19:00; Stop 11/27/17 at 19:36; Status DC Chlorhexidine Gluconate (Chlorhexidine 2% Cloth) 3 pack UNSCH PRN TOP HYGIENIC CARE; Start 11/27/17 at 19:00 Clonidine (Catapres) 0.1 mg UNSCH PRN PO for BP > 180/100 X 2 readings; Start 11/28/17 at 10:00 Daptomycin 700 mg/ Sodium Chloride 100 ml @ 200 mls/hr Q48H IV Last administered on 12/06/17at 11:31; Start 11/30/17 at 13:00; Stop 12/07/17 at 06:00 ; Status DC Dextrose (D50w (Vial) Inj) 25 ml UNSCH PRN IV PUSH HYPOGLYCEMIA-SEE COMMENTS; Start 11/28/17 at 08:45 Diphenhydramine HCl (Benadryl) 25 mg UNSCH PRN PO for hives/itching/anaphylaxis ; Start 11/28/17 at 10:00 Epoetin Roque (Epogen Inj) 10,000 units MoWeFr SQ Last administered on at 12:45; Start 12/05/17 at 09:00 Famotidine (Pepcid Inj) 10 mg Q12HR IV PUSH Last administered on 11/30/17at 09: 00; Start 11/27/17 at 21:00; Stop 11/30/17 at 11:48; Status DC Famotidine (Pepcid) 10 mg BID PO Last administered on 12/06/17at 21:35; Start at 21:00 Gelatin (Gelfoam 12 Mm/7 Mm Top) 1 foam UNSCH PRN TOP SEE LABEL COMMENTS; Start 11/28/17 at 10:00 Gentamicin Sulfate (Gentamicin Inj) 20 mg UNSCH PRN OTHER WITH DIALYSIS Last administered on 12/05/17at 13:00; Start 11/28/17 at 10:00 Heparin Sodium (Porcine) (Heparin Central Flush) UNSCH PRN IV FLUSH SEE PROTOCOL; Start 12/02/17 at 15:15 Heparin Sodium (Porcine) (Heparin Inj) UNSCH PRN .XX WITH DIALYSIS Last administered on 12/05/17at 13:00; Start 11/28/17 at 10:00 Insulin Human Regular (NovoLIN R SUPPLEMENTAL SCALE) 1 DAILY@1700,2100 SQ Last administered on 12/06/17at 21:37; Start 12/06/17 at 17:00 Lactulose (Lactulose Liq) 30 ml DAILY PRN PO SEVERE CONSITIPATION; Start at 19:00 Levofloxacin (Levaquin) 250 mg DAILY PO Last administered on 12/06/17at 09:14; Start 11/30/17 at 12:00; Stop 12/07/17 at 23:00 Lidocaine/ Prilocaine (Emla Cream) 1 applic WITH DIALYSIS PRN TOPICAL Dialysis. ; Start 11/28/17 at 11:00 Magnesium Hydroxide (Milk Of Magnesia Liq) 30 ml Q12H PRN PO Mild constipation ; Start 11/27/17 at 19:00 Mannitol (Mannitol Inj) 12.5 gm UNSCH PRN IV WITH DIALYSIS; Start 11/28/17 at 10:00 Meclizine HCl (Antivert) 25 mg Q6H PRN PO DIZZINESS; Start 11/27/17 at 18:15 Miscellaneous Information ([facility] [place] Nursing Information) 1 Q361D XX Last administered on 11/27/17at 19:00; Start 11/27/17 at 19:00 Morphine Sulfate (Morphine Inj) 2 mg Q2H PRN IV PUSH BREAKTHROUGH PAIN; Start 11/27/17 at 19:00 Nitroglycerin (Nitrostat Sl) 0.4 mg UNSCH PRN SL CHEST PAIN Last administered on 12/03/17at 12:09; Start 11/28/17 at 10:00 Norepinephrine Bitartrate 250 ml @ 7.5 mls/hr TITRATE PRN IV Maintain MAP > 65 mmHg Last administered on 11/28/17at 01:53; Start 11/27/17 at 23:15; Stop at 17:40; Status DC Ondansetron HCl (Zofran Odt) 8 mg BID PRN SL NAUSEA; Start 11/27/17 at 18:30 Ondansetron HCl (Zofran Inj) 4 mg UNSCH PRN IV PUSH WITH DIALYSIS; Start at 10:00 Pharmacy Profile Note 0 ml @ 0 mls/hr UNSCH OTHER ; Start 11/27/17 at 19:00; Stop 11/29/17 at 08:31; Status DC Phenazopyridine HCl (Pyridium) 100 mg Q8H PRN PO burning with urination; Start 12/06/17 at 09:30 Pregabalin (Lyrica) 75 mg TID PO Last administered on 12/06/17at 15:58; Start at 09:00 Senna/Docusate Sodium (Vannessa-Colace) 1 tab BID PO Last administered on at 21:39; Start 11/27/17 at 21:00 Sennosides (Senokot) 17.2 mg Q12H PRN PO Moderate constipation Last administered on 12/04/17at 12:42; Start 11/27/17 at 19:00 Sodium Bicarbonate (Sodium Bicarbonate 8.4% Inj) 50 meq ONCE ONCE IV PUSH Last administered on 11/28/17at 09:28; Start 11/28/17 at 08:45; Stop 11/28/17 at 08:56; Status DC Sodium Chloride (NS Flush) UNSCH PRN IVF SEE PROTOCOL; Start 12/02/17 at 15:15 Terbutaline Sulfate (Brethine Inj) 1 mg UNSCH PRN SQ For Extravasation; Start 11/27/17 at 19:00 Tramadol HCl (Ultram) 100 mg Q6H PRN PO PAIN 1-10 Last administered on at 21:49; Start 11/30/17 at 18:15 Vancomycin HCl 1000 mg/Sodium Chloride 250 ml @ 250 mls/hr WITH DIALYSIS IV ; Start 12/07/17 at 08:00 Vitamin B Complex/ Vit C/Folic Acid (Nephrocaps) 1 cap DAILY PO Last administered on 12/06/17at 09:13; Start 12/05/17 at 09:00 A/P Assessment and Plan A/P septic shock- resolved. Acute MRSA Bacteremia - ID consulted - continue Vanco with HD per ID. - suspicious for permacath infection; perma-cath was removed . - repeated blood cultures from 12/01 negative so far. right-sided chest pain induration around the site of previous permacath. the site of previous perma-cath is tender to touch vascular surgery consult appreciated; doubt that the site is infected. continue antibiotics and pain control. Acute metabolic encephalopathy - resolved -SIRS/sepsis -Infectious disease consultation ESRD -Hemodialysis per nephrology -AV shunt could not be accessed. -vas-cath had been placed;this will be converted to perma-cath today. -duplex of the AV shunt pending showed patent brachial artery graft. -vascular surgery follow-up appreciated; recommended avoiding R UE use for the next few weeks with out-patient f/u. Diabetes mellitus -Insulin sliding scale anemia of chronic disease on Epogen with HD- continue to monitor; H/H fairly stable. COPD -No exacerbation -No indication for steroid -DuoNeb scheduled and as needed. -is on home oxygen. DVT GI prophylaxis -Benjamin's and SCDs -Subcu heparin -Pepcid PT consulted. Discharge Planning dc home today- after perma-cath in place and her HD. f/u; pcp and nephrology. see med list. d/w the patient. time spent 35 min. Alejo Lewis MD December 07, 2017 09:03
--- NOTE | 2017-12-07 09:11 | HHI.DS ---
Discharge Summary Admission Date November 27, 2017 at 17:56 Discharge Date: December 07, 2017 Admitting Diagnosis Sepsis (1) ESRD (end stage renal disease) on dialysis ICD Code: N18.6 - End stage renal disease; Z99.2 - Dependence on renal dialysis Diagnosis: Secondary Status: Chronic (2) Bacteremia ICD Code: R78.81 - Bacteremia Diagnosis: Principal Procedures perma-cath removal/ vas-cath / perma-cath placement. Brief History - From Admission 72-year-old female with past medical history of ESRD, diabetes mellitus, hypertension, COPD presents for an evaluation of decreased level of consciousness today. Per EMS report, her home health aide was concerned that she was not as responsive as she usually is. Usually at home she is awake, alert, oriented. During my assessment in the emergency department she is lethargic but she will answer yes or no to questions. She denies having any pains currently. CBC/BMP: 12/06/17 0430 12/05/17 0945 Significant Findings Laboratory Tests Test 12/04/17 09:50 12/05/17 09:45 12/06/17 04:30 Red Blood Count 2.90 MIL/MM3 (4.00-5.30) 2.62 MIL/MM3 (4.00-5.30) Hemoglobin 8.1 GM/DL (11.6-15.3) 7.2 GM/DL (11.6-15.3) 8.0 GM/DL (11.6-15.3) Hematocrit 25.4 % (35.0-46.0) 22.7 % (35.0-46.0) 24.9 % (35.0-46.0) Mean Corpuscular Hemoglobin Concent 31.9 % (32.0-36.0) 31.9 % (32.0-36.0) Blood Urea Nitrogen 19 MG/DL (7-18) 26 MG/DL (7-18) Creatinine 4.44 MG/DL (0.50-1.00) 5.16 MG/DL (0.50-1.00) Random Glucose 139 MG/DL (74-106) 141 MG/DL (74-106) Estimat Glomerular Filtration Rate 10 ML/MIN (>89) 8 ML/MIN (>89) Calcium Level 8.2 MG/DL (8.5-10.1) Carbon Dioxide Level 34.7 MEQ/L (21.0-32.0) Anion Gap 4 MEQ/L (5-15) Imaging Last Impressions Upper Extremity Ultrasound 12/05/17 0000 Signed Impressions: CONCLUSION: 1. The patient's new brachial artery graft is patent and the old AV fistula is clotted. There is soft tissue hematoma appears to be organized and measures al most 4.2 cm. Chest X-Ray 12/02/17 0000 Signed Impressions: CONCLUSION: 1. Left IJ dialysis catheter in good position without pneumothorax. 2. Stable right lung base atelectasis. Central Venous Line 11/29/17 0000 Signed Impressions: CONCLUSION: 1. Uncomplicated Permcath removal. PE at Discharge GENERAL: This is a well-nourished, well-developed patient, in no apparent distress. CARDIOVASCULAR: Regular rate and regular rhythm without murmurs, gallops, or rubs. RESPIRATORY: Clear to auscultation. Breath sounds equal bilaterally. No wheezes , rales, or rhonchi. GASTROINTESTINAL: Abdomen soft, non-tender, nondistended. Normal, active bowel sounds MUSCULOSKELETAL: Extremities without clubbing, cyanosis, or edema. NEURO: Alert & Oriented x4 to person, place, time, situation. Moves all ext x4 Hospital Course septic shock- resolved. Acute MRSA Bacteremia - ID consulted - continue Vanco with HD per ID. - suspicious for permacath infection; perma-cath was removed . - repeated blood cultures from 12/01 negative so far. right-sided chest pain induration around the site of previous permacath. the site of previous perma-cath is tender to touch vascular surgery consult appreciated; doubt that the site is infected. continue antibiotics and pain control. Acute metabolic encephalopathy - resolved -SIRS/sepsis -Infectious disease consultation ESRD -Hemodialysis per nephrology -AV shunt could not be accessed. -vas-cath had been placed;this will be converted to perma-cath today. -duplex of the AV shunt pending showed patent brachial artery graft. -vascular surgery follow-up appreciated; recommended avoiding R UE use for the next few weeks with out-patient f/u. Diabetes mellitus -Insulin sliding scale anemia of chronic disease on Epogen with HD- continue to monitor; H/H fairly stable. COPD -No exacerbation -No indication for steroid -DuoNeb scheduled and as needed. -is on home oxygen. DVT GI prophylaxis -Benjamin's and SCDs -Subcu heparin -Pepcid Pt Condition on Discharge: Stable Discharge Disposition: Disch w/ Home Health Serv Discharge Time: > 30 minutes Discharge Instructions DIET: Follow Instructions for: Diabetic Diet, Renal Failure Diet Activities you can perform: Regular-No Restrictions Alejo Lewis MD December 07, 2017 09:11
[2017-12-07] MEDS: GENTAMICIN SULFATE 20 MG/2 ML VIAL OTHER PRN (12:45)
[2017-12-07] MEDS ORDERED: LIDOCAINE 1%/EPINEPHrine 1:100,000 SOLN 30 ML VIAL ONE (14:55)
[2017-12-07] MEDS ORDERED: HEPARIN SODIUM - IV 2,000 UNITS/2 ML VIAL IV FLUSH PRN (15:30)
[2017-12-07] MEDS ORDERED: SODIUM CHLORIDE 0.9% FLUSH 10 ML FLUSH IV FLUSH PRN (15:30)
--- NOTE | 2017-12-07 15:30 | PD.RAD ---
Post Procedure Progress Note Pre Procedure Diagnosis: (1) ESRD (end stage renal disease) on dialysis Post Procedure Diagnosis: (1) ESRD (end stage renal disease) on dialysis Procedure Date: December 07, 2017 Supervising Radiologist: Christopher Escalera Estimated blood loss: 5cc Anesthesia: Local, Conscious Sedation Plan of Activity Patient to Unit: ROPU Patient Condition: Fair Additional Comments: Perm cath placed via the right IJ catheter in good position Ok for use Full dictated report to follow See PACS Report for procedural detail/treatment Christopher Escalera MD December 07, 2017 15:30
--- NOTE | 2017-12-07 16:01 | RADRPT ---
EXAM DATE: 12/07/2017 3:45 PM EDT AGE/SEX: 72 years / Female INDICATIONS: Patient with history of end stage renal disease in need of tunneled dialysis catheter. CLINICAL DATA: This is the patient's subsequent encounter. Patient reports that signs and symptoms h ave been present for 1 week and indicates a pain score of 0/10. MEDICAL/SURGICAL HISTORY: Hypertension. Diabetes. Chronic obstructive pulmonary disease. ESR D AV graft placement Dialysis catheter COMPARISON: No prior [facility] exams available for comparison. FLUORO TIME (min): 3.03 IMAGE SERIES: 2 ACCESS SITE: SEDATION TIME (min): 30 MEDICATION(S): 2mg midazolam (Versed) IV 100mcg fentanyl (Sublimaze) IV The patient was presently on antibiotics as such, vancomycin and Cipro not administered. DEVICE(S): 45OG60ME Perm-cath . . PROCEDURE : 1. Fluoroscopically-guided venipuncture. 2. PermaCath placement. 3. Conscious sedation with continuous EKG and oximetry monitoring. The risks, benefits and alternatives to the procedure were explained and verbal and written consent w as obtained. The site was prepped in sterile fashion. Full sterile technique was used, including ca p, mask, sterile gloves and gown and a large sterile sheet. Hand hygiene and 2% chlorhexidine Betadi ne was utilized per protocol for cutaneous antisepsis with appropriate dry time for site. The skin a nd subcutaneous tissues were infiltrated with local anesthetic solution. The patient's existing Vas-Cath was removed over a 0.035 angled Glidewire. A Bañuelos dual-lumen dialys is catheter was advanced over the Glidewire position within the SVC. A subcutaneous tunnel was create d in a retrograde fashion the Bañuleos catheter was pulled through the tunnel. The catheter was flushe d and assembled and locked with heparin. The catheter was sutured in place. Conscious sedation was performed with the prescribed dosages and duration as above in the presence of an independent trained radiology nurse to assist in the monitoring of the patient. EKG and oximetry remained stable throughout the procedure. The patient tolerated the procedure well and there were n o complications. The patient was sent to post anesthesia recovery in stable condition. CONCLUSION: 1. Uncomplicated PermaCath placement as above. Electronically signed by: Christopher Escalera MD 12/07/2017 3:59 PM EDT
--- NOTE | 2017-12-07 17:22 | HHI.NPPN ---
Subjective History of Present Illness This patient is a 72-year-old -Greek female with a history of end- stage renal disease, diabetes mellitus, multiple myeloma. This patient does have a functional AV dialysis shunt in place but has been refusing to let us access it for dialysis access despite ongoing counseling regarding risks associated with the presence of a hemodialysis PermCath particularly risk of infection. She in fact had this PermCath changed November 17, 2017 at an outpatient interventional nephrology center. Patient now presents with altered mental status status now noted to have evidence of bacteremia with a preliminary report of gram-positive cocci. She also has a history of previous UTIs recurrent. Patient now noted to have hyperkalemia and a low total CO2 level with a requirement for acute dialysis today. Interval History Patient was seen status post PermCath placement. Complains some discomfort at the insertion site but otherwise no verbal complaints. Review of Systems General Constitutional: Fatigue Objective Data Data 12/07/17 12/08/17 19:00 07:00 Output Total 3000 ml Balance -3000 ml Hemodialysis 3000 ml Vital Signs Date Time Temp Pulse Resp B/P (MAP) Pulse Ox O2 Delivery O2 Flow Rate FiO2 12/07/17 15:55 95 20 100/83 (89) 96 12/07/17 15:40 98.2 102 16 135/59 (84) 98 12/07/17 08:00 88 12/07/17 04:00 79 12/07/17 04:00 97.4 89 18 146/62 (90) 99 12/07/17 00:00 81 12/07/17 00:00 97.2 87 18 121/58 (79) 100 12/07/17 00:00 96 12/06/17 21:39 Nasal Cannula 4.00 21 12/06/17 20:00 98.1 96 18 149/62 (91) 93 12/06/17 20:00 88 12/06/17 18:11 Nasal Cannula 4.00 21 -: 12/06/17 0430 12/05/17 0945 Tubes & Lines: Vas-Cath ([facility]) Physical Exam General Appearance: Comfortable Eyes Eye Exam: Pupils Equal Throat Throat Exam: Oral Mucosa [place] & Moist Neck Neck Exam: Neck Supple, Trachea Midline Pulmonary Resp Exam: Clear Bilaterally, Breath Sounds Equal Cardiology CV Exam: Regular, Normal Sinus Rhythm Gastrointestinal/Abdomen GI Exam: Soft, Non-Tender Integumentary Skin Exam: Clear, Warm Extremeties Extremities Exam: No Edema Neurologic Neuro Exam: Alert, Awake Psychiatric Psych Exam: Appropriate Responses Tubes & Lines Tubes & Lines Hemodialysis Vas-Cath in place on the left side. Examiner tract site of the previous hemodialysis PermCath that was removed earlier this admission. Does not feel indurated but somewhat firm along the length. No fluctuance. Doubt abscess but infectious disease has requested opinion from vascular surgery. Assessment/Plan Discussed Condition With: Patient, Spouse Problem List: (1) ESRD (end stage renal disease) on dialysis ICD Codes: N18.6 - End stage renal disease; Z99.2 - Dependence on renal dialysis Status: Chronic Plan: Patient completed dialysis today and now has a PermCath in place. Discharge planning okay from renal point of view. As per ID recommendations parenteral antibiotics to continue until January 10, 2018. Will be administered in the dialysis facility. Would appreciate assistance in getting transportation arranged to outpatient HD---uses [facility]. Medication should be adjusted for her end-stage renal disease when indicated. Avoid gadolinium. (2) Bacteremia ICD Codes: R78.81 - Bacteremia Plan: ID on board BCx neg x4 days Potential switch to Vanco at discharge to be continued x6 weeks as per ID (3) Hyperparathyroidism, secondary renal ICD Codes: N25.81 - Secondary hyperparathyroidism of renal origin Status: Acute (4) Anemia of renal disease ICD Codes: D63.1 - Anemia in chronic kidney disease Status: Acute (5) HTN (hypertension) ICD Codes: I10 - Essential (primary) hypertension Status: Chronic (6) Diabetes mellitus ICD Codes: E11.9 - Diabetes mellitus Status: Chronic Manny Vasquez MD December 07, 2017 17:22
[2017-12-07] MEDS: PREGABALIN 75 MG CAP PO SCH (17:31)
[2017-12-07] MEDS: LEVOFLOXACIN 250 MG TAB PO SCH (17:32)
[2017-12-07] MEDS: VITAMIN B CMPLX/VITC/FOLIC AC CAP PO SCH (17:33)
[2017-12-07] MEDS: traMADol HCL 50 MG TAB PO PRN (23:04)
[2017-12-08] VITALS: BP 121/56; PULSE 88; PULSE 93; RESP 26; TEMP 97.5; O2SAT 100
[2017-12-08] MEDS: INSULIN NovoLIN REGULAR SUPPLEMENTAL SCALE SQ SCH ×4 (03:00→17:00)
[2017-12-08] MEDS: CHLORHEXIDINE GLUCONATE 2 % 1 PACK (2 CLOTHS) TOP SCH (03:23)
[2017-12-08] MEDS: HEPARIN SODIUM - SQ 10,000 UNITS/ML VIAL SQ SCH ×2 (03:23→12:00)
[2017-12-08 04:00] VITALS: BP 115/64; PULSE 84; PULSE 87; RESP 24; TEMP 97.9; O2SAT 99
[2017-12-08] MEDS: traMADol HCL 50 MG TAB PO PRN ×2 (05:11→17:05)
[2017-12-08 08:00] VITALS: PULSE 78
[2017-12-08 08:12] VITALS: BP 121/50; PULSE 85; RESP 17; TEMP 98.1; O2SAT 99
[2017-12-08] MEDS: VITAMIN B CMPLX/VITC/FOLIC AC CAP PO SCH (09:00)
[2017-12-08] MEDS: DOCUSATE SODIUM 50 MG/SENNA 8.6 MG TAB PO SCH (10:20)
[2017-12-08] MEDS: CALCIUM CARBONATE 1.25 GM (CA 500 MG) TAB PO SCH (10:20)
[2017-12-08] MEDS: PREGABALIN 75 MG CAP PO SCH ×3 (10:20→16:48)
[2017-12-08] MEDS: FAMOTIDINE 20 MG TAB PO SCH (10:20)
[2017-12-08 12:12] VITALS: BP 105/94; PULSE 88; RESP 17; TEMP 97.8; O2SAT 99
--- NOTE | 2017-12-08 13:25 | HHI.PR ---
Subjective Remarks No overnight events, stable. No complaints. Objective Vitals Vital Signs Date Time Temp Pulse Resp B/P (MAP) Pulse Ox O2 Delivery O2 Flow Rate FiO2 12/08/17 12:12 97.8 88 17 105/94 (98) 99 12/08/17 08:12 98.1 85 17 121/50 (73) 99 12/08/17 04:00 84 12/08/17 04:00 97.9 87 24 115/64 (81) 99 12/08/17 00:00 88 12/08/17 00:00 Nasal Cannula 4.00 12/08/17 00:00 97.5 93 26 121/56 (77) 100 12/07/17 20:37 98.2 96 16 126/60 (82) 99 12/07/17 20:00 Nasal Cannula 4.00 12/07/17 20:00 101 12/07/17 19:18 20 12/07/17 16:25 92 20 97/80 (86) 96 12/07/17 15:55 95 20 100/83 (89) 96 12/07/17 15:40 98.2 102 16 135/59 (84) 98 I/O 12/07/17 12/07/17 12/07/17 12/08/17 12/08/17 12/08/17 06:59 14:59 22:59 06:59 14:59 22:59 Output Total 3000 ml Balance -3000 ml Hemodialysis 3000 ml # Voids 0 # Bowel Movements 1 Result Diagram: 12/06/17 0430 12/05/17 0945 Objective Remarks GENERAL: This is a well-nourished, well-developed patient, in no apparent distress. CARDIOVASCULAR: Regular rate and regular rhythm without murmurs, gallops, or rubs. RESPIRATORY: Clear to auscultation. Breath sounds equal bilaterally. No wheezes , rales, or rhonchi. GASTROINTESTINAL: Abdomen soft, non-tender, nondistended. Normal, active bowel sounds MUSCULOSKELETAL: Extremities without clubbing, cyanosis, or edema. NEURO: Alert & Oriented x4 to person, place, time, situation. Moves all ext x4 Procedures perma-cath removal/ vas-cath / perma-cath placement. A/P Problem List: (1) ESRD (end stage renal disease) on dialysis ICD Code: N18.6 - End stage renal disease; Z99.2 - Dependence on renal dialysis Status: Chronic (2) Bacteremia ICD Code: R78.81 - Bacteremia Assessment and Plan septic shock- resolved. Acute MRSA Bacteremia - ID consulted - continue Vanco with HD per ID. - suspicious for permacath infection; perma-cath was removed . - repeated blood cultures from 12/01 negative so far. right-sided chest pain induration around the site of previous permacath. the site of previous perma-cath is tender to touch vascular surgery consult appreciated; doubt that the site is infected. continue antibiotics and pain control. Acute metabolic encephalopathy - resolved -SIRS/sepsis -Infectious disease consultation ESRD -Hemodialysis per nephrology -AV shunt could not be accessed. -vas-cath had been placed;this will be converted to perma-cath today. -duplex of the AV shunt pending showed patent brachial artery graft. -vascular surgery follow-up appreciated; recommended avoiding R UE use for the next few weeks with out-patient f/u. Diabetes mellitus -Insulin sliding scale anemia of chronic disease on Epogen with HD- continue to monitor; H/H fairly stable. COPD -No exacerbation -No indication for steroid -DuoNeb scheduled and as needed. -is on home oxygen. DVT GI prophylaxis -Benjamin's and SCDs -Subcu heparin -Pepcid PT consulted. Discharge Planning Discharge Planning dc home today- after perma-cath in place and her HD. f/u; pcp and nephrology. see med list. d/w the patient. time spent 35 min. Cirilo Rg MD December 08, 2017 13:25
--- NOTE | 2017-12-21 23:20 | RADRPT ---
EXAM DATE: 12/02/2017 4:35 PM EDT AGE/SEX: 72 years / Female INDICATIONS: Patient with history of end stage renal disease in need of non tunneled dialysis cathet er. CLINICAL DATA: This is the patient's subsequent encounter. Patient reports that signs and symptoms h ave been present for 4 - 6 days and indicates a pain score of 0/10. MEDICAL/SURGICAL HISTORY: Diabetes. Hypertension. Chronic obstructive pulmonary disease. ESR D AV graft placementDialysis catheter COMPARISON: No prior exams available for comparison. IMAGE SERIES: 1 ACCESS SITE: Left internal jugular vein DEVICE(S): 14 [place] double lumen X20CM Vas Cath . . PROCEDURE : 1. Ultrasound guided venipuncture. 2. Fluoroscopic guidance. 3. Central line placement. The risks, benefits and alternatives to the procedure were explained and verbal and written consent w as obtained. The site was prepped in sterile fashion. Full sterile technique was used, including ca p, mask, sterile gloves and gown and a large sterile sheet. Hand hygiene and 2% chlorhexidine prep w as utilized per protocol for cutaneous antisepsis with appropriate dry time for site. Sterile gel an d sterile probe cover were utilized for ultrasound guidance. The skin and subcutaneous tissues were infiltrated with local anesthetic solution. A suitable site a jareth the vein was selected with ultrasound and fluoroscopic guidance. A small incision was made. Th e vein was accessed under direct ultrasound visualization using the micropuncture technique. The andre ropuncture set was exchanged for a 0.035 wire. The tract was dilated. The catheter was advanced int o position under direct fluoroscopic visualization, and was advanced with the tip at the junction of the superior vena cava and rt atrium. The catheter was fixed in place with suture and a sterile dres sing was applied. The patient tolerated the procedure well and there were no complications. CONCLUSION: 1. Uncomplicated line placement as above. Electronically signed by: Antonio Barrientos MD 12/21/2017 11:19 PM EDT
[2017-12-23] MEDS ORDERED: OXYGEN NAS.CANULA (11:35)
== END 2017-12-08 18:51 | disposition home health service (06) | DRG 314 ==
LOC: NEPE 15:19 → NEDA 17:56 → HIMW 21:05 → N04B 11-29 15:59
PROVIDERS: ADMIT Family Medicine; ATTEND Family Medicine
PROC: 06HY33Z Insertion of Infusion Device into Lower Vein, Percutaneous Approach (ICD-10-PCS; 2017-11-27)
PROC: 5A1D70Z Performance of Urinary Filtration, Intermittent, Less than 6 Hours Per Day (ICD-10-PCS; principal; 2017-11-28)
PROC: 02PY33Z Removal of Infusion Device from Great Vessel, Percutaneous Approach (ICD-10-PCS; 2017-12-06)
PROC: 02HV33Z Insertion of Infusion Device into Superior Vena Cava, Percutaneous Approach (ICD-10-PCS; 2017-12-07)
DX: T80.211A Bloodstream infection due to central venous catheter, initial encounter (principal); A41.02 Sepsis due to Methicillin resistant Staphylococcus aureus; R65.21 Severe sepsis with septic shock; N18.6 End stage renal disease; G93.41 Metabolic encephalopathy; N39.0 Urinary tract infection, site not specified; Z68.41 Body mass index [BMI] 40.0-44.9, adult; E87.2 Acidosis; N25.81 Secondary hyperparathyroidism of renal origin; I12.0 Hypertensive chronic kidney disease with stage 5 chronic kidney disease or end stage renal disease; E11.22 Type 2 diabetes mellitus with diabetic chronic kidney disease; E87.5 Hyperkalemia; Z99.81 Dependence on supplemental oxygen; E66.01 Morbid (severe) obesity due to excess calories; J44.9 Chronic obstructive pulmonary disease, unspecified; E83.51 Hypocalcemia; B96.1 Klebsiella pneumoniae [K. pneumoniae] as the cause of diseases classified elsewhere; D63.1 Anemia in chronic kidney disease; B96.20 Unspecified Escherichia coli [E. coli] as the cause of diseases classified elsewhere; M19.90 Unspecified osteoarthritis, unspecified site; K21.9 Gastro-esophageal reflux disease without esophagitis; G47.30 Sleep apnea, unspecified; E78.00 Pure hypercholesterolemia, unspecified; I25.10 Atherosclerotic heart disease of native coronary artery without angina pectoris; Z99.2 Dependence on renal dialysis; Z87.440 Personal history of urinary (tract) infections; Z85.79 Personal history of other malignant neoplasms of lymphoid, hematopoietic and related tissues; Z92.21 Personal history of antineoplastic chemotherapy; Z86.73 Personal history of transient ischemic attack (TIA), and cerebral infarction without residual deficits; Z87.891 Personal history of nicotine dependence; Z79.82 Long term (current) use of aspirin; Z79.4 Long term (current) use of insulin
CPT/HCPCS: 36556; 36558; 36589; 36600; 51702; 71045; 76882; 76937; 77001; 80048; 80053; 80202; 81001; 82306; 82550; 82552; 82805; 82948; 83605; 83690; 83735; 83970; 84100; 84155; 84484; 85014; 85018; 85025; 85027; 85610; 85730; 86403; 87040; 87071; 87077; 87086; 87186; 87205; 87641; 90935; 93005; 93306; 94640; 94664; 96365; 96368; 96374; 96375; 99152; 99153; C1750; C1752; C1769; J0456; J0692; J0878; J1580; J1642; J1644; J3370; J7030; J7040; J7050; Q4081

== ENCOUNTER 2017-12-23 14:25 | Inpatient (IN) ==
[2018-01-07] MEDS ORDERED: Heparin 10,000 UNITS/10 ML Vial (for IV use) OTHER PRN (16:52)
[2018-01-08] MEDS ORDERED: Heparin 2,000 UNITS/2 ML Vial (for IV use) IV.FLUSH PRN (00:01)
[2018-01-08] MEDS ORDERED: Dextrose 50% in Water 50 ML Vial IV.PUSH PRN (00:01)
[2018-01-08] MEDS ORDERED: Naloxone Inj 0.4 MG/ML Vial IV.PUSH PRN (00:01)
[2018-01-08] MEDS ORDERED: Heparin 10,000 UNITS/10 ML Vial (for IV use) OTHER PRN (00:01)
[2018-01-08] MEDS ORDERED: Albumin Human 25% Inj 100 ML IV.SIG PRN ×2 (00:01)
[2018-01-08] MEDS ORDERED: Bisacodyl 10 MG Supp RECTAL PRN (00:01)
[2018-01-08] MEDS ORDERED: Acetaminophen 325 MG Tablet PO PRN ×2 (00:01)
[2018-01-08] MEDS ORDERED: Heparin 10,000 UNITS/10 ML Vial (for IV use) IV.FLUSH PRN (00:01)
[2018-01-08] MEDS ORDERED: Gelatin 12 MM/7 MM Topical Foam TOPICAL PRN (00:01)
[2018-01-08] MEDS ORDERED: Morphine Inj 4 MG/ML Vial IV.PUSH PRN (00:01)
[2018-01-08] MEDS ORDERED: Benzonatate 100 MG Capsule PO PRN (00:01)
[2018-01-08] MEDS ORDERED: Sod Chloride 0.9% Inj 1,000 ML IV.CONT PRN (01:00)
[2018-01-08] MEDS ORDERED: Sod Chloride 0.9% Inj 1,000 ML OTHER PRN ×2 (01:00)
[2018-01-08] MEDS: Heparin - SQ 10,000 UNITS/ML Vial SQ SCH ×2 (08:27→20:48)
[2018-01-08] MEDS: Senna/Docusate Sodium 8.6/50 MG Tablet PO SCH ×2 (08:28→20:49)
[2018-01-08] MEDS: Calcium Acetate 667 MG Capsule PO SCH ×3 (08:28→17:32)
[2018-01-08] MEDS: Insulin NovoLIN Regular Correctional Sugar Inj SQ SCH ×5 (08:29→23:03)
[2018-01-08] MEDS: Pregabalin 75 MG Capsule PO SCH (08:29)
[2018-01-08] MEDS: Calcium Carbonate 500 MG Tablet PO SCH ×2 (08:29→20:49)
[2018-01-08] MEDS: Polyethylene Glycol 3350 17 GM Packet PO SCH (08:30)
[2018-01-08] MEDS: Insulin Detemir Inj 1,000 UNIT/10 ML Vial SQ SCH ×2 (09:41→20:52)
[2018-01-08 12:26] LABS: Baso # (Auto) 0.1 th/mm3 (0.0-0.2); Baso % (Auto) 0.8 % (0.0-2.0); Eos # (Auto) 0.2 th/mm3 (0.0-0.4); Hematocrit 29.8 % (35.0-46.0); Hemoglobin 9.3 gm/dL (11.6-15.3); Lymph % (Auto) 22.1 % (9.0-44.0); Mean Corpuscular HGB Conc 31.3 % (32.0-36.0); Mean Corpuscular Hemoglobin 26.3 pg (27.0-34.0); Mean Corpuscular Volume 84.2 fL (80.0-100.0); Mono # (Auto) 0.6 th/mm3 (0.0-0.9); Mono % (Auto) 6.2 % (0.0-8.0); Neut # (Auto) 6.1 th/mm3 (1.8-7.7); Neut % (Auto) 68.9 % (16.0-70.0); Platelet Count 293 th/mm3 (150-450); Red Blood Count 3.54 mil/mm3 (4.00-5.30); Red Cell Distribution Width 21.1 % (11.6-17.2); White Blood Count 8.9 th/mm3 (4.0-11.0)
[2018-01-08 12:43] LABS: Anion Gap 9 meq/L (5-15); Blood Urea Nitrogen 30 mg/dL (7-18); Calcium 9.8 mg/dL (8.5-10.1); Chloride 101 meq/L (98-107); Glomerular Filtration Rate 6 mL/min (>89); Glucose,Random 156 mg/dL (74-106); Potassium 4.7 meq/L (3.5-5.1); Sodium 137 meq/L (136-145)
[2018-01-08 12:44] LABS: Alanine Aminotransferase 16 U/L (10-53); Aspartate Aminotransferase 26 U/L (15-37)
[2018-01-08 12:46] LABS: Alkaline Phosphatase 103 U/L (45-117); Total Protein 7.6 g/dL (6.4-8.2)
--- NOTE | 2018-01-08 13:04 | P.PNIM ---
Subjective Interval history: No new complaints from the patient today. No fevers overnight. No nausea or vomiting. Physical Exam Vital signs: Vital Signs 01/07/18 20:00 01/07/18 21:05 01/08/18 00:00 Temperature 97.4 F L 98.2 F 97.5 F L Pulse Rate 69 65 70 Respiratory Rate 16 17 16 Blood Pressure 102/45 L 101/48 L 94/45 L Pulse Oximetry 99 97 97 01/08/18 03:40 01/08/18 04:00 01/08/18 05:19 Temperature 98 F Pulse Rate 61 60 65 Respiratory Rate 16 Blood Pressure 105/45 L Pulse Oximetry 99 01/08/18 08:00 01/08/18 12:08 Temperature 97.3 F L Pulse Rate 63 Respiratory Rate 20 Blood Pressure 110/52 L Pulse Oximetry 98 100 Intake & Output 01/07/18 01/08/18 01/08/18 18:59 06:59 18:59 Intake Total 360 / 360 Balance 360 / 360 Weight 105.9 kg 106.3 kg Intake: Oral 360 / 360 Other: # Voids 0 - Routine HEENT Exam Comments: GENERAL: NAD, A&Ox3 HEAD: Normocephalic. NECK: Supple, trachea midline. No lymphadenopathy. EYES: No scleral icterus. No injection or drainage. CARDIOVASCULAR: Regular rate and rhythm without murmurs, gallops, or rubs. RESPIRATORY: Breath sounds equal bilaterally. No accessory muscle use. GASTROINTESTINAL: Abdomen soft, non-tender, nondistended. MUSCULOSKELETAL: No cyanosis, or edema. SKIN: Warm and dry. NEURO: No focal neurological deficitis. Generalized weakness. Results - Labs CBC & Chem 7: 01/08/18 12:00 01/08/18 12:00 Labs: Laboratory Results - last 24 hr 01/04/18 01/05/18 01/05/18 11:11 16:42 16:42 WBC 9.8 RBC 2.90 L Hgb 7.8 L Hct 25.0 L MCV 86.3 MCH 27.0 MCHC 31.3 L RDW 20.1 H Plt Count 268 MPV 9.2 Neut % (Auto) 56.0 Lymph % (Auto) 32.6 [place] % (Auto) 7.6 Eos % (Auto) 2.5 Baso % (Auto) 1.3 Neut # (Auto) 5.5 Lymph # (Auto) 3.2 [place] # (Auto) 0.7 Eos # (Auto) 0.2 Baso # (Auto) 0.1 CBC Comment DIFF FINAL WBC Differential Differential Comment ESR GREATER THAN 140 H Hematology Comments Sodium 142 Potassium 4.7 Chloride 102 Carbon Dioxide 31.4 Anion Gap 9 BUN 32 H D Creatinine 5.43 H D Estimated GFR 8 L POC Glucose Random Glucose 109 H Calcium 8.8 Magnesium 2.2 Iron 58 TIBC 196 L % Saturation 29.6 Ferritin 1184 H Total Bilirubin AST ALT Alkaline Phosphatase Total Protein Albumin 01/06/18 01/06/18 01/07/18 05:56 20:15 08:55 WBC 10.0 RBC 3.36 L Hgb 8.9 L Hct 28.6 L MCV 85.2 MCH 26.6 L MCHC 31.2 L RDW 20.7 H Plt Count 287 MPV 9.0 Neut % (Auto) 69.8 Lymph % (Auto) 21.1 [place] % (Auto) 6.8 Eos % (Auto) 1.3 Baso % (Auto) 1.0 Neut # (Auto) 7.0 Lymph # (Auto) 2.1 [place] # (Auto) 0.7 Eos # (Auto) 0.1 Baso # (Auto) 0.1 CBC Comment DIFF FINAL WBC Differential Differential Comment ESR Hematology Comments Sodium 142 137 Potassium 5.5 H D 4.3 D Chloride 102 99 Carbon Dioxide 30.3 29.8 Anion Gap 10 8 BUN 37 H 20 H D Creatinine 6.12 H 4.67 H D Estimated GFR 7 L 9 L POC Glucose Random Glucose 116 H 119 H Calcium 8.9 9.2 Magnesium Iron TIBC % Saturation Ferritin Total Bilirubin 0.4 0.3 AST 30 16 ALT 15 13 Alkaline Phosphatase 84 100 Total Protein 6.6 7.7 D Albumin 3.1 L 3.2 L 01/07/18 01/08/18 01/08/18 08:55 09:05 12:00 WBC 9.2 8.9 RBC 3.48 L 3.54 L Hgb 9.3 L 9.3 L Hct 30.1 L 29.8 L MCV 86.4 84.2 MCH 26.6 L 26.3 L MCHC 30.8 L 31.3 L RDW 20.4 H 21.1 H Plt Count 294 293 MPV 9.0 9.0 Neut % (Auto) 62.8 68.9 Lymph % (Auto) 25.9 22.1 [place] % (Auto) 7.9 6.2 Eos % (Auto) 2.0 2.0 Baso % (Auto) 1.4 0.8 Neut # (Auto) 5.8 6.1 Lymph # (Auto) 2.4 2.0 [place] # (Auto) 0.7 0.6 Eos # (Auto) 0.2 0.2 Baso # (Auto) 0.1 0.1 CBC Comment DIFF FINAL WBC Differential . Differential Comment Auto diff final ESR Hematology Comments Sodium Potassium Chloride Carbon Dioxide Anion Gap BUN Creatinine Estimated GFR POC Glucose 106 Random Glucose Calcium Magnesium Iron TIBC % Saturation Ferritin Total Bilirubin AST ALT Alkaline Phosphatase Total Protein Albumin 01/08/18 01/08/18 12:00 12:30 WBC RBC Hgb Hct MCV MCH MCHC RDW Plt Count MPV Neut % (Auto) Lymph % (Auto) [place] % (Auto) Eos % (Auto) Baso % (Auto) Neut # (Auto) Lymph # (Auto) [place] # (Auto) Eos # (Auto) Baso # (Auto) CBC Comment WBC Differential Differential Comment ESR Hematology Comments Sodium 137 Potassium 4.7 Chloride 101 Carbon Dioxide 27.0 Anion Gap 9 BUN 30 H Creatinine 6.47 H Estimated GFR 6 L POC Glucose 167 H Random Glucose 156 H Calcium 9.8 Magnesium Iron TIBC % Saturation Ferritin Total Bilirubin 0.2 AST 26 ALT 16 Alkaline Phosphatase 103 Total Protein 7.6 Albumin 3.0 L Assessment and Plan - Plan 72-year-old female admitted with renal failure and bacteremia No significant changes compared to previous day. MRI confirmation of discitis/ ostium mellitus at T3/T4. Continue antibiotic treatment. Pain treatments are controlling the patient's pain, no confusion. Air Mattress ordered. Bacteremia T3/4 discitis and osteomyelitis Follow blood cultures Negative JOSEFA Continue vancomycin and daptomycin ID following Thoracic spine infection. Less likely aVF infection at this point given the existing evidence. Acute COPD exacerbation, resolving. Chronic respiratory failure on home oxygen. Possible mild fluid overload. CXR reviewed, shows mild to moderate fluid overload, minimal elevation right hemidiaphragm with parenchymal changes at right base VQ scan low probability for PE Continue duo nebs q6h, Tessalon Perles s/p azithromycin Continue Acapella, IS, O2 as needed Atypical Chest Pain Negative cardiac workup ESRD Continue dialysis Nephrology following Plan for permacath placement once cleared by ID Right Breast Edema Vascular surgery has recommended outpatient workup Follow clinically Anemia of chronic disease. Monitor hemoglobin Transfuse as needed Continue Epogen Diabetes mellitus type 2 Follow blood sugars Insulin sliding scale Diabetic diet Chronic pain: Continue Lyrica Continue pain treatments as needed and as tolerated Constipation Vannessa-Colace and MiraLAX scheduled Monitor for BM Hyperlipidemia Continue statin DVT Prophylaxis Heparin
[2018-01-08 14:24] LABS: Creatine Kinase 22 U/L (26-192)
[2018-01-08] MEDS ORDERED: Acetaminophen 500 MG Tablet PO PRN (14:31)
--- NOTE | 2018-01-08 15:27 | P.PNNP ---
Subjective Interval history: The patient is a 72-year-old -[place] female with a history of end- stage renal disease, diabetes mellitus, multiple myeloma currently being dialyzed via a hemodialysis PermCath. She does have an AV dialysis graft in place however there is significant difficulty in accessing it related to position and depth. She was recently hospitalized at this institution after developing MRSA bacteremia related to catheter infection. The catheter was subsequently replaced and the patient is to continue on vancomycin until January. More recently the patient developed increasing edema of her right breast. Etiology uncertain. Incidentally on the same side as her AV dialysis graft. Patient presented to the emergency room complaining of increasing shortness of breath noted to have evidence of pulmonary congestion on chest x-ray. Patient with no verbal complaints today. Physical Exam Vital signs: Vital Signs 01/07/18 20:00 01/07/18 21:05 01/08/18 00:00 Temperature 97.4 F L 98.2 F 97.5 F L Pulse Rate 69 65 70 Respiratory Rate 16 17 16 Blood Pressure 102/45 L 101/48 L 94/45 L Pulse Oximetry 99 97 97 01/08/18 03:40 01/08/18 04:00 01/08/18 05:19 Temperature 98 F Pulse Rate 61 60 65 Respiratory Rate 16 Blood Pressure 105/45 L Pulse Oximetry 99 01/08/18 08:00 01/08/18 12:00 01/08/18 12:08 Temperature 97.3 F L 98.0 F Pulse Rate 63 69 Respiratory Rate 20 20 Blood Pressure 110/52 L 103/49 L Pulse Oximetry 98 100 100 01/08/18 14:31 Temperature Pulse Rate 74 Respiratory Rate 22 Blood Pressure Pulse Oximetry 100 Intake & Output 01/07/18 01/08/18 01/08/18 18:59 06:59 18:59 Intake Total 360 / 360 Balance 360 / 360 Weight 105.9 kg 106.3 kg Intake: Oral 360 / 360 Other: # Voids 0 Vital Signs - 24 hr - Constitutional no acute distress - Routine HEENT Exam Head: Present: normocephalic ENT: Present: mucous membranes moist - Routine Respiratory Exam Present: CTA bilaterally - Routine Cardiovascular Exam Present: RRR, S1, S2 - Routine Abdominal Exam Present: soft Assessment and Plan - Assessment (1) End-stage renal disease needing dialysis Code(s): N18.6 - End stage renal disease; Z99.2 - Dependence on renal dialysis Status: Acute (2) Anemia of renal disease Code(s): D63.1 - Anemia in chronic kidney disease Status: Chronic Plan: Continue Epogen. (3) Bacteremia due to methicillin resistant Staphylococcus aureus Code(s): R78.81 - Bacteremia Status: Acute (4) Discitis of thoracic region Code(s): M46.44 - Discitis, unspecified, thoracic region Status: Acute (5) Secondary hyperparathyroidism of renal origin Code(s): N25.81 - Secondary hyperparathyroidism of renal origin Status: Chronic - Plan As discussed with infectious disease. We will now change Vas-Cath her hemodialysis PermCath in preparation for discharge. Blood cultures negative 5 days, last set. Daptomycin to be continued as an outpatient. The sutures suggests can be administered with dialysis with a 50% dosage increase Tuesday to cover patient over the weekend. Duration of therapy will be deferred to infectious disease. Once infection has been treated will be referred for probable venogram of right upper extremity to evaluate the AV dialysis shunt with an opinion from vascular surgery subsequently. Medication should be adjusted for the patient's end-stage renal. Avoid gadolinium. Discussed Condition With: Infectious disease loans consultant and patient.
--- NOTE | 2018-01-08 15:45 | P.PNID ---
Subjective Remarks: ID COVERAGE A 72-year-old female, with ESRD, was on treatment for MRSA bacteremia felt to be related to her hemodialysis access that was removed, readmitted to the hospital and found to have recurrent MRSA bacteremia. Her permacath was removed. Further investigation revealed T3-T4 discitis and osteomyelitis. Patient's last positive blood culture was December 23. She had to follow-up blood culture that grew different kinds of coag negative staph. Notes reviewed Temps better Pain acceptable Does not like narcotics OK with Tramadol No diarrhea Antibiotics: Cubicin Lines: reedcath IBAN PIV Past Medical History: Reviewed Allergies/Adverse Reactions: Allergies iodine Allergy (Severe, Verified 01/07/18 09:02) Swelling iohexol Allergy (Severe, Verified 01/07/18 09:02) TONGUE AND GENERALIZED SWELLING penicillin G Allergy (Severe, Verified 01/07/18 09:02) TONGUE AND GENERALIZED SWELLING potassium iodide Allergy (Severe, Verified 01/07/18 09:02) Hives povidone-iodine Allergy (Severe, Verified 01/07/18 09:02) Swelling sodium iodide Allergy (Severe, Verified 01/07/18 09:02) Swelling Sulfa (Sulfonamide Antibiotics) Allergy (Severe, Verified 01/07/18 09:02) TONGUE AND GENERALIZED SWELLING Iodinated Contrast- Oral and IV Dye Allergy (Unknown, Verified 01/07/18 09:02) Swelling *MDRO Multi-Drug Resistant Organism Adverse Reaction (Unknown, Uncoded 01/07/18 09:02) MRSA MRSA PCR (nares) POSITIVE - 10/31/15 MRSA (blood & sputum) - 10/31/15 ESBL Klebsiella Pneumoniae (urine-06/26/16) Objective Vital Signs 01/07/18 20:00 01/07/18 21:05 01/08/18 00:00 Temperature 97.4 F L 98.2 F 97.5 F L Pulse Rate 69 65 70 Respiratory Rate 16 17 16 Blood Pressure 102/45 L 101/48 L 94/45 L Pulse Oximetry 99 97 97 01/08/18 03:40 01/08/18 04:00 01/08/18 05:19 Temperature 98 F Pulse Rate 61 60 65 Respiratory Rate 16 Blood Pressure 105/45 L Pulse Oximetry 99 01/08/18 08:00 01/08/18 12:00 01/08/18 12:08 Temperature 97.3 F L 98.0 F Pulse Rate 63 69 Respiratory Rate 20 20 Blood Pressure 110/52 L 103/49 L Pulse Oximetry 98 100 100 01/08/18 14:31 Temperature Pulse Rate 74 Respiratory Rate 22 Blood Pressure Pulse Oximetry 100 Intake & Output 01/07/18 01/08/18 01/08/18 18:59 06:59 18:59 Intake Total 360 / 360 Balance 360 / 360 Weight 105.9 kg 106.3 kg Intake: Oral 360 / 360 Other: # Voids 0 Lab - Hematology Results 01/04/18 01/05/18 01/06/18 11:11 16:42 20:15 WBC 9.8 10.0 RBC 2.90 L 3.36 L Hgb 7.8 L 8.9 L Hct 25.0 L 28.6 L MCV 86.3 85.2 MCH 27.0 26.6 L MCHC 31.3 L 31.2 L RDW 20.1 H 20.7 H Plt Count 268 287 MPV 9.2 9.0 Neut % (Auto) 56.0 69.8 Lymph % (Auto) 32.6 21.1 [place] % (Auto) 7.6 6.8 Eos % (Auto) 2.5 1.3 Baso % (Auto) 1.3 1.0 Neut # (Auto) 5.5 7.0 Lymph # (Auto) 3.2 2.1 [place] # (Auto) 0.7 0.7 Eos # (Auto) 0.2 0.1 Baso # (Auto) 0.1 0.1 CBC Comment DIFF FINAL DIFF FINAL WBC Differential Differential Comment ESR GREATER THAN 140 H Hematology Comments 01/07/18 01/08/18 08:55 12:00 WBC 9.2 8.9 RBC 3.48 L 3.54 L Hgb 9.3 L 9.3 L Hct 30.1 L 29.8 L MCV 86.4 84.2 MCH 26.6 L 26.3 L MCHC 30.8 L 31.3 L RDW 20.4 H 21.1 H Plt Count 294 293 MPV 9.0 9.0 Neut % (Auto) 62.8 68.9 Lymph % (Auto) 25.9 22.1 [place] % (Auto) 7.9 6.2 Eos % (Auto) 2.0 2.0 Baso % (Auto) 1.4 0.8 Neut # (Auto) 5.8 6.1 Lymph # (Auto) 2.4 2.0 [place] # (Auto) 0.7 0.6 Eos # (Auto) 0.2 0.2 Baso # (Auto) 0.1 0.1 CBC Comment DIFF FINAL WBC Differential . Differential Comment Auto diff final ESR Hematology Comments Lab - Chemistry Results 01/05/18 01/06/18 01/07/18 16:42 05:56 08:55 Sodium 142 142 137 Potassium 4.7 5.5 H D 4.3 D Chloride 102 102 99 Carbon Dioxide 31.4 30.3 29.8 Anion Gap 9 10 8 BUN 32 H D 37 H 20 H D Creatinine 5.43 H D 6.12 H 4.67 H D Estimated GFR 8 L 7 L 9 L POC Glucose Random Glucose 109 H 116 H 119 H Calcium 8.8 8.9 9.2 Magnesium 2.2 Iron 58 TIBC 196 L % Saturation 29.6 Ferritin 1184 H Total Bilirubin 0.4 0.3 AST 30 16 ALT 15 13 Alkaline Phosphatase 84 100 Total Creatine Kinase Total Protein 6.6 7.7 D Albumin 3.1 L 3.2 L 01/08/18 01/08/18 01/08/18 09:05 12:00 12:30 Sodium 137 Potassium 4.7 Chloride 101 Carbon Dioxide 27.0 Anion Gap 9 BUN 30 H Creatinine 6.47 H Estimated GFR 6 L POC Glucose 106 167 H Random Glucose 156 H Calcium 9.8 Magnesium Iron TIBC % Saturation Ferritin Total Bilirubin 0.2 AST 26 ALT 16 Alkaline Phosphatase 103 Total Creatine Kinase 22 L Total Protein 7.6 Albumin 3.0 L Imaging: Reviewed Physical Exam: Physical Exam GENERAL: Awake and alert, NAD. HEAD, EARS, EYES, NOSE AND THROAT: Extraocular movements are grossly intact. Pupils reactive to light. No icterus. Oropharynx Moist mucosa. No lesions. NECK: Supple without adenopathy. HD cath site ok LUNGS: Clear breath sounds HEART: Irregular rate and rhythm without audible murmurs, rubs or gallops. Chest: Mild tenderness at the upper left chest. ABDOMEN: Bowel sounds present. Soft, no tenderness. EXTREMITIES: No clubbing or cyanosis. No edema. SKIN: No rash. NEUROLOGIC: No gross focal finding. PSYCHIATRIC: Calm and cooperative. LINE: NO evidence of infection Assessment and Plan - Plan IMPRESSION: Fever, better Persistent MRSA sepsis, BC now sterile - ?failed vanco - now with seeding of spine T3-T4 discitis, osteomyelitis 2 different Coag Neg Staph (+) BC, C/W contaminant No evidence of endocarditis on JOSEFA. End-stage renal disease. RECOMMENDATIONS: Continue Daptomycin every 48 hours. - increase to 8 mg/kg - follow CPK Monitor clinical status. Need to determine end point for Rx Need to also determine how to give her Abx on D/C Explained plan to the patient D/W Dr Vasquez: can look at giving Cubicin 900 mg IV every Tuesday and Tuesday, then 1.5 gm IV every Tuesday when she gets D/C; will need to discuss this with CM when she gets close to D/C
[2018-01-09] MEDS: Insulin NovoLIN Regular Correctional Sugar Inj SQ SCH ×4 (09:37→21:37)
--- NOTE | 2018-01-09 12:26 | P.PNNP ---
Subjective Interval history: During hemodialysis today the patient complained of chest pain mid chest nonradiating. Dialysis treatment terminated prematurely. Chest pain currently improving. Primary care physician aware. Physical Exam Vital signs: Vital Signs 01/08/18 14:31 01/08/18 16:00 01/08/18 19:00 Temperature 98.1 F Pulse Rate 74 72 Respiratory Rate 22 20 18 Blood Pressure 135/56 L Pulse Oximetry 100 100 01/08/18 19:45 01/08/18 20:00 01/09/18 00:00 Temperature 97.7 F 97.9 F Pulse Rate 71 69 20 L Respiratory Rate 20 Blood Pressure 115/48 L 106/51 L Pulse Oximetry 93 L 96 01/09/18 03:22 01/09/18 04:00 01/09/18 04:36 Temperature 98.6 F Pulse Rate 72 97 H 68 Respiratory Rate 20 Blood Pressure 134/67 Pulse Oximetry 98 01/09/18 10:59 Temperature Pulse Rate Respiratory Rate Blood Pressure Pulse Oximetry 100 Intake & Output 01/08/18 01/09/18 01/09/18 18:59 06:59 18:59 Intake Total 400 / 400 Output Total 0 / 0 Balance 0 / 0 400 / 400 Weight 106.5 kg Intake: Oral 400 / 400 Output: Urine 0 / 0 Other: # Bowel Movements 1 - Constitutional no acute distress, morbidly obese - Routine HEENT Exam ENT: Present: mucous membranes moist - Routine Respiratory Exam Present: CTA bilaterally - Routine Cardiovascular Exam Present: RRR, S1, S2 - Routine Abdominal Exam Present: soft - Routine Extremities Exam Present: AV fistula (Right arm. Good bruit and thrill.), vascular access (Vas- Cath left internal jugular vein.) Assessment and Plan - Assessment (1) End-stage renal disease needing dialysis Code(s): N18.6 - End stage renal disease; Z99.2 - Dependence on renal dialysis Status: Acute Plan: Hoping to convert Vas-Cath to hemodialysis PermCath today. Await evaluation from primary care physician in regard to chest pain. May have to delay same until tomorrow. (2) Anemia of renal disease Code(s): D63.1 - Anemia in chronic kidney disease Status: Chronic Plan: Continue Epogen. (3) Bacteremia due to methicillin resistant Staphylococcus aureus Code(s): R78.81 - Bacteremia Status: Acute (4) Discitis of thoracic region Code(s): M46.44 - Discitis, unspecified, thoracic region Status: Acute Plan: Management per infectious disease. (5) Secondary hyperparathyroidism of renal origin Code(s): N25.81 - Secondary hyperparathyroidism of renal origin Status: Chronic - Plan As discussed with infectious disease. Planning to change Vas-Cath her hemodialysis PermCath in preparation for discharge. Blood cultures negative 5 days, last set. Daptomycin to be continued as an outpatient. The sutures suggests can be administered with dialysis with a 50% dosage increase Tuesday to cover patient over the weekend. Duration of therapy will be deferred to infectious disease. Once infection has been treated will be referred for probable venogram of right upper extremity to evaluate the AV dialysis shunt with an opinion from vascular surgery subsequently. Medication should be adjusted for the patient's end-stage renal. Avoid gadolinium.
[2018-01-09] MEDS: Heparin - SQ 10,000 UNITS/ML Vial SQ SCH ×2 (13:06→21:35)
[2018-01-09] MEDS: Calcium Acetate 667 MG Capsule PO SCH ×3 (13:06→17:10)
[2018-01-09] MEDS: Senna/Docusate Sodium 8.6/50 MG Tablet PO SCH ×2 (13:07→21:37)
[2018-01-09] MEDS: Calcium Carbonate 500 MG Tablet PO SCH ×2 (13:07→21:34)
[2018-01-09] MEDS: Pregabalin 75 MG Capsule PO SCH (13:08)
[2018-01-09] MEDS: Polyethylene Glycol 3350 17 GM Packet PO SCH (13:08)
[2018-01-09] MEDS: Insulin Detemir Inj 1,000 UNIT/10 ML Vial SQ SCH ×2 (13:09→21:36)
--- NOTE | 2018-01-09 13:16 | P.PNIM ---
Subjective Interval history: Pain in the center of her chest while at dialysis today. EKG is within normal limits for her. Cardiac enzymes are pending. Patient has had resolution of her chest pain since the onset. Pain is worsened with deep breathing. Etiology could be related to her T3/4 discitis and osteomyelitis. Physical Exam Vital signs: Vital Signs 01/08/18 14:31 01/08/18 16:00 01/08/18 19:00 Temperature 98.1 F Pulse Rate 74 72 Respiratory Rate 22 20 18 Blood Pressure 135/56 L Pulse Oximetry 100 100 01/08/18 19:45 01/08/18 20:00 01/09/18 00:00 Temperature 97.7 F 97.9 F Pulse Rate 71 69 20 L Respiratory Rate 20 Blood Pressure 115/48 L 106/51 L Pulse Oximetry 93 L 96 01/09/18 03:22 01/09/18 04:00 01/09/18 04:36 Temperature 98.6 F Pulse Rate 72 97 H 68 Respiratory Rate 20 Blood Pressure 134/67 Pulse Oximetry 98 01/09/18 10:59 Temperature Pulse Rate Respiratory Rate Blood Pressure Pulse Oximetry 100 Intake & Output 01/08/18 01/09/18 01/09/18 18:59 06:59 18:59 Intake Total 400 / 400 Output Total 0 / 0 1500 / 1500 Balance 0 / 0 400 / 400 -1500 / -1500 Weight 106.5 kg Intake: Oral 400 / 400 Output: Urine 0 / 0 Hemodialysis Amount 1500 / 1500 Other: # Bowel Movements 1 - Routine HEENT Exam Comments: GENERAL: NAD, A&Ox3 HEAD: Normocephalic. NECK: Supple, trachea midline. No lymphadenopathy. EYES: No scleral icterus. No injection or drainage. CARDIOVASCULAR: Regular rate and rhythm without murmurs, gallops, or rubs. RESPIRATORY: Breath sounds equal bilaterally. No accessory muscle use. GASTROINTESTINAL: Abdomen soft, non-tender, nondistended. MUSCULOSKELETAL: No cyanosis, or edema. SKIN: Warm and dry. Vas-Cath at left neck. NEURO: No focal neurological deficits. Results - Labs CBC & Chem 7: 01/08/18 12:00 01/08/18 12:00 Laboratory Results - last 24 hr 01/08/18 01/08/18 01/08/18 12:00 17:52 20:13 POC Glucose 127 H 142 H Total Creatine Kinase 22 L 01/09/18 01/09/18 08:23 13:03 POC Glucose 133 H 96 Total Creatine Kinase Assessment and Plan - Plan 72-year-old female admitted with renal failure and bacteremia Chest pain present today. Workup in process. Permacath placement on hold due to chest pain. MRI confirmation of discitis/ostium mellitus at T3/T4. Continue antibiotic treatment. Pain treatments are controlling the patient's pain, no confusion. Air Mattress ordered. Bacteremia T3/4 discitis and osteomyelitis Follow blood cultures Negative JOSEFA Continue vancomycin and daptomycin ID following Thoracic spine infection. Less likely aVF infection at this point given the existing evidence. Acute COPD exacerbation, resolving. Chronic respiratory failure on home oxygen. Possible mild fluid overload. CXR reviewed, shows mild to moderate fluid overload, minimal elevation right hemidiaphragm with parenchymal changes at right base VQ scan low probability for PE Continue duo nebs q6h, Tessalon Perles s/p azithromycin Continue Acapella, IS, O2 as needed Atypical Chest Pain Chest pain has returned Follow cardiac enzymes EKG is within normal limits Previous chest pain episode had a negative cardiac workup ESRD Continue dialysis Nephrology following Plan for permacath placement once cleared by ID Right Breast Edema Vascular surgery has recommended outpatient workup Follow clinically Anemia of chronic disease. Monitor hemoglobin Transfuse as needed Continue Epogen Diabetes mellitus type 2 Follow blood sugars Insulin sliding scale Diabetic diet Chronic pain: Continue Lyrica Continue pain treatments as needed and as tolerated Constipation Vannessa-Colace and MiraLAX scheduled Monitor for BM Hyperlipidemia Continue statin DVT Prophylaxis Heparin
--- NOTE | 2018-01-09 14:47 | P.PNCA ---
Subjective Interval history: C/o anterior atypical CP during dialysis, now improved; still has left sided CP and back pain increased with deep inspiration, mild SOB Physical Exam Vital signs: Vital Signs 01/08/18 16:00 01/08/18 19:00 01/08/18 19:45 Temperature 98.1 F Pulse Rate 72 71 Respiratory Rate 20 18 Blood Pressure 135/56 L Pulse Oximetry 100 01/08/18 20:00 01/09/18 00:00 01/09/18 03:22 Temperature 97.7 F 97.9 F Pulse Rate 69 20 L 72 Respiratory Rate 20 Blood Pressure 115/48 L 106/51 L Pulse Oximetry 93 L 96 01/09/18 04:00 01/09/18 04:36 01/09/18 08:00 Temperature 98.6 F 98.6 F Pulse Rate 97 H 68 Respiratory Rate 20 18 Blood Pressure 134/67 113/51 L Pulse Oximetry 98 99 01/09/18 10:59 01/09/18 12:00 Temperature 98.6 F Pulse Rate 63 Respiratory Rate 16 Blood Pressure 113/48 L Pulse Oximetry 100 97 Intake & Output 01/08/18 01/09/18 01/09/18 18:59 06:59 18:59 Intake Total 400 / 400 Output Total 0 / 0 1500 / 1500 Balance 0 / 0 400 / 400 -1500 / -1500 Weight 234 lb 12.677 oz Intake: Oral 400 / 400 Output: Urine 0 / 0 Hemodialysis Amount 1500 / 1500 Other: # Bowel Movements 1 - Constitutional mild distress - Routine Cardiovascular Exam Present: RRR Comments: CP reproducible with chest palpation - Routine Abdominal Exam Present: soft - Routine Extremities Exam Present: edema Comments: trace edema - Detailed Neurological Exam: Coma Scale Verbal Response: Oriented - Routine Psychiatric Exam Present: normal affect Assessment and Plan - Assessment (1) Chest pain Code(s): R07.9 - Chest pain, unspecified Status: Acute (2) End-stage renal disease needing dialysis Code(s): N18.6 - End stage renal disease; Z99.2 - Dependence on renal dialysis Status: Acute (3) Anemia of renal disease Code(s): D63.1 - Anemia in chronic kidney disease Status: Chronic (4) Bacteremia due to methicillin resistant Staphylococcus aureus Code(s): R78.81 - Bacteremia Status: Acute (5) Discitis of thoracic region Code(s): M46.44 - Discitis, unspecified, thoracic region Status: Acute - Plan CP very atypical, likely of noncardiac origin. Proceed with PermaCath placement tomorrow as planned. Continue monitoring. Increase activity.
[2018-01-09 15:41] LABS: Baso # (Auto) 0.1 th/mm3 (0.0-0.2); Baso % (Auto) 1.1 % (0.0-2.0); Eos # (Auto) 0.3 th/mm3 (0.0-0.4); Eos % (Auto) 2.4 % (0.0-4.0); Hematocrit 27.1 % (35.0-46.0); Hemoglobin 8.3 gm/dL (11.6-15.3); Lymph # (Auto) 3.1 th/mm3 (1.0-4.8); Lymph % (Auto) 24.9 % (9.0-44.0); Mean Corpuscular Hemoglobin 26.6 pg (27.0-34.0); Mean Corpuscular Volume 86.8 fL (80.0-100.0); Mean Platelet Volume 9.2 fL (7.0-11.0); Mono # (Auto) 0.9 th/mm3 (0.0-0.9); Neut # (Auto) 8.1 th/mm3 (1.8-7.7); Neut % (Auto) 64.6 % (16.0-70.0); Platelet Count 294 th/mm3 (150-450); Red Blood Count 3.12 mil/mm3 (4.00-5.30); Red Cell Distribution Width 20.9 % (11.6-17.2); White Blood Count 12.6 th/mm3 (4.0-11.0)
[2018-01-09 15:48] LABS: Mean Corpuscular HGB Conc 30.7 % (32.0-36.0)
[2018-01-09 16:15] LABS: Eosinophils 1 % (0-4); Lymphocytes 26 % (9-44); Monocytes 5 % (0-8)
[2018-01-09 16:16] LABS: Ovalocytes 1+; Platelet Estimate Normal (Normal); Platelet Morphology Normal (Normal)
[2018-01-09 16:23] LABS: Alanine Aminotransferase 13 U/L (10-53); Albumin 3.9 g/dL (3.4-5.0); Alkaline Phosphatase 93 U/L (45-117); Anion Gap 9 meq/L (5-15); Aspartate Aminotransferase 16 U/L (15-37); Blood Urea Nitrogen 33 mg/dL (7-18); Calcium 9.8 mg/dL (8.5-10.1); Carbon Dioxide 29.8 meq/L (21.0-32.0); Chloride 102 meq/L (98-107); Glomerular Filtration Rate 7 mL/min (>89); Glucose,Random 125 mg/dL (74-106); Potassium 3.9 meq/L (3.5-5.1); Sodium 141 meq/L (136-145); Total Protein 7.9 g/dL (6.4-8.2)
[2018-01-09] MEDS: DAPTOmycin Inj 900 MG in Sodium Chlor 0.9% Inj 100 ML IV.SIG SCH (17:10)
[2018-01-10] MEDS: Pregabalin 75 MG Capsule PO SCH (08:24)
[2018-01-10] MEDS: Calcium Acetate 667 MG Capsule PO SCH ×3 (08:25→19:24)
[2018-01-10] MEDS: Senna/Docusate Sodium 8.6/50 MG Tablet PO SCH ×2 (08:25→22:02)
[2018-01-10] MEDS: Heparin - SQ 10,000 UNITS/ML Vial SQ SCH ×2 (08:26→22:02)
[2018-01-10] MEDS: Polyethylene Glycol 3350 17 GM Packet PO SCH (08:27)
[2018-01-10] MEDS: Calcium Carbonate 500 MG Tablet PO SCH ×2 (08:28→22:01)
[2018-01-10] MEDS: Insulin NovoLIN Regular Correctional Sugar Inj SQ SCH ×4 (08:35→22:03)
[2018-01-10] MEDS: Insulin Detemir Inj 1,000 UNIT/10 ML Vial SQ SCH ×2 (08:36→22:04)
--- NOTE | 2018-01-10 08:50 | ECG ---
Date Performed: 01/09/2018 Time Performed: 10:59:15 PTAGE: 72 years EKG: Sinus rhythm NORMAL ECG PREVIOUS TRACING : 12/26/2017 10.46 Since the previous tracing, no significant change noted DOCTOR: Mikhail Khalil Interpretating Date/Time 01/10/2018 08:49:59
[2018-01-10] MEDS ORDERED: fentaNYL Citrate Inj 250 MCG/5 ML Ampul ONE (09:31)
[2018-01-10] MEDS ORDERED: *Heparin 10,000 UNITS/10 ML Vial Periprocedural ONLY ONE (09:38)
[2018-01-10] MEDS ORDERED: Lidocaine 1%/Epinephrine 1:100,000 Inj 30 ML Vial ONE (09:39)
[2018-01-10 10:07] LABS: Alanine Aminotransferase 12 U/L (10-53); Albumin 3.5 g/dL (3.4-5.0); Anion Gap 11 meq/L (5-15); Aspartate Aminotransferase 14 U/L (15-37); Blood Urea Nitrogen 46 mg/dL (7-18); Calcium 9.8 mg/dL (8.5-10.1); Carbon Dioxide 28.1 meq/L (21.0-32.0); Chloride 100 meq/L (98-107); Glomerular Filtration Rate 6 mL/min (>89); Glucose,Random 79 mg/dL (74-106); Potassium 4.9 meq/L (3.5-5.1); Sodium 139 meq/L (136-145)
[2018-01-10 10:10] LABS: Alkaline Phosphatase 96 U/L (45-117); Total Protein 7.1 g/dL (6.4-8.2)
[2018-01-10 10:44] LABS: Baso # (Auto) 0.1 th/mm3 (0.0-0.2); Baso % (Auto) 0.7 % (0.0-2.0); Eos # (Auto) 0.3 th/mm3 (0.0-0.4); Eos % (Auto) 2.7 % (0.0-4.0); Hematocrit 25.7 % (35.0-46.0); Hemoglobin 8.2 gm/dL (11.6-15.3); Lymph # (Auto) 2.5 th/mm3 (1.0-4.8); Lymph % (Auto) 25.8 % (9.0-44.0); Mean Corpuscular HGB Conc 32.1 % (32.0-36.0); Mean Corpuscular Hemoglobin 27.5 pg (27.0-34.0); Mean Corpuscular Volume 85.9 fL (80.0-100.0); Mean Platelet Volume 9.6 fL (7.0-11.0); Mono # (Auto) 0.7 th/mm3 (0.0-0.9); Mono % (Auto) 7.8 % (0.0-8.0); Platelet Count 440 th/mm3 (150-450); Red Blood Count 2.99 mil/mm3 (4.00-5.30); Red Cell Distribution Width 20.9 % (11.6-17.2); White Blood Count 9.5 th/mm3 (4.0-11.0)
--- NOTE | 2018-01-10 11:31 | P.PNIM ---
Subjective Interval history: s/p permcath placement, still has mild chest pain but better. Afebrile. Physical Exam Vital signs: Vital Signs 01/09/18 12:00 01/09/18 20:00 01/10/18 00:00 Temperature 98.6 F 97.9 F Pulse Rate 66 68 75 Respiratory Rate 16 17 Blood Pressure 113/48 L 116/51 L 122/53 L Pulse Oximetry 97 97 93 L 01/10/18 04:00 01/10/18 08:00 Temperature 98 F 98.1 F Pulse Rate 63 61 Respiratory Rate 17 18 Blood Pressure 111/88 107/49 L Pulse Oximetry 95 97 Intake & Output 01/09/18 01/10/18 01/10/18 18:59 06:59 18:59 Intake Total 0 / 0 Output Total 1500 / 1500 150 / 150 Balance -1500 / -1500 -150 / -150 Weight 100 kg Intake: Oral 0 / 0 Output: Urine 150 / 150 Hemodialysis Amount 1500 / 1500 Other: Date of Last Bowel Movement 01/09/18 Narrative: GENERAL: NAD, A&Ox3 CARDIOVASCULAR: Regular rate and rhythm without murmurs, gallops, or rubs. PermCath in place. RESPIRATORY: Breath sounds equal bilaterally. No accessory muscle use. GASTROINTESTINAL: Abdomen soft, non-tender, nondistended. MUSCULOSKELETAL: No cyanosis, or edema. NEURO: No focal neurological deficits. Results - Labs CBC & Chem 7: 01/10/18 06:43 01/10/18 06:43 Laboratory Results - last 24 hr 01/09/18 01/09/18 01/09/18 13:03 14:51 14:51 WBC 12.6 H RBC 3.12 L Hgb 8.3 L Hct 27.1 L MCV 86.8 MCH 26.6 L MCHC 30.7 L RDW 20.9 H Plt Count 294 MPV 9.2 Prelim Diff (Auto) Slide review pending Neut % (Auto) 64.6 Lymph % (Auto) 24.9 [place] % (Auto) 7.0 Eos % (Auto) 2.4 Baso % (Auto) 1.1 Neut # (Auto) 8.1 H Lymph # (Auto) 3.1 [place] # (Auto) 0.9 Eos # (Auto) 0.3 Baso # (Auto) 0.1 WBC Differential Manual diff final Seg Neuts % (Manual) 66 Band Neuts % (Manual) 2 Lymphocytes % (Manual) 26 Monocytes % (Manual) 5 Eosinophils % (Manual) 1 Abs Neuts (Manual) 8.6 H Differential Comment . Platelet Estimate Normal Platelet Morphology Normal Ovalocytes 1+ H Sodium 141 Potassium 3.9 D Chloride 102 Carbon Dioxide 29.8 Anion Gap 9 BUN 33 H Creatinine 5.70 H Estimated GFR 7 L POC Glucose 96 Random Glucose 125 H Calcium 9.8 Total Bilirubin 0.3 AST 16 ALT 13 Alkaline Phosphatase 93 Troponin I Less than 0.02 L Total Protein 7.9 Albumin 3.9 D 01/09/18 01/09/18 01/09/18 17:04 20:05 20:42 WBC RBC Hgb Hct MCV MCH MCHC RDW Plt Count MPV Prelim Diff (Auto) Neut % (Auto) Lymph % (Auto) [place] % (Auto) Eos % (Auto) Baso % (Auto) Neut # (Auto) Lymph # (Auto) [place] # (Auto) Eos # (Auto) Baso # (Auto) WBC Differential Seg Neuts % (Manual) Band Neuts % (Manual) Lymphocytes % (Manual) Monocytes % (Manual) Eosinophils % (Manual) Abs Neuts (Manual) Differential Comment Platelet Estimate Platelet Morphology Ovalocytes Sodium Potassium Chloride Carbon Dioxide Anion Gap BUN Creatinine Estimated GFR POC Glucose 159 H 171 H Random Glucose Calcium Total Bilirubin AST ALT Alkaline Phosphatase Troponin I Less than 0.02 L Total Protein Albumin 01/10/18 01/10/18 01/10/18 06:43 06:43 07:38 WBC 9.5 RBC 2.99 L Hgb 8.2 L Hct 25.7 L MCV 85.9 MCH 27.5 MCHC 32.1 RDW 20.9 H Plt Count 440 D MPV 9.6 Prelim Diff (Auto) Neut % (Auto) 63.0 Lymph % (Auto) 25.8 [place] % (Auto) 7.8 Eos % (Auto) 2.7 Baso % (Auto) 0.7 Neut # (Auto) 6.0 Lymph # (Auto) 2.5 [place] # (Auto) 0.7 Eos # (Auto) 0.3 Baso # (Auto) 0.1 WBC Differential . Seg Neuts % (Manual) Band Neuts % (Manual) Lymphocytes % (Manual) Monocytes % (Manual) Eosinophils % (Manual) Abs Neuts (Manual) Differential Comment Auto diff final Platelet Estimate Platelet Morphology Ovalocytes Sodium 139 Potassium 4.9 D Chloride 100 Carbon Dioxide 28.1 Anion Gap 11 BUN 46 H Creatinine 6.52 H Estimated GFR 6 L POC Glucose 85 Random Glucose 79 Calcium 9.8 Total Bilirubin 0.3 AST 14 L ALT 12 Alkaline Phosphatase 96 Troponin I Less than 0.02 L Total Protein 7.1 D Albumin 3.5 Assessment and Plan - Plan 72-year-old female admitted with renal failure and bacteremia Bacteremia T3/4 discitis and osteomyelitis Negative JOSEFA Continue vancomycin and daptomycin ID following Thoracic spine infection. Less likely aVF infection at this point given the existing evidence. MRI confirmed discitis/osteomyelitis at T3 and T4. Acute COPD exacerbation, resolving. Chronic respiratory failure on home oxygen. Possible mild fluid overload. CXR reviewed, shows mild to moderate fluid overload, minimal elevation right hemidiaphragm with parenchymal changes at right base VQ scan low probability for PE Continue duo nebs q6h, Tessalon Perles s/p azithromycin Continue Acapella, IS, O2 as needed Atypical Chest Pain Chest pain has returned, cardiac enzymes negative 3, EKG is within normal limits.Previous chest pain episode had a negative cardiac workup, Dr. Menjivar saw the patient yesterday, cleared patient for PermCath placement. ESRD Continue dialysis Nephrology following, status post PermCath placement today. Right Breast Edema Vascular surgery has recommended outpatient workup Follow clinically Anemia of chronic disease. Monitor hemoglobin Transfuse as needed Continue Epogen Diabetes mellitus type 2 Follow blood sugars Insulin sliding scale Diabetic diet Chronic pain: Continue Lyrica Continue pain treatments as needed and as tolerated Constipation Vannessa-Colace and MiraLAX scheduled Monitor for BM Hyperlipidemia Continue statin DVT Prophylaxis Heparin
--- NOTE | 2018-01-10 16:37 | P.PNCA ---
Subjective Interval history: CP improving, mild SOB, PermaCath placed Physical Exam Vital signs: Vital Signs 01/09/18 20:00 01/10/18 00:00 01/10/18 04:00 Temperature 97.9 F 98 F Pulse Rate 68 75 63 Respiratory Rate 17 17 Blood Pressure 116/51 L 122/53 L 111/88 Pulse Oximetry 97 93 L 95 01/10/18 08:00 01/10/18 10:50 01/10/18 11:40 Temperature 98.1 F 97.2 F L Pulse Rate 61 65 64 Respiratory Rate 18 18 18 Blood Pressure 107/49 L 112/49 L 120/40 L Pulse Oximetry 97 01/10/18 12:00 Temperature 97.4 F L Pulse Rate 68 Respiratory Rate 18 Blood Pressure 129/83 Pulse Oximetry 97 Intake & Output 01/09/18 01/10/18 01/10/18 18:59 06:59 18:59 Intake Total 0 / 0 Output Total 1500 / 1500 150 / 150 Balance -1500 / -1500 -150 / -150 Weight 220 lb 7.396 oz Intake: Oral 0 / 0 Output: Urine 150 / 150 Hemodialysis Amount 1500 / 1500 Other: Date of Last Bowel Movement 01/09/18 - Constitutional no acute distress - Routine Respiratory Exam Present: CTA bilaterally - Routine Cardiovascular Exam Present: RRR - Routine Abdominal Exam Present: soft Comments: morbidly obese - Routine Extremities Exam Present: edema - Routine Neurological Exam Present: alert, oriented X3 - Routine Psychiatric Exam Present: normal affect Assessment and Plan - Assessment (1) Chest pain Code(s): R07.9 - Chest pain, unspecified Status: Acute (2) End-stage renal disease needing dialysis Code(s): N18.6 - End stage renal disease; Z99.2 - Dependence on renal dialysis Status: Acute (3) Anemia of renal disease Code(s): D63.1 - Anemia in chronic kidney disease Status: Chronic (4) Bacteremia due to methicillin resistant Staphylococcus aureus Code(s): R78.81 - Bacteremia Status: Acute (5) Discitis of thoracic region Code(s): M46.44 - Discitis, unspecified, thoracic region Status: Acute - Plan CP improving, very atypical, likely of noncardiac origin. PermaCath placed, dialysis tomorrow. Continue monitoring. Increase activity, has not been out of bed, PT evaluation.
--- NOTE | 2018-01-10 17:03 | IR ---
EXAM DATE: 01/10/2018 12:26 PM EDT AGE/SEX: 72 years / Female INDICATIONS: Patient presents with temporary dialysis catheter in need of permanent one. CLINICAL DATA: This is the patient's sequela encounter. Patient reports that signs and symptoms have been present for 1 week and indicates a pain score of 5/10. MEDICAL/SURGICAL HISTORY: Diabetes. Hypertension. Chronic obstructive pulmonary disease. ESR D CAD Multiple Myeloma GERD Anemia for chronic renal disease . AV graft Previous perm cath removed o n last admission suspected MRSA Cholecystectomy Appendectomy COMPARISON: No prior exams available for comparison. FLUORO TIME (min): 3.06 IMAGE SERIES: 1 ACCESS SITE: Right subclavian vein SEDATION TIME (min): 30 CONTRAST (cc): 15cc CO2 MEDICATION(S): 1.5mg midazolam (Versed) IV 75mcg fentanyl (Sublimaze) IV 1mg lorazepam (Ativan) IV DEVICE(S): 23cm Perm Cath . . PROCEDURE: 1. Ultrasound-guided venipuncture. 2. PermaCath placement with fluoroscopic guidance. 3. Conscious sedation with continuous EKG and oximetry monitoring. The risks, benefits and alternatives to the procedure were explained and verbal and written consent w as obtained. The site was prepped in sterile fashion. Full sterile technique was used, including ca p, mask, sterile gloves and gown and a large sterile sheet. Hand hygiene and 2% chlorhexidine and/or betadine/alcohol prep was utilized per protocol for cutaneous antisepsis. Sterile gel and sterile p robe cover were utilized for ultrasound guidance. The skin and subcutaneous tissues were infiltrated with local anesthetic solution. With ultrasound and fluoroscopic guidance a dermatotomy was created over the prescribed vein. A micr opuncture set was used to access the targeted vein and serial dilatation was performed to accept the prescribed length catheter. A subcutaneous tunnel was created in a retrograde fashion the catheter w as pulled through the tunnel. The catheter was flushed and assembled and locked with heparin. The c atheter was sutured in place. Conscious sedation was performed with the prescribed dosages and duration as above in the presence of an independent trained radiology nurse to assist in the monitoring of the patient. EKG and oximetry remained stable throughout the procedure. The patient tolerated the procedure well and there were n o complications. The patient was sent to post anesthesia recovery in stable condition. CONCLUSION: Uncomplicated ultrasound and fluoroscopic guided dialysis PermaCath placement as above. Electronically signed by: Antonio Barrientos MD 01/10/2018 5:02 PM EDT
[2018-01-11] MEDS: Insulin NovoLIN Regular Correctional Sugar Inj SQ SCH ×3 (07:50→18:37)
--- NOTE | 2018-01-11 11:48 | P.PNNP ---
Subjective Interval history: Pt seen during HD and seems to be tolerating well. PermaCath placed 01/10/18 Still having some chest discomfort left, mid-sternal. <Zenaida Fang R - Last Filed: 01/11/18 11:37> Physical Exam Vital signs: Vital Signs 01/10/18 11:40 01/10/18 12:00 01/10/18 16:00 Temperature 97.4 F L 97.8 F Pulse Rate 64 68 67 Respiratory Rate 18 18 17 Blood Pressure 120/40 L 129/83 127/74 Pulse Oximetry 97 100 01/10/18 16:20 01/10/18 20:00 01/10/18 21:39 Temperature 98.3 F Pulse Rate 67 71 Respiratory Rate 16 Blood Pressure 132/51 L Pulse Oximetry 94 L 96 01/11/18 00:00 01/11/18 04:00 01/11/18 07:41 Temperature 98.3 F 98 F Pulse Rate 67 64 66 Respiratory Rate 16 16 Blood Pressure 134/68 144/62 H Pulse Oximetry 98 96 01/11/18 07:45 01/11/18 08:00 Temperature 97.8 F Pulse Rate 72 Respiratory Rate 18 18 Blood Pressure 123/51 L Pulse Oximetry 94 L Intake & Output 01/10/18 01/11/18 01/11/18 18:59 06:59 18:59 Intake Total 240 / 240 Output Total 10 / 10 Balance 230 / 230 Weight 102.5 kg Intake: Oral 240 / 240 Output: Urine 10 / 10 Other: Date of Last Bowel Movement 01/11/18 01/11/18 # Bowel Movements 1 - Constitutional no acute distress - Routine HEENT Exam Head: Present: normocephalic Eye: Present: EOMI - Routine Neck Exam Present: supple - Routine Respiratory Exam Present: CTA bilaterally - Routine Cardiovascular Exam Present: RRR - Routine Abdominal Exam Present: soft, normoactive bowel sounds - Routine Skin Exam Present: intact - Routine Neurological Exam Present: alert, oriented X3 - Detailed Neurological Exam: Coma Scale Eye Opening: Spontaneous Verbal Response: Oriented Motor Response: Obey commands [place] Coma Scale Total: 15 - Routine Psychiatric Exam Present: normal affect, normal thought process <Zenaida Fang - Last Filed: 01/11/18 11:37> Vital signs: Vital Signs 01/11/18 17:49 01/11/18 19:50 01/12/18 00:00 Temperature 99.1 F Pulse Rate 84 79 Respiratory Rate 18 Blood Pressure 112/54 L Pulse Oximetry 94 L 100 01/12/18 03:45 01/12/18 04:00 01/12/18 08:00 Temperature 98.3 F 98.7 F Pulse Rate 69 73 75 Respiratory Rate 20 16 Blood Pressure 117/55 L 108/53 L Pulse Oximetry 98 95 01/12/18 12:00 01/12/18 14:35 01/12/18 16:00 Temperature 98.6 F 98.5 F Pulse Rate 75 81 Respiratory Rate 18 16 Blood Pressure 108/50 L 107/51 L Pulse Oximetry 96 96 98 Intake & Output 01/11/18 01/12/18 01/12/18 18:59 06:59 18:59 Intake Total 240 / 240 100 / 100 Output Total 3000 / 3000 150 / 150 Balance -3000 / -3000 90 / 90 100 / 100 Weight 102.5 kg 103.9 kg Intake: IV 100 / 100 Cubicin Inj 900 MG In NS Inj 100 / 100 100 ML @ 200 mls/hr IV.SIG Q48H RICHARD Rx#:[id number] Oral 240 / 240 Output: Urine 150 / 150 Hemodialysis Amount 3000 / 3000 Other: Date of Last Bowel Movement 01/11/18 <Kameron Vasquez - Last Filed: 01/12/18 16:51> Assessment and Plan - Assessment (1) End-stage renal disease needing dialysis Code(s): N18.6 - End stage renal disease; Z99.2 - Dependence on renal dialysis Status: Acute Plan: Seen during HD. Continue MWF schedule. PermaCath placed 01/10/18 and seems to be working well. Discharge planning OK from renal standpoint. Medications should be adjusted for the patient's ESRD. Avoid gadolinium. (2) Anemia of renal disease Code(s): D63.1 - Anemia in chronic kidney disease Status: Chronic Plan: Continue Epogen with HD (3) Bacteremia due to methicillin resistant Staphylococcus aureus Code(s): R78.81 - Bacteremia Status: Acute (4) Discitis of thoracic region Code(s): M46.44 - Discitis, unspecified, thoracic region Status: Acute Plan: Management per infectious disease. (5) Secondary hyperparathyroidism of renal origin Code(s): N25.81 - Secondary hyperparathyroidism of renal origin Status: Chronic - Plan As discussed with infectious disease. Planning to change Vas-Cath her hemodialysis PermCath in preparation for discharge. Blood cultures negative 5 days, last set. Daptomycin to be continued as an outpatient. The sutures suggests can be administered with dialysis with a 50% dosage increase Tuesday to cover patient over the weekend. Duration of therapy will be deferred to infectious disease. Once infection has been treated will be referred for probable venogram of right upper extremity to evaluate the AV dialysis shunt with an opinion from vascular surgery subsequently. Medication should be adjusted for the patient's end-stage renal. Avoid gadolinium. <Zenaida Fang - Last Filed: 01/11/18 11:37> - Assessment (1) End-stage renal disease needing dialysis Code(s): N18.6 - End stage renal disease; Z99.2 - Dependence on renal dialysis Status: Acute (2) Anemia of renal disease Code(s): D63.1 - Anemia in chronic kidney disease Status: Chronic (3) Bacteremia due to methicillin resistant Staphylococcus aureus Code(s): R78.81 - Bacteremia Status: Acute (4) Discitis of thoracic region Code(s): M46.44 - Discitis, unspecified, thoracic region Status: Acute (5) Secondary hyperparathyroidism of renal origin Code(s): N25.81 - Secondary hyperparathyroidism of renal origin Status: Chronic - Attending Attestation The exam, history, and the medical decision-making described in the above note were completed with the assistance of the mid-level provider. I reviewed and agree with the findings presented. <Kameron Vasquez - Last Filed: 01/12/18 16:51>
--- NOTE | 2018-01-11 13:19 | P.PNCA ---
Subjective Interval history: C/o back pain, no angina or SOB, in dialysis Physical Exam Vital signs: Vital Signs 01/10/18 16:00 01/10/18 16:20 01/10/18 20:00 Temperature 97.8 F 98.3 F Pulse Rate 67 67 71 Respiratory Rate 17 16 Blood Pressure 127/74 132/51 L Pulse Oximetry 100 94 L 01/10/18 21:39 01/11/18 00:00 01/11/18 04:00 Temperature 98.3 F 98 F Pulse Rate 67 64 Respiratory Rate 16 16 Blood Pressure 134/68 144/62 H Pulse Oximetry 96 98 96 01/11/18 07:41 01/11/18 07:45 01/11/18 08:00 Temperature 97.8 F Pulse Rate 66 72 Respiratory Rate 18 18 Blood Pressure 123/51 L Pulse Oximetry 94 L Intake & Output 01/10/18 01/11/18 01/11/18 18:59 06:59 18:59 Intake Total 240 / 240 Output Total 3000 / 3000 Balance 230 / 230 -3000 / -3000 Weight 225 lb 15.581 oz Intake: Oral 240 / 240 Output: Urine Hemodialysis Amount 3000 / 3000 Other: Date of Last Bowel Movement 01/11/18 01/11/18 # Bowel Movements 1 - Constitutional no acute distress - Routine Respiratory Exam Present: decreased breath sounds, CTA bilaterally - Routine Cardiovascular Exam Present: RRR - Routine Abdominal Exam Present: soft - Routine Extremities Exam Present: edema - Routine Neurological Exam Present: alert, oriented X3 - Routine Psychiatric Exam Present: normal affect Assessment and Plan - Assessment (1) Chest pain Code(s): R07.9 - Chest pain, unspecified Status: Acute (2) End-stage renal disease needing dialysis Code(s): N18.6 - End stage renal disease; Z99.2 - Dependence on renal dialysis Status: Acute (3) Anemia of renal disease Code(s): D63.1 - Anemia in chronic kidney disease Status: Chronic (4) Bacteremia due to methicillin resistant Staphylococcus aureus Code(s): R78.81 - Bacteremia Status: Acute (5) Discitis of thoracic region Code(s): M46.44 - Discitis, unspecified, thoracic region Status: Acute - Plan Tolerating dialysis well. No angina. PermaCath placed, now in dialysis. Continue monitoring. Increase activity, has not been out of bed for days, recommend PT evaluation.
[2018-01-11] MEDS: Insulin Detemir Inj 1,000 UNIT/10 ML Vial SQ SCH (13:45)
[2018-01-11] MEDS: Polyethylene Glycol 3350 17 GM Packet PO SCH (13:46)
[2018-01-11] MEDS: Heparin - SQ 10,000 UNITS/ML Vial SQ SCH ×2 (13:54→22:51)
[2018-01-11] MEDS: Pregabalin 75 MG Capsule PO SCH (13:55)
[2018-01-11] MEDS: Senna/Docusate Sodium 8.6/50 MG Tablet PO SCH ×2 (13:56→22:50)
[2018-01-11] MEDS: Calcium Carbonate 500 MG Tablet PO SCH (13:56)
[2018-01-11] MEDS: Calcium Acetate 667 MG Capsule PO SCH ×3 (13:56→17:34)
--- NOTE | 2018-01-11 14:02 | P.PN ---
Subjective Interval history: Mrs. Puga was afebrile with stable VS; O2 saturations 94 % on 4 L O2 via NC. Patient reports persistent chest pain radiating to back. Patient reports frustration regarding her diet. Patient seen after dialysis; she states this went well. Patient reports some urine output and normal BM. Physical Exam Vital signs: Vital Signs 01/10/18 16:00 01/10/18 16:20 01/10/18 20:00 Temperature 97.8 F 98.3 F Pulse Rate 67 67 71 Respiratory Rate 17 16 Blood Pressure 127/74 132/51 L Pulse Oximetry 100 94 L 01/10/18 21:39 01/11/18 00:00 01/11/18 04:00 Temperature 98.3 F 98 F Pulse Rate 67 64 Respiratory Rate 16 16 Blood Pressure 134/68 144/62 H Pulse Oximetry 96 98 96 01/11/18 07:41 01/11/18 07:45 01/11/18 08:00 Temperature 97.8 F Pulse Rate 66 72 Respiratory Rate 18 18 Blood Pressure 123/51 L Pulse Oximetry 94 L Intake & Output 01/10/18 01/11/18 01/11/18 18:59 06:59 18:59 Intake Total 240 / 240 Output Total 3000 / 3000 Balance 230 / 230 -3000 / -3000 Weight 102.5 kg Intake: Oral 240 / 240 Output: Urine Hemodialysis Amount 3000 / 3000 Other: Date of Last Bowel Movement 01/11/18 01/11/18 # Bowel Movements 1 Narrative: GENERAL: NAD CARDIOVASCULAR: Regular rate and rhythm without murmurs. PermCath in place. RESPIRATORY: Breath sounds equal bilaterally; normal rate. On NC O2 via NC. GASTROINTESTINAL: Abdomen soft, non-tender, nondistended. MUSCULOSKELETAL: No cyanosis, or edema. NEURO: No focal neurological deficits. Results - Labs CBC & Chem 7: 01/10/18 06:43 01/10/18 06:43 Laboratory Results - last 24 hr 01/10/18 01/10/18 01/11/18 17:34 20:03 07:34 POC Glucose 140 H 117 H 105 01/11/18 12:30 POC Glucose 131 H - Imaging Impressions Central Venous Line 01/10/18 16:42 CONCLUSION: Uncomplicated ultrasound and fluoroscopic guided dialysis PermaCath placement as above. Assessment and Plan - Assessment (1) End-stage renal disease needing dialysis Code(s): N18.6 - End stage renal disease; Z99.2 - Dependence on renal dialysis Status: Acute (2) Anemia of renal disease Code(s): D63.1 - Anemia in chronic kidney disease Status: Chronic (3) Bacteremia due to methicillin resistant Staphylococcus aureus Code(s): R78.81 - Bacteremia Status: Acute (4) Discitis of thoracic region Code(s): M46.44 - Discitis, unspecified, thoracic region Status: Acute (5) Chest pain Code(s): R07.9 - Chest pain, unspecified Status: Acute - Plan 72-year-old female admitted with renal failure and bacteremia Bacteremia T3/4 discitis and osteomyelitis Impression: Seeding of thoracic spine. Prior MRSA sepsis; now negative cultures. Negative JOSEFA. ESRD -ID following -Continue daptomycin -Plan to transition to Cubicin as outpatient with dialysis -Management based on ESRD considerations Acute COPD exacerbation, resolving. Chronic respiratory failure on home oxygen. Possible mild fluid overload. CXR reviewed, shows mild to moderate fluid overload, minimal elevation right hemidiaphragm with parenchymal changes at right base VQ scan low probability for PE Continue duo nebs q6h, Tessalon Perles s/p azithromycin Continue Acapella, IS, O2 as needed Atypical Chest Pain Chest pain has returned, cardiac enzymes negative 3, EKG is within normal limits.Previous chest pain episode had a negative cardiac workup, Dr. Menjivar saw the patient yesterday, cleared patient for PermCath placement. -PT consultation recommended per Cardiology -Discussed with PT; patient has not been compliant generally but rehab recommended if agreeable; HH if not agreeable ESRD Continue dialysis; s/p PermaCath placement Nephrology following Right Breast Edema Vascular surgery has recommended outpatient workup Follow clinically Anemia of chronic disease. Monitor hemoglobin Transfuse as needed Continue Epogen Diabetes mellitus type 2 Follow blood sugars Insulin sliding scale Diabetic diet Chronic pain: Continue Lyrica Continue pain treatments as needed and as tolerated Constipation Vannessa-Colace and MiraLAX scheduled Monitor for BM Hyperlipidemia Continue statin DVT Prophylaxis Heparin Discharge Planning: Anticipate discharge home with home health tomorrow
--- NOTE | 2018-01-11 14:27 | P.DCO ---
Post Hospital Infusion Therapy Patient Weight: 102.5 kg - Diagnosis (1) Discitis of thoracic region Code(s): M46.44 - Discitis, unspecified, thoracic region (2) Bacteremia due to methicillin resistant Staphylococcus aureus Code(s): R78.81 - Bacteremia - Additional Information Additional Medications: Cubicin 900 mg IV every Mondays and Wednesdays Cubicin 1500 mg IV every Fridays Last dose March 08, 2018 Antibiotics to be given in HD center towards end of HD Venous Access: Other Additional Instructions: [x] Peripheral flush and dressing changes per protocol [x] Implanted port and central line runner: * Implanted port: 10 ml Normal Saline followed by 5 ml Heparin 100 units/ml Heparin flush after each use and monthly to maintain. [] May leave port accessed during therapy. [] May leave peripheral site accessed for duration of therapy. [x] If patient has SOB or respiratory distress, check oxygen saturation. If less than 90% or clinical signs of respiratory distress, administer oxygen at 2 L/min. via nasal cannula and notify physician. [x] Anaphylaxis/Reaction orders: * Stop infusion. * Keep IV line open with saline flush. * Notify physician. * Monitor vital signs every 15 minutes until symptoms resolve. * Check Oxygen saturation; Oxygen at 2 L/min. via nasal cannula if less than 90% or clinical signs of respiratory distress. * Administer diphenhydramine (Benadryl) 25 mg IV STAT, (unless patient has received as pre-med). May repeat once, if necessary. * Solu-Cortef 250 mg IVP over 30-60 seconds, use 100 mg vials for each dissolution. * Epinephrine (1mg/1 ml) 0.3 mg subcutaneously or IVP now with any signs of respiratory distress. * Check with physician for new additional pre-med orders if patient is re- challenged or re-treated. [x] May remove PICC line when treatment complete, after confirming with Physician. [x] If the patient is admitted to the hospital, the ED, or transferred via [facility] , complete transfer form including medication reconciliation order sheet. Weekly Labs: CBC w/diff, Serum CK Levels (Labs every Wednesdays) Allergies iodine Allergy (Severe, Verified 01/07/18 09:02) Swelling iohexol Allergy (Severe, Verified 01/07/18 09:02) TONGUE AND GENERALIZED SWELLING penicillin G Allergy (Severe, Verified 01/07/18 09:02) TONGUE AND GENERALIZED SWELLING potassium iodide Allergy (Severe, Verified 01/07/18 09:02) Hives povidone-iodine Allergy (Severe, Verified 01/07/18 09:02) Swelling sodium iodide Allergy (Severe, Verified 01/07/18 09:02) Swelling Sulfa (Sulfonamide Antibiotics) Allergy (Severe, Verified 01/07/18 09:02) TONGUE AND GENERALIZED SWELLING Iodinated Contrast- Oral and IV Dye Allergy (Unknown, Verified 01/07/18 09:02) Swelling *MDRO Multi-Drug Resistant Organism Adverse Reaction (Unknown, Uncoded 01/07/18 09:02) MRSA MRSA PCR (nares) POSITIVE - 10/31/15 MRSA (blood & sputum) - 10/31/15 ESBL Klebsiella Pneumoniae (urine-06/26/16)
[2018-01-11] MEDS: DAPTOmycin Inj 900 MG in Sodium Chlor 0.9% Inj 100 ML IV.SIG SCH (18:36)
[2018-01-12] MEDS: Insulin Detemir Inj 1,000 UNIT/10 ML Vial SQ SCH ×3 (00:46→20:44)
[2018-01-12] MEDS: Calcium Carbonate 500 MG Tablet PO SCH ×3 (00:47→20:44)
[2018-01-12] MEDS: Insulin NovoLIN Regular Correctional Sugar Inj SQ SCH ×5 (00:48→20:44)
[2018-01-12] MEDS: Calcium Acetate 667 MG Capsule PO SCH ×3 (09:23→18:13)
[2018-01-12] MEDS: Senna/Docusate Sodium 8.6/50 MG Tablet PO SCH ×2 (09:23→20:43)
[2018-01-12] MEDS: Pregabalin 75 MG Capsule PO SCH (09:23)
[2018-01-12] MEDS: Heparin - SQ 10,000 UNITS/ML Vial SQ SCH ×2 (09:24→20:43)
[2018-01-12] MEDS: Polyethylene Glycol 3350 17 GM Packet PO SCH (09:36)
[2018-01-12 09:44] LABS: Baso # (Auto) 0.1 th/mm3 (0.0-0.2); Eos # (Auto) 0.2 th/mm3 (0.0-0.4); Eos % (Auto) 3.7 % (0.0-4.0); Hematocrit 25.8 % (35.0-46.0); Hemoglobin 8.2 gm/dL (11.6-15.3); Lymph # (Auto) 1.4 th/mm3 (1.0-4.8); Lymph % (Auto) 22.7 % (9.0-44.0); Mean Corpuscular HGB Conc 31.6 % (32.0-36.0); Mean Corpuscular Hemoglobin 27.2 pg (27.0-34.0); Mean Platelet Volume 9.4 fL (7.0-11.0); Mono # (Auto) 0.6 th/mm3 (0.0-0.9); Mono % (Auto) 10.6 % (0.0-8.0); Neut # (Auto) 3.7 th/mm3 (1.8-7.7); Platelet Count 220 th/mm3 (150-450); Red Cell Distribution Width 21.2 % (11.6-17.2)
[2018-01-12 10:16] LABS: Albumin 3.2 g/dL (3.4-5.0); Calcium 9.7 mg/dL (8.5-10.1); Carbon Dioxide 26.9 meq/L (21.0-32.0); Potassium 4.4 meq/L (3.5-5.1)
[2018-01-12 10:22] LABS: Phosphorus 1.8 mg/dL (2.5-4.9)
--- NOTE | 2018-01-12 13:50 | P.PN ---
Subjective Interval history: Mrs. Gagnon was afebrile with stable vital signs overnight. Patient reports continued back pain and states that she does not feel that she can tolerate pain at home. Patient states that she would prefer to go home with home health rather than to rehab. Patient does not report chest pain, shortness of breath, or bowel changes. Discussed dietary preferences and impact on T2DM. Physical Exam Vital signs: Vital Signs 01/11/18 15:50 01/11/18 16:00 01/11/18 17:49 Temperature 98 F Pulse Rate 83 79 Respiratory Rate 18 Blood Pressure 124/53 L Pulse Oximetry 97 94 L 01/11/18 19:50 01/12/18 00:00 01/12/18 03:45 Temperature 99.1 F Pulse Rate 84 79 69 Respiratory Rate 18 Blood Pressure 112/54 L Pulse Oximetry 100 01/12/18 04:00 01/12/18 08:00 01/12/18 12:00 Temperature 98.3 F 98.7 F 98.6 F Pulse Rate 73 75 81 Respiratory Rate 20 16 18 Blood Pressure 117/55 L 108/53 L 108/50 L Pulse Oximetry 98 95 96 Intake & Output 01/11/18 01/12/18 01/12/18 18:59 06:59 18:59 Intake Total 240 / 240 100 / 100 Output Total 3000 / 3000 150 / 150 Balance -3000 / -3000 90 / 90 100 / 100 Weight 102.5 kg 103.9 kg Intake: IV 100 / 100 Cubicin Inj 900 MG In NS Inj 100 / 100 100 ML @ 200 mls/hr IV.SIG Q48H [facility] Rx#:[id number] Oral 240 / 240 Output: Urine 150 / 150 Hemodialysis Amount 3000 / 3000 Other: Date of Last Bowel Movement 01/11/18 Narrative: GENERAL: NAD Skin: No visible lesions CARDIOVASCULAR: Regular rate and rhythm without murmurs. PermCath in place. RESPIRATORY: Breath sounds equal bilaterally; normal rate. On NC O2 via NC. GASTROINTESTINAL: Abdomen soft, non-tender, nondistended. MUSCULOSKELETAL: No cyanosis, or edema. NEURO: No focal neurological deficits. Results - Labs CBC & Chem 7: 01/12/18 06:28 01/12/18 06:28 Laboratory Results - last 24 hr 01/11/18 01/11/18 01/12/18 17:28 20:28 06:28 WBC 6.0 RBC 3.00 L Hgb 8.2 L Hct 25.8 L MCV 86.0 MCH 27.2 MCHC 31.6 L RDW 21.2 H Plt Count 220 D MPV 9.4 Neut % (Auto) 62.0 Lymph % (Auto) 22.7 [place] % (Auto) 10.6 H Eos % (Auto) 3.7 Baso % (Auto) 1.0 Neut # (Auto) 3.7 Lymph # (Auto) 1.4 [place] # (Auto) 0.6 Eos # (Auto) 0.2 Baso # (Auto) 0.1 WBC Differential . Differential Comment Auto diff final Hematology Comments Sodium Potassium Chloride Carbon Dioxide Anion Gap BUN Creatinine Estimated GFR POC Glucose 119 H 119 H Random Glucose Calcium Phosphorus Albumin 01/12/18 01/12/18 01/12/18 06:28 09:20 13:11 WBC RBC Hgb Hct MCV MCH MCHC RDW Plt Count MPV Neut % (Auto) Lymph % (Auto) [place] % (Auto) Eos % (Auto) Baso % (Auto) Neut # (Auto) Lymph # (Auto) [place] # (Auto) Eos # (Auto) Baso # (Auto) WBC Differential Differential Comment Hematology Comments Sodium 140 Potassium 4.4 Chloride 100 Carbon Dioxide 26.9 Anion Gap 13 BUN 31 H Creatinine 4.96 H Estimated GFR 9 L POC Glucose 115 H 135 H Random Glucose 102 Calcium 9.7 Phosphorus 1.8 L Albumin 3.2 L Assessment and Plan - Assessment (1) End-stage renal disease needing dialysis Code(s): N18.6 - End stage renal disease; Z99.2 - Dependence on renal dialysis Status: Acute (2) Anemia of renal disease Code(s): D63.1 - Anemia in chronic kidney disease Status: Chronic (3) Bacteremia due to methicillin resistant Staphylococcus aureus Code(s): R78.81 - Bacteremia Status: Acute (4) Discitis of thoracic region Code(s): M46.44 - Discitis, unspecified, thoracic region Status: Acute (5) Chest pain Code(s): R07.9 - Chest pain, unspecified Status: Acute - Plan 72-year-old female admitted with renal failure and bacteremia Bacteremia T3/4 discitis and osteomyelitis Impression: Seeding of thoracic spine. Prior MRSA sepsis; now negative cultures. Negative JOSEFA. ESRD -ID following -Continue daptomycin -Plan to transition to [facility] as outpatient with dialysis -Management based on ESRD considerations -Will switch Tramadol to Percocet 5/325mg to improve pain control Acute COPD exacerbation, resolving. Chronic respiratory failure on home oxygen. Possible mild fluid overload. CXR reviewed, shows mild to moderate fluid overload, minimal elevation right hemidiaphragm with parenchymal changes at right base VQ scan low probability for PE Continue duo nebs q6h, Tessalon Perles s/p azithromycin Continue Acapella, IS, O2 as needed Atypical Chest Pain Chest pain has returned, cardiac enzymes negative 3, EKG is within normal limits.Previous chest pain episode had a negative cardiac workup, Dr. Menjivar saw the patient yesterday, cleared patient for PermCath placement. -PT consultation recommended per Cardiology -Discussed with PT; patient has not been compliant generally but rehab recommended if agreeable; HH if not agreeable ESRD Continue dialysis; s/p PermaCath placement Nephrology following Right Breast Edema Vascular surgery has recommended outpatient workup Follow clinically Anemia of chronic disease. Monitor hemoglobin Transfuse as needed Continue Epogen Diabetes mellitus type 2 Follow blood sugars Insulin sliding scale Diabetic diet Chronic pain: Continue Lyrica Continue pain treatments as needed Constipation Vannessa-Colace and MiraLAX scheduled Monitor for BM Hyperlipidemia Continue statin DVT Prophylaxis Heparin Discharge Planning: Anticipate discharge home with home health tomorrow
--- NOTE | 2018-01-12 17:15 | P.PNNP ---
Subjective Interval history: Patient lying comfortably in bed. No verbal complaints. Physical Exam Vital signs: Vital Signs 01/11/18 17:49 01/11/18 19:50 01/12/18 00:00 Temperature 99.1 F Pulse Rate 84 79 Respiratory Rate 18 Blood Pressure 112/54 L Pulse Oximetry 94 L 100 01/12/18 03:45 01/12/18 04:00 01/12/18 08:00 Temperature 98.3 F 98.7 F Pulse Rate 69 73 75 Respiratory Rate 20 16 Blood Pressure 117/55 L 108/53 L Pulse Oximetry 98 95 01/12/18 12:00 01/12/18 14:35 01/12/18 16:00 Temperature 98.6 F 98.5 F Pulse Rate 75 81 Respiratory Rate 18 16 Blood Pressure 108/50 L 107/51 L Pulse Oximetry 96 96 98 Intake & Output 01/11/18 01/12/18 01/12/18 18:59 06:59 18:59 Intake Total 240 / 240 100 / 100 Output Total 3000 / 3000 150 / 150 Balance -3000 / -3000 90 / 90 100 / 100 Weight 102.5 kg 103.9 kg Intake: IV 100 / 100 Cubicin Inj 900 MG In NS Inj 100 / 100 100 ML @ 200 mls/hr IV.SIG Q48H [facility] Rx#:[id number] Oral 240 / 240 Output: Urine 150 / 150 Hemodialysis Amount 3000 / 3000 Other: Date of Last Bowel Movement 01/11/18 - Constitutional no acute distress, obese - Routine HEENT Exam Head: Present: normocephalic ENT: Present: mucous membranes moist - Routine Respiratory Exam Present: CTA bilaterally - Routine Cardiovascular Exam Present: RRR - Routine Abdominal Exam Present: soft - Routine Skin Exam Present: intact - Routine Neurological Exam Present: alert, normal speech Assessment and Plan - Assessment (1) End-stage renal disease needing dialysis Code(s): N18.6 - End stage renal disease; Z99.2 - Dependence on renal dialysis Status: Acute Plan: Seen during HD. Continue MWF schedule. PermaCath placed 01/10/18 and seems to be working well. Discharge planning OK from renal standpoint postdialysis tomorrow. Medications should be adjusted for the patient's ESRD. Avoid gadolinium. (2) Anemia of renal disease Code(s): D63.1 - Anemia in chronic kidney disease Status: Chronic Plan: Continue Epogen with HD (3) Bacteremia due to methicillin resistant Staphylococcus aureus Code(s): R78.81 - Bacteremia Status: Acute (4) Discitis of thoracic region Code(s): M46.44 - Discitis, unspecified, thoracic region Status: Acute Plan: Management per infectious disease. (5) Secondary hyperparathyroidism of renal origin Code(s): N25.81 - Secondary hyperparathyroidism of renal origin Status: Chronic - Plan Daptomycin to be continued as an outpatient. The sutures suggests can be administered with dialysis with a 50% dosage increase Tuesday to cover patient over the weekend. Duration of therapy will be deferred to infectious disease. Once infection has been treated will be referred for probable venogram of right upper extremity to evaluate the AV dialysis shunt with an opinion from vascular surgery subsequently. Medication should be adjusted for the patient's end-stage renal. Avoid gadolinium.
--- NOTE | 2018-01-12 19:54 | P.PNCA ---
Subjective Interval history: Still c/o atypical, noncardiac CP, partial control w Tramadol and Lyrica, mild SOB, very inactive Physical Exam Vital signs: Vital Signs 01/12/18 00:00 01/12/18 03:45 01/12/18 04:00 Temperature 99.1 F 98.3 F Pulse Rate 79 69 73 Respiratory Rate 18 20 Blood Pressure 112/54 L 117/55 L Pulse Oximetry 100 98 01/12/18 08:00 01/12/18 12:00 01/12/18 14:35 Temperature 98.7 F 98.6 F Pulse Rate 75 75 Respiratory Rate 16 18 Blood Pressure 108/53 L 108/50 L Pulse Oximetry 95 96 96 01/12/18 16:00 Temperature 98.5 F Pulse Rate 75 Respiratory Rate 16 Blood Pressure 107/51 L Pulse Oximetry 98 Intake & Output 01/12/18 01/12/18 01/13/18 06:59 18:59 06:59 Intake Total 240 / 240 820 / 820 Output Total 150 / 150 0 / 0 Balance 90 / 90 820 / 820 Weight 229 lb 0.964 oz Intake: IV 100 / 100 Cubicin Inj 900 MG In NS Inj 100 / 100 100 ML @ 200 mls/hr IV.SIG Q48H [facility] Rx#:[id number] Oral 240 / 240 720 / 720 Output: Urine 150 / 150 0 / 0 Other: Date of Last Bowel Movement 01/12/18 Narrative: GENERAL: In NAD. SKIN: Warm and dry. CARDIOVASCULAR: Regular rate and rhythm without murmurs, gallops or rubs. RESPIRATORY: Normal breath sounds - equal bilaterally. No accessory muscle use. No wheezes, rales or rubs. ABDOMEN: Soft, nontender, very obese. PERIPHERY: No cyanosis, mild edema. Assessment and Plan - Assessment (1) Chest pain Code(s): R07.9 - Chest pain, unspecified Status: Acute (2) End-stage renal disease needing dialysis Code(s): N18.6 - End stage renal disease; Z99.2 - Dependence on renal dialysis Status: Acute (3) Anemia of renal disease Code(s): D63.1 - Anemia in chronic kidney disease Status: Chronic (4) Bacteremia due to methicillin resistant Staphylococcus aureus Code(s): R78.81 - Bacteremia Status: Acute (5) Discitis of thoracic region Code(s): M46.44 - Discitis, unspecified, thoracic region Status: Acute - Plan Tolerating dialysis well. No angina; CP is noncardiac. Continue monitoring. Increase activity, has not been out of bed for days, recommend PT evaluation. Wishes to go home, but doubt she would be unable to function independently at this time.
[2018-01-12 22:29] LABS: Baso % (Auto) 0.5 % (0.0-2.0); Eos # (Auto) 0.2 th/mm3 (0.0-0.4); Eos % (Auto) 3.2 % (0.0-4.0); Hematocrit 25.8 % (35.0-46.0); Lymph % (Auto) 27.7 % (9.0-44.0); Mean Corpuscular HGB Conc 31.1 % (32.0-36.0); Mean Corpuscular Hemoglobin 26.9 pg (27.0-34.0); Mean Corpuscular Volume 86.4 fL (80.0-100.0); Mean Platelet Volume 9.1 fL (7.0-11.0); Mono # (Auto) 0.8 th/mm3 (0.0-0.9); Neut # (Auto) 4.1 th/mm3 (1.8-7.7); Neut % (Auto) 57.6 % (16.0-70.0); Platelet Count 246 th/mm3 (150-450); Red Blood Count 2.99 mil/mm3 (4.00-5.30); Red Cell Distribution Width 20.6 % (11.6-17.2); White Blood Count 7.1 th/mm3 (4.0-11.0)
--- NOTE | 2018-01-13 08:58 | P.PN ---
Subjective Interval history: Mrs. Puga was afebrile with stable VS overnight. Patient was concerned about Percocet for pain control so took 1/2 tablet. She reports intense back pain currently. No chest pain, shortness of breath, or abnormal bowel movements. She still plans for home health despite rehab recommendations Physical Exam Vital signs: Vital Signs 01/12/18 12:00 01/12/18 14:35 01/12/18 16:00 Temperature 98.6 F 98.5 F Pulse Rate 75 75 Respiratory Rate 18 16 Blood Pressure 108/50 L 107/51 L Pulse Oximetry 96 96 98 01/12/18 20:00 01/13/18 00:00 01/13/18 00:33 Temperature 98.2 F 98.0 F Pulse Rate 76 75 75 Respiratory Rate 20 18 Blood Pressure 113/51 L 123/58 L Pulse Oximetry 98 100 01/13/18 04:00 01/13/18 04:52 01/13/18 08:00 Temperature 97.6 F 97.4 F L Pulse Rate 69 66 66 Respiratory Rate 18 18 Blood Pressure 111/55 L 137/63 Pulse Oximetry 99 99 Intake & Output 01/12/18 01/13/18 01/13/18 18:59 06:59 18:59 Intake Total 820 / 820 240 / 240 Output Total 0 / 0 0 / 0 Balance 820 / 820 240 / 240 Weight 102.8 kg Intake: IV 100 / 100 Cubicin Inj 900 MG In NS Inj 100 / 100 100 ML @ 200 mls/hr IV.SIG Q48H [facility] Rx#:[id number] Oral 720 / 720 240 / 240 Output: Urine 0 / 0 Stool 0 / 0 Other: # Voids 0 Date of Last Bowel Movement 01/12/18 Narrative: GENERAL: NAD Skin: No visible lesions CARDIOVASCULAR: Regular rate and rhythm without murmurs. PermCath in place. RESPIRATORY: Breath sounds equal bilaterally; normal rate. On NC O2 via NC. GASTROINTESTINAL: Abdomen soft, non-tender, nondistended. MUSCULOSKELETAL: No calf tenderness or asymmetry NEURO: Grossly normal CN; grossly normal peripheral motor/sensory function Results - Labs CBC & Chem 7: 01/12/18 20:49 01/12/18 06:28 Laboratory Results - last 24 hr 01/12/18 01/12/18 01/12/18 06:28 06:28 09:20 WBC 6.0 RBC 3.00 L Hgb 8.2 L Hct 25.8 L MCV 86.0 MCH 27.2 MCHC 31.6 L RDW 21.2 H Plt Count 220 D MPV 9.4 Neut % (Auto) 62.0 Lymph % (Auto) 22.7 [place] % (Auto) 10.6 H Eos % (Auto) 3.7 Baso % (Auto) 1.0 Neut # (Auto) 3.7 Lymph # (Auto) 1.4 [place] # (Auto) 0.6 Eos # (Auto) 0.2 Baso # (Auto) 0.1 WBC Differential . Differential Comment Auto diff final Hematology Comments Sodium 140 Potassium 4.4 Chloride 100 Carbon Dioxide 26.9 Anion Gap 13 BUN 31 H Creatinine 4.96 H Estimated GFR 9 L POC Glucose 115 H Random Glucose 102 Calcium 9.7 Phosphorus 1.8 L Albumin 3.2 L 01/12/18 01/12/18 01/12/18 13:11 17:11 20:17 WBC RBC Hgb Hct MCV MCH MCHC RDW Plt Count MPV Neut % (Auto) Lymph % (Auto) [place] % (Auto) Eos % (Auto) Baso % (Auto) Neut # (Auto) Lymph # (Auto) [place] # (Auto) Eos # (Auto) Baso # (Auto) WBC Differential Differential Comment Hematology Comments Sodium Potassium Chloride Carbon Dioxide Anion Gap BUN Creatinine Estimated GFR POC Glucose 135 H 199 H 260 H Random Glucose Calcium Phosphorus Albumin 01/12/18 01/13/18 20:49 08:05 WBC 7.1 RBC 2.99 L Hgb 8.0 L Hct 25.8 L MCV 86.4 MCH 26.9 L MCHC 31.1 L RDW 20.6 H Plt Count 246 MPV 9.1 Neut % (Auto) 57.6 Lymph % (Auto) 27.7 [place] % (Auto) 11.0 H Eos % (Auto) 3.2 Baso % (Auto) 0.5 Neut # (Auto) 4.1 Lymph # (Auto) 2.0 [place] # (Auto) 0.8 Eos # (Auto) 0.2 Baso # (Auto) 0.0 WBC Differential . Differential Comment Auto diff final Hematology Comments Sodium Potassium Chloride Carbon Dioxide Anion Gap BUN Creatinine Estimated GFR POC Glucose 88 Random Glucose Calcium Phosphorus Albumin Assessment and Plan - Assessment (1) End-stage renal disease needing dialysis Code(s): N18.6 - End stage renal disease; Z99.2 - Dependence on renal dialysis Status: Acute (2) Anemia of renal disease Code(s): D63.1 - Anemia in chronic kidney disease Status: Chronic (3) Bacteremia due to methicillin resistant Staphylococcus aureus Code(s): R78.81 - Bacteremia Status: Acute (4) Discitis of thoracic region Code(s): M46.44 - Discitis, unspecified, thoracic region Status: Acute (5) Chest pain Code(s): R07.9 - Chest pain, unspecified Status: Acute - Plan 72-year-old female admitted with renal failure and bacteremia Bacteremia T3/4 discitis and osteomyelitis Impression: Seeding of thoracic spine. Prior MRSA sepsis; now negative cultures. Negative JOSEFA. ESRD -ID following -Continue daptomycin -[facility] -Management based on ESRD considerations -Attempt Percocet 5/325mg to improve pain control Acute COPD exacerbation, resolving. Chronic respiratory failure on home oxygen. Possible mild fluid overload. CXR reviewed, shows mild to moderate fluid overload, minimal elevation right hemidiaphragm with parenchymal changes at right base VQ scan low probability for PE Continue duo nebs q6h, Tessalon Perles s/p azithromycin Continue Acapella, IS, O2 as needed Atypical Chest Pain Chest pain has returned, cardiac enzymes negative 3, EKG is within normal limits.Previous chest pain episode had a negative cardiac workup, Dr. Menjivar saw the patient yesterday, cleared patient for PermCath placement. -PT consultation recommended per Cardiology Debility -Discussed with PT; patient has not been compliant generally but rehab recommended if agreeable; HH if not agreeable ESRD Continue dialysis; s/p PermaCath placement Nephrology following Right Breast Edema Vascular surgery has recommended outpatient workup Follow clinically Anemia of chronic disease. Monitor hemoglobin Transfuse as needed Continue Epogen Diabetes mellitus type 2 Follow blood sugars Insulin sliding scale Diabetic diet Chronic pain: Continue Lyrica Continue pain treatments as needed Constipation Vannessa-Colace and MiraLAX scheduled Monitor for BM Hyperlipidemia Continue statin DVT Prophylaxis Heparin 5K U BID Discharge Planning: Anticipate discharge home with home health today vs tomorrow
[2018-01-13] MEDS: Insulin NovoLIN Regular Correctional Sugar Inj SQ SCH ×4 (09:09→20:50)
[2018-01-13] MEDS: Calcium Acetate 667 MG Capsule PO SCH ×3 (09:46→18:37)
[2018-01-13] MEDS: Heparin - SQ 10,000 UNITS/ML Vial SQ SCH ×2 (09:46→20:44)
[2018-01-13] MEDS: Calcium Carbonate 500 MG Tablet PO SCH ×2 (09:46→20:45)
[2018-01-13] MEDS: Senna/Docusate Sodium 8.6/50 MG Tablet PO SCH ×2 (09:48→20:45)
[2018-01-13] MEDS: Polyethylene Glycol 3350 17 GM Packet PO SCH (09:48)
[2018-01-13] MEDS: Insulin Detemir Inj 1,000 UNIT/10 ML Vial SQ SCH ×2 (09:48→20:48)
--- NOTE | 2018-01-13 10:33 | P.PNCA ---
- Note Subjective/Hospital Course: 72-year-old female with multiple medical problems and multiple accesses for dialysis As far as the [facility] sees for dialysis and vascular care this established patient Dr. Rodgers and will take over the management of those Thanks J Objective: Vital Signs - 24 hr 01/12/18 12:00 01/12/18 14:35 01/12/18 16:00 Temperature 98.6 F 98.5 F Pulse Rate 75 75 Respiratory Rate 18 16 Blood Pressure 108/50 L 107/51 L Pulse Oximetry 96 96 98 01/12/18 20:00 01/13/18 00:00 01/13/18 00:33 Temperature 98.2 F 98.0 F Pulse Rate 76 75 75 Respiratory Rate 20 18 Blood Pressure 113/51 L 123/58 L Pulse Oximetry 98 100 01/13/18 04:00 01/13/18 04:52 01/13/18 08:00 Temperature 97.6 F 97.4 F L Pulse Rate 69 66 66 Respiratory Rate 18 18 Blood Pressure 111/55 L 137/63 Pulse Oximetry 99 99 Labs: Laboratory Results - last 12 hr 01/13/18 08:05 POC Glucose 88 Result Diagrams: 01/12/18 20:49 01/12/18 06:28
--- NOTE | 2018-01-13 14:40 | P.PNCA ---
Addendum entered and electronically signed by SERGEY Saucedo 01/13/18 16:29: The patient was seen and evaluated by Dr. Menjivar who participated in care, management and decision making Original Note: <Delphine Hartley - Last Filed: 01/13/18 14:26> Subjective Interval history: pt still c/o atypical, noncardiac CP. Pt was placed on Percocet for the pain, still taking Lyrica and Tramadol was placed on Hold. Pt denies SOB at this time. Pt has not been out of bed. Pt encouraged to increase activity prior to going to dialysis. Physical Exam Vital signs: Vital Signs 01/12/18 14:35 01/12/18 16:00 01/12/18 20:00 Temperature 98.5 F 98.2 F Pulse Rate 75 76 Respiratory Rate 16 20 Blood Pressure 107/51 L 113/51 L Pulse Oximetry 96 98 98 01/13/18 00:00 01/13/18 00:33 01/13/18 04:00 Temperature 98.0 F 97.6 F Pulse Rate 75 75 69 Respiratory Rate 18 18 Blood Pressure 123/58 L 111/55 L Pulse Oximetry 100 99 01/13/18 04:52 01/13/18 08:00 01/13/18 11:55 Temperature 97.4 F L Pulse Rate 66 66 63 Respiratory Rate 18 Blood Pressure 137/63 Pulse Oximetry 99 01/13/18 11:56 01/13/18 12:00 Temperature 97.5 F L Pulse Rate 73 Respiratory Rate 20 Blood Pressure 124/59 L Pulse Oximetry 97 100 Intake & Output 01/12/18 01/13/18 01/13/18 18:59 06:59 18:59 Intake Total 820 / 820 240 / 240 Output Total 0 / 0 0 / 0 Balance 820 / 820 240 / 240 Weight 102.8 kg Intake: IV 100 / 100 Cubicin Inj 900 MG In NS Inj 100 / 100 100 ML @ 200 mls/hr IV.SIG Q48H RICHARD Rx#:[id number] Oral 720 / 720 240 / 240 Output: Urine 0 / 0 Stool 0 / 0 Other: # Voids 0 Date of Last Bowel Movement 01/12/18 01/12/18 - Constitutional no acute distress - Routine HEENT Exam Head: Present: normocephalic Eye: Present: PERRL ENT: Present: mucous membranes moist - Routine Neck Exam Present: supple - Routine Respiratory Exam Present: CTA bilaterally. Absent: rhonchi, wheezes - Routine Cardiovascular Exam Present: RRR - Routine Abdominal Exam Present: normoactive bowel sounds Comments: very obese - Routine Extremities Exam Present: edema - Routine Neurological Exam Present: oriented X3 - Routine Psychiatric Exam Present: normal affect Assessment and Plan - Assessment (1) Chest pain Code(s): R07.9 - Chest pain, unspecified Status: Acute (2) End-stage renal disease needing dialysis Code(s): N18.6 - End stage renal disease; Z99.2 - Dependence on renal dialysis Status: Acute (3) Anemia of renal disease Code(s): D63.1 - Anemia in chronic kidney disease Status: Chronic (4) Bacteremia due to methicillin resistant Staphylococcus aureus Code(s): R78.81 - Bacteremia Status: Acute (5) Discitis of thoracic region Code(s): M46.44 - Discitis, unspecified, thoracic region Status: Acute - Plan No angina; CP is noncardiac. No SOB, mild edema noted. Pt scheduled for Dialysis this AM. Continue monitoring. Pt was placed on Percocet and Tramadol on hold by another physician. Pt instructed on the importance of getting out of bed and becoming more active. <Jass Menjivar - Last Filed: 01/13/18 16:45> Physical Exam Vital signs: Vital Signs 01/12/18 20:00 01/13/18 00:00 01/13/18 00:33 Temperature 98.2 F 98.0 F Pulse Rate 76 75 75 Respiratory Rate 20 18 Blood Pressure 113/51 L 123/58 L Pulse Oximetry 98 100 01/13/18 04:00 01/13/18 04:52 01/13/18 08:00 Temperature 97.6 F 97.4 F L Pulse Rate 69 66 66 Respiratory Rate 18 18 Blood Pressure 111/55 L 137/63 Pulse Oximetry 99 99 01/13/18 11:55 01/13/18 11:56 01/13/18 12:00 Temperature 97.5 F L Pulse Rate 63 73 Respiratory Rate 20 Blood Pressure 124/59 L Pulse Oximetry 97 100 Intake & Output 01/12/18 01/13/18 01/13/18 18:59 06:59 18:59 Intake Total 820 / 820 240 / 240 Output Total 0 / 0 0 / 0 Balance 820 / 820 240 / 240 Weight 226 lb 10.163 oz Intake: IV 100 / 100 Cubicin Inj 900 MG In NS Inj 100 / 100 100 ML @ 200 mls/hr IV.SIG Q48H RICHARD Rx#:[id number] Oral 720 / 720 240 / 240 Output: Urine 0 / 0 Stool 0 / 0 Other: # Voids 0 Date of Last Bowel Movement 01/12/18 01/12/18 Assessment and Plan - Assessment (1) Chest pain Code(s): R07.9 - Chest pain, unspecified Status: Acute (2) End-stage renal disease needing dialysis Code(s): N18.6 - End stage renal disease; Z99.2 - Dependence on renal dialysis Status: Acute (3) Anemia of renal disease Code(s): D63.1 - Anemia in chronic kidney disease Status: Chronic (4) Bacteremia due to methicillin resistant Staphylococcus aureus Code(s): R78.81 - Bacteremia Status: Acute (5) Discitis of thoracic region Code(s): M46.44 - Discitis, unspecified, thoracic region Status: Acute - Attending Attestation Patient seen and examined. I reviewed and agree with the findings and plan presented. Continue current program with dialysis. No new cardiac issues. Her CP is noncardiac, now better controlled with meds.
--- NOTE | 2018-01-13 14:53 | P.PNNP ---
Subjective Interval history: Pt seen during HD. Still having non-cardiac chest pain. Tramadol and Lyrica has been resumed. Discharge planned for tomorrow. Physical Exam Vital signs: Vital Signs 01/12/18 16:00 01/12/18 20:00 01/13/18 00:00 Temperature 98.5 F 98.2 F 98.0 F Pulse Rate 75 76 75 Respiratory Rate 16 20 18 Blood Pressure 107/51 L 113/51 L 123/58 L Pulse Oximetry 98 98 100 01/13/18 00:33 01/13/18 04:00 01/13/18 04:52 Temperature 97.6 F Pulse Rate 75 69 66 Respiratory Rate 18 Blood Pressure 111/55 L Pulse Oximetry 99 01/13/18 08:00 01/13/18 11:55 01/13/18 11:56 Temperature 97.4 F L Pulse Rate 66 63 Respiratory Rate 18 Blood Pressure 137/63 Pulse Oximetry 99 97 01/13/18 12:00 Temperature 97.5 F L Pulse Rate 73 Respiratory Rate 20 Blood Pressure 124/59 L Pulse Oximetry 100 Intake & Output 01/12/18 01/13/18 01/13/18 18:59 06:59 18:59 Intake Total 820 / 820 240 / 240 Output Total 0 / 0 0 / 0 Balance 820 / 820 240 / 240 Weight 102.8 kg Intake: IV 100 / 100 Cubicin Inj 900 MG In NS Inj 100 / 100 100 ML @ 200 mls/hr IV.SIG Q48H RICHARD Rx#:[id number] Oral 720 / 720 240 / 240 Output: Urine 0 / 0 Stool 0 / 0 Other: # Voids 0 Date of Last Bowel Movement 01/12/18 01/12/18 - Constitutional no acute distress - Routine HEENT Exam Head: Present: normocephalic, atraumatic - Routine Neck Exam Present: supple - Routine Respiratory Exam Present: CTA bilaterally - Routine Cardiovascular Exam Present: RRR, S1, S2 - Routine Abdominal Exam Present: soft, normoactive bowel sounds - Routine Extremities Exam Present: vascular access (RIJ PermCath) - Routine Skin Exam Present: intact - Routine Neurological Exam Present: alert, oriented X3 - Routine Psychiatric Exam Present: normal affect, normal thought process Assessment and Plan - Assessment (1) End-stage renal disease needing dialysis Code(s): N18.6 - End stage renal disease; Z99.2 - Dependence on renal dialysis Status: Acute Plan: Seen during HD. Access working well. PermaCath placed 01/10/18 and seems to be working well. Planned discharge tomorrow. Daptomycin to be continued outpatient as outlined by ID. Receiving abx by mail tomorrow and is instructed to bring to outpatient HD on Tuesday. Medications should be adjusted for the patient's ESRD. Avoid gadolinium. (2) Anemia of renal disease Code(s): D63.1 - Anemia in chronic kidney disease Status: Chronic Plan: Continue Epogen with HD (3) Discitis of thoracic region Code(s): M46.44 - Discitis, unspecified, thoracic region Status: Acute Plan: Management per infectious disease. (4) Bacteremia due to methicillin resistant Staphylococcus aureus Code(s): R78.81 - Bacteremia Status: Acute Plan: Resolved. PermCath tip culture negative (5) Secondary hyperparathyroidism of renal origin Code(s): N25.81 - Secondary hyperparathyroidism of renal origin Status: Chronic (6) Chest pain Code(s): R07.9 - Chest pain, unspecified Status: Acute - Plan Non-cardiac as per cardiology Noted Tramadol and Lyrica resumed and seems to be tolerating well. Will defer to primary team if any other management required.
[2018-01-13 15:04] LABS: Calcium 9.3 mg/dL (8.5-10.1); Carbon Dioxide 31.9 meq/L (21.0-32.0); Potassium 4.7 meq/L (3.5-5.1)
[2018-01-13] MEDS: Pregabalin 75 MG Capsule PO SCH (17:44)
[2018-01-13] MEDS: DAPTOmycin Inj 900 MG in Sodium Chlor 0.9% Inj 100 ML IV.SIG SCH (17:46)
--- NOTE | 2018-01-14 08:58 | P.PN ---
Subjective Interval history: awake and alert no complains of chest pain or shortness of breath no nausea or vomiting looking forward to going home today Physical Exam Vital signs: Vital Signs 01/13/18 11:55 01/13/18 11:56 01/13/18 12:00 Temperature 97.5 F L Pulse Rate 63 73 Respiratory Rate 20 Blood Pressure 124/59 L Pulse Oximetry 97 100 01/13/18 16:00 01/13/18 17:18 01/13/18 17:25 Temperature 97.5 F L Pulse Rate 111 H 92 H Respiratory Rate 20 Blood Pressure 102/50 L Pulse Oximetry 100 100 01/13/18 20:00 01/14/18 00:00 01/14/18 04:00 Temperature 98.4 F 98.6 F 98.0 F Pulse Rate 74 78 70 Respiratory Rate 14 16 Blood Pressure 91/63 L 90/60 L 113/51 L Pulse Oximetry 93 L 94 L 94 L 01/14/18 04:45 Temperature Pulse Rate 74 Respiratory Rate Blood Pressure Pulse Oximetry Intake & Output 01/13/18 01/14/18 01/14/18 18:59 06:59 18:59 Intake Total 480 / 480 Output Total 0 / 0 1500 / 1500 Balance 480 / 480 -1500 / -1500 Weight 98 kg Intake: Oral 480 / 480 Output: Urine 0 / 0 Hemodialysis Amount 1500 / 1500 Other: Date of Last Bowel Movement 01/12/18 # Bowel Movements 0 - Constitutional no acute distress - Routine HEENT Exam Head: Present: normocephalic Eye: Present: PERRL ENT: Present: mucous membranes moist - Routine Neck Exam Present: supple, full ROM - Routine Respiratory Exam Present: CTA bilaterally - Routine Cardiovascular Exam Present: RRR - Routine Abdominal Exam Present: soft, normoactive bowel sounds - Routine Extremities Exam Present: edema (no leg swelling) - Routine Skin Exam Present: intact - Routine Neurological Exam Present: alert, oriented X3, CN II-XII intact. Absent: motor deficit - Routine Psychiatric Exam Present: normal affect Results - Labs CBC & Chem 7: 01/12/18 20:49 01/13/18 13:00 Laboratory Results - last 24 hr 01/13/18 01/13/18 01/13/18 12:14 13:00 17:27 Sodium 140 Potassium 4.7 Chloride 99 Carbon Dioxide 31.9 Anion Gap 9 BUN 43 H Creatinine 6.57 H Estimated GFR 6 L POC Glucose 124 H 115 H Random Glucose 96 Calcium 9.3 01/13/18 01/14/18 19:30 07:48 Sodium Potassium Chloride Carbon Dioxide Anion Gap BUN Creatinine Estimated GFR POC Glucose 178 H 155 H Random Glucose Calcium Assessment and Plan - Assessment (1) End-stage renal disease needing dialysis Code(s): N18.6 - End stage renal disease; Z99.2 - Dependence on renal dialysis Status: Acute (2) Anemia of renal disease Code(s): D63.1 - Anemia in chronic kidney disease Status: Chronic (3) Bacteremia due to methicillin resistant Staphylococcus aureus Code(s): R78.81 - Bacteremia Status: Acute (4) Discitis of thoracic region Code(s): M46.44 - Discitis, unspecified, thoracic region Status: Acute (5) Chest pain Code(s): R07.9 - Chest pain, unspecified Status: Acute - Plan 72-year-old female admitted with renal failure and bacteremia Bacteremia T3/4 discitis and osteomyelitis Impression: Seeding of thoracic spine. Prior MRSA sepsis; now negative cultures. Negative JOSEFA. ESRD -ID following -Continue daptomycin -Plan to transition to [facility] as outpatient with dialysis -Management based on ESRD considerations -Attempt Percocet 5/325mg to improve pain control Acute COPD exacerbation, resolving. Chronic respiratory failure on home oxygen. - per patient she has 02 at home Possible mild fluid overload. - improved CXR reviewed, shows mild to moderate fluid overload, minimal elevation right hemidiaphragm with parenchymal changes at right base VQ scan low probability for PE Continue duo nebs q6h, Tessalon Perles s/p azithromycin Continue Acapella, IS, O2 as needed Atypical Chest Pain Chest pain has returned, cardiac enzymes negative 3, EKG is within normal limits.Previous chest pain episode had a negative cardiac workup, Dr. Menjivar saw the patient yesterday, cleared patient for PermCath placement. -PT consultation recommended per Cardiology Debility -Discussed with PT; patient has not been compliant generally but rehab recommended if agreeable; HH if not agreeable ESRD Continue dialysis; s/p PermaCath placement Nephrology following Right Breast Edema- improved Vascular surgery has recommended outpatient workup Follow clinically Anemia of chronic disease. Monitor hemoglobin Transfuse as needed Continue Epogen Diabetes mellitus type 2 Follow blood sugars Insulin sliding scale Diabetic diet Chronic pain: Continue Lyrica Continue pain treatments as needed Constipation Vannessa-Colace and MiraLAX scheduled Monitor for BM Hyperlipidemia Continue statin DVT Prophylaxis Heparin 5K U BID Discharge Planning: DC home today Patient agrees consult case management to arrange with transportation
--- NOTE | 2018-01-14 09:13 | P.DS ---
Date of admission: 12/24/17 16:33 Primary care physician: Jas Freitas MD Brief History from admission: 72-year-old female with ESRD on hemodialysis Tuesday, MRSA bacteremia, multiple myeloma who presents with a one-week history of dry cough, shortness of breath, constant, pleuritic left upper chest pain radiating to left neck at site of Vas-Cath placement. She denies any fevers, chills, nausea , vomiting. She does endorse fatigue. Recent admission to [place], discharged on 12/07. Was treated for MRSA bacteremia, Klebsiella UTI. ID was following, patient received IV antibiotics. Likely permacath infection. Permacath was removed. Cultures from 12/01 are negative for MRSA. Patient has tunneled Vas-Cath placed last admission. DS: Diagnosis - Discharge Diagnosis (1) End-stage renal disease needing dialysis Status: Acute (2) Anemia of renal disease Status: Chronic (3) Bacteremia due to methicillin resistant Staphylococcus aureus Status: Acute (4) Discitis of thoracic region Status: Acute (5) Chest pain Status: Acute DS: Summary Hospital Course: 72-year-old female admitted with renal failure and bacteremia Bacteremia T3/4 discitis and osteomyelitis Impression: Seeding of thoracic spine. Prior MRSA sepsis; now negative cultures. Negative JOSEFA. ESRD -ID following -Continue daptomycin -Plan to transition to [facility] as outpatient with dialysis -Management based on ESRD considerations -Attempt Percocet 5/325mg to improve pain control Acute COPD exacerbation, resolving. Chronic respiratory failure on home oxygen. - per patient she has 02 at home Possible mild fluid overload. - improved CXR reviewed, shows mild to moderate fluid overload, minimal elevation right hemidiaphragm with parenchymal changes at right base VQ scan low probability for PE Continue duo nebs q6h, Tessalon Perles s/p azithromycin Continue Acapella, IS, O2 as needed Atypical Chest Pain Chest pain has returned, cardiac enzymes negative 3, EKG is within normal limits.Previous chest pain episode had a negative cardiac workup, Dr. Menjivar saw the patient yesterday, cleared patient for PermCath placement. -PT consultation recommended per Cardiology Debility -Discussed with PT; patient has not been compliant generally but rehab recommended if agreeable; HH if not agreeable ESRD Continue dialysis; s/p PermaCath placement Nephrology following Right Breast Edema- improved Vascular surgery has recommended outpatient workup Follow clinically Anemia of chronic disease. Monitor hemoglobin Transfuse as needed Continue Epogen Diabetes mellitus type 2 Follow blood sugars Insulin sliding scale Diabetic diet Chronic pain: Continue Lyrica Continue pain treatments as needed Constipation Vannessa-Colace and MiraLAX scheduled Monitor for BM Hyperlipidemia Continue statin DVT Prophylaxis Heparin 5K U BID Discharge Planning: DC home today Patient agrees consult case management to arrange with transportation - Time Spent with Patient Total time spent providing and/or coordinating discharge services: Exam Vital signs: Vital Signs 01/13/18 11:55 01/13/18 11:56 01/13/18 12:00 Temperature 97.5 F L Pulse Rate 63 73 Respiratory Rate 20 Blood Pressure 124/59 L Pulse Oximetry 97 100 01/13/18 16:00 01/13/18 17:18 01/13/18 17:25 Temperature 97.5 F L Pulse Rate 111 H 92 H Respiratory Rate 20 Blood Pressure 102/50 L Pulse Oximetry 100 100 01/13/18 20:00 01/14/18 00:00 01/14/18 04:00 Temperature 98.4 F 98.6 F 98.0 F Pulse Rate 74 78 70 Respiratory Rate 14 16 Blood Pressure 91/63 L 90/60 L 113/51 L Pulse Oximetry 93 L 94 L 94 L 01/14/18 04:45 Temperature Pulse Rate 74 Respiratory Rate Blood Pressure Pulse Oximetry Intake & Output 01/13/18 01/14/18 01/14/18 18:59 06:59 18:59 Intake Total 480 / 480 Output Total 0 / 0 1500 / 1500 Balance 480 / 480 -1500 / -1500 Weight 98 kg Intake: Oral 480 / 480 Output: Urine 0 / 0 Hemodialysis Amount 1500 / 1500 Other: Date of Last Bowel Movement 01/12/18 # Bowel Movements 0 - Constitutional no acute distress Results Procedures completed during hospitalization: dialysis Labs on day of discharge: Labs from last 24 hours 01/14/18 01/13/18 01/13/18 07:48 19:30 17:27 Sodium Potassium Chloride Carbon Dioxide Anion Gap BUN Creatinine Estimated GFR POC Glucose 155 H 178 H 115 H Random Glucose Calcium 01/13/18 01/13/18 13:00 12:14 Sodium 140 Potassium 4.7 Chloride 99 Carbon Dioxide 31.9 Anion Gap 9 BUN 43 H Creatinine 6.57 H Estimated GFR 6 L POC Glucose 124 H Random Glucose 96 Calcium 9.3 - Impressions ITS Impressions Central Venous Line 01/10/18 16:42 CONCLUSION: Uncomplicated ultrasound and fluoroscopic guided dialysis PermaCath placement as above. Discharge Plan - Discharge Disposition Patient Disposition: /Home Health Service - Discharge Condition Condition: Stable - Discharge Order Discharge Orders: Discharge Order (Routine); Ordered 01/14/18 Ordered By: Kentrell De Santiago - Discharge Details Anticipated Discharge Date: 01/14/18 Discharge Comment: Please wait for discharge until pain control is decided ( I will print Percocet or she will continue Tramadol based on conversation prior to discharge) - Physicians Team Primary Care Provider: Jas Freitas Attending Provider: Deepthi Palmer Other Providers: Jenifer Crystal MD ; Leonel Roca MD ; Dimas Rodgers MD ; Nerissa Rosales MD ; Jass Menjivar MD ; Kameron Vasquez MD - Rxs /Orders / Referrals /Forms Prescriptions: New benzonatate [Tessalon Perles] 100 mg Capsule 100 mg PO TID PRN (Reason: Cough) RF: 0 daptomycin [Cubicin] 500 mg Recon Soln 900 mg IV Q48H RF: 0 Continue aspirin 81 mg Tablet,Chewable 81 mg PO DAILY calcium acetate 667 mg Capsule 1,334 mg PO TID calcium carbonate 500 mg calcium (1,250 mg) Tablet 500 mg PO BID ergocalciferol (vitamin D2) 2,000 unit Tablet 50,000 unit PO WEEKLY insulin aspart U-100 [Novolog U-100 Insulin aspart] 100 unit/mL Solution 1 sliding scale dose SUB-Q TIDAC insulin detemir U-100 [Levemir U-100 Insulin] 100 unit/mL Solution 44 unit SUB-Q Q12HR meclizine 25 mg Tablet 25 mg PO Q6HR PRN (Reason: Dizziness) ondansetron HCl 8 mg Tablet 8 mg PO BID PRN (Reason: Nausea) pantoprazole 40 mg Tablet,Delayed Release (Dr/Ec) 40 mg PO BID pregabalin 75 mg Capsule 75 mg PO TID rosuvastatin 10 mg Tablet 10 mg PO HS tramadol 50 mg Tablet 50 mg PO QID PRN (Reason: Pain) Referrals: Jenifer Crystal MD [Physician] - See Instructions ( Call for appointment to a Infectious Disease Doctor.) Kameron Vasquez MD [Physician] - 01/16/18 ( Call for appointment to Dr. Vasquez's office [phone] (office is closed) ) Jas Freitas MD [Primary Care Provider] - See Instructions ( Call for appointment Dr. Freitas office is closed. [phone] ) - Post Discharge Care Plan Care Plan Goals: Your Health Problems: Goals to Promote Your Health: * To prevent worsening of your condition * To maintain your health at the optimal level Directions to Meet Your Goals: * Take your medications as prescribed * Follow your dietary instruction * Follow activity as directed * Keep your appointments as scheduled * Take your immunizations and boosters as scheduled * If your symptoms worsen call your PCP * If no PCP go to Urgent Care or Emergency Room Smoking is dangerous to your health. Avoid second hand smoke. You may reach the 24-hour [employer] hotline for domestic abuse at 9-124-137- 7273.Your Health Problems: Goals to Promote Your Health: * To prevent worsening of your condition * To maintain your health at the optimal level Directions to Meet Your Goals: * Take your medications as prescribed * Follow your dietary instruction * Follow activity as directed * Keep your appointments as scheduled * Take your immunizations and boosters as scheduled * If your symptoms worsen call your PCP * If no PCP go to Urgent Care or Emergency Room Smoking is dangerous to your health. Avoid second hand smoke. You may reach the 24-hour [employer] for domestic abuse at .
[2018-01-14] MEDS: Calcium Acetate 667 MG Capsule PO SCH (09:41)
[2018-01-14] MEDS: Heparin - SQ 10,000 UNITS/ML Vial SQ SCH (09:41)
[2018-01-14] MEDS: Calcium Carbonate 500 MG Tablet PO SCH (09:42)
[2018-01-14] MEDS: Pregabalin 75 MG Capsule PO SCH (09:42)
[2018-01-14] MEDS: Insulin NovoLIN Regular Correctional Sugar Inj SQ SCH (09:43)
[2018-01-14] MEDS: Insulin Detemir Inj 1,000 UNIT/10 ML Vial SQ SCH (09:43)
[2018-01-14] MEDS: Polyethylene Glycol 3350 17 GM Packet PO SCH (09:44)
[2018-01-14] MEDS: Senna/Docusate Sodium 8.6/50 MG Tablet PO SCH (09:44)
[2018-01-14 13:34] VITALS: BP 122/63; RESP 20; TEMP 98.9; O2SAT 96
[2018-01-14 16:08] VITALS: PULSE 87
== END 2018-01-14 11:53 | disposition home health service (06) ==
LOC: N04 12-24 16:33
PROVIDERS: ADMIT Internal Medicine; ATTEND Internal Medicine

== ENCOUNTER 2018-02-21 10:12 | Observation (INO) ==
[2018-02-21] MEDS ORDERED: Metoprolol Tartrate 25 MG Tablet PO SCH (11:00)
[2018-02-21] MEDS ORDERED: Chlorhexidine Gluconate 2% 1 Pack (2 Cloths) TOPICAL SCH (11:00)
[2018-02-21] MEDS ORDERED: Sodium Chlor 0.9% Inj 500 ML IV.SIG SCH (11:00)
[2018-02-21 11:54] LABS: Baso # (Auto) 0.1 th/mm3 (0.0-0.2); Baso % (Auto) 0.8 % (0.0-2.0); Hematocrit 35.7 % (35.0-46.0); Hemoglobin 11.3 gm/dL (11.6-15.3); Lymph % (Auto) 13.8 % (9.0-44.0); Mean Corpuscular HGB Conc 31.8 % (32.0-36.0); Mean Corpuscular Hemoglobin 27.1 pg (27.0-34.0); Mean Corpuscular Volume 85.2 fL (80.0-100.0); Mean Platelet Volume 9.2 fL (7.0-11.0); Mono # (Auto) 0.1 th/mm3 (0.0-0.9); Mono % (Auto) 0.9 % (0.0-8.0); Neut # (Auto) 5.9 th/mm3 (1.8-7.7); Neut % (Auto) 84.5 % (16.0-70.0); Platelet Count 228 th/mm3 (150-450); Red Blood Count 4.18 mil/mm3 (4.00-5.30); Red Cell Distribution Width 18.8 % (11.6-17.2)
[2018-02-21] MEDS ORDERED: Glycopyrrolate Inj 1 MG/5 ML Syringe IV.PUSH ONE (12:00)
[2018-02-21] MEDS ORDERED: Lidocaine PF 1% Inj 5 ML Syringe INFILTRATN ONE (12:00)
[2018-02-21] MEDS ORDERED: Phenylephrine/NS 1000 MCG/10ML Syringe IV.PUSH ONE (12:00)
[2018-02-21] MEDS ORDERED: Neostigmine Inj 5 MG/5 ML Syringe IV.PUSH ONE (12:00)
[2018-02-21 12:04] LABS: Activated Partial Thrombo Time 26.7 sec (24.3-30.1)
[2018-02-21 12:05] LABS: Prothrombin Time 10.1 sec (9.8-11.6)
[2018-02-21 12:21] LABS: Calcium 8.6 mg/dL (8.5-10.1); Carbon Dioxide 29.9 meq/L (21.0-32.0); Potassium 4.6 meq/L (3.5-5.1)
--- NOTE | 2018-02-21 13:08 | P.HPVS ---
History of Present Illness Chief Complaint: ESRD need for HD access History of Present Illness: 72 yo female with ESRD, HD MWF R chest wall. Has R UE AVG revised several times but unusable. Presents for access revision including fistulogram. - Inpatient Certification If this patient has been admitted as an Inpatient: I certify that the inpatient services were ordered in accordance with Medicare regulations governing the order. This includes certification that hospital inpatient services are reasonable and necessary and in the case of services not specified as inpatient-only under 42 CFR 419.22(n), that they are appropriately provided as inpatient services in accordance to with the 2-midnight benchmark under 43 CFR 412.3(e) Estimated Total Length of Stay (Days): 1 Plans for Post Hospital Care: Home Review of Systems Constitutional: Denies chills, Denies fever(s) Cardiovascular: Denies chest pain PMFSH - History History Provided By: Patient - Medical History Medical History: Medical History (Last Reviewed 02/21/18 @ 13:06 by Dimas Rodgers MD) A-V fistula COPD (chronic obstructive pulmonary disease) Dialysis patient Disc degeneration, lumbar End stage renal disease GERD (gastroesophageal reflux disease) H/O: hysterectomy History of anesthesia reaction Hx of sepsis Hx of thyroidectomy Hypertension Port catheter in place Wheelchair dependence - Surgical History Surgical History: Surgical History (Last Reviewed 02/21/18 @ 13:06 by Dimas Rodgers MD) H/O total hip arthroplasty History of appendectomy Hx of cardiac cath Hx of cholecystectomy - Tobacco History Second Hand Smoke Exposure: No Tobacco Use In Past 30 Days: No Smoking Status: Former smoker - Alcohol History How Often Do You Have a Drink Containing Alcohol: Never - Substance Use History Substance History: No History of Abuse - Travel History Recent Travel in the [place] Within the Last 8 Weeks: No Recent Travel Out of the Country Within the Last 8 Weeks: No Medications and Allergies Active Medications: Active Medications Chlorhexidine Gluconate (Chlorhexidine 2% Cloth) 3 pack [employer] RICHARD Stop: 02/24/18 10:58 Last Admin: 02/21/18 11:12 Dose: 3 pack Lactated Ringer's (Lr 1000 Ml Inj) 1,000 mls @ 30 mls/hr IV.SIG .Q24H RICHARD Stop: 02/24/18 10:58 Last Admin: 02/21/18 11:12 Dose: Not Given Sodium Chloride (Ns Inj) 500 mls @ 30 mls/hr IV.SIG .Q10H [facility] Stop: 02/24/18 10:58 Last Admin: 02/21/18 11:13 Dose: 30 mls/hr Metoprolol Tartrate (Lopressor) 25 mg PO [employer]OR [employer]ES [facility] Stop: 02/24/18 10:58 Last Admin: 02/21/18 11:12 Dose: Not Given Allergies Allergy/AdvReac Type Severity Reaction Status Date / Time iodine Allergy Severe Swelling Verified 02/20/18 11:53 iohexol Allergy Severe TONGUE AND Verified 02/20/18 11:53 GENERALIZED SWELLING penicillin G Allergy Severe TONGUE AND Verified 02/20/18 11:53 GENERALIZED SWELLING potassium iodide Allergy Severe Hives Verified 02/20/18 11:53 povidone-iodine Allergy Severe Swelling Verified 02/20/18 11:53 sodium iodide Allergy Severe Swelling Verified 02/20/18 11:53 Sulfa (Sulfonamide Allergy Severe TONGUE AND Verified 02/20/18 11:53 Antibiotics) GENERALIZED SWELLING Iodinated Contrast- Oral and Allergy Unknown Swelling Verified 02/20/18 11:53 IV Dye *MDRO Multi-Drug Resistant AdvReac Unknown MRSA Uncoded 02/20/18 11:53 Organism Home Medications Medication Instructions Recorded Confirmed Type aspirin 81 mg PO DAILY 01/07/18 02/20/18 History calcium acetate 1,334 mg PO TID 01/07/18 02/21/18 History calcium carbonate 500 mg PO BID 01/07/18 02/21/18 History ergocalciferol (vitamin D2) 50,000 unit PO WEEKLY 01/07/18 02/21/18 History insulin aspart U-100 [Novolog 1 sliding scale dose SUB-Q TIDAC 01/07/18 History U-100 Insulin aspart] insulin detemir U-100 [Levemir 44 unit SUB-Q Q12HR 01/07/18 02/20/18 History U-100 Insulin] meclizine 25 mg PO Q6HR PRN 01/07/18 02/21/18 History ondansetron HCl 8 mg PO BID PRN 01/07/18 02/20/18 History pantoprazole 40 mg PO BID 01/07/18 02/20/18 History pregabalin 75 mg PO BID 01/07/18 02/20/18 History rosuvastatin 10 mg PO HS 01/07/18 02/20/18 History tramadol 50 mg PO QID PRN 01/07/18 02/21/18 History amlodipine 5 mg PO DAILY 02/20/18 02/21/18 History methocarbamol [Robaxin-750] 750 mg PO TID 02/20/18 02/21/18 History Physical Exam Vital Signs / I&O: Vital Signs 02/21/18 10:52 Temperature 97.2 F L Pulse Rate 97 H Respiratory Rate 16 Blood Pressure 147/69 H Pulse Oximetry 93 L Intake & Output 02/20/18 02/21/18 02/21/18 18:59 06:59 18:59 Weight 107 kg Other: Weight On Admission 107 kg Neuro: alert, oriented, no distress HEENT: NC/AT; wears glasses Neck: no JVD Heart: reg rate, no M Lungs: clear but distant Vascular: R UE multiple incisions, + thrill Laboratory Results - last 24 hr 02/21/18 02/21/18 02/21/18 10:46 11:05 11:05 WBC RBC Hgb Hct MCV MCH MCHC RDW Plt Count MPV Neut % (Auto) Lymph % (Auto) [place] % (Auto) Eos % (Auto) Baso % (Auto) Neut # (Auto) Lymph # (Auto) [place] # (Auto) Eos # (Auto) Baso # (Auto) WBC Differential Differential Comment PT 10.1 INR 1.0 APTT 26.7 Sodium Potassium Chloride Carbon Dioxide Anion Gap BUN Creatinine Estimated GFR POC Glucose 250 H Random Glucose Calcium Blood Type A Negative Antibody Screen Negative 02/21/18 02/21/18 11:05 11:05 WBC 7.0 RBC 4.18 Hgb 11.3 L Hct 35.7 MCV 85.2 MCH 27.1 MCHC 31.8 L RDW 18.8 H Plt Count 228 MPV 9.2 Neut % (Auto) 84.5 H Lymph % (Auto) 13.8 [place] % (Auto) 0.9 Eos % (Auto) 0.0 Baso % (Auto) 0.8 Neut # (Auto) 5.9 Lymph # (Auto) 1.0 [place] # (Auto) 0.1 Eos # (Auto) 0.0 Baso # (Auto) 0.1 WBC Differential . Differential Comment Auto diff final PT INR APTT Sodium 138 Potassium 4.6 Chloride 102 Carbon Dioxide 29.9 Anion Gap 6 BUN 22 H Creatinine 4.05 H Estimated GFR 11 L POC Glucose Random Glucose 249 H Calcium 8.6 Blood Type Antibody Screen Caprini VTE Risk Assessment Caprini VTE Risk Assessment: No/Low Risk (score <= 1) (intraop heparin) Justinrini Risk Assessment Model: Point Value = 1 Point Value = 2 Point Value = 3 Point Value = 5 Age 41-60 Minor surgery BMI > 25 kg/m2 Swollen legs Varicose veins or History of unexplained or recurrent spontaneous Oral contraceptives or hormone replacement Sepsis (< 1 month) Serious lung disease, including pneumonia (< 1 month) Abnormal pulmonary function Acute myocardial infarction Congestive heart failure (< 1 month) History of inflammatory bowel disease Medical patient at bed rest Age 61-74 Arthroscopic surgery Major open surgery (> 45 min) Laparoscopic surgery (> 45 min) Malignancy Confined to bed (> 72 hours) Immobilizing plaster cast Central venous access Age >= 75 History of VTE Family history of VTE Factor V Leiden Prothrombin [id number] Lupus anticoagulant Anticardiolipin antibodies Elevated serum homocysteine Heparin-induced thrombocytopenia Other congenital or acquired thrombophilia Stroke (< 1 month) Elective arthroplasty Hip, pelvis, or leg fracture Acute spinal cord injury (< 1 month) Prophylaxis Regimen: Total Risk Factor Score Risk Level Prophylaxis Regimen 0-1 Low Early ambulation 2 Moderate Order ONE of the following: *Sequential Compression Device (SCD) *Heparin 5000 units SQ BID 3-4 Higher Order ONE of the following medications: *Heparin 5000 units SQ TID *Enoxaparin/Lovenox 40 mg SQ daily (WT < 150 kg, CrCl > 30 mL/min) *Enoxaparin/Lovenox 30 mg SQ daily (WT < 150 kg, CrCl > 10-29 mL/min) *Enoxaparin/Lovenox 30 mg SQ BID (WT < 150 kg, CrCl > 30 mL/min) AND/OR *Sequential Compression Device (SCD) 5 or more Highest Order ONE of the following medications: *Heparin 5000 units SQ TID (Preferred with Epidurals) *Enoxaparin/Lovenox 40 mg SQ daily (WT < 150 kg, CrCl > 30 mL/min) *Enoxaparin/Lovenox 30 mg SQ daily (WT < 150 kg, CrCl > 10-29 mL/min) *Enoxaparin/Lovenox 30 mg SQ BID (WT < 150 kg, CrCl > 30 mL/min) AND *Sequential Compression Device (SCD) Assessment and Plan - Assessment (1) ESRD (end stage renal disease) on dialysis Code(s): N18.6 - End stage renal disease; Z99.2 - Dependence on renal dialysis Status: Acute - Plan R UE nonfunctional access plan for AVG revision son (Collmaddie) [phone]
[2018-02-21] MEDS ORDERED: Protamine Sulfate Inj 50 MG/5 ML Vial ONE (13:13)
[2018-02-21] MEDS ORDERED: Heparin 10,000 UNITS/10 ML Vial (for IV use) ONE (13:14)
[2018-02-21] MEDS ORDERED: Heparin/NS PF Inj 500 ML ONE (13:14)
[2018-02-21] MEDS ORDERED: Thrombin Topical 20,000 UNIT Spray Kit TOPICAL ONE (13:14)
[2018-02-21] MEDS ORDERED: Iohexol 300 MG/ML 50 ML Vial (for Rad Diag) IVCONTRAST ONE (14:49)
[2018-02-21] MEDS ORDERED: Bisacodyl 10 MG Supp RECTAL PRN (16:27)
--- NOTE | 2018-02-21 16:27 | P.OP ---
Date of procedure: 02/21/18 Procedure: 1. R UE fistulogram 2. Excision of R UE AVG 3. R UE brach-ax (6mm PTFE) Implants: 6mm PTFE RUE Anesthesia: GETA Surgeon: Dimas Rodgers MD Estimated blood loss (mL): 300 IV fluids (mL): 500 Pathology: none sent Operation and Findings: inflamed, deep AVG, excised from brachial artery through previously placed stent replaced and superficialized + Doppler signal in wrist after AVG + thrill
[2018-02-21] MEDS ORDERED: Dextrose 50% in Water 50 ML Vial IV.PUSH PRN (16:30)
[2018-02-21] MEDS ORDERED: fentaNYL Citrate Inj 100 MCG/2 ML Ampul ONE (16:40)
[2018-02-21] MEDS ORDERED: *morphine SULFATE 4 MG/ML PERIprocedure ONLY ONE ×2 (16:43→16:53)
[2018-02-21] MEDS ORDERED: HYDROmorphone PF Inj 2 MG/ML Vial ONE (17:38)
[2018-02-21] MEDS: Insulin NovoLOG Aspart Correctional Sugar Inj SQ SCH ×2 (19:00→20:31)
[2018-02-21] MEDS: Methocarbamol 500 MG Tablet PO SCH (19:42)
[2018-02-21] MEDS: Calcium Acetate 667 MG Capsule PO SCH (19:43)
--- NOTE | 2018-02-21 19:43 | P.PN ---
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 Vasquez He was notified and will follow the patient and arrange hemodialysis, requested formal consult with him as well. Physical Exam Vital signs: Vital Signs 02/21/18 10:52 02/21/18 16:33 02/21/18 16:45 Temperature 97.2 F L 98.0 F Pulse Rate 97 H 85 81 Respiratory Rate 16 17 17 Blood Pressure 147/69 H 121/56 L 130/60 Pulse Oximetry 93 L 100 99 02/21/18 17:00 02/21/18 17:15 02/21/18 17:29 Temperature Pulse Rate 79 77 74 Respiratory Rate 19 19 17 Blood Pressure 105/52 L 114/57 L 122/58 L Pulse Oximetry 100 99 02/21/18 18:34 Temperature Pulse Rate 76 Respiratory Rate 17 Blood Pressure 97/50 L Pulse Oximetry 99 Intake & Output 02/21/18 02/21/18 02/22/18 06:59 18:59 06:59 Intake Total 500 / 500 Output Total 300 / 300 Balance 200 / 200 Weight 107 kg Intake: Anesthesia Amount 500 / 500 Output: Estimated Blood Loss 300 / 300 Other: Weight On Admission 107 kg Results - Labs CBC & Chem 7: 02/21/18 11:05 02/21/18 11:05 Laboratory Results - last 24 hr 02/21/18 02/21/18 02/21/18 10:46 11:05 11:05 WBC RBC Hgb Hct MCV MCH MCHC RDW Plt Count MPV Neut % (Auto) Lymph % (Auto) [place] % (Auto) Eos % (Auto) Baso % (Auto) Neut # (Auto) Lymph # (Auto) [place] # (Auto) Eos # (Auto) Baso # (Auto) WBC Differential Differential Comment PT 10.1 INR 1.0 APTT 26.7 Sodium Potassium Chloride Carbon Dioxide Anion Gap BUN Creatinine Estimated GFR POC Glucose 250 H Random Glucose Calcium Blood Type A Negative Antibody Screen Negative 02/21/18 02/21/18 02/21/18 11:05 11:05 16:52 WBC 7.0 RBC 4.18 Hgb 11.3 L Hct 35.7 MCV 85.2 MCH 27.1 MCHC 31.8 L RDW 18.8 H Plt Count 228 MPV 9.2 Neut % (Auto) 84.5 H Lymph % (Auto) 13.8 [place] % (Auto) 0.9 Eos % (Auto) 0.0 Baso % (Auto) 0.8 Neut # (Auto) 5.9 Lymph # (Auto) 1.0 [place] # (Auto) 0.1 Eos # (Auto) 0.0 Baso # (Auto) 0.1 WBC Differential . Differential Comment Auto diff final PT INR APTT Sodium 138 Potassium 4.6 Chloride 102 Carbon Dioxide 29.9 Anion Gap 6 BUN 22 H Creatinine 4.05 H Estimated GFR 11 L POC Glucose 187 H Random Glucose 249 H Calcium 8.6 Blood Type Antibody Screen
--- NOTE | 2018-02-21 20:19 | MP ---
cc: Dimas Rodgers MD DATE OF OPERATION: 02/21/2018 PREOPERATIVE DIAGNOSIS: Nonfunctioning right upper extremity arteriovenous fistula. POSTOPERATIVE DIAGNOSIS: Nonfunctioning right upper extremity arteriovenous fistula. PROCEDURE PERFORMED: 1. Right upper extremity fistulogram. 2. Excision of right upper extremity arteriovenous graft. 3. Right brachial artery to axillary vein AV graft with 6 mm PTFE. ATTENDING SURGEON: Dimas Rodgers MD ANESTHESIA: General. INDICATIONS FOR PROCEDURE: Ms. Gagnon is a 72-year-old female who is morbidly obese and has a right upper extremity access. This access is nonfunctional, although there is a thrill proximally. She was taken to the operating room for angiographic evaluation and access excision as well as access creation. DESCRIPTION OF PROCEDURE: Informed consent was obtained from the patient. She was taken to the operating room and placed supine on the operating table. Appropriate timeout was taken to ensure the patient's identity, the operative site and planned procedure. The administration of 1 gram of vancomycin was initiated prior to skin incision and will be discontinued after single preoperative dose. Vancomycin was chosen because of the patient's end-stage renal disease. Everyone in the room agreed with the timeout and we proceeded. Her right arm was prepped and draped and a 21-gauge micropuncture needle was used to access the fistula through [facility] ____ micropuncture sheath through which a fistulogram was obtained. The fistulogram showed the patient had a patent access with a proximal arm stent. This was marked on the arm for ease of surgical identification, since it was nonpalpable throughout the course of the fistula. The catheter was removed and the skin puncture site was closed with a 5-0 Prolene suture. Incision made a defect along the proximal aspect of the AV graft, carried down through subcutaneous tissue with electrocautery. The proximal aspect of the graft was noted to be autogenous vein and we dissected this back to the brachial artery. Proximal and distal control of the brachial artery was surgically obtained and vessel loops were placed. The proximal aspect of the graft was noted to be stenotic. We then dissected past the proximal aspect of autogenous fistula to where the fistula was sewn end-to-end to the graft and then a separate incision was made in the axilla, carried down through subcutaneous tissue with electrocautery. The stent was identified in the axillary vein. We dissected the axillary vein out central to the stent. The incisions were then connected between these two, and the entire previous graft was dissected free. The patient was heparinized with 3000 units of IV heparin. Proximal control of the brachial artery were obtained with profunda clamps and distal control of the axillary vein was obtained with fundal clamps. The entire graft was excised, including the old stent, and the arteriotomy was extended with Maxwell scissors. The brachial artery edges were freshened up and 6 mm PTFE was brought up onto the field, spatulated and sutured inside the brachial artery with running 6-0 Prolene suture and end-to-end to the axillary vein with running 5-0 Prolene suture. At the completion, it was flushed and noted to be hemostatic. There was a nice thrill in the fistula and a Doppler signal in the wrist. Heparin was reversed with protamine. The wound was infiltrated with thrombin, made hemostatic and closed with 2-0 Polysorb thereby elevating the new graft, and the skin over top the graft was closed with 3-0 Polysorb and 4-0 Monocryl. The sponge and needle counts were correct at the end of the case. I was present, scrubbed, and performed the entire procedure. MD SIMON Casper/arianna/benedicto , 05:58 PM , 06:07 PM
[2018-02-21] MEDS: Pregabalin 75 MG Capsule PO SCH (20:30)
[2018-02-21] MEDS: Calcium Carbonate 500 MG Tablet PO SCH (20:30)
[2018-02-21] MEDS: Famotidine 20 MG Tablet PO SCH (20:30)
[2018-02-21] MEDS: Senna/Docusate Sodium 8.6/50 MG Tablet PO SCH (20:30)
[2018-02-21] MEDS ORDERED: Heparin 10,000 UNITS/10 ML Vial (for IV use) OTHER PRN ×2 (21:43)
[2018-02-21] MEDS ORDERED: Sod Chloride 0.9% Inj 1,000 ML OTHER PRN ×2 (21:43)
[2018-02-21] MEDS ORDERED: Albumin Human 25% Inj 100 ML IV.SIG PRN (21:43)
[2018-02-21] MEDS ORDERED: Sod Chloride 0.9% Inj 1,000 ML IV.CONT PRN (21:43)
[2018-02-22] MEDS: Insulin NovoLOG Aspart Correctional Sugar Inj SQ SCH ×5 (03:11→21:41)
--- NOTE | 2018-02-22 07:15 | P.PNVS ---
Subjective Post Op Day #: 1 Procedure: R UE access excision and new access creation (brach-ax) Subjective/Hospital Course: c/o incisional pain but hand ok c/o sore throat otherwise doing well Objective Vital Signs / I&O: Vital Signs 02/21/18 10:52 02/21/18 16:33 02/21/18 16:45 Temperature 97.2 F L 98.0 F Pulse Rate 97 H 85 81 Respiratory Rate 16 17 17 Blood Pressure 147/69 H 121/56 L 130/60 Pulse Oximetry 93 L 100 99 02/21/18 17:00 02/21/18 17:15 02/21/18 17:29 Temperature Pulse Rate 79 77 74 Respiratory Rate 19 19 17 Blood Pressure 105/52 L 114/57 L 122/58 L Pulse Oximetry 100 99 02/21/18 18:34 02/21/18 20:00 02/21/18 20:13 Temperature 97.3 F L Pulse Rate 76 79 Respiratory Rate 17 20 18 Blood Pressure 97/50 L 119/53 L Pulse Oximetry 99 97 02/22/18 00:00 02/22/18 00:09 02/22/18 04:00 Temperature 97.2 F L 97.7 F Pulse Rate 73 72 75 Respiratory Rate 20 20 Blood Pressure 101/52 L 97/50 L Pulse Oximetry 97 98 Intake & Output 02/21/18 02/22/18 02/22/18 18:59 06:59 18:59 Intake Total 500 / 500 Output Total 300 / 300 Balance 200 / 200 Weight 107 kg 106.6 kg Intake: Anesthesia Amount 500 / 500 Output: Estimated Blood Loss 300 / 300 Other: Weight On Admission 107 kg Exam: sitting in bed, alert and appears comfortable + thrill surgical dressing in tact and dry good hand strength Laboratory Results - last 24 hr 02/21/18 02/21/18 02/21/18 10:46 11:05 11:05 WBC RBC Hgb Hct MCV MCH MCHC RDW Plt Count MPV Neut % (Auto) Lymph % (Auto) [place] % (Auto) Eos % (Auto) Baso % (Auto) Neut # (Auto) Lymph # (Auto) [place] # (Auto) Eos # (Auto) Baso # (Auto) WBC Differential Differential Comment PT 10.1 INR 1.0 APTT 26.7 Sodium Potassium Chloride Carbon Dioxide Anion Gap BUN Creatinine Estimated GFR POC Glucose 250 H Random Glucose Calcium Blood Type A Negative Antibody Screen Negative 02/21/18 02/21/18 02/21/18 11:05 11:05 16:52 WBC 7.0 RBC 4.18 Hgb 11.3 L Hct 35.7 MCV 85.2 MCH 27.1 MCHC 31.8 L RDW 18.8 H Plt Count 228 MPV 9.2 Neut % (Auto) 84.5 H Lymph % (Auto) 13.8 [place] % (Auto) 0.9 Eos % (Auto) 0.0 Baso % (Auto) 0.8 Neut # (Auto) 5.9 Lymph # (Auto) 1.0 [place] # (Auto) 0.1 Eos # (Auto) 0.0 Baso # (Auto) 0.1 WBC Differential . Differential Comment Auto diff final PT INR APTT Sodium 138 Potassium 4.6 Chloride 102 Carbon Dioxide 29.9 Anion Gap 6 BUN 22 H Creatinine 4.05 H Estimated GFR 11 L POC Glucose 187 H Random Glucose 249 H Calcium 8.6 Blood Type Antibody Screen 02/21/18 02/22/18 19:37 03:02 WBC RBC Hgb Hct MCV MCH MCHC RDW Plt Count MPV Neut % (Auto) Lymph % (Auto) [place] % (Auto) Eos % (Auto) Baso % (Auto) Neut # (Auto) Lymph # (Auto) [place] # (Auto) Eos # (Auto) Baso # (Auto) WBC Differential Differential Comment PT INR APTT Sodium Potassium Chloride Carbon Dioxide Anion Gap BUN Creatinine Estimated GFR POC Glucose 218 H 239 H Random Glucose Calcium Blood Type Antibody Screen Assessment and Plan - Assessment (1) ESRD (end stage renal disease) on dialysis Code(s): N18.6 - End stage renal disease; Z99.2 - Dependence on renal dialysis Status: Acute - Plan POD#1 s/p R UE access excision and creation of new AVG (brach-ax w/ PTFE) 1. HD this morning 2. Labs from this morning pending 3. D/C later today/tomorrow 4. D/C surgical dressing today or tomorrow - before discharge Discharge Planning: later today after HD or tomorrow son (Litzy) [phone]
[2018-02-22 09:23] LABS: Hemoglobin 9.2 gm/dL (11.6-15.3); Mean Corpuscular HGB Conc 31.8 % (32.0-36.0); Mean Corpuscular Hemoglobin 27.3 pg (27.0-34.0); Mean Corpuscular Volume 85.9 fL (80.0-100.0); Platelet Count 220 th/mm3 (150-450); Red Blood Count 3.37 mil/mm3 (4.00-5.30); Red Cell Distribution Width 19.7 % (11.6-17.2); White Blood Count 10.1 th/mm3 (4.0-11.0)
[2018-02-22 09:45] LABS: Calcium 8.1 mg/dL (8.5-10.1); Carbon Dioxide 28.6 meq/L (21.0-32.0); Potassium 3.9 meq/L (3.5-5.1)
[2018-02-22] MEDS: Methocarbamol 500 MG Tablet PO SCH ×3 (12:54→17:51)
[2018-02-22] MEDS: Calcium Acetate 667 MG Capsule PO SCH ×3 (12:54→17:51)
[2018-02-22] MEDS: Calcium Carbonate 500 MG Tablet PO SCH ×2 (12:54→21:41)
[2018-02-22] MEDS: amLODIPine 5 MG Tablet PO SCH (12:54)
[2018-02-22] MEDS: Pregabalin 75 MG Capsule PO SCH ×2 (13:00→21:40)
[2018-02-22] MEDS: Senna/Docusate Sodium 8.6/50 MG Tablet PO SCH ×2 (13:00→21:45)
[2018-02-22] MEDS: Famotidine 20 MG Tablet PO SCH ×2 (13:00→21:41)
[2018-02-22] MEDS ORDERED: DAPTOmycin Inj 900 MG in Sodium Chlor 0.9% Inj 100 ML IV.SIG SCH (16:00)
--- NOTE | 2018-02-22 16:06 | P.CONNP ---
History of Present Illness Consult date: 02/22/18 Reason for Consult: End-stage renal disease. Primary Care Provider: No Primary Care Physician History of Present Illness: This patient is a 72-year-old female with a history of multiple medical problems including multiple myeloma, secondary hyperparathyroidism renal disease , end-stage renal disease on maintenance hemodialysis Tuesday and Tuesday, diabetes mellitus as well as COPD. Patient now status post excision of old AV graft and placement of a new right brachial artery to axillary vein graft on February 21, 2018. 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 Patient on daptomycin 900 mg on Tuesday and 1500 mg on Fridays postdialysis. The antibiotics will be completed on March 08, 2018. Patient completed her dialysis session today. [facility] - History History Provided By: Patient - Medical History Medical History: Medical History (Last Updated 02/22/18 @ 15:59 by Kameron Vasquez MD) Discitis A-V fistula COPD (chronic obstructive pulmonary disease) Dialysis patient Disc degeneration, lumbar End stage renal disease GERD (gastroesophageal reflux disease) H/O: hysterectomy History of anesthesia reaction Hx of sepsis Hx of thyroidectomy Hypertension Port catheter in place Wheelchair dependence - Surgical History Surgical History: Surgical History (Last Reviewed 02/21/18 @ 13:06 by Dimas Rodgers MD) H/O total hip arthroplasty History of appendectomy Hx of cardiac cath Hx of cholecystectomy - Tobacco History Second Hand Smoke Exposure: No Tobacco Use In Past 30 Days: No Smoking Status: Former smoker - Alcohol History How Often Do You Have a Drink Containing Alcohol: Never - Substance Use History Substance History: No History of Abuse - Travel History Recent Travel in the [place] Within the Last 8 Weeks: No Recent Travel Out of the Country Within the Last 8 Weeks: No Medications and Allergies Active Medications: Active Medications Amlodipine Besylate (Norvasc) 5 mg PO DAILY [facility] Last Admin: 02/22/18 12:54 Dose: Not Given Aspirin (Aspirin Chew) 81 mg PO DAILY [facility] Last Admin: 02/22/18 13:00 Dose: 81 mg Atorvastatin Calcium (Lipitor) 20 mg PO HS [facility] Last Admin: 02/21/18 20:30 Dose: 20 mg Bisacodyl (Dulcolax Supp) 10 mg RECTAL DAILY PRN PRN Reason: SEVERE CONSITIPATION Calcium Acetate (Phoslo) 1,334 mg PO TID [facility] Last Admin: 02/22/18 12:59 Dose: 1,334 mg Chlorhexidine Gluconate (Chlorhexidine 2% Cloth) 3 pack TOPICAL RETAIL SOLAR ADVISOR [facility] Stop: 02/24/18 10:58 Last Admin: 02/21/18 11:12 Dose: 3 pack Clonidine HCl (Catapres) 0.1 mg PO UNSCH PRN PRN Reason: SEE LABEL COMMENTS Dextrose (D50w Vial) 50 ml IV.PUSH UNSCH PRN PRN Reason: PER HYPOGLYCEMIA PROTOCOL Diphenhydramine HCl (Benadryl) 25 mg PO UNSCH PRN PRN Reason: SEE LABEL COMMENTS Ergocalciferol (Vitamind2) 50,000 unit PO Q7D [facility] Famotidine (Pepcid) 10 mg PO BID [facility] Last Admin: 02/22/18 13:00 Dose: 10 mg Gentamicin Sulfate (Gentamicin Inj) 20 mg OTHER WITH DIALYSIS PRN PRN Reason: Dwell Gentamycin Lock Glucagon (Glucagon Inj) 1 mg OTHER PRN PRN PRN Reason: for Hypoglycemia Protocol Heparin Sodium (Porcine) (Heparin Inj) 5,000 units SQ Q8H [facility] Heparin Sodium (Porcine) (Heparin Inj) 8,000 units OTHER WITH DIALYSIS PRN PRN Reason: for machine prime Heparin Sodium (Porcine) (Heparin Inj) 1,000 units OTHER WITH DIALYSIS PRN PRN Reason: Dwell Heparin to Fill Catheter Hydromorphone HCl (Dilaudid) 2 mg PO Q4H PRN PRN Reason: PAIN SCALE 6 TO 10 Last Admin: 02/22/18 11:09 Dose: 2 mg Lactated Ringer's (Lr 1000 Ml Inj) 1,000 mls @ 30 mls/hr IV.SIG .Q24H [facility] Stop: 02/24/18 10:58 Last Admin: 02/21/18 11:12 Dose: Not Given Sodium Chloride (Ns Inj) 500 mls @ 30 mls/hr IV.SIG .Q10H [facility] Stop: 02/24/18 10:58 Last Admin: 02/21/18 11:13 Dose: 30 mls/hr Daptomycin 900 mg/ Sodium (Chloride) 100 mls @ 200 mls/hr IV.SIG Q48H [facility] Albumin Human (Flexbumin 25% Inj) 100 mls @ 60 mls/hr IV.SIG WITH DIALYSIS PRN PRN Reason: hypotension / volume replace Sodium Chloride (Ns Inj) 1,000 mls @ 200 mls/hr OTHER .Q5H PRN PRN Reason: for dialyzer flush PRN Sodium Chloride (Ns Inj) 1,000 mls @ 0 mls/hr IV.CONT .Q0M PRN PRN Reason: hypotension / volume replace Sodium Chloride (Ns Inj) 1,000 mls @ 0 mls/hr OTHER .Q0M PRN PRN Reason: for prime and rinse back Insulin Aspart (Novolog Insulin Correctional Sugar Inj) 0 unit SQ ACHS AND 3AM R[facility]ARD; Protocol Last Admin: 02/22/18 12:59 Dose: Not Given Lactulose (Lactulose Liq) 30 ml PO DAILY PRN PRN Reason: SEVERE CONSITIPATION Meclizine HCl (Antivert) 25 mg PO Q6HR PRN PRN Reason: Dizziness Methocarbamol (Robaxin) 750 mg PO TID [facility] Last Admin: 02/22/18 13:01 Dose: Not Given Metoprolol Tartrate (Lopressor) 25 mg PO RETAIL SOLAR ADVISOR [facility] Stop: 02/24/18 10:58 Last Admin: 02/21/18 11:12 Dose: Not Given Miscellaneous Information ([facility] Nursing Information) 1 each OTHER UNSCH PRN PRN Reason: SEE LABEL COMMENTS Stop: 02/22/18 16:38 Nitroglycerin (Nitrostat Sl) 0.4 mg SL Q5M PRN PRN Reason: CHEST PAIN Ondansetron HCl (Zofran Odt) 8 mg PO BID PRN PRN Reason: NAUSEA Last Admin: 02/21/18 19:42 Dose: 8 mg Ondansetron HCl (Zofran Inj) 4 mg IV.PUSH UNSCH PRN PRN Reason: NAUSEA OR VOMITING Oxycodone HCl (Roxicodone) 5 mg PO Q4H PRN PRN Reason: PAIN SCALE 1 TO 5 Pregabalin (Lyrica) 75 mg PO BID [facility] Last Admin: 02/22/18 13:00 Dose: 75 mg Senna/Docusate Sodium (Vannessa-Colace) 1 tab PO BID [facility] Last Admin: 02/22/18 13:00 Dose: 1 tab Sennosides (Senokot) 17.2 mg PO Q12H PRN PRN Reason: Moderate Constipation Sodium Chloride (Ns Flush) 5 ml IV.FLUSH PRN PRN PRN Reason: flush each lumen during HD Tramadol HCl (Ultram) 50 mg PO QID PRN PRN Reason: Pain 1-10 Allergies Allergy/AdvReac Type Severity Reaction Status Date / Time iodine Allergy Severe Swelling Verified 02/20/18 11:53 iohexol Allergy Severe TONGUE AND Verified 02/20/18 11:53 GENERALIZED SWELLING penicillin G Allergy Severe TONGUE AND Verified 02/20/18 11:53 GENERALIZED SWELLING potassium iodide Allergy Severe Hives Verified 02/20/18 11:53 povidone-iodine Allergy Severe Swelling Verified 02/20/18 11:53 sodium iodide Allergy Severe Swelling Verified 02/20/18 11:53 Sulfa (Sulfonamide Allergy Severe TONGUE AND Verified 02/20/18 11:53 Antibiotics) GENERALIZED SWELLING Iodinated Contrast- Oral and Allergy Unknown Swelling Verified 02/20/18 11:53 IV Dye *MDRO Multi-Drug Resistant AdvReac Unknown MRSA Uncoded 02/20/18 11:53 Organism Home Medications Medication Instructions Recorded Confirmed Type aspirin 81 mg PO DAILY 01/07/18 02/20/18 History calcium acetate 1,334 mg PO TID 01/07/18 02/21/18 History calcium carbonate 500 mg PO BID 01/07/18 02/21/18 History ergocalciferol (vitamin D2) 50,000 unit PO WEEKLY 01/07/18 02/21/18 History insulin aspart U-100 [Novolog 1 sliding scale dose SUB-Q TIDAC 01/07/18 History U-100 Insulin aspart] insulin detemir U-100 [Levemir 44 unit SUB-Q Q12HR 01/07/18 02/20/18 History U-100 Insulin] meclizine 25 mg PO Q6HR PRN 01/07/18 02/21/18 History ondansetron HCl 8 mg PO BID PRN 01/07/18 02/20/18 History pantoprazole 40 mg PO BID 01/07/18 02/20/18 History pregabalin 75 mg PO BID 01/07/18 02/20/18 History rosuvastatin 10 mg PO HS 01/07/18 02/20/18 History tramadol 50 mg PO QID PRN 01/07/18 02/21/18 History amlodipine 5 mg PO DAILY 02/20/18 02/21/18 History methocarbamol [Robaxin-750] 750 mg PO TID 02/20/18 02/21/18 History Exam Vital signs: Vital Signs 02/21/18 16:33 02/21/18 16:45 02/21/18 17:00 Temperature 98.0 F Pulse Rate 85 81 79 Respiratory Rate 17 17 19 Blood Pressure 121/56 L 130/60 105/52 L Pulse Oximetry 100 99 100 02/21/18 17:15 02/21/18 17:29 02/21/18 18:34 Temperature Pulse Rate 77 74 76 Respiratory Rate 19 17 17 Blood Pressure 114/57 L 122/58 L 97/50 L Pulse Oximetry 99 99 02/21/18 20:00 02/21/18 20:13 02/22/18 00:00 Temperature 97.3 F L 97.2 F L Pulse Rate 79 73 Respiratory Rate 20 18 20 Blood Pressure 119/53 L 101/52 L Pulse Oximetry 97 97 02/22/18 00:09 02/22/18 04:00 02/22/18 08:00 Temperature 97.7 F 97.5 F L Pulse Rate 72 75 82 Respiratory Rate 20 20 Blood Pressure 97/50 L 116/53 L Pulse Oximetry 98 98 Intake & Output 02/21/18 02/22/18 02/22/18 18:59 06:59 18:59 Intake Total 500 / 500 Output Total 300 / 300 2500 / 2500 Balance 200 / 200 -2500 / -2500 Weight 107 kg 106.6 kg Intake: Anesthesia Amount 500 / 500 Output: Hemodialysis Amount 2500 / 2500 Estimated Blood Loss 300 / 300 Other: Weight On Admission 107 kg Narrative: GENERAL: Elderly female lying in bed not in respiratory distress. SKIN: Warm and dry. HEAD: Normocephalic. EYES: No scleral icterus. No injection or drainage. NECK: Supple, trachea midline. No JVD or lymphadenopathy. CARDIOVASCULAR: Regular rate and rhythm without murmurs, gallops, or rubs. RESPIRATORY: Breath sounds equal bilaterally. No accessory muscle use. GASTROINTESTINAL: Abdomen soft, non-tender, nondistended. MUSCULOSKELETAL: No cyanosis, or edema. Hemodialysis PermCath present in the right infraclavicular area. Exit site appears to be intact. Side of new AV dialysis graft right arm covered with dressings which were not disturbed. BACK: Nontender without obvious deformity. No CVA tenderness. Results - Lab Results 02/22/18 08:30 02/22/18 08:30 Most recent lab results Calcium 8.1 mg/dL (8.5-10.1) L 02/22/18 08:30 Assessment and Plan - Assessment (1) End-stage renal disease needing dialysis Code(s): N18.6 - End stage renal disease; Z99.2 - Dependence on renal dialysis Status: Chronic Plan: Continue hemodialysis Tuesday and Tuesday while patient is in-house. Vascular surgical help appreciated and creation of a new AV dialysis graft. Medication should be adjusted for end-stage renal disease when indicated. I have reduced the dosage of Lyrica. Maximum dose recommended is 75 mg daily. Avoid gadolinium.. (2) Anemia of renal disease Code(s): D63.1 - Anemia in chronic kidney disease Status: Chronic (3) Discitis of thoracic region Code(s): M46.44 - Discitis, unspecified, thoracic region Status: Acute Plan: Continue daptomycin postdialysis 900 mg Tuesday and Tuesday and 1500 mg IV on Fridays. Until March 08, 2018. Discussed the case with infectious disease today who recommended monitoring of ESR and repeat blood cultures in about 1 week. Ideally patient should follow- up with an outpatient infectious disease physician but none of the physicians on staff here have an outpatient office. Hopefully we will find an accepting outpatient infectious disease specialist but this is uncertain. (4) Secondary hyperparathyroidism of renal origin Code(s): N25.81 - Secondary hyperparathyroidism of renal origin Status: Chronic
[2018-02-22] MEDS: Heparin - SQ 10,000 UNITS/ML Vial SQ SCH (16:08)
[2018-02-23] MEDS: Heparin - SQ 10,000 UNITS/ML Vial SQ SCH ×2 (01:01→09:33)
[2018-02-23] MEDS: Insulin NovoLOG Aspart Correctional Sugar Inj SQ SCH ×2 (04:07→09:34)
[2018-02-23 05:35] VITALS: O2SAT 98
--- NOTE | 2018-02-23 09:30 | P.PNVS ---
Subjective Post Op Day #: 2 Procedure: R UE access excision and new access creation (brach-ax) Subjective/Hospital Course: 72/F in bed on the phone w/ FM alert in NAD Pt continues to c/o incisional pain Pt denied hand pain Pt c/o R forearm numbness C/o sore throat- better w/ ice chips per pt Objective Vital Signs / I&O: Vital Signs 02/22/18 16:00 02/22/18 17:46 02/22/18 20:00 Temperature 98.1 F 97.9 F Pulse Rate 85 89 Respiratory Rate 18 18 Blood Pressure 90/49 L 100/65 86/50 L Pulse Oximetry 97 98 02/23/18 00:00 02/23/18 05:34 Temperature 98 F 97.8 F Pulse Rate 88 83 Respiratory Rate 20 20 Blood Pressure 106/49 L 109/52 L Pulse Oximetry 99 98 Intake & Output 02/22/18 02/23/18 02/23/18 18:59 06:59 18:59 Intake Total 700 / 700 280 / 280 Output Total 2500 / 2500 Balance -1800 / -1800 280 / 280 Weight 105.7 kg Intake: IV 100 / 100 Cubicin Inj 900 MG In NS Inj 100 / 100 100 ML @ 200 mls/hr IV.SIG Q48H [facility] Rx#:[id number] Oral 600 / 600 280 / 280 Output: Urine 0 / 0 Hemodialysis Amount 2500 / 2500 Exam: Equal dental laboratory manager strength Palpable R radial pulse Audible Thrill near R AVF Pt w/o hand pain pt c/o R forearm numbness Incision intact w/o R/D R arm swelling present Laboratory Results - last 24 hr 02/22/18 02/22/18 02/22/18 08:30 08:30 11:17 WBC 10.1 RBC 3.37 L Hgb 9.2 L D Hct 29.0 L MCV 85.9 MCH 27.3 MCHC 31.8 L RDW 19.7 H Plt Count 220 MPV 9.0 ESR Sodium 140 Potassium 3.9 Chloride 103 Carbon Dioxide 28.6 Anion Gap 8 BUN 26 H Creatinine 4.32 H Estimated GFR 10 L POC Glucose 132 H Random Glucose 169 H Calcium 8.1 L 02/22/18 02/22/18 02/23/18 16:18 20:41 01:10 WBC RBC Hgb Hct MCV MCH MCHC RDW Plt Count MPV ESR Sodium Potassium Chloride Carbon Dioxide Anion Gap BUN Creatinine Estimated GFR POC Glucose 174 H 186 H 160 H Random Glucose Calcium 02/23/18 04:42 WBC RBC Hgb Hct MCV MCH MCHC RDW Plt Count MPV ESR 79 H Sodium Potassium Chloride Carbon Dioxide Anion Gap BUN Creatinine Estimated GFR POC Glucose Random Glucose Calcium Assessment and Plan - Assessment (1) ESRD (end stage renal disease) on dialysis Code(s): N18.6 - End stage renal disease; Z99.2 - Dependence on renal dialysis Status: Acute - Plan POD#2 s/p R UE access excision and creation of new AVG (brach-ax w/ PTFE) Plan Surgical dressing removed Pt clear for d/c to home Arranged out pt f/u Discussed out pt care and management w/ pt Questions answered Polly De La Rosa NP [facility] [phone] Discharge Planning: Today son (Collmaddie) [phone]
[2018-02-23] MEDS: Senna/Docusate Sodium 8.6/50 MG Tablet PO SCH (09:34)
[2018-02-23] MEDS: Pregabalin 75 MG Capsule PO SCH (09:34)
[2018-02-23] MEDS: Famotidine 20 MG Tablet PO SCH (09:34)
[2018-02-23] MEDS: Calcium Carbonate 500 MG Tablet PO SCH (09:34)
[2018-02-23] MEDS: Calcium Acetate 667 MG Capsule PO SCH (09:35)
[2018-02-23] MEDS: Methocarbamol 500 MG Tablet PO SCH (09:35)
[2018-02-23] MEDS: amLODIPine 5 MG Tablet PO SCH (09:37)
[2018-02-23 09:38] VITALS: BP 92/53; PULSE 85; RESP 18; TEMP 98.7
--- NOTE | 2018-02-23 09:45 | P.DS ---
Discharge Summary - Admission Date 02/21/18 19:13 - Summary Brief History from admission: 72 yo female with ESRD, HD MWF R chest wall. Has R UE AVG revised several times but unusable. Presents for access revision including fistulogram. Procedure: R UE access excision and new access creation (brach-ax) Significant Findings: Equal well head pumper strength Palpable R radial pulse Audible Thrill near R AVF Pt w/o hand pain pt c/o R forearm numbness Incision intact w/o R/D R arm swelling present Abnormal Lab Results 02/22/18 02/22/18 02/22/18 08:30 11:17 16:18 ESR Sodium 140 Potassium 3.9 Chloride 103 Carbon Dioxide 28.6 Anion Gap 8 BUN 26 H Creatinine 4.32 H Estimated GFR 10 L POC Glucose 132 H 174 H Random Glucose 169 H Calcium 8.1 L 02/22/18 02/23/18 02/23/18 20:41 01:10 04:42 ESR 79 H Sodium Potassium Chloride Carbon Dioxide Anion Gap BUN Creatinine Estimated GFR POC Glucose 186 H 160 H Random Glucose Calcium Hospital Course: 72 yo female with ESRD, HD MWF R chest wall. Has R UE AVG revised several times but unusable. Presents for access revision including fistulogram Pt s/p R UE access excision and new access creation (brach-ax) POD 1 Doing well c/o incisional pain but hand ok c/o sore throat POD 2 Pt continues to c/o incisional pain Pt denied hand pain Pt c/o R forearm numbness C/o sore throat- better w/ ice chips per pt Pt clear for d/c Arranged out pt f/u [facility] reviewed - Pt Rx 3d pain medication for post operative pain management Reviewed out pt d/c instructions with pt Questions answered - Discharge Instructions Any questions or concerns: Call [facility] [phone] Discharge Plan - Discharge Disposition Patient Disposition: 01 Discharge Home - Discharge Condition Condition: Good - Discharge Order Discharge Orders: Discharge Order (Routine); Ordered 02/23/18 Ordered By: Polly De La Rosa - Physicians Team Primary Care Provider: Primary Care David,Emilie Attending Provider: Dimas Rodgers Other Providers: Gerson eLija MD ; Kameron Vasquez MD - Rxs /Orders / Referrals /Forms Prescriptions: Continue amlodipine 5 mg Tablet 5 mg PO DAILY aspirin 81 mg Tablet,Chewable 81 mg PO DAILY calcium acetate 667 mg Capsule 1,334 mg PO TID calcium carbonate 500 mg calcium (1,250 mg) Tablet 500 mg PO BID daptomycin [Cubicin] 500 mg Recon Soln 900 mg IV Q48H RF: 0 ergocalciferol (vitamin D2) 2,000 unit Tablet 50,000 unit PO WEEKLY insulin aspart U-100 [Novolog U-100 Insulin aspart] 100 unit/mL Solution 1 sliding scale dose SUB-Q TIDAC insulin detemir U-100 [Levemir U-100 Insulin] 100 unit/mL Solution 44 unit SUB-Q Q12HR meclizine 25 mg Tablet 25 mg PO Q6HR PRN (Reason: Dizziness) methocarbamol [Robaxin-750] 750 mg Tablet 750 mg PO TID ondansetron HCl 8 mg Tablet 8 mg PO BID PRN (Reason: Nausea) pantoprazole 40 mg Tablet,Delayed Release (Dr/Ec) 40 mg PO BID pregabalin 75 mg Capsule 75 mg PO BID rosuvastatin 10 mg Tablet 10 mg PO HS tramadol 50 mg Tablet 50 mg PO QID PRN (Reason: Pain) Referrals: Primary Care Emilie Hernandez [Primary Care Provider] - See Instructions Dimas Rodgers MD [Physician] - See Instructions (Your post op follow up is scheduled on 03/15/18 at 10:15) - Discharge Instructions Patient Printed Instructions: Dialysis Diet (GEN), Arteriovenous Fistula Creation for Hemodialysis (DC), End Stage Kidney Disease (GEN) - Post Discharge Care Plan Care Plan Goals: * Discharge Care Plan Goals for ArterioVenous Fistula Directions to Meet your Goals: 1. Pain Relief: You will recover faster after surgery if your pain is kept under control: * Take pain medicine as directed by your doctor. * Tell your doctor if you have questions about what youre feeling, if your medicines dont reduce your pain, or if you suddenly feel worse. 2. Activity: * Dont drive until your doctor says its OK. And never drive while taking opioid pain medicine. * Ask someone to stand nearby while you shower or do other activities, just in case you need help. Activity as tolerated No heavy lifting over a gallon of milk for 10 days 3. Diet and Exercise: * Maintain a healthy weight. If needed, get help to loose extra pounds. * Avoid fatty and fried foods. Stick to lean meats, such as chicken or fish. * Cut back on salt: - Limit canned, dried, packaged, and fast foods. - Dont add salt to your food at the table. - Season foods with herbs instead of salt when you cook * Ask your healthcare provider when you can start a walking program: - If you havent already started a walking program begin with short walks ( about 5 minutes) at home. Go a little longer each day. - Choose a safe place with a level surface, such as a local park or mall. - Wear supportive shoes to prevent injury to your knees and ankles. - Walk with someone. Its more fun and helps you stay with it. 4. Prevent Falls/Injury: * If you are unstable on your feet, remember to ask for help from others. * Avoid using very hot water while showering. It can affect your circulation and make you dizzy. * Free up your hands so that you can use them to keep balance. Use a brodie pack , apron, or pockets to carry things. * Arrange your household to keep the items you need handy. Keep everything else out of the way. * Remove items that may cause you to fall, such as throw rugs and electrical cords. * Use nonslip bath mats, grab bars, an elevated toilet seat, and a shower chair in your bathroom * Sit on a shower stool or chair when you shower to keep from falling. 5. Incision Care: Healing takes several weeks. * Check your incision daily for redness, swelling, tenderness, or drainage. * Prevent infection by washing your hands often. If an infection occurs, it will need to be treated right away. * Call your doctor right away if you think you may have an infection. Symptoms include a fever or an incision that leaks white, green, or yellow fluid. * Don't soak your incision in water until your doctor says its OK. This means no hot tubs, bathtubs, or swimming pools. * Follow your doctor's instructions for changing the dressing. * Dont rub the incision, or apply creams or lotions to it. 6. Follow-Up: Do Not miss your follow-up appointment. Keep up with all your appointments and yearly check ups When to call your doctor: Call your doctor right away if you have: Fever of 100.4F (38C) or higher, or as directed by your doctor Signs of infection (redness, swelling, drainage, or warmth) at the incision site Unrelieved pain at the incision site(s) Changes in the location, type, or severity of pain
== END 2018-02-23 15:10 | disposition home or self-care (01) ==
LOC: N07 10:12 → HSDC 10:12
PROVIDERS: ADMIT Surgery; ATTEND Surgery